=== PATIENT | female | born 1945 | race African-American/Black ===

== ENCOUNTER 2023-06-23 05:48 | Emergency (ER) | payer BC, SELFPAY ==
--- NOTE | ~2023-06-23 | XR_ITS ---
EXAMINATION: XR chest 1V portable DATE: 06/23/2023 06:45 INDICATION: Tracheostomy placement. TECHNIQUE: A single frontal view of the chest was obtained. COMPARISON: None. FINDINGS: There is mild atelectasis in the lower lung zones. No pleural effusion or pneumothorax. The heart size is normal. There is a tracheostomy tube in expected position. IMPRESSION: 1. Mild atelectasis in the lower lung zones. Reviewed, dictated and finalized at location E. RAL APPELLATE CLERK
[2023-06-23 05:48] VITALS: BP 134/109; PULSE 94; RESP 31; TEMP 36.7; O2SAT 96
--- NOTE | 2023-06-23 05:55 | PC.NURSE ---
HS contacted to obtain a 6 uncuffed trach tube from central supply.
[2023-06-23 05:58] VITALS: PULSE 87; O2SAT 94
--- NOTE | 2023-06-23 05:59 | PC.NURSE ---
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
[2023-06-23 06:01] VITALS: BP 126/61; PULSE 88; RESP 22; O2SAT 92
--- NOTE | 2023-06-23 06:11 | PC.NURSE ---
HS and [facility] only able to obtain 5.[address] Giles at bedside to attempt placement at this time.
--- NOTE | 2023-06-23 06:15 | PC.NURSE ---
New trach placed by erp dr che at this time .
--- NOTE | 2023-06-23 06:17 | ED.GENADULT ---
HPI - General Adult General Chief complaint: Shortness of Breath/Dyspnea Stated complaint: pulled out trach Time Seen by Provider: 06/23/23 05:52 Related Data Allergies Allergy/AdvReac Type Severity Reaction Status Date / Time iodine Allergy Hives Verified 06/23/23 05:57 latex Allergy Hives Verified 06/23/23 05:57 Course Vital Signs Vital signs: Vital Signs Temperature 36.7 C 06/23/23 05:48 Pulse Rate 94 06/23/23 05:48 Respiratory Rate 31 H 06/23/23 05:48 Blood Pressure 134/109 H 06/23/23 05:48 Pulse Oximetry 96 06/23/23 05:48 Oxygen Delivery Non-Rebreather Mask 06/23/23 05:48 Oxygen Flow Rate 15 06/23/23 05:48 Temperature 36.7 C 06/23/23 05:48 Pulse Rate 88 06/23/23 06:01 Respiratory Rate 22 H 06/23/23 06:01 Blood Pressure 126/61 06/23/23 06:01 Pulse Oximetry 92 06/23/23 06:01 Oxygen Delivery Non-Rebreather Mask 06/23/23 05:58 Oxygen Flow Rate 15 06/23/23 05:58 Medical Decision Making Vital Signs Vital Signs: Vital Signs Temperature 36.7 C 06/23/23 05:48 Pulse Rate 94 06/23/23 05:48 Respiratory Rate 31 H 06/23/23 05:48 Blood Pressure 134/109 H 06/23/23 05:48 Pulse Oximetry 96 06/23/23 05:48 Oxygen Delivery Non-Rebreather Mask 06/23/23 05:48 Oxygen Flow Rate 15 06/23/23 05:48 Temperature 36.7 C 06/23/23 05:48 Pulse Rate 88 06/23/23 06:01 Respiratory Rate 22 H 06/23/23 06:01 Blood Pressure 126/61 06/23/23 06:01 Pulse Oximetry 92 06/23/23 06:01 Oxygen Delivery Non-Rebreather Mask 06/23/23 05:58 Oxygen Flow Rate 15 06/23/23 05:58 Discharge Plan Discharge Follow-up/Referrals: UNKNOWN,DOCTOR [Primary Care Provider] -
--- NOTE | 2023-06-23 06:19 | ED.GENADULT ---
HPI - General Adult General Chief complaint: Shortness of Breath/Dyspnea Stated complaint: pulled out trach Time Seen by Provider: 06/23/23 05:52 History of Present Illness HPI narrative: Patient is a 77-year-old female who presents emergency department with chief complaint of shortness of breath and pulled out trach. Patient has a chronic tracheostomy and 6- 0 uncuffed trach. The patient apparently pulled the trach out during the evening and EMS was called. They attempted to replace the trach and EMS attempted to place a 3.5 uncuffed endotracheal tube through the ostomy site without success. Patient normally uses supplemental oxygen and gets pulmonary toilet at home is not on a ventilator Related Data Allergies Allergy/AdvReac Type Severity Reaction Status Date / Time iodine Allergy Hives Verified 06/23/23 05:57 latex Allergy Hives Verified 06/23/23 05:57 Review of Systems Review of Systems: A 10 system review of systems was completed on the patient and is negative except for what is stated in the HPI. Nursing and ancillary documentation was reviewed. PMFSH Comments Prior CVA with right-sided weakness peg tube trach, dementia Exam Narrative: GENERAL: Well-appearing, well-nourished, and in no acute distress. HEAD: Normocephalic, atraumatic. EYES: PERRLA and EOMI. ENT: Nares clear, no rhinorrhea or epistaxis. Mucous membranes moist. NECK: Supple. Small stoma site present in the tracheal area CHEST: Clear to auscultation. No respiratory distress. HEART: Regular rate and rhythm. No murmur heard. Normal peripheral pulses. ABDOMEN: Soft, nontender, nondistended, normal active bowel sounds. EXTREMITIES: Normal range of motion. No edema. SKIN: Warm, dry, no rash. NEURO: No focal deficits. Alert to baseline. PSYCH: Normal mood and affect. Course Vital Signs Vital signs: Vital Signs Temperature 36.7 C 06/23/23 05:48 Pulse Rate 94 06/23/23 05:48 Respiratory Rate 31 H 06/23/23 05:48 Blood Pressure 134/109 H 06/23/23 05:48 Pulse Oximetry 96 06/23/23 05:48 Oxygen Delivery Non-Rebreather Mask 06/23/23 05:48 Oxygen Flow Rate 15 06/23/23 05:48 Temperature 36.7 C 06/23/23 05:48 Pulse Rate 88 06/23/23 06:01 Respiratory Rate 22 H 06/23/23 06:01 Blood Pressure 126/61 06/23/23 06:01 Pulse Oximetry 92 06/23/23 06:01 Oxygen Delivery Non-Rebreather Mask 06/23/23 05:58 Oxygen Flow Rate 15 06/23/23 05:58 Procedures Other Procedure Procedure 1: Other Procedure: Using a 5.5 uncuffed trach the trach tube was inserted with an slug press operator the patient had good air exchange through the tube and tolerated the procedure well Medical Decision Making MDM Narrative Medical decision making narrative: Differential diagnosis includes loss of airway secondary to mechanical equipment failure Chest x-ray will be obtained and the patient will be deep suction by respiratory Chest x-ray showed no focal infiltrate the patient will be discharged back home with family Vital Signs Vital Signs: Vital Signs Temperature 36.7 C 06/23/23 05:48 Pulse Rate 94 06/23/23 05:48 Respiratory Rate 31 H 06/23/23 05:48 Blood Pressure 134/109 H 06/23/23 05:48 Pulse Oximetry 96 06/23/23 05:48 Oxygen Delivery Non-Rebreather Mask 06/23/23 05:48 Oxygen Flow Rate 15 06/23/23 05:48 Temperature 36.7 C 06/23/23 05:48 Pulse Rate 88 06/23/23 06:01 Respiratory Rate 22 H 06/23/23 06:01 Blood Pressure 126/61 06/23/23 06:01 Pulse Oximetry 92 06/23/23 06:01 Oxygen Delivery Non-Rebreather Mask 06/23/23 05:58 Oxygen Flow Rate 15 06/23/23 05:58 Discharge Plan Discharge Clinical Impression: Malfunction of tracheostomy Patient Disposition: Home, Self-Care Condition: Stable Instructions: Antibiotic Form, Tracheostomy Care (ED) Additional Instructions: Please follow-up with your primary care provider Follow-up/Referrals: UNKNOWN,DOC
[2023-06-23 07:12] VITALS: BP 113/57; PULSE 82; RESP 16; O2SAT 100
[2023-06-23 08:27] VITALS: BP 152/89; PULSE 83; RESP 17; TEMP 36.6; O2SAT 100
[2023-06-23 09:59] VITALS: BP 151/82; PULSE 83; RESP 18; O2SAT 100
== END 2023-06-23 10:01 | disposition home or self-care (01) ==
PROVIDERS: Emergency Provider Emergency Medicine
DX: Z43.0 Encounter for attention to tracheostomy (principal); I69.951 Hemiplegia and hemiparesis following unspecified cerebrovascular disease affecting right dominant side; F03.90 Unspecified dementia, unspecified severity, without behavioral disturbance, psychotic disturbance, mood disturbance, and anxiety
CPT/HCPCS: 71045; 99283

== ENCOUNTER 2023-07-03 18:39 | Emergency (ER) | payer BC, SELFPAY ==
[2023-07-03] VITALS (8 sets, daily range): BP systolic 140–152; BP diastolic 68–72; PULSE 77–88; RESP 19–24; TEMP 36.6–36.7; O2SAT 100
--- NOTE | 2023-07-03 19:18 | PC.NURSE ---
Assumed care of pt from JASMIN Alba at this time.
--- NOTE | 2023-07-03 19:59 | PC.NURSE ---
Pt daughter requesting humidified oxygen. RT called and to be coming down to assess pt.
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
[2023-07-03] MEDS: IPRATROPIUM 0.5 MG/ALBUTEROL SULFATE 2.5 MG AMPUL.NEB 3 ML INHALATION (20:30)
--- NOTE | 2023-07-03 20:31 | PC.NURSE ---
RT at bedside suctioning pt and hooking pt up to humidified oxygen. This RN replaced dressing around trach with assistance from DAISY Shelby. RT requested 14 fr suction catheters to be placed at bedside, DAISY Shelby placed removed them from pyxis and placed at bedside.
[2023-07-04 00:21] VITALS: BP 131/73; PULSE 75; RESP 16; O2SAT 100
--- NOTE | 2023-07-04 00:43 | PC.NURSE ---
Pt changed by this RN and JOSE Sims. RT called to adjust settings on high flow as requested per family. Pt VSS at this time.
--- NOTE | 2023-07-04 00:53 | PC.NURSE ---
EMS transport contacted for ETA. Reported 2 hours. Rosy, ER escrow secretary calling other companies to see if any offer shorter wait times.
== END 2023-07-04 01:51 | disposition home or self-care (01) ==
PROVIDERS: Emergency Provider Physician Assistant
DX: R06.2 Wheezing (principal); G30.9 Alzheimer's disease, unspecified; F02.80 Dementia in other diseases classified elsewhere, unspecified severity, without behavioral disturbance, psychotic disturbance, mood disturbance, and anxiety; I69.351 Hemiplegia and hemiparesis following cerebral infarction affecting right dominant side; Z93.0 Tracheostomy status; Z99.81 Dependence on supplemental oxygen
CPT/HCPCS: 94640; 99283

== ENCOUNTER 2023-07-16 17:05 | Emergency (ER) | payer BC, SELFPAY ==
--- NOTE | ~2023-07-16 | XR_ITS ---
EXAMINATION: XR chest 1V portable Exam Date/Time: 07/16/2023 17:42 CDT HISTORY: trach placement Comparison: 06/23/2023. RESULT: Lines, tubes, and devices: Tracheostomy tube terminating over the upper trachea. Multiple suture libertad es in the right mid and upper lung. Lungs and pleura: Senescent and postsurgical change. Right lower lung scar/atelectasis. Cardiomediastinal silhouette: Stable. Other: No acute osseous or upper abdominal finding. IMPRESSION: No acute cardiopulmonary process. Tracheostomy tube in good position. Reviewed, dictated and finalized at location K.
[2023-07-16 17:09] VITALS: BP 111/55; PULSE 75; RESP 18; TEMP 36.3; O2SAT 95
[2023-07-16 17:12] VITALS: RESP 20
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
[2023-07-16 17:30] VITALS: PULSE 74; RESP 24; O2SAT 100
--- NOTE | 2023-07-16 17:30 | PC.NURSE ---
ED MD able to place new tracheostomy tube at bedside. Respiratory present to start humidified o2 and inline suction. Pt tolerating well. Will continue to monitor.
[2023-07-16 19:31] VITALS: BP 134/79; PULSE 78; RESP 20; O2SAT 98
== END 2023-07-16 20:09 | disposition home or self-care (01) ==
PROVIDERS: Emergency Provider Emergency Medicine
DX: Z43.0 Encounter for attention to tracheostomy (principal)
CPT/HCPCS: 43762; 71045; 99283

== ENCOUNTER 2023-08-07 12:50 | Emergency (ER) | payer BC, SELFPAY ==
[2023-08-07] VITALS (23 sets, daily range): BP systolic 93–172; BP diastolic 48–101; PULSE 70–87; RESP 12–34; TEMP 36.4–36.9; O2SAT 84–100
--- NOTE | ~2023-08-07 | XR_ITS ---
EXAMINATION: XR chest 1V portable 08/07/2023 13:34 INDICATION: Shortness of breath. PROCEDURE: AP portable chest COMPARISON: 07/16/2023 FINDINGS: The lungs are clear. The cardiomediastinal silhouette is within normal limits. There are no pleural effusions. There is no pneumothorax suspected. IMPRESSION: 1: NO ACUTE CARDIOPULMONARY DISEASE. Reviewed, dictated and finalized at location B.
--- NOTE | 2023-08-07 13:00 | ECG_ITS ---
SEE SCANNED COPY FOR CONFIRMED REPORT MTDD
[2023-08-07] MEDS: IPRATROPIUM BR 0.02% INH SOLN 0.5 MG/2.5 ML VIAL 1 MG INHALATION (13:10)
[2023-08-07] MEDS: ALBUTEROL SULFATE NEB 2.5 MG/3 ML INH 10 MG INHALATION (13:10)
[2023-08-07 13:16] LABS: Basophils Absolute Auto 0.1 K/mm3 (0.0-0.1); Basophils Percent Auto 0.4 % (0.2-1.2); Eosinophils Absolute Auto 0.4 K/mm3 (0-0.3); Eosinophils Percent Auto 2.9 % (0-4.4); Hematocrit 30.1 % (37.0-47.0); Hemoglobin 9.7 g/dL (12.0-15.0); Immature Granulocyte Absolute 0.06 K/mm3 (0.00-0.031); Immature Granulocyte Percent A 0.4 % (0-0.5); Lymphocytes Absolute Auto 1.12 K/mm3 (0.9-3.2); Lymphocytes Percent Auto 7.9 % (18.3-44.2); Mean Corpuscular HGB Conc 32.2 g/dl (32-36); Mean Corpuscular Hemoglobin 30.1 pg (26-34); Mean Corpuscular Volume 93.5 fl (80-100); Mean Platelet Volume 10.4 fl (7.4-10.4); Monocytes Absolute Auto 0.7 K/mm3 (0.1-0.6); Neutrophils Absolute Auto 11.9 K/mm3 (1.3-6.7); Neutrophils Percent Auto 83.4 % (45.5-73.1); Platelet Count Result 335 k/mm3 (150-375); Red Blood Count 3.22 M/mm3 (4.2-5.4); Red Cell Distribution Width 15.4 % (11.5-14.5); White Blood Count 14.2 K/mm3 (4.5-10.0)
[2023-08-07 13:27] LABS: Partial Thromboplastin Time 29.6 Seconds (22.3-36.8); Prothrombin Time 13.8 Seconds (11.1-14.7)
[2023-08-07 13:30] LABS: Alanine Aminotransferase 18 U/L (6-35); Albumin Level 4.6 g/dL (3.5-5.1); Alkaline Phosphatase 125 U/L (38-126); Anion Gap 7 mmol/L (4-12); Aspartate Amino Transferase 30 U/L (14-36); Bilirubin,Total 0.4 mg/dL (0.2-1.3); Blood Urea Nitrogen 53 mg/dL (7-17); Calcium 11.1 mg/dL (8.4-10.2); Carbon Dioxide 30 mmol/L (22-30); Chloride 100 mmol/L (98-107); Estimated CRCL calculation 44 ml/min; Estimated Glomerular Filt Rate > 60; Glucose 193 mg/dL (65-110); Potassium 5.8 mmol/L (3.4-5.0); Sodium 137 mmol/L (137-145)
--- NOTE | 2023-08-07 14:32 | PC.NURSE ---
Family states pt usually wears 8L O2 at all times
--- NOTE | 2023-08-07 14:43 | ED.GENADULT ---
HPI - General Adult General Chief complaint: Shortness of Breath/Dyspnea Stated complaint: gi bleed/respiratory distress Time Seen by Provider: 08/07/23 13:00 History of Present Illness HPI narrative: 77-year-old female presenting to the emergency department for evaluation of blood in the stool over the last 2-3 days. Patient does have a history of hemorrhoids. Family did provide a photo of blood on stool and report no melena. Is not on any blood thinners. Related Data Allergies Allergy/AdvReac Type Severity Reaction Status Date / Time iodine Allergy Hives Verified 08/07/23 13:08 latex Allergy Hives Verified 08/07/23 13:08 Review of Systems Review of Systems: All systems reviewed & are unremarkable except as noted in HPI and below Exam Narrative: APPEARANCE: Well appearing, no pain, no distress, well-nourished. HEAD: normocephalic, atraumatic. EYES: PERRLA/EOMI, conjunctivae clear. NOSE: Normal no drainage EARS:TMS clear with good light reflex. THROAT: Pharynx clear, no exudate. NECK: Supple. No adenopathy, no masses. RESPIRATORY: wheezing respiration upon arrival CARDIOVASCULAR: Regular rate and rhythm without murmurs rubs or gallops. ABDOMINAL: Soft, nontender, nondistended, normal bowel sounds MUSCULOSKELETAL: Moves all extremities. Strength/ROM intact, No edema, No calf tenderness. NEURO: Alert. Cranial nerves II through XII intact. grossly intact SKIN: Warm, dry. Normal Color Course Course Emergency Course: Patient family were updated on the results of the workup and patient was encouraged to have close follow-up with primary care physician and GI. Vital Signs Vital signs: Vital Signs Temperature 98.4 F 08/07/23 12:47 Pulse Rate 87 08/07/23 12:47 Respiratory Rate 34 H 08/07/23 12:47 Blood Pressure 156/95 H 08/07/23 12:47 Pulse Oximetry 100 08/07/23 12:47 Oxygen Delivery Trach Collar 08/07/23 12:47 Oxygen Flow Rate 50 08/07/23 12:47 Fraction of Inspired Oxygen 59 08/07/23 12:47 Temperature 97.5 F L 08/07/23 16:06 Pulse Rate 83 08/07/23 20:30 Respiratory Rate 17 08/07/23 20:30 Blood Pressure 123/58 L 08/07/23 20:01 Pulse Oximetry 100 08/07/23 20:30 Oxygen Delivery High Flow Therapy with Trach Collar 08/07/23 18:06 Oxygen Flow Rate 40 08/07/23 18:06 Fraction of Inspired Oxygen 50 08/07/23 18:06 Medical Decision Making MDM Narrative Medical decision making narrative: 77-year-old female presenting to the emergency department for evaluation blood in her stool. The patient is afebrile but does have a leukocytosis of 14.2, patient has hemoglobin of 9.7. Patient did have some wheezing on exam and this did improve breathing treatments. Patient's O2 requirement is the same as at home. Chest x-ray shows no evidence of pneumonia. Family feels that the patient is breathing at her normal baseline. Patient is not appear to be in any distress. Patient did have an elevated potassium but patient did receive an hour long albuterol treatment and a dose of Lokelma. Differential Diagnosis Differential Diagnosis: Colitis, diverticulitis, external hemorrhoid, internal hemorrhoid, upper GI bleed, lower GI Vital Signs Vital Signs: Vital Signs Temperature 98.4 F 08/07/23 12:47 Pulse Rate 87 08/07/23 12:47 Respiratory Rate 34 H 08/07/23 12:47 Blood Pressure 156/95 H 08/07/23 12:47 Pulse Oximetry 100 08/07/23 12:47 Oxygen Delivery Trach Collar 08/07/23 12:47 Oxygen Flow Rate 50 08/07/23 12:47 Fraction of Inspired Oxygen 59 08/07/23 12:47 Temperature 97.5 F L 08/07/23 16:06 Pulse Rate 83 08/07/23 20:30 Respiratory Rate 17 08/07/23 20:30 Blood Pressure 123/58 L 08/07/23 20:01 Pulse Oximetry 100 08/07/23 20:30 Oxygen Delivery High Flow Therapy with Trach Collar 08/07/23 18:06 Oxygen Flow Rate 40 08/07/23 18:06 Fraction of Inspired Oxygen 50 08/07/23 18:06 Lab Data 08/07/23 13:08 08/07/23 13:
[2023-08-07] MEDS: SODIUM ZIRCONIUM CYCLOSILICATE 10 GM POWD.PACK PO (15:57)
--- NOTE | 2023-08-07 19:12 | PC.NURSE ---
Report given to Zora CASTELLANOS, all questions answered
== END 2023-08-07 20:48 | disposition home or self-care (01) ==
PROVIDERS: Emergency Provider Emergency Medicine
DX: K64.9 Unspecified hemorrhoids (principal)
CPT/HCPCS: 36415; 71045; 80053; 85025; 85610; 85730; 93005; 94640; 99284; A9270

== ENCOUNTER 2023-09-11 02:26 | Inpatient (IN) | payer MEDICARE, BC, SELFPAY ==
[2023-09-11] VITALS (41 sets, daily range): BP systolic 108–149; BP diastolic 49–71; PULSE 63–104; RESP 14–28; TEMP 36.1–36.6; O2SAT 94–100; BMI 25.2
--- NOTE | ~2023-09-11 | CT_ITS ---
EXAMINATION: CTA chest PE protocol DATE: 09/12/2023 17:36 INDICATION: Shortness of breath TECHNIQUE: Computed tomography (CT) pulmonary angiogram of the chest was performed with 100 mL Omnipa que-350 intravenous contrast. Additional 3D reconstructions utilizing coronal maximum intensity proje ction (MIP) were performed. Automated exposure control and iterative reconstruction technique were em ployed. The dose-length product was 547.01 mGy-cm. COMPARISON: None FINDINGS: Tracheostomy tube at the thoracic inlet. No pulmonary embolism. Sensitivity decreased in some of the smaller subsegmental pulmonary arteries particularly at the lung bases due to some respiratory motion . Mild emphysema. Mild discoid atelectasis along the bilateral major fissures and mild dependent atel ectasis in bilateral lower lobes. 10 mm nodule at the posterior segment of the left upper lobe which is concerning for primary bronchogenic carcinoma. Mild cardiomegaly. Atherosclerotic coronary artery calcifications. Aortic valve calcific lesion. No pericardial effusion. Thoracic aorta is normal in ca liber with no dissection. No pathologically enlarged thoracic lymphadenopathy. Likely benign 1.3 cm r ight thyroid nodule. Cholecystectomy clips at gallbladder fossa. Mild thoracic spondylosis. IMPRESSION: 1. Emphysema and mild atelectasis in both lungs. No pulmonary embolism or other acute cardiopulmonary disease. 2. 10 mm left upper lobe nodule concerning for primary bronchogenic carcinoma. If prior outside imagi ng is unavailable to document long-term stability would recommend percutaneous biopsy for further damon luation. Line 3. Mild cardiomegaly and enlargement of the central pulmonary arteries consistent with pulmonary glory rial hypertension. Reviewed, dictated and finalized at location A. IMPRESSION: 1. Emphysema and mild atelectasis in both lungs. No pulmonary embolism or other acute cardiopulmonary disease. 2. 10 mm left upper lobe nodule concerning for primary bronchogenic carcinoma. If prior outside imaging is unavailable to document long-term stability would r ecommend percutaneous biopsy for further evaluation. Line 3. Mild cardiomegaly and enlargement of the central pulmonary arteries consiste nt with pulmonary arterial hypertension.
--- NOTE | ~2023-09-11 | XR_ITS ---
Portable chest x-ray Comparison: 08/07/2023 Clinical History: Shortness of breath Findings: Tracheostomy cannula present. Possible mild central congestive changes and minimal pulmona ry edema pattern. Cardiomediastinal silhouette is stable. Bones and soft tissues are unremarkable. Impression: Mild central congestive changes and suspected minimal pulmonary edema pattern. Tracheostomy cannula. Reviewed, dictated and finalized at location . Impression: Mild central congestive changes and suspected minimal pulmonary edema pattern. Tracheostomy cannula.
--- NOTE | ~2023-09-11 | US_ITS ---
Duplex Sonography of the bilateral lower extremities: Indication: Positive d-dimer Sagittal and transverse B-mode images as well as color-flow imaging were performed on the right and l eft femoral and popliteal veins. B-mode examination was done without and with compression in the tra nsverse plane. There is good visualization of the bilateral common femoral, proximal profunda femora l, superficial femoral, greater saphenous, and popliteal veins. Normal flow was seen on color-flow im aging. Normal compressibility was demonstrated. Visualized calf veins are also patent. Impression: No evidence of deep vein thrombosis involving either lower extremity. Reviewed, dictated and finalized at location M. Impression: No evidence of deep vein thrombosis involving either lower extremit y.
--- NOTE | 2023-09-11 02:44 | ED.GENADULT ---
HPI - General Adult General Chief complaint: Shortness of Breath/Dyspnea Stated complaint: difficulty breathing/trach History of Present Illness HPI narrative: Patient is 77-year-old female who presents to the emergency department this morning due to shortness of breath and hypoxia. Patient is trach dependent with baseline of A&O x1. Daughter is present with the patient. Daughter states that today she noticed that her mother is working hard to breathe and when she went to measure her pulse ox, she noted that she was satting in the 60s. Patient then brought the patient oxygen and placed it on her tracheal tube but could not get her oxygen level above 80. She called EMS and patient was brought to our facility for further evaluation. Patient suffered a stroke in December of 2022 and was trached on March of 2023. Patient was recently discharged from [facility] 2 days ago where she was admitted for trach issues, and pneumonia. 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 Daughter denies any fevers at home since she was discharged from the hospital. Patient uses supplemental oxygen at home as needed and is not connected to a ventilator. Per daughter, she wears 3-4 L of oxygen. Related Data Allergies Allergy/AdvReac Type Severity Reaction Status Date / Time iodine Allergy Hives Verified 08/07/23 13:08 latex Allergy Hives Verified 08/07/23 13:08 Review of Systems Review of Systems: A full ROS was reviewed with daughter present at bedside and is negative unless stated otherwise in HPI. Exam Narrative: General: Awake, afebrile, in moderate respiratory distress. HEENT: PERRL, no rhinorrhea, no post nasal drip, oropharynx clear, trach in place. Neck: Trachea midline, no JVD, no lymphadenopathy. Cardiovascular: Regular rate and rhythm, no murmurs, rubs or gallops, no peripheral edema. Respiratory: Diffuse bilateral wheezing, tachypnea, moderate respiratory distress. Abdomen: Soft, nontender, nondistended, no rebound, no guarding, no peritoneal signs, G-tube in place. Musculoskeletal: No joint swelling or deformity, normal muscle tone. Skin: No rashes or petechia, no signs of infection. Neurological: Alert and oriented x 0-1 which is baseline. Right-sided flaccid paralysis secondary to history of stroke.. Course Vital Signs Vital signs: Vital Signs Temperature 98 F 09/11/23 02:25 Pulse Rate 78 09/11/23 02:25 Respiratory Rate 28 H 09/11/23 02:25 Blood Pressure 123/66 09/11/23 02:25 Pulse Oximetry 100 09/11/23 02:25 Oxygen Delivery Non-Rebreather Mask 09/11/23 02:25 Oxygen Flow Rate 10 09/11/23 02:25 Temperature 98 F 09/11/23 02:25 Pulse Rate 77 09/11/23 05:46 Respiratory Rate 22 H 09/11/23 05:46 Blood Pressure 122/56 L 09/11/23 05:46 Pulse Oximetry 95 09/11/23 05:46 Oxygen Delivery High Flow Therapy with Trach Collar 09/11/23 03:18 Oxygen Flow Rate 45 09/11/23 03:18 Medical Decision Making MDM Narrative Medical decision making narrative: The patient was evaluated by myself in the emergency department. History is obtained from patient who is an independent historian and physical exam was performed. External medical records were reviewed at this time. IV was established and pertinent tests were ordered. Respiratory therapy is called to bedside for airway suctioning. Patient was placed on a non-rebreather with improvement of her oxygenation to 100%. Patient was administered 125 mg of IV Solu-Medrol and two DuoNeb breathing treatment and humidified air. On repeat assessment the patient, patient's respiratory rate has improved along with her work of breathing and on repeat lung auscultation, wheezing has improved as well, however, patient does still have some mild bilateral wheezing. At this time, DuoNeb breathing treatments were scheduled every 4 hours along with intermittent suctioning. Patient is struggling to cough and clear up all the
[2023-09-11] MEDS: IPRATROPIUM 0.5 MG/ALBUTEROL SULFATE 2.5 MG AMPUL.NEB 3 ML INHALATION ×6 (03:01→20:46)
[2023-09-11] MEDS: methylPREDNISolone SOD SUCC 125 MG VIAL IV PUSH (03:46)
[2023-09-11 04:00] LABS: Basophils Absolute Auto 0.1 K/mm3 (0.0-0.1); Basophils Percent Auto 0.3 % (0.2-1.2); Eosinophils Absolute Auto 0.6 K/mm3 (0-0.3); Hematocrit 24.1 % (37.0-47.0); Hemoglobin 7.6 g/dL (12.0-15.0); Immature Granulocyte Absolute 0.07 K/mm3 (0.00-0.031); Immature Granulocyte Percent A 0.5 % (0-0.5); Lymphocytes Absolute Auto 0.86 K/mm3 (0.9-3.2); Lymphocytes Percent Auto 5.7 % (18.3-44.2); Mean Corpuscular HGB Conc 31.5 g/dl (32-36); Mean Corpuscular Hemoglobin 29.6 pg (26-34); Mean Corpuscular Volume 93.8 fl (80-100); Mean Platelet Volume 10.6 fl (7.4-10.4); Monocytes Absolute Auto 0.8 K/mm3 (0.1-0.6); Monocytes Percent Auto 5.2 % (2.6-8.5); Neutrophils Absolute Auto 12.7 K/mm3 (1.3-6.7); Neutrophils Percent Auto 84.3 % (45.5-73.1); Platelet Count Result 321 k/mm3 (150-375); Red Blood Count 2.57 M/mm3 (4.2-5.4); Red Cell Distribution Width 17.3 % (11.5-14.5); White Blood Count 15.1 K/mm3 (4.5-10.0)
[2023-09-11 04:10] LABS: Lactic Acid Reflex 1.6 mmol/L (0.7-2.0)
--- NOTE | 2023-09-11 04:30 | PC.NURSE ---
Phlebotomy called for blood draw. Patient stuck 8 times for blood and IV in the ED.
[2023-09-11] MEDS: levoFLOXacin 750 MG/D5W 150 ML 750 MG/150 ML BAG 100 MG IVPB (08:23)
--- NOTE | 2023-09-11 08:26 | PC.NURSE ---
0700 Report taken from AJSMIN Reddy who states phleb was called around 0430 for assistance with cultures and a green top due to difficult draw and hemolysis, and they haven't made it to the ED to assist.
--- NOTE | 2023-09-11 08:29 | PC.NURSE ---
0828 Karina from lab called to report hemolysis on the second green top sent, requested for phleb to come to ED for assistance to draw, Karina states she would let them know.
--- NOTE | 2023-09-11 08:35 | PC.NURSE ---
Phleb here to draw blood on pt.
[2023-09-11 09:10] LABS: Alanine Aminotransferase 20 U/L (6-35); Albumin Level 3.9 g/dL (3.5-5.1); Alkaline Phosphatase 126 U/L (38-126); Aspartate Amino Transferase 29 U/L (14-36); Bilirubin,Total 0.4 mg/dL (0.2-1.3); Blood Urea Nitrogen 60 mg/dL (7-17); Calcium 9.8 mg/dL (8.4-10.2); Carbon Dioxide > 40 mmol/L (22-30); Chloride 96 mmol/L (98-107); Estimated CRCL calculation 35 ml/min; Estimated Glomerular Filt Rate > 60; Glucose 144 mg/dL (65-110); Magnesium 2.4 mg/dL (1.6-2.3); Potassium 4.6 mmol/L (3.4-5.0); Sodium 139 mmol/L (137-145)
--- NOTE | 2023-09-11 09:24 | ADMGEN ---
This patient, Nicole Cuevas, was admitted to IMU Room 232-01. Patient/family oriented to hospital policies and general routines including ID bracelet, bed and alarms, visiting hours, pain management, procedures, bathroom and other care routines, personal items, smoking policy, room service/diet, and visiting hours. Information on how to activate the Rapid Response Team has been discussed. Patient/Family are encouraged to report perceived risks to care and to ask questions if they do not understand what they are told or what they should do.
--- NOTE | 2023-09-11 09:52 | PM.IMHP ---
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 Patient was admitted at [facility] for up sizing of tracheostomy to a #6 Shiley from a pediatric trach that was previously in place. While in the hospital patient developed an infection and was treated for pneumonia. Patient was discharge on 09/08 and was doing well that day. On 09/09 patient began having wheezing and difficulty breathing requiring higher flow of oxygen by trach collar and not improving with nebulizer treatments at home. Overnight patient's oxygen saturation decreased below 60% despite the use of trach collar oxygen. EMS was called and was able to get saturation to 80%. Review of Systems Review of Systems: ROS unobtainable: Yes unobtainable due to endotracheal tube and unobtainable due to mental status PMFSH Past Medical History Medical History 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 03/2017 Alzheimer's dementia A&O x0 CAD (coronary artery disease) Cerebrovascular accident (CVA) Cholecystectomy planned 01/16/2023 COPD (chronic obstructive pulmonary disease) Gastrostomy complication Gastrostomy tube replacement 04/04/2023 HLD (hyperlipidemia) HTN (hypertension) Tracheitis 09/04 Surgical History Surgical History H/O tracheostomy 03/2023 Hx of esophagogastroduodenoscopy w/ Peg placement 01/20/23 Hx of exploratory laparotomy ROULA Gastrostomy Social History Social History Smoking status: Never smoker Spiritual care concerns: No Meds Home Medications and Allergies Home Medications Medication Instructions Recorded Confirmed Type acetaminophen 160 mg/5 mL oral 640 mg PO QID PRN pain or fever 09/11/23 09/11/23 History elixir albuterol sulfate 90 mcg/actuation 2 puff inhalation Q4H PRN 09/11/23 09/11/23 History aerosol inhaler Shortness Of Breath Or Wheezing amlodipine 5 mg tablet 5 mg feeding tube DAILY 09/11/23 09/11/23 History aspirin 81 mg chewable tablet 81 mg feeding tube DAILY 09/11/23 09/11/23 History atorvastatin 20 mg tablet 20 mg feeding tube HS 09/11/23 09/11/23 History donepezil 5 mg tablet 5 mg feeding tube HS 09/11/23 09/11/23 History guaifenesin 100 mg/5 mL oral liquid 200 mg PO Q6H PRN Cough 09/11/23 09/11/23 History lansoprazole 30 mg delayed 30 mg feeding tube DAILY 09/11/23 09/11/23 History release,disintegrating tablet polyethylene glycol 3350 17 gram 17 g feeding tube DAILY PRN 09/11/23 09/11/23 History oral powder packet Constipation Allergies Allergy/AdvReac Type Severity Reaction Status Date / Time iodine Allergy Hives Verified 08/07/23 13:08 latex Allergy Hives Verified 08/07/23 13:08 Vital Signs Vital Signs - 24 hr 09/11/23 02:25 09/11/23 03:01 09/11/23 03:18 Temperature 36.6 C Pulse Rate 78 76 Respiratory Rate 28 H 26 H Blood Pressure 123/66 Pulse Oximetry 100 97 Oxygen Delivery Non-Rebreather Mask High Flow Therapy with Tr Oxygen Flow Rate 10 45 Fraction of Inspired Oxygen 09/11/23 03:10 09/11/23 03:25 09/11/23 03:39 Temperature Pulse Rate 82 77 72 Respiratory Rate 24 H 21 H 27 H Blood Pressure Pulse Oximetry Oxygen Delivery Oxygen Flow Rate Fraction of Inspired Oxygen 09/11/23 04:16 09/11/23 04:31 09/11/23 02:30 Temperature Pulse Rate 67 82 77 Respiratory Rate 21 H 17 Blood Pressure 113/57 L 110/58 L Pulse Oximetry 96 97 Oxygen Delivery Oxygen Flow Rate Fraction of Inspired Oxygen 09/11/23 04:46 09/11/23 05:01 09/11/23 05:16 Temperature Pulse Rate 85
--- NOTE | 2023-09-11 10:26 | ECG_ITS ---
SEE SCANNED COPY FOR CONFIRMED REPORT MTDD
[2023-09-11 11:01] LABS: Troponin I 0.045 ng/mL (0.000-0.034)
[2023-09-11 11:12] LABS: Hemoglobin A1C 5.1 % (<5.7)
[2023-09-11] MEDS: ATORVASTATIN 20 MG TABLET FEED TUBE (11:31)
[2023-09-11] MEDS: LANSOPRAZOLE ODT 30 MG TAB.RAP.DR FEED TUBE (11:32)
[2023-09-11] MEDS: ASPIRIN 81 MG CHEWABLE TABLET FEED TUBE (11:32)
[2023-09-11] MEDS: TOLNAFTATE 1% POWDER 45 GM BTL 1 APPLIC TOPICAL ×2 (13:41→21:32)
[2023-09-11] MEDS: DONEPEZIL HCL 5 MG TABLET FEED TUBE (21:32)
[2023-09-11] MEDS: amLODIPine BESYLATE 5 MG TABLET FEED TUBE (21:32)
[2023-09-12] VITALS (32 sets, daily range): BP systolic 114–147; BP diastolic 35–78; PULSE 75–887; RESP 12–32; TEMP 36.2–37.1; O2SAT 92–99
--- NOTE | 2023-09-12 | ECHO_ITS ---
Patient Info Name: Nicole Cuevas Age: 77 years : 1945 Gender: Female Ht: 64 in Wt: 146 lbs BSA: 1.74 m2 HR: 89 bpm BP: 140 / 63 mmHg Technical Quality: Good Exam Date: 09/12/2023 7:38 AM Exam Location: Echo Lab Patient Status: Inpatient Admit Date: 09/11/2023 Staff Ordering Physician: Jean Pierre Marcum APRN Bread Oven Operator: Martin Lockwood RDCS Attending Provider: Ben Valdivia MD Referring Physician: Jossue MILTON; Exam Type: CA echo doppler color flow Study Info Indications - pulmonary edema Complete two-dimensional, color flow and Doppler transthoracic echocardiogram is performed. Summary 1. Complete two-dimensional, color flow and Doppler transthoracic echocardiogram is performed. 2. Left ventricular chamber dimension is normal. 3. Left ventricular systolic function is normal, estimated at 65-70%. 4. The left ventricular diastolic function is grade I diastolic dysfunction. 5. E/e' 11 is mildly elevated. 6. Left atrial chamber dimension is mildly enlarged. 7. Right atrial chamber dimension is mildly enlarged. 8. There is trace tricuspid valve regurgitation. 9. Moderate pulmonary hypertension, estimated pulmonary arterial systolic pressure is 57 mmHg. 10. Dilated inferior vena cava with <50% collapse upon inspiration consistent with significantly elevated right atrial pressure, 15 mmHg. 11. There is trivial pericardial effusion. Left Ventricle E/e' 11 is mildly elevated. Left ventricular chamber dimension is normal. Left ventricular systolic function is normal, estimated at 65-70%. The left ventricular diastolic function is grade I diastolic dysfunction. Right Ventricle Right ventricular systolic function is normal and with normal TAPSE 2.1 cm. Right ventricular chamber dimension is normal. Left Atria Left atrial chamber dimension is mildly enlarged. Right Atria Right atrial chamber dimension is mildly enlarged. Aortic Valve The aortic valve is trileaflet. There is no aortic valve stenosis. There is no aortic valve regurgitation. Pulmonic Valve There is no pulmonic regurgitation. Mitral Valve There is no mitral valve stenosis. There is no mitral valve regurgitation. Tricuspid Valve There is trace tricuspid valve regurgitation. Moderate pulmonary hypertension, estimated pulmonary arterial systolic pressure is 57 mmHg. Pericardium/Pleural There is trivial pericardial effusion. Inferior Vena Cava Dilated inferior vena cava with <50% collapse upon inspiration consistent with significantly elevated right atrial pressure, 15 mmHg. Aorta The aortic root size at the sinus of Valsalva is normal. Left Ventricular Outflow Tract Name Value Normal LVOT 2D LVOT Diameter 1.8 cm LVOT Doppler LVOT Peak Gradient 12 mmHg LVOT Mean Gradient 6 mmHg LVOT VTI 33 cm LVOT VTI/AV VTI Ratio 1.0 LVOT Stroke Volume 88 ml LVOT CO 7.3 l/min LVOT CI 4.2 l/min/m2 Pulmonic Valve Name
[2023-09-12] MEDS: IPRATROPIUM 0.5 MG/ALBUTEROL SULFATE 2.5 MG AMPUL.NEB 3 ML INHALATION ×6 (00:56→20:48)
[2023-09-12 08:29] LABS: Basophils Percent Auto 0.1 % (0.2-1.2); Hematocrit 22.7 % (37.0-47.0); Immature Granulocyte Absolute 0.04 K/mm3 (0.00-0.031); Immature Granulocyte Percent A 0.5 % (0-0.5); Lymphocytes Absolute Auto 1.14 K/mm3 (0.9-3.2); Mean Corpuscular HGB Conc 30.8 g/dl (32-36); Mean Corpuscular Hemoglobin 28.9 pg (26-34); Mean Corpuscular Volume 93.8 fl (80-100); Mean Platelet Volume 9.7 fl (7.4-10.4); Monocytes Absolute Auto 0.9 K/mm3 (0.1-0.6); Monocytes Percent Auto 11.5 % (2.6-8.5); Neutrophils Percent Auto 73.9 % (45.5-73.1); Platelet Count Result 285 k/mm3 (150-375); Red Blood Count 2.42 M/mm3 (4.2-5.4); Red Cell Distribution Width 16.9 % (11.5-14.5); White Blood Count 8.1 K/mm3 (4.5-10.0)
[2023-09-12 08:42] LABS: Alanine Aminotransferase 16 U/L (6-35); Albumin Level 3.6 g/dL (3.5-5.1); Alkaline Phosphatase 85 U/L (38-126); Anion Gap 6 mmol/L (4-12); Aspartate Amino Transferase 23 U/L (14-36); Bilirubin,Total 0.4 mg/dL (0.2-1.3); Blood Urea Nitrogen 58 mg/dL (7-17); Calcium 9.6 mg/dL (8.4-10.2); Carbon Dioxide 35 mmol/L (22-30); Chloride 100 mmol/L (98-107); Estimated CRCL calculation 30 ml/min; Estimated Glomerular Filt Rate 53; Glucose 138 mg/dL (65-110); Magnesium 2.5 mg/dL (1.6-2.3); Phosphorus 1.7 mg/dL (2.5-4.5); Potassium 3.8 mmol/L (3.4-5.0); Sodium 141 mmol/L (137-145)
[2023-09-12] MEDS: ENOXAPARIN 40 MG/0.4 ML SYRINGE SUB-Q (09:10)
[2023-09-12] MEDS: LANSOPRAZOLE ODT 30 MG TAB.RAP.DR FEED TUBE (09:10)
[2023-09-12] MEDS: ASPIRIN 81 MG CHEWABLE TABLET FEED TUBE (09:10)
[2023-09-12] MEDS: ATORVASTATIN 20 MG TABLET FEED TUBE (09:10)
[2023-09-12] MEDS: TOLNAFTATE 1% POWDER 45 GM BTL 1 APPLIC TOPICAL ×2 (09:19→22:00)
[2023-09-12 10:29] LABS: NT Pro B Type Natriuretic Pept 1070 pg/mL (19.9-100)
[2023-09-12 10:37] LABS: Procalcitonin 0.6 ng/mL
[2023-09-12 10:51] LABS: Thyroid Stimulating Hormone 0.696 uIU/mL (0.465-4.680)
[2023-09-12 10:53] LABS: D Dimer 0.61 ug/mL (<0.48)
[2023-09-12 10:54] LABS: Free T4 Free Thyroxine 1.08 ng/mL (0.78-2.19)
--- NOTE | 2023-09-12 10:56 | PCNFU ---
Nutrition Follow-Up Complete: Excessive energy intake related to tube feeding orders as evidenced by current rate meeting 163% of energy needs, 154% of protein needs. - RESOLVED Goal: Meet estimated needs, Tolerance of tube feeds - Goal is being met Pt current nutrition is Nepro bolus 240 ml QID (q 4 hours WHILE AWAKE). Flush 120 ml water QID Nutrition recommendation: Based on home regimen, recommend increasing flushes to 240 ml q 4 hours for total water 1648 ml/day Last recorded weight is 66.5 kg. Bowel Motility: No BMs charted Labs Reviewed: Hgb 7.0, Hct 22.7, BUN 58, Cre 1.2, Glu 18 Meds Noted: Levaquin, prevacid, Aricept Skin: Fiction to sacrum Additional Notes:Confirmed with patient's daughter that the current tube feeding regimen at home is Nepro 240 ml QID (no overnight feedings). Confirmed with daughter they are flushing 120 ml water BEFORE AND AFTER feedings for total 240 ml QID. Meeting needs with 1728 kcal, 78 g protein, 688 ml free water. Currently flushing 120 ml q 4 hours. total water is 1168 ml/day. Discussed with RN and flushes changed to 240 ml QID. Monitor tube feeding rate, tolerance, wt, labs. Follow up every Friday and Friday.
[2023-09-12 11:09] LABS: Alveolar/Arterial O2 Gradient 89.9 mmHg; Fractional Inspired Oxygen 30 %; HCO3 ABG 36.4 mEq/l (22.0-26.0); Oxygen Content ABG 10.1 %vol (16.0-22.0); Oxygen Saturation ABG 94.6 % (95.0-100.0); Oxyhemoglobin 92.3 % THb (90.0-100.0); PCO2 ABG 48.2 mmHg (35.0-45.0); PO2 ABG 67.4 mmHg (80.0-100.0); PO2 FiO2 Ratio Arterial Blood 2.25 %; pH ABG 7.496 (7.350-7.450)
[2023-09-12 11:12] LABS: Modified Allen's Test Pass; Site Drawn LEFT RADIAL; Total Hemoglobin 7.7 g/dL (12.0-18.0)
[2023-09-12 11:13] LABS: Device HIGH FLOW THERAPY
[2023-09-12 11:22] LABS: Influenza A QL RT-PCR Negative (Negative); Influenza B QL RT-PCR Negative (Negative); RSV RNA, RT-PCR Negative (Negative); SARS-CoV-2 RNA PCR Negative (Negative)
--- NOTE | 2023-09-12 11:26 | PM.CNPUL ---
Assessment and Plan Assessment and plan (1) Acute and chronic respiratory failure with hypoxia: Code(s): J96.21 - Acute and chronic respiratory failure with hypoxia Status: Acute Assessment and Plan: 77-year-old with a history of tobacco use, lung cancer surgery in 2018, CVA with right-sided hemiparesis in 12/2022, G-tube placed in 02/2023 and tracheostomy placed in 04/12. patient was recently discharged from [facility] and per the family was on 28% FiO2. At home the patient wears a trach collar with a home oxygen order per [facility] at 7-8 L. The family tells me she is wearing a trach collar and normally she is set at 8 L on her oxygen concentrator with saturations 93-98%. Currently the patient had worsening hypoxemia and was brought to the emergency department. She had diffuse wheezing and was treated for COPD exacerbation and possible pneumonia. Blood gas is 7.50/48/67. Her BNP is 1070, her procalcitonin is 0.6, her D-dimer is positive at 0.61, her COVID influenza and RSV RT PCR studies are negative. Echocardiogram with normal LVEF 65-70, grade 1 diastolic dysfunction, mildly increased right atrium, normal RV size and function with a PASP of 57. Etiology of worsening hypoxemia includes mucus plugging, COPD exacerbation, pneumonia, fluid overload and or pulmonary embolism. Plan: I will order CT angiogram of the chest to exclude PE. Agree with treating for possible COPD exacerbation with bronchodilators and antibiotics for possible infection. Currently the patient is on an Airvo machine as this is the way we would administer humidified air at [facility] with 35 L and 30% FiO2. Wean for goal saturation 90-94%. It appears that her oxygen is at her baseline as she was discharged from [facility] on 09/09/2023 and at that time required 28% FiO2 Per the family. Her PaCO2 is 48 on her blood gas today, with a pH of 7.50. There is no need for noninvasive ventilation at this time. Our administrative operations coordinator has called Ivana and her home orders per [facility] are oxygen 7-8 L. she has a cool aerosol generator and this is designed to be titrated to patient comfort. When the patient is ready for discharge she will need a special O2 titration using a Venturi mask set up to determine her % FiO2 that will then be converted to L flow on the patient's home oximeter with a trach collar. (2) COPD (chronic obstructive pulmonary disease): Code(s): J44.9 - Chronic obstructive pulmonary disease, unspecified Status: Acute Assessment and Plan: Patient did have a history of smoking but the daughter does not know when she started and does not know the exact amount of smoking. I have no PFTs. she was previously never on inhalers. She had wheezing on exam and has responded to 1 dose of Solu-Medrol and DuoNebs q.4 hours. 09/12/23: The patient is no longer having wheezing. Plan: Will continue DuoNebs q.4 hours for now. will follow clinically off of systemic steroids for COPD, although she will likely need steroids for CT angiogram of the chest with an iodine allergy. Will treat with Levaquin. If CT angiogram of the chest shows any focal infiltrate will Need to broaden antibiotics as she has recently been hospitalized. I will send an MRSA swab. History of Present Illness History of Present Illness Consult date: 09/12/23 Chief complaint: Resp Distress,Failure to Clear Secretions Narrative: 09/12/2023: This is a new pulmonary consult for hypoxic respiratory failure. 77-year-old with a history of tobacco use, lung cancer surgery in 2018, CVA with right-sided hemiparesis in 12/2022, G-tube placed in 02/2023 and tracheostomy placed in 04/12. Patient lives at home and is taken care of by her daughters. I spoke to the daughter and prior to her stroke she had no respiratory limitations in her activities of daily living. She could take care of her house, do her groom
[2023-09-12 11:47] LABS: Glucose Point of Care 101 mg/dl (65-105)
[2023-09-12] MEDS: diphenhydrAMINE HCl INJ 50 MG/ML VIAL IV PUSH (16:12)
[2023-09-12] MEDS: methylPREDNISolone SOD SUCC 40 MG VIAL IV PUSH (16:12)
[2023-09-12 18:00] LABS: Glucose Point of Care 103 mg/dl (65-105)
--- NOTE | 2023-09-12 18:45 | PM.IMPN ---
Progress Note: A&P Assessment and Plan (1) Acute and chronic respiratory failure with hypoxia: Code(s): J96.21 - Acute and chronic respiratory failure with hypoxia Status: Acute Assessment and Plan: Patient brought in to the ED for acute on chronic respiratory failure. Tracheostomy in place status post CVA late 2022. She usually uses 3-4 L per minute by trach collar. She was recently treated for tracheitis at [facility] Respiratory distress with hypoxia at home with saturations below 60%. CXR showing mild congestive changes and minimal pulmonary edema. ABG showing 7.496/48/67 on high flow. Her condition improved with suction and multiple nebulizer treatments in ER She was started on IV steroids and IV Levaquin Tracheostomy upsized to #6 Shiley 1 week ago COVID,Influenza and RSV PCR negative. MRSA screen pending. Pulmonary consulted and discussed DDimer mildly positive at 0.61. CTA ordered after appropriate iodine allergy pretreatment given CTA chest showing emphysema and mild atelectasis but no PE or other acute cardiopulmonary disease Contnue DuoNebs and levaquin (2) History of CVA (cerebrovascular accident): Code(s): Z86.73 - Personal history of transient ischemic attack (TIA), and cerebral infarction without residual deficits Status: Acute Assessment and Plan: Right sided flaccid paralysis, nonverbal and with dysphagia. GTube feedings resumed (3) Troponin level elevated: Code(s): R79.89 - Other specified abnormal findings of blood chemistry Status: Acute Assessment and Plan: Troponin minimally elevated felt to represent demand ischemia from hypoxia rather than acute coronary syndrome. CXR concerning for possible pulmonary edema. BNP 1070. EKG showing normal sinus Echo showing EF 65-70% with Grade I diastolic dysfunction and mild bi-atrial enlargement. Also with moderate pulm HTN (57mmHg) and dilated inferior vena cava c/w elevated RAP. Clinically better. Follow. (4) COPD (chronic obstructive pulmonary disease): Code(s): J44.9 - Chronic obstructive pulmonary disease, unspecified Status: Acute Assessment and Plan: Patient with diffuse wheezing with hypoxia and respiratory distress. Consder mucous plugging and/or COPD exacerbation Clinically much better Continue abx; steroids not continued (5) G tube feedings: Code(s): Z93.1 - Gastrostomy status Status: Acute Assessment and Plan: Daughter states patient gets Nepro 1.8 calorie 240 mL every 4 hours with 120 mL of spring water flush Dietary consulted and TF rate adjusted to appropriate calorie intake Tolerating TF. Follow (6) HTN (hypertension): Code(s): I10 - Essential (primary) hypertension Status: Acute Assessment and Plan: Patient's blood pressure was reviewed on 09/11 Blood pressure remains well controlled. Will continueto monitor (7) Adenocarcinoma of upper lobe of lung: Code(s): C34.10 - Malignant neoplasm of upper lobe, unspecified bronchus or lung Status: Acute Assessment and Plan: Patient has a hx of lung CA. CTA chest here showing a 10mm TESSIE nodule concerning for primary bronchogenic carcinoma. Will have patient follow-up with here casino attendant to further evaluate and treat (8) Anemia: Code(s): D64.9 - Anemia, unspecified Status: Acute Assessment and Plan: hgb 9.7 in July but 7.6 on admission here. Normocytic. Repeat Hgb dropped to 7.0 She is pn Prevacid at home and this was continued. Check iron studies, B12. Stool guaiac. Plan DVT prophylaxis - lovenox Code status - full Subjective Date/time seen: 09/12/23 18:45 Interval history: 77yo female with hx of lung CA, dementia, CVA, and current Trach and GTube in place here for respiratory distress. Assuming care. Chart reviewed. Patient is alert but nonverbal and unable to provide hx. SHe does no
[2023-09-12 19:37] LABS: MRSA (PCR) DETECTED (NOT DETECTE)
[2023-09-12] MEDS: DONEPEZIL HCL 5 MG TABLET FEED TUBE (22:00)
[2023-09-12] MEDS: amLODIPine BESYLATE 5 MG TABLET FEED TUBE (22:00)
[2023-09-13] VITALS (18 sets, daily range): BP systolic 136–156; BP diastolic 51–76; PULSE 72–103; RESP 20–32; TEMP 36.2–37.1; O2SAT 94–100
[2023-09-13 00:16] LABS: Glucose Point of Care 191 mg/dl (65-105)
[2023-09-13] MEDS: IPRATROPIUM 0.5 MG/ALBUTEROL SULFATE 2.5 MG AMPUL.NEB 3 ML INHALATION ×6 (00:47→20:05)
[2023-09-13] MEDS: VANCOMYCIN 1,750 MG/NS 500 ML 1,750 MG/500 ML BAG 100 MG IVPB (03:01)
[2023-09-13 04:30] LABS: IFOB Positive Control Positive; Immunochemical Fecal Occult Bl Positive (N)
[2023-09-13 05:14] LABS: Basophils Percent Auto 0.2 % (0.2-1.2); Hematocrit 26.3 % (37.0-47.0); Immature Granulocyte Absolute 0.16 K/mm3 (0.00-0.031); Immature Granulocyte Percent A 1.8 % (0-0.5); Immature Reticulocyte Fraction 27.9 % (3.0-15.9); Lymphocytes Absolute Auto 0.68 K/mm3 (0.9-3.2); Lymphocytes Percent Auto 7.6 % (18.3-44.2); Mean Corpuscular HGB Conc 30.4 g/dl (32-36); Mean Corpuscular Hemoglobin 28.5 pg (26-34); Mean Corpuscular Volume 93.6 fl (80-100); Monocytes Absolute Auto 0.5 K/mm3 (0.1-0.6); Monocytes Percent Auto 5.6 % (2.6-8.5); Neutrophils Absolute Auto 7.6 K/mm3 (1.3-6.7); Neutrophils Percent Auto 84.8 % (45.5-73.1); Platelet Count Result 344 k/mm3 (150-375); Red Blood Count 2.81 M/mm3 (4.2-5.4); Red Cell Distribution Width 16.9 % (11.5-14.5); Reticulocyte Hemoglobin Conten 25.2 pg (28.2-36.6); Reticulocytes Absolute 0.11 10^6/uL (0.02-0.10)
[2023-09-13 05:22] LABS: Iron 59 ug/dL (37-170)
[2023-09-13 05:27] LABS: Alanine Aminotransferase 21 U/L (6-35); Alkaline Phosphatase 117 U/L (38-126); Anion Gap 5 mmol/L (4-12); Aspartate Amino Transferase 29 U/L (14-36); Bilirubin,Total 0.5 mg/dL (0.2-1.3); Blood Urea Nitrogen 55 mg/dL (7-17); Carbon Dioxide 36 mmol/L (22-30); Chloride 101 mmol/L (98-107); Estimated CRCL calculation 39 ml/min; Estimated Glomerular Filt Rate > 60; Glucose 139 mg/dL (65-110); Magnesium 2.7 mg/dL (1.6-2.3); Phosphorus 1.7 mg/dL (2.5-4.5); Potassium 4.2 mmol/L (3.4-5.0); Sodium 142 mmol/L (137-145)
[2023-09-13 05:31] LABS: Percent Iron Saturation 22 % (20-50)
[2023-09-13 06:32] LABS: Folic Acid > 20.0 ng/mL (2.76->20)
[2023-09-13 06:35] LABS: Glucose Point of Care 108 mg/dl (65-105)
[2023-09-13] MEDS: levoFLOXacin 750 MG/D5W 150 ML 750 MG/150 ML BAG 100 MG IVPB (09:04)
[2023-09-13] MEDS: ENOXAPARIN 40 MG/0.4 ML SYRINGE SUB-Q (09:04)
[2023-09-13] MEDS: LANSOPRAZOLE ODT 30 MG TAB.RAP.DR FEED TUBE ×2 (09:04→20:48)
[2023-09-13] MEDS: ASPIRIN 81 MG CHEWABLE TABLET FEED TUBE (09:04)
[2023-09-13] MEDS: TOLNAFTATE 1% POWDER 45 GM BTL 1 APPLIC TOPICAL ×2 (09:05→20:48)
[2023-09-13] MEDS: ATORVASTATIN 20 MG TABLET FEED TUBE (09:05)
[2023-09-13] MEDS: POTASSIUM/PHOSPHORUS/SODIUM 1.5 GM PACKET 1 PACKET PO (13:32)
--- NOTE | 2023-09-13 13:35 | PM.IMPN ---
Progress Note: A&P Assessment and Plan (1) Acute and chronic respiratory failure with hypoxia: Code(s): J96.21 - Acute and chronic respiratory failure with hypoxia Status: Acute Assessment and Plan: Patient brought in to the ED for acute on chronic respiratory failure. Tracheostomy in place status post CVA late 2022. She usually uses 3-4 L per minute by trach collar. She was recently treated for tracheitis at [facility] Respiratory distress with hypoxia at home with saturations below 60%. CXR showing mild congestive changes and minimal pulmonary edema. ABG showing 7.496/48/67 on high flow. Her condition improved with suction and multiple nebulizer treatments in ER She was started on IV steroids and IV Levaquin Tracheostomy upsized to #6 Shiley 1 week ago COVID,Influenza and RSV PCR negative. MRSA screen positive and Vanco added Pulmonary consulted and appreciate their input DDimer mildly positive at 0.61. CTA ordered after appropriate iodine allergy pretreatment given CTA chest showing emphysema and mild atelectasis but no PE or other acute cardiopulmonary disease Continue DuoNebs and Abx. Check LE venous dopplers. (2) Anemia: Code(s): D64.9 - Anemia, unspecified Status: Acute Assessment and Plan: Hgb 9.7 in July but 7.6 on admission here. Normocytic. Repeat Hgb dropped to 7.0 She is on Prevacid at home and this was continued. Iron studies normal. B12/folate normal. Stool guaiac positive. Cr normal but BUN elevated since July. Probably not unexpected to have guaiac positive stool with GTube in place Consider slow GI bleed due to elevated BUN but not iron deficient. BUN elevation related to tube feedings? Consult GI. Stop ASA and Lovenox. Advance PPI therapy. (3) History of CVA (cerebrovascular accident): Code(s): Z86.73 - Personal history of transient ischemic attack (TIA), and cerebral infarction without residual deficits Status: Acute Assessment and Plan: Right sided flaccid paralysis, nonverbal and with dysphagia. GTube feedings resumed (4) Troponin level elevated: Code(s): R79.89 - Other specified abnormal findings of blood chemistry Status: Acute Assessment and Plan: Troponin minimally elevated felt to represent demand ischemia from hypoxia rather than acute coronary syndrome. CXR concerning for possible pulmonary edema. BNP 1070. EKG showing normal sinus Echo showing EF 65-70% with Grade I diastolic dysfunction and mild bi-atrial enlargement. Also with moderate pulm HTN (57mmHg) and dilated inferior vena cava c/w elevated RAP. Clinically better. Follow. (5) COPD (chronic obstructive pulmonary disease): Code(s): J44.9 - Chronic obstructive pulmonary disease, unspecified Status: Acute Assessment and Plan: Patient had diffuse wheezing with hypoxia and respiratory distress. Consider mucous plugging and/or COPD exacerbation Clinically much better. More coarse today and RN notified patient needs suctioning Continue abx; steroids not continued (6) G tube feedings: Code(s): Z93.1 - Gastrostomy status Status: Acute Assessment and Plan: Daughter states patient gets Nepro 1.8 calorie 240 mL every 4 hours with 120 mL of spring water flush Dietary consulted and TF rate adjusted to appropriate calorie intake Tolerating TF. Follow (7) HTN (hypertension): Code(s): I10 - Essential (primary) hypertension Status: Acute Assessment and Plan: Patient's blood pressure was reviewed on 09/12 Blood pressure remains well controlled. Will continue to monitor (8) Adenocarcinoma of upper lobe of lung: Code(s): C34.10 - Malignant neoplasm of upper lobe, unspecified bronchus or lung Status: Acute Assessment and Plan: Patient has a hx of lung CA. CTA chest here showing a 10mm TESSIE nodule concerning for primary bronchogenic carcinoma. Will have patien
[2023-09-13 15:49] LABS: Glucose Point of Care 145 mg/dl (65-105)
--- NOTE | 2023-09-13 16:15 | PC.NURSE ---
This patient, Nicole Cuevas, was received from IMU on 09/13/23 at 1615. Patient/family oriented to unit policies and routines
[2023-09-13] MEDS: DONEPEZIL HCL 5 MG TABLET FEED TUBE (20:48)
[2023-09-13] MEDS: amLODIPine BESYLATE 5 MG TABLET FEED TUBE (20:48)
[2023-09-14] VITALS (21 sets, daily range): BP systolic 131–145; BP diastolic 51–69; PULSE 75–95; RESP 18–20; TEMP 36.7–37.3; O2SAT 96–100
[2023-09-14] MEDS: IPRATROPIUM 0.5 MG/ALBUTEROL SULFATE 2.5 MG AMPUL.NEB 3 ML INHALATION ×6 (00:02→19:30)
[2023-09-14 02:00] LABS: Glucose Point of Care 96 mg/dl (65-105)
[2023-09-14 02:00] LABS: Glucose Point of Care 117 mg/dl (65-105)
[2023-09-14 05:20] LABS: Glucose Point of Care 91 mg/dl (65-105)
[2023-09-14 05:23] LABS: Basophils Percent Auto 0.4 % (0.2-1.2); Eosinophils Absolute Auto 0.1 K/mm3 (0-0.3); Eosinophils Percent Auto 1.2 % (0-4.4); Hematocrit 23.6 % (37.0-47.0); Hemoglobin 7.3 g/dL (12.0-15.0); Immature Granulocyte Percent A 1.1 % (0-0.5); Lymphocytes Absolute Auto 1.52 K/mm3 (0.9-3.2); Lymphocytes Percent Auto 16.7 % (18.3-44.2); Mean Corpuscular HGB Conc 30.9 g/dl (32-36); Mean Corpuscular Hemoglobin 28.9 pg (26-34); Mean Corpuscular Volume 93.3 fl (80-100); Mean Platelet Volume 9.2 fl (7.4-10.4); Monocytes Absolute Auto 0.9 K/mm3 (0.1-0.6); Monocytes Percent Auto 10.1 % (2.6-8.5); Neutrophils Absolute Auto 6.4 K/mm3 (1.3-6.7); Neutrophils Percent Auto 70.5 % (45.5-73.1); Nucleated Red Blood Cells Perc 0.2 % (0.0-0.2); Platelet Count Result 280 k/mm3 (150-375); Red Blood Count 2.53 M/mm3 (4.2-5.4); Red Cell Distribution Width 17.1 % (11.5-14.5); White Blood Count 9.1 K/mm3 (4.5-10.0)
[2023-09-14 05:36] LABS: Albumin Level 3.4 g/dL (3.5-5.1); Anion Gap 3 mmol/L (4-12); Blood Urea Nitrogen 43 mg/dL (7-17); Calcium 9.5 mg/dL (8.4-10.2); Carbon Dioxide 38 mmol/L (22-30); Chloride 103 mmol/L (98-107); Estimated CRCL calculation 35 ml/min; Estimated Glomerular Filt Rate > 60; Glucose 91 mg/dL (65-110); Magnesium 2.4 mg/dL (1.6-2.3); Phosphorus 2.6 mg/dL (2.5-4.5); Potassium 3.6 mmol/L (3.4-5.0); Sodium 144 mmol/L (137-145)
[2023-09-14] MEDS: DOXYCYCLINE HYCLATE 100 MG TABLET FEED TUBE ×2 (09:16→20:47)
[2023-09-14] MEDS: LANSOPRAZOLE ODT 30 MG TAB.RAP.DR FEED TUBE ×2 (09:16→20:47)
[2023-09-14] MEDS: ATORVASTATIN 20 MG TABLET FEED TUBE (09:16)
[2023-09-14] MEDS: TOLNAFTATE 1% POWDER 45 GM BTL 1 APPLIC TOPICAL ×2 (09:17→20:47)
[2023-09-14 11:41] LABS: Hematocrit 24.2 % (37.0-47.0); Hemoglobin 7.4 g/dL (12.0-15.0)
--- NOTE | 2023-09-14 11:59 | WPDGICN ---
Assessment and Plan Assessment and plan (1) Acute on chronic anemia: Code(s): D64.9 - Anemia, unspecified Status: Acute Assessment and Plan: no overt gib, expect to have occult blood in stool since she has G-tube I will recommend protonix daily, continue with tube feeding of course if further drop of hemoglobin or obvious gib then we can proceed with egd for now continue treatment of respiratory symptom and pulmonary recommendations will follow only as needed (2) Aphasia as late effect of cerebrovascular accident: Code(s): I69.320 - Aphasia following cerebral infarction Status: Acute (3) G tube feedings: Code(s): Z93.1 - Gastrostomy status Status: Acute Assessment and Plan: tolerating feeding (4) Acute and chronic respiratory failure with hypoxia: Code(s): J96.21 - Acute and chronic respiratory failure with hypoxia Status: Acute (5) Adenocarcinoma of upper lobe of lung: Code(s): C34.10 - Malignant neoplasm of upper lobe, unspecified bronchus or lung Status: Acute (6) Occult blood in stools: Code(s): R19.5 - Other fecal abnormalities Status: Acute GI Consult Note Consult date/time: 09/14/23 11:59 Reason for consult: acute chronic anemia, + FOBT HPI: Nicole Cuevas is a 77 year old female with 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 History is obtained from records and daughter since patient is not talking. She was admitted at [facility] for up sizing of tracheostomy to a #6 Shiley from a pediatric trach, also treated for pneumonia.? Patient was discharge on 09/08 but 09/09 patient began having wheezing and difficulty breathing requiring higher flow of oxygen by trach collar and not improving with nebulizer treatments at home.? EMS was called because more respiratory failure and was able to get saturation to 80%. CTA chest reviewed showed a 10mm TESSIE nodule concerning for primary bronchogenic carcinoma, pulmonary on board. Daughter here denies overt gib, no dark stool. Hgb 7.5-8 (baseline 9), occult blood in stool positive. She is getting tube feeding by G-tube. Review of Systems Review of Systems: ROS unobtainable: Yes unobtainable due to endotracheal tube and unobtainable due to mental status PMFSH Past Medical History Medical History (Updated 09/14/23 @ 12:05 by Jaya Parmar MD) Acute on chronic anemia 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 03/2017 Alzheimer's dementia A&O x0 Aphasia as late effect of cerebrovascular accident CAD (coronary artery disease) Cerebrovascular accident (CVA) Cholecystectomy planned 01/16/2023 COPD (chronic obstructive pulmonary disease) Gastrostomy complication Gastrostomy tube replacement 04/04/2023 HLD (hyperlipidemia) HTN (hypertension) Occult blood in stools Tracheitis 09/04 Surgical History Surgical History H/O tracheostomy 03/2023 Hx of esophagogastroduodenoscopy w/ Peg placement 01/20/23 Hx of exploratory laparotomy ROULA Gastrostomy Social History Social History Smoking status: Never smoker Spiritual care concerns: No Meds Home Medications and Allergies Home Medications Medication Instructions Recorded Confirmed Type acetaminophen 160 mg/5 mL oral 640 mg PO QID PRN pain or fever 09/11/23 09/11/23 History elixir albuterol sulfate 90 mcg/actuation 2 puff inhalation Q4H PRN 09/11/23 09/11/23 History aerosol inhaler Shortness Of Breath Or Wheezing amlodipine 5 mg tablet 5 mg feeding tube DAILY 09/11/23 09/11/23 History aspirin 81 mg chewable tablet 81 mg feeding tube DAILY 09/11/23 09/11/23 History atorvastatin 20 mg tablet 20 mg feeding tube HS 09/11/23 09/11/23 History
[2023-09-14 12:25] LABS: Glucose Point of Care 123 mg/dl (65-105)
--- NOTE | 2023-09-14 13:10 | PM.IMPN ---
Progress Note: A&P Assessment and Plan (1) Acute and chronic respiratory failure with hypoxia: Code(s): J96.21 - Acute and chronic respiratory failure with hypoxia Status: Acute Assessment and Plan: Patient brought in to the ED for acute on chronic respiratory failure. Tracheostomy in place status post CVA late 2022. She usually uses 3-4 L per minute by trach colla (30% FiO2 per family). She was recently treated for tracheitis at [facility] Respiratory distress with hypoxia at home with saturations below 60%. CXR showing mild congestive changes and minimal pulmonary edema. ABG showing 7.496/48/67 on high flow. Her condition improved with suction and multiple nebulizer treatments in ER She was started on IV steroids and IV Levaquin Tracheostomy upsized to #6 Shiley 1 week ago COVID,Influenza and RSV PCR negative. MRSA screen positive and Vanco added Pulmonary consulted and appreciate their input DDimer mildly positive at 0.61. CTA ordered after appropriate iodine allergy pretreatment given CTA chest showing emphysema and mild atelectasis but no PE or other acute cardiopulmonary disease. LE venous dopplers negative for DVT. She is at baseline now for her oxygen requirements. Continue DuoNebs and Abx. Change to GTube route (2) Anemia: Code(s): D64.9 - Anemia, unspecified Status: Acute Assessment and Plan: Hgb 9.7 in July but 7.6 on admission here. Normocytic. Repeat Hgb dropped to 7.0 She is on Prevacid at home Iron studies normal. B12/folate normal. Stool guaiac positive. Cr normal but BUN elevated since July. Probably not unexpected to have guaiac positive stool with GTube in place Consider slow GI bleed due to elevated BUN but not iron deficient. BUN elevation related to tube feedings? GI consulted and appreciate their input ASA and Lovenox stopped. PPI therapy advanced. Monitor HH serially. Transfuse if needed. Home tomorrow if HH remains stable (3) History of CVA (cerebrovascular accident): Code(s): Z86.73 - Personal history of transient ischemic attack (TIA), and cerebral infarction without residual deficits Status: Acute Assessment and Plan: Right sided flaccid paralysis, nonverbal and with dysphagia. GTube feedings resumed (4) Troponin level elevated: Code(s): R79.89 - Other specified abnormal findings of blood chemistry Status: Acute Assessment and Plan: Troponin minimally elevated felt to represent demand ischemia from hypoxia rather than acute coronary syndrome. CXR concerning for possible pulmonary edema. BNP 1070. EKG showing normal sinus Echo showing EF 65-70% with Grade I diastolic dysfunction and mild bi-atrial enlargement. Also with moderate pulm HTN (57mmHg) and dilated inferior vena cava c/w elevated RAP. Clinically better. Follow. (5) COPD (chronic obstructive pulmonary disease): Code(s): J44.9 - Chronic obstructive pulmonary disease, unspecified Status: Acute Assessment and Plan: Patient had diffuse wheezing with hypoxia and respiratory distress. Consider mucous plugging and/or COPD exacerbation Steroids stopped Clinically much better. Exam better today Continue abx to complete a course (6) G tube feedings: Code(s): Z93.1 - Gastrostomy status Status: Acute Assessment and Plan: Daughter states patient gets Nepro 1.8 calorie 240 mL every 4 hours with 120 mL of spring water flush Dietary consulted and TF rate adjusted to appropriate calorie intake Tolerating TF. Follow (7) HTN (hypertension): Code(s): I10 - Essential (primary) hypertension Status: Acute Assessment and Plan: Patient's blood pressure was reviewed on 09/13 Blood pressure remains well controlled. Will continue to monitor (8) Adenocarcinoma of upper lobe of lung: Code(s): C34.10 - Malignant neoplasm of upper lobe, unspecified bronchus or lung Status: Acute Assess
[2023-09-14 18:10] LABS: Glucose Point of Care 129 mg/dl (65-105)
[2023-09-14 18:21] LABS: Hematocrit 24.8 % (37.0-47.0); Hemoglobin 7.7 g/dL (12.0-15.0)
[2023-09-14] MEDS: DONEPEZIL HCL 5 MG TABLET FEED TUBE (20:47)
[2023-09-14] MEDS: amLODIPine BESYLATE 5 MG TABLET FEED TUBE (20:47)
[2023-09-15] VITALS (11 sets, daily range): BP systolic 142; BP diastolic 62; PULSE 82–96; RESP 20; TEMP 36.7; O2SAT 95–99
[2023-09-15] MEDS: IPRATROPIUM 0.5 MG/ALBUTEROL SULFATE 2.5 MG AMPUL.NEB 3 ML INHALATION ×4 (00:10→11:57)
[2023-09-15 01:07] LABS: Hematocrit 25.6 % (37.0-47.0); Hemoglobin 7.9 g/dL (12.0-15.0)
[2023-09-15 05:55] LABS: Glucose Point of Care 130 mg/dl (65-105)
[2023-09-15 06:05] LABS: Hematocrit 25.2 % (37.0-47.0); Hemoglobin 7.7 g/dL (12.0-15.0); Mean Corpuscular HGB Conc 30.6 g/dl (32-36); Mean Corpuscular Hemoglobin 29.2 pg (26-34); Mean Corpuscular Volume 95.5 fl (80-100); Mean Platelet Volume 9.7 fl (7.4-10.4); Platelet Count Result 303 k/mm3 (150-375); Red Blood Count 2.64 M/mm3 (4.2-5.4); Red Cell Distribution Width 17.2 % (11.5-14.5); White Blood Count 12.2 K/mm3 (4.5-10.0)
[2023-09-15 06:14] LABS: Glucose Point of Care 104 mg/dl (65-105)
[2023-09-15 06:29] LABS: Anion Gap 3 mmol/L (4-12); Blood Urea Nitrogen 32 mg/dL (7-17); Calcium 9.8 mg/dL (8.4-10.2); Carbon Dioxide 38 mmol/L (22-30); Chloride 104 mmol/L (98-107); Estimated CRCL calculation 39 ml/min; Estimated Glomerular Filt Rate > 60; Glucose 99 mg/dL (65-110); Potassium 3.3 mmol/L (3.4-5.0); Sodium 145 mmol/L (137-145)
[2023-09-15] MEDS: DOXYCYCLINE HYCLATE 100 MG TABLET FEED TUBE (08:26)
[2023-09-15] MEDS: PANTOPRAZOLE SODIUM IV 40 MG VIAL IV PUSH (08:26)
[2023-09-15] MEDS: levoFLOXacin 750 MG TABLET FEED TUBE (08:26)
[2023-09-15] MEDS: ATORVASTATIN 20 MG TABLET FEED TUBE (08:26)
[2023-09-15] MEDS: POTASSIUM CHLORIDE 20 MEQ PACKET (FOR LIQUID) 40 MEQ FEED TUBE (08:27)
[2023-09-15] MEDS: LANSOPRAZOLE ODT 30 MG TAB.RAP.DR FEED TUBE (08:27)
[2023-09-15] MEDS: TOLNAFTATE 1% POWDER 45 GM BTL 1 APPLIC TOPICAL (08:28)
[2023-09-15 12:05] LABS: Glucose Point of Care 108 mg/dl (65-105)
--- NOTE | 2023-09-15 12:38 | PM.PNPUL ---
Progress Note: A&P Assessment and Plan (1) Aphasia as late effect of cerebrovascular accident: Code(s): I69.320 - Aphasia following cerebral infarction Status: Acute (2) Adenocarcinoma of upper lobe of lung: Code(s): C34.10 - Malignant neoplasm of upper lobe, unspecified bronchus or lung Status: Acute (3) G tube feedings: Code(s): Z93.1 - Gastrostomy status Status: Acute (4) History of CVA (cerebrovascular accident): Code(s): Z86.73 - Personal history of transient ischemic attack (TIA), and cerebral infarction without residual deficits Status: Acute (5) COPD (chronic obstructive pulmonary disease): Code(s): J44.9 - Chronic obstructive pulmonary disease, unspecified Status: Acute (6) Acute and chronic respiratory failure with hypoxia: Code(s): J96.21 - Acute and chronic respiratory failure with hypoxia Status: Acute Assessment and Plan: A 77-year-old female, who has a history of chronic hypoxemic respiratory failure due to a prior cerebrovascular accident (CVA) and a tracheostomy, has been frequently hospitalized for respiratory issues since her stroke nine months ago. Recently, she experienced an exacerbation of her shortness of breath and hypoxemia. She responded favorably to treatment involving nebulized short-acting bronchodilators, suctioning, and antibiotics for a potential lower respiratory tract infection. Her medical history includes lung resection surgery for lung cancer, carried out at a different facility in 2018. The latest chest CT scan revealed mild emphysema, signs of pulmonary hypertension, and a new nodule in the left upper lobe, which might be malignant and could indicate a recurrence of lung cancer or metastatic cancer. The patient has undergone prior lung surgery and follow-ups at various hospitals. Her current hospitalization was likely triggered by the retention of bronchial secretions or a new lower respiratory tract infection. She is now back to her baseline health status. From a respiratory perspective, she is ready for discharge and can return home, where she should continue with regular suctioning, nebulized short-acting bronchodilators, and prescribed supplemental oxygen. Concerning the newly discovered left upper lobe nodule, a discussion with the patient's daughter is required to determine the appropriate follow-up care. This consultation should consider the likelihood that previous X-rays were conducted at different institutions, necessitating a comparison to establish whether this nodule is new or was detected in earlier X-rays. (7) Lung nodule: Code(s): R91.1 - Solitary pulmonary nodule Status: Acute Subjective Date/time seen: 09/15/23 12:38 Interval history: This 77-year-old female has chronic respiratory failure with hypoxemia, status post tracheostomy since last December following a massive stroke. The patient is nonverbal. She presented because of worsening hypoxemia shortness of breath 2 days following discharge from a another hospital where she underwent replacement of her tracheostomy tube. Patient's min past medical history significant for previous lung surgery for right lung cancer treated in 2018. Surgery was done elsewhere. Since last December the patient has had multiple hospitalizations at other hospitals for respiratory issues. Since admission to the hospital her respiratory status has improved. She has received treatment with nebulized short-acting bronchodilators and antibiotics for possible lower respiratory tract infection. Chest CT showed mild emphysema, no evidence of pulmonary embolism a lower lobe atelectasis and a new left upper lobe nodule. Exam Narrative: Gen - NARD Neck - Trach midline, dressing clean and dry. Chest -rare rhonchi anteriorly CV - RRR S1/S2 Abd - Soft, ND, Positive BS, GTube in place Ext - No pedal edema Neuro - nonverbal and does not interact Skin - Warm and dry
--- NOTE | 2023-09-15 12:44 | PM.DS ---
DS: Admitting Diagnosis Discharge Date 09/15/23 Admitting Diagnosis Respiratory distress DS: Discharge Diagnosis Discharge Diagnosis (1) Acute and chronic respiratory failure with hypoxia: Code(s): J96.21 - Acute and chronic respiratory failure with hypoxia Status: Acute (2) Anemia: Code(s): D64.9 - Anemia, unspecified Status: Acute (3) History of CVA (cerebrovascular accident): Code(s): Z86.73 - Personal history of transient ischemic attack (TIA), and cerebral infarction without residual deficits Status: Acute (4) Troponin level elevated: Code(s): R79.89 - Other specified abnormal findings of blood chemistry Status: Acute (5) COPD (chronic obstructive pulmonary disease): Code(s): J44.9 - Chronic obstructive pulmonary disease, unspecified Status: Acute (6) G tube feedings: Code(s): Z93.1 - Gastrostomy status Status: Acute (7) HTN (hypertension): Code(s): I10 - Essential (primary) hypertension Status: Acute (8) Adenocarcinoma of upper lobe of lung: Code(s): C34.10 - Malignant neoplasm of upper lobe, unspecified bronchus or lung Status: Acute DS: Summary Hospital Course Reason for hospitalization: 77yo female with hx of lung CA, dementia, CVA, and current Trach and GTube in place here for respiratory distress. Please see H&P for details. Hospital Course: Patient brought in to the ED for acute on chronic respiratory failure. Tracheostomy in place status post CVA late 2022. She usually uses 3-4 L per minute by trach collar (30% FiO2 per family). She was recently treated for tracheitis at [facility]. Respiratory distress with hypoxia at home with saturations below 60%. CXR showing mild congestive changes and minimal pulmonary edema.? ABG showing 7.496/48/67 on high flow. Her condition improved with suction and multiple nebulizer treatments in ER. On repeat assessment in the ED of the patient, reevaluation revealed that the patient is doing well and is in no acute distress.?She was started on IV steroids and IV Levaquin. Tracheostomy was upsized to #6 Shiley 1 week ago. COVID, Influenza and RSV PCR negative. MRSA screen positive and Vanco added. Pulmonary consulted and appreciate their input. Steroids stopped. DDimer mildly positive at 0.61. CTA ordered after appropriate iodine allergy pretreatment given. CTA chest showing emphysema and mild atelectasis but no PE or other acute cardiopulmonary disease. Patient has a hx of lung CA. CTA chest did show a 10mm TESSIE nodule concerning for primary bronchogenic carcinoma. 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 LE venous dopplers negative for DVT. She returned to her baseline oxygen requirement. Hgb 9.7 in July but 7.6 on admission here. Normocytic. Repeat Hgb remained stable in the 7 range. She is on Prevacid at home. Iron studies normal. B12/folate normal. Stool guaiac positive. Cr normal but BUN elevated since July but this trended down. Probably not unexpected to have guaiac positive stool with GTube in place and family states she has hemorroids. GI consulted and appreciate their input. ASA stopped. PPI therapy advanced. Hgb remained low but stable. GI did not have any other recommendations. Patient with a history of CVA with right sided flaccid paralysis, nonverbal and with dysphagia. GTube feedings resumed. Daughter states patient gets Nepro 1.8 calorie 240 mL every 4 hours with 120 mL of spring water flush. Dietary consulted and TF rate adjusted to appropriate calorie intake. Troponin minimally elevated felt to represent demand ischemia from hypoxia rather than acute coronary syndrome.?CXR concerning for possible pulmonary edema. BNP 1070. EKG showing normal sinus. Echo showing EF 65-70% with Grade I diastolic dysfunction and mild bi-atrial enlargement. Also with moderate pulm HTN (57mmHg) and dilated inferior
--- NOTE | 2023-09-17 09:40 | PC.NURSE ---
Blood and sputum cx are negative. Dr. Richy singleton.
== END 2023-09-15 14:18 | disposition home or self-care (01) | DRG 189 ==
LOC: ANHED 05:35 → ANHIMU 06:53 → ANH3MED 09-13 15:35
PROVIDERS: Internal Medicine Pulmonary Disease; Nurse Practitioner; Admitting Provider Internal Medicine; Emergency Provider Emergency Medicine; Visit Provider Internal Medicine
DX: J96.21 Acute and chronic respiratory failure with hypoxia (principal); I69.351 Hemiplegia and hemiparesis following cerebral infarction affecting right dominant side; I24.89 Other forms of acute ischemic heart disease; J43.9 Emphysema, unspecified; I69.391 Dysphagia following cerebral infarction; I69.320 Aphasia following cerebral infarction; R13.10 Dysphagia, unspecified; R91.1 Solitary pulmonary nodule; D64.9 Anemia, unspecified; E78.5 Hyperlipidemia, unspecified; F02.80 Dementia in other diseases classified elsewhere, unspecified severity, without behavioral disturbance, psychotic disturbance, mood disturbance, and anxiety; G30.9 Alzheimer's disease, unspecified; I10 Essential (primary) hypertension; I27.20 Pulmonary hypertension, unspecified; I25.10 Atherosclerotic heart disease of native coronary artery without angina pectoris; K64.9 Unspecified hemorrhoids; R19.5 Other fecal abnormalities; Z93.1 Gastrostomy status; Z85.118 Personal history of other malignant neoplasm of bronchus and lung; Z93.0 Tracheostomy status; Z20.822 Contact with and (suspected) exposure to COVID-19; Z79.82 Long term (current) use of aspirin; Z99.81 Dependence on supplemental oxygen
CPT/HCPCS: 36415; 36600; 71045; 71275; 80048; 80053; 80069; 82274; 82607; 82728; 82746; 82805; 82948; 83036; 83540; 83550; 83605; 83735; 83880; 84100; 84145; 84439; 84443; 84484; 85014; 85018; 85025; 85027; 85046; 85380; 87040; 87070; 87205; 87637; 87641; 93005; 93306; 93970; 94640; 96374; 99285; A9270; C9113; J1200; J1650; J1956; J2919; J3370; Q9967

== ENCOUNTER 2023-10-19 23:29 | Inpatient (IN) | payer MEDICARE, BC, SELFPAY ==
[2023-10-19] VITALS (9 sets, daily range): BP systolic 85–136; BP diastolic 16–72; PULSE 94–115; RESP 12–29; TEMP 36.5; O2SAT 89–100
--- NOTE | ~2023-10-19 | CT_ITS ---
EXAMINATION: CTA chest PE protocol DATE: 10/21/2023 09:52 INDICATION: Respiratory failure TECHNIQUE: Computed tomography (CT) pulmonary angiogram of the chest was performed with 100 mL Omnipa que-350 intravenous contrast. Additional 3D reconstructions utilizing coronal maximum intensity proje ction (MIP) were performed. Automated exposure control and iterative reconstruction technique were em ployed. The dose-length product was 376.32 mGy-cm. COMPARISON: None FINDINGS: There is moderate respiratory motion and streak artifact throughout the lungs which decreases sensiti vity in the segmental and subsegmental pulmonary arteries in the mid and upper lungs and renders eval uation in the subsegmental and bilateral lower lobar segmental pulmonary arteries in the lower lungs essentially nondiagnostic. No definitive pulmonary embolism identified. Unchanged enlargement of the central pulmonary arteries consistent with pulmonary arterial hypertension. Tracheostomy tube in expe cted position at the thoracic inlet with distal tip 6.5 cm above the meri. Mild to moderate no sign ificant interval change in a 10 mm nodule at the posterior segment of the left upper lobe which remai ns concerning for primary pancreatic carcinoma. Mild to moderate emphysema. Mild discoid atelectasis along the right major fissure with suggestion of associated suture line. Correlate with surgical hist ory. Additional mild bibasilar atelectasis in the lingula and bilateral lower lobes. No pulmonary herson ma or evident pneumonia. No pleural effusion or pneumothorax. Cardiomegaly. Atherosclerotic coronary artery calcifications. Aortic valve calcification. Thoracic aorta is normal in caliber with no dissec tion. No pathologically enlarged thoracic lymphadenopathy. Visualized upper abdomen is unremarkable. Mild thoracic spondylosis. IMPRESSION: 1. No definitive pulmonary embolism. Sensitivity is decreased in the smaller pulmonary arteries in th e bilateral upper lobes and essentially nondiagnostic in the basilar segmental and subsegmental pulmo nary arteries due to combination of respiratory motion and streak artifact. 2. Mild to moderate emphysema with unchanged 10 mm left upper lobe nodule concerning for primary bron chogenic carcinoma. If long-term stability cannot be documented with any prior outside imaging and if patient is a biopsy candidate not requiring supplemental oxygen at baseline would recommend further evaluation with CT-guided percutaneous biopsy when clinically improved to a normal respiratory baseli ne and able to breath-hold. 2. Cardiomegaly with unchanged enlargement of the central pulmonary arteries consistent with pulmonar y arterial hypertension. Reviewed, dictated and finalized at location B. IMPRESSION: 1. No definitive pulmonary embolism. Sensitivity is decreased in the smaller pu lmonary arteries in the bilateral upper lobes and essentially nondiagnostic in the basilar segmental and subsegmental pulmonary arteries due to combination of respiratory motion and streak artifact. 2. Mild to moderate emphysema with unchanged 10 mm left upper lobe nodule manuel rning for primary bronchogenic carcinoma. If long-term stability cannot be docu mented with any prior outside imaging and if patient is a biopsy candidate not requiring supplemental oxygen at baseline would recommend further evaluation wi CT-guided percutaneous biopsy when clinically improved to a normal respirato ry baseline and able to breath-hold. 2. Cardiomegaly with unchanged enlargement of the central pulmonary arteries co nsistent with pulmonary arterial hypertension.
--- NOTE | ~2023-10-19 | US_ITS ---
EXAMINATION: US venous doppler [facility] DATE: 10/20/2023 15:27 INDICATION: DVT . TECHNIQUE: Grayscale images without and with compression and Doppler images of the bilateral lower ex tremity veins were obtained. COMPARISON: 09/13/2023 FINDINGS: The left posterior tibial veins were not adequately visualized. The right common femoral vein, profun da (deep) femoral vein, femoral vein, popliteal vein, peroneal vein, vein, and greater saphenous vein are patent. The right common femoral vein, profunda (deep) femoral vein, femoral vein, popliteal vein, peroneal vein, posterior tibial veins, vein, and greater saphenous vein are patent. IMPRESSION: The left posterior tibial veins were not adequately visualized. Otherwise patent bilateral lower extr emity veins. Reviewed, dictated and finalized at location K. IMPRESSION: The left posterior tibial veins were not adequately visualized. Otherwise paten t bilateral lower extremity veins.
--- NOTE | ~2023-10-19 | XR_ITS ---
Portable chest x-ray Comparison: 09/11/2023 Clinical History: Dyspnea Findings: Tracheostomy cannula place. Questionable mild left basilar haziness. Cardiomediastinal si lhouette is stable. Bones and soft tissues are unremarkable. Impression: Questionable mild left basilar haziness. Correlate for left basilar pneumonia. Reviewed, dictated and finalized at [facility]. Impression: Questionable mild left basilar haziness. Correlate for left basilar pneumonia.
--- NOTE | 2023-10-19 23:35 | ED.GENADULT ---
HPI - General Adult General Chief complaint: Shortness of Breath/Dyspnea Stated complaint: PHLEGM IN TRACH Time Seen by Provider: 10/19/23 23:29 History of Present Illness HPI narrative: Patient 77-year-old female who presents emergency department with chief complaint of cough. Her EMS the patient had a choking episode and had a lot of phlegm in her trach site. EMS suction the patient and she had significant improvement in her respiratory status. Related Data Home Medications Medication Instructions Recorded Confirmed acetaminophen 160 mg/5 mL oral 640 mg PO QID PRN pain or fever 09/11/23 09/11/23 elixir albuterol sulfate 90 mcg/actuation 2 puff inhalation Q4H PRN 09/11/23 09/11/23 aerosol inhaler Shortness Of Breath Or Wheezing amlodipine 5 mg tablet 5 mg feeding tube DAILY 09/11/23 09/11/23 aspirin 81 mg chewable tablet 81 mg feeding tube DAILY 09/11/23 09/11/23 atorvastatin 20 mg tablet 20 mg feeding tube HS 09/11/23 09/11/23 donepezil 5 mg tablet 5 mg feeding tube HS 09/11/23 09/11/23 guaifenesin 100 mg/5 mL oral liquid 200 mg PO Q6H PRN Cough 09/11/23 09/11/23 lansoprazole 30 mg delayed 30 mg feeding tube DAILY 09/11/23 09/11/23 release,disintegrating tablet polyethylene glycol 3350 17 gram 17 g feeding tube DAILY PRN 09/11/23 09/11/23 oral powder packet Constipation Allergies Allergy/AdvReac Type Severity Reaction Status Date / Time iodine Allergy Hives Verified 08/07/23 13:08 latex Allergy Hives Verified 08/07/23 13:08 Review of Systems Review of Systems: A 10 system review of systems was completed on the patient and is negative except for what is stated in the HPI. Nursing and ancillary documentation was reviewed. [facility] Past Medical History Medical History Acute on chronic anemia 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 03/2017 Alzheimer's dementia A&O x0 Aphasia as late effect of cerebrovascular accident CAD (coronary artery disease) Cerebrovascular accident (CVA) Cholecystectomy planned 01/16/2023 COPD (chronic obstructive pulmonary disease) Gastrostomy complication Gastrostomy tube replacement 04/04/2023 HLD (hyperlipidemia) HTN (hypertension) Occult blood in stools Tracheitis 09/04 Surgical History Surgical History H/O tracheostomy 03/2023 Hx of esophagogastroduodenoscopy w/ Peg placement 01/20/23 Hx of exploratory laparotomy ROULA Gastrostomy Social History Social History Smoking status: Never smoker Spiritual care concerns: No Exam Narrative: GENERAL: Well-appearing, well-nourished, and in no acute distress. HEAD: Normocephalic, atraumatic. EYES: PERRLA and EOMI. ENT: Nares clear, no rhinorrhea or epistaxis. Mucous membranes moist. NECK: Supple. Trach collar in place CHEST: Clear to auscultation. No respiratory distress. HEART: Regular rate and rhythm. No murmur heard. Normal peripheral pulses. ABDOMEN: Soft, nontender, nondistended, normal active bowel sounds. G-tube in place EXTREMITIES: Normal range of motion. No edema. SKIN: Warm, dry, no rash. NEURO: No focal deficits. Alert and oriented x0. PSYCH: Normal mood and affect. Course Vital Signs Vital signs: Vital Signs Temperature 36.5 C 10/19/23 23:28 Pulse Rate 98 10/19/23 23:28 Respiratory Rate 14 10/19/23 23:28 Blood Pressure 87/37 L 10/19/23 23:28 Pulse Oximetry 99 10/19/23 23:28 Oxygen Delivery Trach Collar 10/19/23 23:28 Oxygen Flow Rate 10 10/19/23 23:28 Temperature 36.5 C 10/19/23 23:28 Pulse Rate 91 10/20/23 00:46 Respiratory Rate 12 10/20/23 00:50 Blood Pressure 120/62 10/20/23 00:46 Pulse Oximetry 90 10/20/23 00:50 Oxygen Delivery Trach Collar 10/20/23 00:46 Oxygen Flow Rate 35 10/20/23 00:22 Fraction of Inspired Oxygen 37
[2023-10-19] MEDS: IPRATROPIUM 0.5 MG/ALBUTEROL SULFATE 2.5 MG AMPUL.NEB 3 ML INHALATION (23:47)
[2023-10-19] MEDS: SODIUM CHLORIDE 0.9% IV 1,000 ML 999 ML IV CONT (23:52)
--- NOTE | 2023-10-19 23:56 | PC.NURSE ---
upon arrival patient was suctioned with normal saline with sterile catheter by RT.
[2023-10-20] VITALS (30 sets, daily range): BP systolic 98–158; BP diastolic 49–73; PULSE 80–109; RESP 12–30; TEMP 36.1–36.6; O2SAT 89–100; BMI 27.5; BMI 26.7
[2023-10-20] LABS: Basophils Absolute Auto 0.1 K/mm3 (0.0-0.1); Basophils Percent Auto 0.5 % (0.2-1.2); Eosinophils Absolute Auto 0.8 K/mm3 (0-0.3); Hematocrit 27.7 % (37.0-47.0); Hemoglobin 8.4 g/dL (12.0-15.0); Immature Granulocyte Absolute 0.05 K/mm3 (0.00-0.031); Immature Granulocyte Percent A 0.4 % (0-0.5); Lymphocytes Absolute Auto 1.73 K/mm3 (0.9-3.2); Lymphocytes Percent Auto 15.4 % (18.3-44.2); Mean Corpuscular HGB Conc 30.3 g/dl (32-36); Mean Corpuscular Volume 85.8 fl (80-100); Mean Platelet Volume 9.8 fl (7.4-10.4); Monocytes Absolute Auto 0.7 K/mm3 (0.1-0.6); Monocytes Percent Auto 6.5 % (2.6-8.5); Neutrophils Absolute Auto 7.9 K/mm3 (1.3-6.7); Neutrophils Percent Auto 70.2 % (45.5-73.1); Platelet Count Result 448 k/mm3 (150-375); Red Blood Count 3.23 M/mm3 (4.2-5.4); Red Cell Distribution Width 18.8 % (11.5-14.5); White Blood Count 11.2 K/mm3 (4.5-10.0)
[2023-10-20 00:12] LABS: Alanine Aminotransferase 19 U/L (6-35); Albumin Level 4.2 g/dL (3.5-5.1); Alkaline Phosphatase 141 U/L (38-126); Anion Gap 5 mmol/L (4-12); Aspartate Amino Transferase 36 U/L (14-36); Bilirubin,Total 0.4 mg/dL (0.2-1.3); Blood Urea Nitrogen 57 mg/dL (7-17); Calcium 10.4 mg/dL (8.4-10.2); Carbon Dioxide 39 mmol/L (22-30); Chloride 95 mmol/L (98-107); Estimated Glomerular Filt Rate > 60; Glucose 108 mg/dL (65-110); Potassium 3.7 mmol/L (3.4-5.0); Sodium 139 mmol/L (137-145)
[2023-10-20 00:13] LABS: Lactic Acid Reflex 1.1 mmol/L (0.7-2.0)
[2023-10-20 00:24] LABS: NT Pro B Type Natriuretic Pept 328 pg/mL (19.9-100); Troponin I 0.014 ng/mL (0.000-0.034)
[2023-10-20 00:30] LABS: Procalcitonin 0.4 ng/mL
[2023-10-20 00:36] LABS: Influenza A QL RT-PCR Negative (Negative); Influenza B QL RT-PCR Negative (Negative); RSV RNA, RT-PCR Negative (Negative); SARS-CoV-2 RNA PCR Negative (Negative)
--- NOTE | 2023-10-20 00:52 | PC.NURSE ---
patient was suctioned, thick white mucous was suctioned from patient trach. pt was able to tolerate fairly. pt was also positioned more upright. pt tolerated position change fairly. pillows were placed on the left side of patient to keep from leaning. Daughter stated that patient constantly leans to a side but tonight she had increased leaning along with increased salivation from mouth and trach.
--- NOTE | 2023-10-20 01:04 | PM.IMHP ---
H&P: HPI History of Present Illness Date/Time: 10/20/23 01:04 Chief Complaint: sob Narrative: This is a 77-year-old female with past medical history significant for stroke patient is bed ridden, right hemiparesis, chronic respiratory failure with chronic trach, peg tube, Alzheimer's dementia, aphasia, coronary artery disease, COPD, hypertension. Patient was brought to the emergency room due to increased secretions through her trach, shortness of breath, also noted to be lethargic. History has been obtained mainly from daughter who is at bedside who is her main caregiver patient is care for at home. In emergency room patient was suctioned and immediately there was improvement she was placed on Airvo. Review of Systems Review of Systems: ROS unobtainable: Yes other ( trach in place) PMFSH Past Medical History Medical History Acute on chronic anemia 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 03/2017 Alzheimer's dementia A&O x0 Aphasia as late effect of cerebrovascular accident CAD (coronary artery disease) Cerebrovascular accident (CVA) Cholecystectomy planned 01/16/2023 COPD (chronic obstructive pulmonary disease) Gastrostomy complication Gastrostomy tube replacement 04/04/2023 HLD (hyperlipidemia) HTN (hypertension) Occult blood in stools Tracheitis 09/04 Surgical History Surgical History H/O tracheostomy 03/2023 Hx of esophagogastroduodenoscopy w/ Peg placement 01/20/23 Hx of exploratory laparotomy ROULA Gastrostomy Social History Social History Smoking status: Never smoker Spiritual care concerns: No Meds Home Medications and Allergies Home Medications Medication Instructions Recorded Confirmed Type acetaminophen 160 mg/5 mL oral 640 mg PO QID PRN pain or fever 09/11/23 09/11/23 History elixir albuterol sulfate 90 mcg/actuation 2 puff inhalation Q4H PRN 09/11/23 09/11/23 History aerosol inhaler Shortness Of Breath Or Wheezing amlodipine 5 mg tablet 5 mg feeding tube DAILY 09/11/23 09/11/23 History aspirin 81 mg chewable tablet 81 mg feeding tube DAILY 09/11/23 09/11/23 History atorvastatin 20 mg tablet 20 mg feeding tube HS 09/11/23 09/11/23 History donepezil 5 mg tablet 5 mg feeding tube HS 09/11/23 09/11/23 History guaifenesin 100 mg/5 mL oral liquid 200 mg PO Q6H PRN Cough 09/11/23 09/11/23 History lansoprazole 30 mg delayed 30 mg feeding tube DAILY 09/11/23 09/11/23 History release,disintegrating tablet polyethylene glycol 3350 17 gram 17 g feeding tube DAILY PRN 09/11/23 09/11/23 History oral powder packet Constipation doxycycline hyclate 100 mg tablet 100 mg feeding tube Q12HR #9 tabs 09/15/23 Rx levofloxacin 750 mg tablet 750 mg feeding tube Q48H #1 tablet 09/15/23 Rx Allergies Allergy/AdvReac Type Severity Reaction Status Date / Time iodine Allergy Hives Verified 08/07/23 13:08 latex Allergy Hives Verified 08/07/23 13:08 Vital Signs Vital Signs - 24 hr 10/19/23 23:28 10/19/23 23:28 10/19/23 23:33 Temperature 97.7 F Pulse Rate 98 Respiratory Rate 14 23 H Blood Pressure 87/37 L Pulse Oximetry 99 100 92 Oxygen Delivery Trach Collar Trach Collar Oxygen Flow Rate 10 10 Fraction of Inspired Oxygen 10/19/23 23:47 10/19/23 23:58 10/19/23 23:34 Temperature Pulse Rate 99 94 115 H Respiratory Rate 12 24 H Blood Pressure 128/67 Pulse Oximetry 89 L Oxygen Delivery Oxygen Flow Rate Fraction of Inspired Oxygen 10/19/23 23:39 10/19/23 23:42 10/19/23 23:43 Temperature Pulse Rate 106 H 97 96 Respiratory Rate 16 20 29 H Blood Pressure 136/72 85/16 L 104/48 L Pulse Oximetry 94 94 94 Oxygen Delivery Oxygen Flow Rate Fraction of Inspired Oxygen 10/19/23 23:46 10/20/23 00:22 10/20/23 00:16 Temperature Pulse Ra
--- NOTE | 2023-10-20 01:09 | PC.NURSE ---
this rn suctioned patient, and attempted to reposition patient. pt did not respond well to suction. oxygen saturation remained at 84%. pt had thick sputum in trach while suctioning. RT made aware. EDP Dr. Giles aware.
[2023-10-20] MEDS: CEFEPIME 2 GM/NS 50 ML 2 GM/50 ML BAG IVPB ×2 (01:13→13:23)
--- NOTE | 2023-10-20 01:21 | PC.NURSE ---
this rn applied arm board to patient arm to keep medication continuously infusing.
[2023-10-20] MEDS: VANCOMYCIN 2,000 MG/NS 500 ML 2,000 MG/500 ML BAG 250 MG IVPB (01:47)
--- NOTE | 2023-10-20 01:55 | ADMGEN ---
This patient, Nicole Cuevas, was admitted to IMU Room 207-01. Patient/family oriented to hospital policies and general routines including ID bracelet, bed and alarms, visiting hours, pain management, procedures, bathroom and other care routines, personal items, smoking policy, room service/diet, and visiting hours. Information on how to activate the Rapid Response Team has been discussed. Patient/Family are encouraged to report perceived risks to care and to ask questions if they do not understand what they are told or what they should do.
[2023-10-20] MEDS: IPRATROPIUM 0.5 MG/ALBUTEROL SULFATE 2.5 MG AMPUL.NEB 3 ML INHALATION ×4 (02:40→20:47)
[2023-10-20 03:01] LABS: MRSA (PCR) DETECTED (NOT DETECTE)
--- NOTE | 2023-10-20 09:31 | PM.IMPN ---
Progress Note: A&P Assessment and Plan (1) Acute and chronic respiratory failure with hypoxia: Code(s): J96.21 - Acute and chronic respiratory failure with hypoxia Status: Acute Assessment and Plan: Patient brought in to the ED for acute on chronic respiratory failure. Tracheostomy in place, per chart review she uses 3-4 L per minute by trach collar. Respiratory distress with hypoxia on arrival with SpO2 89% - Chest XR: mild left basilar haziness, correlate with left basilar pneumonia - CTA ordered, appropriate precontrast medications ordered as patient has a known allergy to iodine - Her condition improved with suction - COVID,Influenza and RSV PCR negative. - MRSA screen positive and Vancomycin added - IV antibiotics: Vancomycin and cefepime - Continue DuoNebs and Abx. (2) Pneumonia: Code(s): J18.9 - Pneumonia, unspecified organism Status: Acute Assessment and Plan: - Chest XR: mild left basilar haziness, correlate with left basilar pneumonia - Complicating Factors: trach, recent hospitalization - started on CAP tx: cefe and vanc - Viral PCR: negative for Flu/COVID/RSV - MRSA: positive - CTA ordered, appropriate precontrast medications ordered as patient has a known allergy to iodine - Continue supplemental O2 requirement with trach - Monitor vital signs, I&Os, neuro status and patient is a fall risk - Follow WBC, serum electrolytes, temperature curves and cultures - Send sputum cultures (3) Adenocarcinoma of upper lobe of lung: Code(s): C34.10 - Malignant neoplasm of upper lobe, unspecified bronchus or lung Status: Acute Assessment and Plan: History of lung cancer s/p resection in 2018 Prior CTA chest revealed 10mm left upper lobe nodule concerning for primary bronchogenic carcinoma, not reported on Chest XR this admission (4) G tube feedings: Code(s): Z93.1 - Gastrostomy status Status: Acute Assessment and Plan: Per chart review patient was on Nepro 1.8 calorie 240 mL q4H with 120 mL flush Dietary consulted (5) History of CVA (cerebrovascular accident): Code(s): Z86.73 - Personal history of transient ischemic attack (TIA), and cerebral infarction without residual deficits Status: Acute Assessment and Plan: Right side paralysis, nonverbal with dysphagia (6) COPD (chronic obstructive pulmonary disease): Code(s): J44.9 - Chronic obstructive pulmonary disease, unspecified Status: Acute Assessment and Plan: Chronic, does not appear in acute exacerbation. (7) HTN (hypertension): Code(s): I10 - Essential (primary) hypertension Status: Acute Assessment and Plan: Chronic, stable on home medication. - Continue amlodipine 5 mg daily - Monitor (8) Anemia: Code(s): D64.9 - Anemia, unspecified Status: Acute Assessment and Plan: H/H appears at baseline. Iron studies, B12 and folate WNL on prior admission. GI was consulted at that time as there was a positive fecal occult which is expected as patient has a Gtube. Since there was no obvious GI bleed and the H/H remained stable they did not proceed with EGD/colonoscopy. - No signs of obvious GI bleed, if H/H starts to downtrend or obvious GI bleed noted will consider GI consult - Monitor with daily labs. - Continue PPI Time Spent With Patient Time with patient: 25 - 35 minutes Subjective Date/time seen: 10/20/23 09:31 Interval history: 77yo female with hx of lung CA s/p lung resection in 2017, dementia, CVA with right hemiparesis in 2022, chronic respiratory failure with trach and GTube in place presents to the hospital for shortness of breath and increased trach secretions. Patient recently hospitalized for similar symptoms from 09/10-09/14. Patient is lying in bed. She remains on her baseline O2 setting and vitals remain stable. She continues to have thick secretions that require frequent suctioning. She remains on cefe a
[2023-10-20] MEDS: ASPIRIN 81 MG CHEWABLE TABLET FEED TUBE (10:28)
[2023-10-20] MEDS: amLODIPine BESYLATE 5 MG TABLET FEED TUBE (10:28)
[2023-10-20] MEDS: LANSOPRAZOLE ODT 30 MG TAB.RAP.DR FEED TUBE (10:28)
[2023-10-20 10:53] LABS: Basophils Absolute Auto 0.1 K/mm3 (0.0-0.1); Basophils Percent Auto 0.7 % (0.2-1.2); Eosinophils Absolute Auto 0.6 K/mm3 (0-0.3); Eosinophils Percent Auto 6.3 % (0-4.4); Hematocrit 25.3 % (37.0-47.0); Hemoglobin 7.6 g/dL (12.0-15.0); Immature Granulocyte Absolute 0.04 K/mm3 (0.00-0.031); Immature Granulocyte Percent A 0.4 % (0-0.5); Lymphocytes Absolute Auto 1.24 K/mm3 (0.9-3.2); Lymphocytes Percent Auto 13.9 % (18.3-44.2); Mean Corpuscular Hemoglobin 26.2 pg (26-34); Mean Corpuscular Volume 87.2 fl (80-100); Mean Platelet Volume 10.1 fl (7.4-10.4); Monocytes Absolute Auto 0.6 K/mm3 (0.1-0.6); Monocytes Percent Auto 7.2 % (2.6-8.5); Neutrophils Absolute Auto 6.4 K/mm3 (1.3-6.7); Neutrophils Percent Auto 71.5 % (45.5-73.1); Platelet Count Result 407 k/mm3 (150-375); Red Cell Distribution Width 18.7 % (11.5-14.5); White Blood Count 8.9 K/mm3 (4.5-10.0)
[2023-10-20 11:02] LABS: Alanine Aminotransferase 16 U/L (6-35); Albumin Level 3.8 g/dL (3.5-5.1); Alkaline Phosphatase 105 U/L (38-126); Anion Gap 3 mmol/L (4-12); Aspartate Amino Transferase 36 U/L (14-36); Bilirubin,Total 0.4 mg/dL (0.2-1.3); Blood Urea Nitrogen 49 mg/dL (7-17); Carbon Dioxide 35 mmol/L (22-30); Chloride 102 mmol/L (98-107); Estimated CRCL calculation 39 ml/min; Estimated Glomerular Filt Rate > 60; Glucose 104 mg/dL (65-110); Potassium 3.4 mmol/L (3.4-5.0); Sodium 140 mmol/L (137-145)
--- NOTE | 2023-10-20 15:08 | PC.NURSE ---
Spoke with TORIBIO Jackson regarding CTA order and current oxygen demands of patient on Airvo and the inability to transport with this piece of equipment and the amount of O2 required for equipment use. Patient is having Venous U/S done of bilateral lower extremities now, dependent on results of ultrasound, may or may not proceed with CTA. Due to iodine allergy will need timed premedication for a 13 hour prep prior. Will coordinate timing will CT and Pharmacy
[2023-10-20] MEDS: predniSONE 40 MG, predniSONE 10 MG 50 MG PO ×2 (17:00→23:20)
--- NOTE | 2023-10-20 17:45 | PC.NURSE ---
First dose of prednisone given @ 1700. Coordinated with CT and pharmacy for timing of doses for a planned 0600 CTA Patient family concerned with fluid amount given with flushes for bolus feedings. Currently 30 ml flushes with bolus feeds, daughter states that she typically flushes with 140 ml before feed and immediately following. Anything less she is concerned with the patient becoming constipated again due to lack of fluid intake. Will relay this information to oncoming nurse so that protein chemist is made aware tomorrow.
[2023-10-20] MEDS: DONEPEZIL HCL 5 MG TABLET FEED TUBE (21:03)
[2023-10-20] MEDS: ATORVASTATIN 20 MG TABLET FEED TUBE (21:03)
[2023-10-21] VITALS (24 sets, daily range): BP systolic 130–162; BP diastolic 53–70; PULSE 85–116; RESP 16–24; TEMP 36.6–37.2; O2SAT 97–100
[2023-10-21] MEDS: CEFEPIME 2 GM/NS 50 ML 2 GM/50 ML BAG IVPB ×2 (01:24→12:45)
[2023-10-21] MEDS: IPRATROPIUM 0.5 MG/ALBUTEROL SULFATE 2.5 MG AMPUL.NEB 3 ML INHALATION ×4 (02:06→20:14)
[2023-10-21 04:38] LABS: Basophils Percent Auto 0.4 % (0.2-1.2); Hematocrit 28.4 % (37.0-47.0); Hemoglobin 8.5 g/dL (12.0-15.0); Immature Granulocyte Absolute 0.05 K/mm3 (0.00-0.031); Immature Granulocyte Percent A 0.6 % (0-0.5); Lymphocytes Absolute Auto 0.52 K/mm3 (0.9-3.2); Lymphocytes Percent Auto 6.7 % (18.3-44.2); Mean Corpuscular HGB Conc 29.9 g/dl (32-36); Mean Corpuscular Hemoglobin 25.8 pg (26-34); Mean Corpuscular Volume 86.1 fl (80-100); Mean Platelet Volume 9.6 fl (7.4-10.4); Monocytes Absolute Auto 0.1 K/mm3 (0.1-0.6); Monocytes Percent Auto 0.6 % (2.6-8.5); Neutrophils Absolute Auto 7.1 K/mm3 (1.3-6.7); Neutrophils Percent Auto 91.7 % (45.5-73.1); Platelet Count Result 435 k/mm3 (150-375); Red Cell Distribution Width 18.7 % (11.5-14.5); White Blood Count 7.8 K/mm3 (4.5-10.0)
[2023-10-21 04:53] LABS: Alanine Aminotransferase 21 U/L (6-35); Albumin Level 4.1 g/dL (3.5-5.1); Alkaline Phosphatase 121 U/L (38-126); Anion Gap 6 mmol/L (4-12); Aspartate Amino Transferase 45 U/L (14-36); Bilirubin,Total 0.4 mg/dL (0.2-1.3); Blood Urea Nitrogen 44 mg/dL (7-17); Calcium 10.8 mg/dL (8.4-10.2); Carbon Dioxide 34 mmol/L (22-30); Chloride 103 mmol/L (98-107); Estimated CRCL calculation 39 ml/min; Estimated Glomerular Filt Rate > 60; Glucose 170 mg/dL (65-110); Potassium 4.2 mmol/L (3.4-5.0); Sodium 143 mmol/L (137-145)
[2023-10-21] MEDS: diphenhydrAMINE HCl INJ 50 MG/ML VIAL IV PUSH (05:08)
[2023-10-21] MEDS: predniSONE 40 MG, predniSONE 10 MG 50 MG PO (05:08)
[2023-10-21 05:38] LABS: Platelet Estimate Increased (Adequate)
[2023-10-21 05:39] LABS: Anisocytosis 1+; Polychromasia 1+; Schistocytes None Seen; Stomatocytes 1+
--- NOTE | 2023-10-21 08:33 | PM.IMPN ---
Progress Note: A&P Assessment and Plan (1) Acute and chronic respiratory failure with hypoxia: Code(s): J96.21 - Acute and chronic respiratory failure with hypoxia Status: Acute Assessment and Plan: Patient brought in to the ED for acute on chronic respiratory failure. Tracheostomy in place, per chart review she uses 3-4 L per minute by trach collar. Respiratory distress with hypoxia on arrival with SpO2 89% - Chest XR: mild left basilar haziness, correlate with left basilar pneumonia - CTA with no noted PE, appropriate precontrast medications ordered as patient has a known allergy to iodine - Venous doppler negative - Her condition improved with suction - COVID,Influenza and RSV PCR negative. - MRSA screen positive and Vancomycin added - IV antibiotics: Vancomycin and cefepime - Continue DuoNebs and Abx. (2) Pneumonia: Code(s): J18.9 - Pneumonia, unspecified organism Status: Acute Assessment and Plan: - Chest XR: mild left basilar haziness, correlate with left basilar pneumonia - Complicating Factors: trach, recent hospitalization - started on CAP tx: cefe and vanc - Viral PCR: negative for Flu/COVID/RSV - MRSA: positive - Continue supplemental O2 requirement with trach - Monitor vital signs, I&Os, neuro status and patient is a fall risk - Follow WBC, serum electrolytes, temperature curves and cultures - Sputum cultures pending (3) Adenocarcinoma of upper lobe of lung: Code(s): C34.10 - Malignant neoplasm of upper lobe, unspecified bronchus or lung Status: Acute Assessment and Plan: History of lung cancer s/p resection in 2018 CTA chest revealed unchanged 10mm left upper lobe nodule concerning for primary bronchogenic carcinoma (4) G tube feedings: Code(s): Z93.1 - Gastrostomy status Status: Acute Assessment and Plan: Per chart review patient was on Nepro 1.8 calorie 240 mL q4H with 120 mL flush Dietary consulted and patient started on nutrition (5) History of CVA (cerebrovascular accident): Code(s): Z86.73 - Personal history of transient ischemic attack (TIA), and cerebral infarction without residual deficits Status: Acute Assessment and Plan: Right side paralysis, nonverbal with dysphagia (6) COPD (chronic obstructive pulmonary disease): Code(s): J44.9 - Chronic obstructive pulmonary disease, unspecified Status: Acute Assessment and Plan: Chronic, does not appear in acute exacerbation. (7) HTN (hypertension): Code(s): I10 - Essential (primary) hypertension Status: Acute Assessment and Plan: Chronic, stable on home medication. - Continue amlodipine 5 mg daily - Monitor (8) Anemia: Code(s): D64.9 - Anemia, unspecified Status: Acute Assessment and Plan: H/H appears at baseline. Iron studies, B12 and folate WNL on prior admission. GI was consulted at that time as there was a positive fecal occult which is expected as patient has a Gtube. Since there was no obvious GI bleed and the H/H remained stable they did not proceed with EGD/colonoscopy. - No signs of obvious GI bleed, if H/H starts to downtrend or obvious GI bleed noted will consider GI consult - Monitor with daily labs. - Continue PPI Time Spent With Patient Time with patient: 25 - 35 minutes Subjective Date/time seen: 10/21/23 08:33 Interval history: 77yo female with hx of lung CA s/p lung resection in 2017, dementia, CVA with right hemiparesis in 2022, chronic respiratory failure with trach and GTube in place presents to the hospital for shortness of breath and increased trach secretions. Patient recently hospitalized for similar symptoms from 09/10-09/14. Patient is sleeping comfortably in bed with daughter at bedside. Per daughter she has noticed that the patients cough has improved. Patient had a CTA chest performed today which was negative for PE. She remains on vanc and cefe at this time for pn
[2023-10-21] MEDS: LANSOPRAZOLE ODT 30 MG TAB.RAP.DR FEED TUBE (08:55)
[2023-10-21] MEDS: amLODIPine BESYLATE 5 MG TABLET FEED TUBE (08:55)
[2023-10-21] MEDS: ASPIRIN 81 MG CHEWABLE TABLET FEED TUBE (08:55)
[2023-10-21] MEDS: ENOXAPARIN 40 MG/0.4 ML SYRINGE SUB-Q (08:55)
--- NOTE | 2023-10-21 12:30 | PCNFU ---
Nutrition Follow-Up Complete: Need for alternative nutrition support as evidenced by NPO with tube feeding to meet nutrition needs. Goal:Meet estimated needs Pt current nutrition is Nepro bolus feeds of 240ml QID (10a,2p,6p,10p) with 120ml flushes each feed and q 4 hrs. Nutrition recommendation: Initiate tube feedings Last recorded weight is 72.7 kg. Bowel Motility: +BM 7/2 Labs Reviewed: Hgb:8.5, HCT:28.4, BUN:44, Glu:170 Meds Noted: lovenox Skin: WNL Additional Notes: Pt in room without tube feedings running yet. Discussed with nursing and family, obtained the correct tube feeding formula and made sure orders were in correctly as needed. Tube feeding to start surinder as family is concerned for the delay. Monitor tube feeding, tolerance, wt, labs. Follow up every Friday and Friday
[2023-10-21] MEDS: VANCOMYCIN 1,500 MG/NS 500 ML 1,500 MG/500 ML BAG 250 MG IVPB (13:21)
[2023-10-21] MEDS: DONEPEZIL HCL 5 MG TABLET FEED TUBE (20:40)
[2023-10-21] MEDS: ATORVASTATIN 20 MG TABLET FEED TUBE (20:40)
[2023-10-22] VITALS (26 sets, daily range): BP systolic 141–150; BP diastolic 60–83; PULSE 77–105; RESP 16–22; TEMP 36.2–37.2; O2SAT 96–100
[2023-10-22] MEDS: CEFEPIME 2 GM/NS 50 ML 2 GM/50 ML BAG IVPB ×2 (01:09→12:46)
[2023-10-22] MEDS: IPRATROPIUM 0.5 MG/ALBUTEROL SULFATE 2.5 MG AMPUL.NEB 3 ML INHALATION ×4 (02:46→20:13)
[2023-10-22 04:41] LABS: Basophils Percent Auto 0.4 % (0.2-1.2); Hematocrit 25.6 % (37.0-47.0); Hemoglobin 7.5 g/dL (12.0-15.0); Immature Granulocyte Absolute 0.06 K/mm3 (0.00-0.031); Immature Granulocyte Percent A 0.7 % (0-0.5); Lymphocytes Absolute Auto 1.26 K/mm3 (0.9-3.2); Lymphocytes Percent Auto 13.7 % (18.3-44.2); Mean Corpuscular HGB Conc 29.3 g/dl (32-36); Mean Corpuscular Hemoglobin 25.7 pg (26-34); Mean Corpuscular Volume 87.7 fl (80-100); Monocytes Absolute Auto 0.9 K/mm3 (0.1-0.6); Neutrophils Absolute Auto 6.9 K/mm3 (1.3-6.7); Neutrophils Percent Auto 75.2 % (45.5-73.1); Platelet Count Result 466 k/mm3 (150-375); Red Blood Count 2.92 M/mm3 (4.2-5.4); Red Cell Distribution Width 18.9 % (11.5-14.5); White Blood Count 9.2 K/mm3 (4.5-10.0)
[2023-10-22 04:54] LABS: Alanine Aminotransferase 18 U/L (6-35); Albumin Level 3.9 g/dL (3.5-5.1); Alkaline Phosphatase 121 U/L (38-126); Anion Gap 5 mmol/L (4-12); Aspartate Amino Transferase 39 U/L (14-36); Bilirubin,Total 0.4 mg/dL (0.2-1.3); Blood Urea Nitrogen 45 mg/dL (7-17); Calcium 11.1 mg/dL (8.4-10.2); Carbon Dioxide 36 mmol/L (22-30); Chloride 110 mmol/L (98-107); Estimated CRCL calculation 44 ml/min; Estimated Glomerular Filt Rate > 60; Glucose 131 mg/dL (65-110); Potassium 3.1 mmol/L (3.4-5.0); Sodium 151 mmol/L (137-145)
[2023-10-22 05:43] LABS: Hypochromasia 2+; Platelet Estimate Increased (Adequate)
[2023-10-22 05:44] LABS: Schistocytes None Seen
[2023-10-22] MEDS: ENOXAPARIN 40 MG/0.4 ML SYRINGE SUB-Q (08:11)
[2023-10-22] MEDS: LANSOPRAZOLE ODT 30 MG TAB.RAP.DR FEED TUBE (08:11)
[2023-10-22] MEDS: amLODIPine BESYLATE 5 MG TABLET FEED TUBE (08:11)
[2023-10-22] MEDS: ASPIRIN 81 MG CHEWABLE TABLET FEED TUBE (08:11)
[2023-10-22] MEDS: PANTOPRAZOLE SODIUM IV 40 MG VIAL IV PUSH (09:04)
[2023-10-22] MEDS: guaiFENesin 200 MG/10 ML UDC PO ×2 (09:04→23:12)
[2023-10-22] MEDS: POTASSIUM CHLORIDE INJ 40 MEQ in SODIUM CHLORIDE 0.9% IV 500 ML 130 MEQ IVPB (09:04)
--- NOTE | 2023-10-22 12:58 | P.PNIM_ITS ---
Progress Note: A&P Assessment and Plan (1) Acute and chronic respiratory failure with hypoxia: Code(s): J96.21 - Acute and chronic respiratory failure with hypoxia Status: Acute (2) Pneumonia: Code(s): J18.9 - Pneumonia, unspecified organism Status: Acute (3) Adenocarcinoma of upper lobe of lung: Code(s): C34.10 - Malignant neoplasm of upper lobe, unspecified bronchus or lung Status: Acute (4) G tube feedings: Code(s): Z93.1 - Gastrostomy status Status: Acute (5) History of CVA (cerebrovascular accident): Code(s): Z86.73 - Personal history of transient ischemic attack (TIA), and cerebral infarction without residual deficits Status: Acute (6) COPD (chronic obstructive pulmonary disease): Code(s): J44.9 - Chronic obstructive pulmonary disease, unspecified Status: Acute (7) HTN (hypertension): Code(s): I10 - Essential (primary) hypertension Status: Acute (8) Anemia: Code(s): D64.9 - Anemia, unspecified Status: Acute (9) Tracheostomy in place: Code(s): Z93.0 - Tracheostomy status Status: Acute Plan Acute on chronic respiratory failure with hypoxia * Patient brought in to the ED for acute on chronic respiratory failure. Tracheostomy in place, per chart review she uses 3-4 L per minute by trach collar. * Respiratory distress with hypoxia on arrival with SpO2 89% * Chest XR: mild left basilar haziness, correlate with left basilar pneumonia * CTA with no noted PE, appropriate precontrast medications ordered as patient has a known allergy to iodine * Venous doppler negative * Her condition improved with suction * COVID,Influenza and RSV PCR negative. * MRSA screen positive and Vancomycin added * IV antibiotics: Vancomycin and cefepime * Continue DuoNebs and Abx. Pneumonia * Chest XR: mild left basilar haziness, correlate with left basilar pneumonia * Complicating Factors: trach, recent hospitalization * started on CAP tx: cefe and vanc * Viral PCR: negative for Flu/COVID/RSV * MRSA: positive * Continue supplemental O2 requirement with trach * Monitor vital signs, I&Os, neuro status and patient is a fall risk * Follow WBC, serum electrolytes, temperature curves and cultures * Sputum cultures pending Hypernatremia * Likely secondary to tube feedings * resumed home tube feeds * monitor neuro status * CMP daily * 240 free water flushes with tube feeds HX CVA: RT side paralysis HX HTN: Resumed home medications Hx Anemia: Stable, monitor H&H HX Lung cancer: CTA with unchanged Upper LT nodule HX Gastrostomy tube: resumed home tube feedings Code status: Full code per patient DVT prophylaxis: Lovenox Stress ulcer prophylaxis: Protonix 40 daily PT/OT notes: Bedridden Disposition: Patient continues admission for acute on chronic respiratory failure with hypoxia secondary to PNA will continue current treatment and monitor for improvement to respiratory status. Patient lives with daughter who is her primary critical care technician at home plan will to return home. Time Spent With Patient Time with patient: 15 - 25 minutes Subjective Date/time seen: 10/22/23 12:58 Interval history: Medical Record: 77yo female with hx of lung CA s/p lung resection in 2017, dementia, CVA with right hemiparesis in 2022, chronic respiratory failure with trach and GTube in place presents to the hospital for shortness of breath and increased trach secretions. P
--- NOTE | 2023-10-22 12:58 | PM.IMPN ---
Progress Note: A&P Assessment and Plan (1) Acute and chronic respiratory failure with hypoxia: Code(s): J96.21 - Acute and chronic respiratory failure with hypoxia Status: Acute (2) Pneumonia: Code(s): J18.9 - Pneumonia, unspecified organism Status: Acute (3) Adenocarcinoma of upper lobe of lung: Code(s): C34.10 - Malignant neoplasm of upper lobe, unspecified bronchus or lung Status: Acute (4) G tube feedings: Code(s): Z93.1 - Gastrostomy status Status: Acute (5) History of CVA (cerebrovascular accident): Code(s): Z86.73 - Personal history of transient ischemic attack (TIA), and cerebral infarction without residual deficits Status: Acute (6) COPD (chronic obstructive pulmonary disease): Code(s): J44.9 - Chronic obstructive pulmonary disease, unspecified Status: Acute (7) HTN (hypertension): Code(s): I10 - Essential (primary) hypertension Status: Acute (8) Anemia: Code(s): D64.9 - Anemia, unspecified Status: Acute (9) Tracheostomy in place: Code(s): Z93.0 - Tracheostomy status Status: Acute Plan Acute on chronic respiratory failure with hypoxia Patient brought in to the ED for acute on chronic respiratory failure. Tracheostomy in place, per chart review she uses 3-4 L per minute by trach collar. Respiratory distress with hypoxia on arrival with SpO2 89% Chest XR: mild left basilar haziness, correlate with left basilar pneumonia CTA with no noted PE, appropriate precontrast medications ordered as patient has a known allergy to iodine Venous doppler negative Her condition improved with suction COVID,Influenza and RSV PCR negative. MRSA screen positive and Vancomycin added IV antibiotics: Vancomycin and cefepime Continue DuoNebs and Abx. Pneumonia Chest XR: mild left basilar haziness, correlate with left basilar pneumonia Complicating Factors: trach, recent hospitalization started on CAP tx: cefe and vanc Viral PCR: negative for Flu/COVID/RSV MRSA: positive Continue supplemental O2 requirement with trach Monitor vital signs, I&Os, neuro status and patient is a fall risk Follow WBC, serum electrolytes, temperature curves and cultures Sputum cultures pending Hypernatremia Likely secondary to tube feedings resumed home tube feeds monitor neuro status CMP daily 240 free water flushes with tube feeds HX CVA: RT side paralysis HX HTN: Resumed home medications Hx Anemia: Stable, monitor H&H HX Lung cancer: CTA with unchanged Upper LT nodule HX Gastrostomy tube: resumed home tube feedings Code status: Full code per patient DVT prophylaxis: Lovenox Stress ulcer prophylaxis: Protonix 40 daily PT/OT notes: Bedridden Disposition: Patient continues admission for acute on chronic respiratory failure with hypoxia secondary to PNA will continue current treatment and monitor for improvement to respiratory status. Patient lives with daughter who is her primary furnace caretaker at home plan will to return home. Time Spent With Patient Time with patient: 15 - 25 minutes Subjective Date/time seen: 10/22/23 12:58 Interval history: Medical Record: 77yo female with hx of lung CA s/p lung resection in 2017, dementia, CVA with right hemiparesis in 2022, chronic respiratory failure with trach and GTube in place presents to the hospital for shortness of breath and increased trach secretions. Patient recently hospitalized for similar symptoms from 09/10-09/14. Patient is sleeping comfortably in bed with daughter at bedside. Per daughter she has noticed that the patients cough has improved. Patient had a CTA chest performed today which was negative for PE. She remains on vanc and cefe at this time for pneumonia. 10/22/2023: Assumed Care Patient nonverbal family at bedside appeared in no acute distress and was smiling. NA with a bump updated patient free water flushes to
[2023-10-22] MEDS: ATORVASTATIN 20 MG TABLET FEED TUBE (22:50)
[2023-10-22] MEDS: DONEPEZIL HCL 5 MG TABLET FEED TUBE (22:50)
[2023-10-23] VITALS (26 sets, daily range): BP systolic 140–178; BP diastolic 58–86; PULSE 79–113; RESP 20–26; TEMP 36.2–36.8; O2SAT 90–98
[2023-10-23] MEDS: CEFEPIME 2 GM/NS 50 ML 2 GM/50 ML BAG IVPB (00:27)
[2023-10-23 01:55] LABS: Vancomycin Trough 11.6 ug/mL (10.0-20.0)
[2023-10-23] MEDS: IPRATROPIUM 0.5 MG/ALBUTEROL SULFATE 2.5 MG AMPUL.NEB 3 ML INHALATION ×4 (01:57→20:19)
[2023-10-23] MEDS: VANCOMYCIN 1,500 MG/NS 500 ML 1,500 MG/500 ML BAG 250 MG IVPB (03:34)
[2023-10-23 04:38] LABS: Basophils Absolute Auto 0.1 K/mm3 (0.0-0.1); Basophils Percent Auto 0.5 % (0.2-1.2); Eosinophils Absolute Auto 0.3 K/mm3 (0-0.3); Eosinophils Percent Auto 2.4 % (0-4.4); Hemoglobin 7.3 g/dL (12.0-15.0); Immature Granulocyte Absolute 0.05 K/mm3 (0.00-0.031); Immature Granulocyte Percent A 0.4 % (0-0.5); Lymphocytes Absolute Auto 1.34 K/mm3 (0.9-3.2); Mean Corpuscular HGB Conc 29.2 g/dl (32-36); Mean Corpuscular Hemoglobin 26.1 pg (26-34); Mean Corpuscular Volume 89.3 fl (80-100); Monocytes Absolute Auto 0.9 K/mm3 (0.1-0.6); Neutrophils Absolute Auto 8.6 K/mm3 (1.3-6.7); Neutrophils Percent Auto 76.7 % (45.5-73.1); Nucleated Red Blood Cells Perc 0.2 % (0.0-0.2); Platelet Count Result 428 k/mm3 (150-375); White Blood Count 11.2 K/mm3 (4.5-10.0)
[2023-10-23 04:49] LABS: Alanine Aminotransferase 19 U/L (6-35); Albumin Level 3.7 g/dL (3.5-5.1); Alkaline Phosphatase 101 U/L (38-126); Anion Gap 4 mmol/L (4-12); Aspartate Amino Transferase 33 U/L (14-36); Bilirubin,Total 0.3 mg/dL (0.2-1.3); Blood Urea Nitrogen 38 mg/dL (7-17); Calcium 10.7 mg/dL (8.4-10.2); Carbon Dioxide 34 mmol/L (22-30); Chloride 113 mmol/L (98-107); Estimated CRCL calculation 49 ml/min; Estimated Glomerular Filt Rate > 60; Glucose 96 mg/dL (65-110); Potassium 3.7 mmol/L (3.4-5.0); Sodium 151 mmol/L (137-145)
[2023-10-23 05:07] LABS: Anisocytosis 1+; Hypochromasia 2+; Platelet Estimate Adequate (Adequate); Polychromasia 1+; Stomatocytes 1+
[2023-10-23 05:08] LABS: Schistocytes None Seen
[2023-10-23] MEDS: PANTOPRAZOLE SODIUM IV 40 MG VIAL IV PUSH (08:04)
[2023-10-23] MEDS: ASPIRIN 81 MG CHEWABLE TABLET FEED TUBE (08:04)
[2023-10-23] MEDS: LANSOPRAZOLE ODT 30 MG TAB.RAP.DR FEED TUBE (08:04)
[2023-10-23] MEDS: ENOXAPARIN 40 MG/0.4 ML SYRINGE SUB-Q (08:04)
[2023-10-23] MEDS: amLODIPine BESYLATE 5 MG TABLET FEED TUBE (08:04)
--- NOTE | 2023-10-23 11:34 | ECG_ITS ---
Test Date: 2023-10-23 14:12:44 Measurements Intervals [place] Rate: 98 P: 59 MI: 142 QRS: 35 QRSD: 89 T: 84 QT: 311 QTc: 399 Interpretive Statements SINUS RHYTHM CANNOT R/O SEPTAL INFARCT, AGE INDETERMINATE BORDERLINE ST ABNORMALITY- HIGH LATERAL LEADS BASELINE ARTIFACT- I, II, III, AVL, AVF, V6 ABNORMAL ECG No previous ECG available for comparison Electronically Signed On 10-23-2023 16:54:55 CDT by Darvin Christianson D.O.
[2023-10-23] MEDS: levoFLOXacin 750 MG TABLET PO (12:26)
--- NOTE | 2023-10-23 14:08 | P.PNIM_ITS ---
Progress Note: A&P Assessment and Plan (1) Acute and chronic respiratory failure with hypoxia: Code(s): J96.21 - Acute and chronic respiratory failure with hypoxia Status: Acute (2) Pneumonia: Code(s): J18.9 - Pneumonia, unspecified organism Status: Acute (3) Adenocarcinoma of upper lobe of lung: Code(s): C34.10 - Malignant neoplasm of upper lobe, unspecified bronchus or lung Status: Acute (4) G tube feedings: Code(s): Z93.1 - Gastrostomy status Status: Acute (5) History of CVA (cerebrovascular accident): Code(s): Z86.73 - Personal history of transient ischemic attack (TIA), and cerebral infarction without residual deficits Status: Acute (6) COPD (chronic obstructive pulmonary disease): Code(s): J44.9 - Chronic obstructive pulmonary disease, unspecified Status: Acute (7) HTN (hypertension): Code(s): I10 - Essential (primary) hypertension Status: Acute (8) Anemia: Code(s): D64.9 - Anemia, unspecified Status: Acute (9) Tracheostomy in place: Code(s): Z93.0 - Tracheostomy status Status: Acute Plan Acute on chronic respiratory failure with hypoxia * Patient brought in to the ED for acute on chronic respiratory failure. Tracheostomy in place, per chart review she uses 3-4 L per minute by trach collar. * Respiratory distress with hypoxia on arrival with SpO2 89% * Chest XR: mild left basilar haziness, correlate with left basilar pneumonia * CTA with no noted PE, appropriate precontrast medications ordered as patient has a known allergy to iodine * Venous doppler negative * Her condition improved with suction * COVID,Influenza and RSV PCR negative. * MRSA screen positive and Vancomycin added * IV antibiotics: Vancomycin and cefepime * Continue DuoNebs and Abx. Pneumonia * Chest XR: mild left basilar haziness, correlate with left basilar pneumonia * Complicating Factors: trach, recent hospitalization * started on CAP tx: cefe and vanc * Viral PCR: negative for Flu/COVID/RSV * MRSA: positive * Continue supplemental O2 requirement with trach * Monitor vital signs, I&Os, neuro status and patient is a fall risk * Follow WBC, serum electrolytes, temperature curves and cultures * Sputum cultures pending 10/23/2023 * sputum with Pseudomonas * PO Levaquin * baseline EKG Hypernatremia * Likely secondary to tube feedings * resumed home tube feeds * monitor neuro status * CMP daily * 240 free water flushes with tube feeds HX CVA: RT side paralysis HX HTN: Resumed home medications Hx Anemia: Stable, monitor H&H HX Lung cancer: CTA with unchanged Upper LT nodule HX Gastrostomy tube: resumed home tube feedings Code status: Full code per patient DVT prophylaxis: Lovenox Stress ulcer prophylaxis: Protonix 40 daily PT/OT notes: Bedridden Disposition: Patient continues admission for acute on chronic respiratory failure with hypoxia secondary to PNA. Patient lives with daughter who is her primary child care group leader at home plan will to return home. Time Spent With Patient Time with patient: 15 - 25 minutes Subjective Date/time seen: 10/23/23 14:08 Interval history: Medical Record: 77yo female with hx of lung CA s/p lung resection in 2017, dementia, CVA with right hemiparesis in 2022, chronic respiratory failure with trach and GTube in place presents to the hospital for shortness of breath and increased trach
--- NOTE | 2023-10-23 14:08 | PM.IMPN ---
Progress Note: A&P Assessment and Plan (1) Acute and chronic respiratory failure with hypoxia: Code(s): J96.21 - Acute and chronic respiratory failure with hypoxia Status: Acute (2) Pneumonia: Code(s): J18.9 - Pneumonia, unspecified organism Status: Acute (3) Adenocarcinoma of upper lobe of lung: Code(s): C34.10 - Malignant neoplasm of upper lobe, unspecified bronchus or lung Status: Acute (4) G tube feedings: Code(s): Z93.1 - Gastrostomy status Status: Acute (5) History of CVA (cerebrovascular accident): Code(s): Z86.73 - Personal history of transient ischemic attack (TIA), and cerebral infarction without residual deficits Status: Acute (6) COPD (chronic obstructive pulmonary disease): Code(s): J44.9 - Chronic obstructive pulmonary disease, unspecified Status: Acute (7) HTN (hypertension): Code(s): I10 - Essential (primary) hypertension Status: Acute (8) Anemia: Code(s): D64.9 - Anemia, unspecified Status: Acute (9) Tracheostomy in place: Code(s): Z93.0 - Tracheostomy status Status: Acute Plan Acute on chronic respiratory failure with hypoxia Patient brought in to the ED for acute on chronic respiratory failure. Tracheostomy in place, per chart review she uses 3-4 L per minute by trach collar. Respiratory distress with hypoxia on arrival with SpO2 89% Chest XR: mild left basilar haziness, correlate with left basilar pneumonia CTA with no noted PE, appropriate precontrast medications ordered as patient has a known allergy to iodine Venous doppler negative Her condition improved with suction COVID,Influenza and RSV PCR negative. MRSA screen positive and Vancomycin added IV antibiotics: Vancomycin and cefepime Continue DuoNebs and Abx. Pneumonia Chest XR: mild left basilar haziness, correlate with left basilar pneumonia Complicating Factors: trach, recent hospitalization started on CAP tx: cefe and vanc Viral PCR: negative for Flu/COVID/RSV MRSA: positive Continue supplemental O2 requirement with trach Monitor vital signs, I&Os, neuro status and patient is a fall risk Follow WBC, serum electrolytes, temperature curves and cultures Sputum cultures pending 10/23/2023 sputum with Pseudomonas PO Levaquin baseline EKG Hypernatremia Likely secondary to tube feedings resumed home tube feeds monitor neuro status CMP daily 240 free water flushes with tube feeds HX CVA: RT side paralysis HX HTN: Resumed home medications Hx Anemia: Stable, monitor H&H HX Lung cancer: CTA with unchanged Upper LT nodule HX Gastrostomy tube: resumed home tube feedings Code status: Full code per patient DVT prophylaxis: Lovenox Stress ulcer prophylaxis: Protonix 40 daily PT/OT notes: Bedridden Disposition: Patient continues admission for acute on chronic respiratory failure with hypoxia secondary to PNA. Patient lives with daughter who is her primary career coordinator at home plan will to return home. Time Spent With Patient Time with patient: 15 - 25 minutes Subjective Date/time seen: 10/23/23 14:08 Interval history: Medical Record: 77yo female with hx of lung CA s/p lung resection in 2017, dementia, CVA with right hemiparesis in 2022, chronic respiratory failure with trach and GTube in place presents to the hospital for shortness of breath and increased trach secretions. Patient recently hospitalized for similar symptoms from 09/10-09/14. Patient is sleeping comfortably in bed with daughter at bedside. Per daughter she has noticed that the patients cough has improved. Patient had a CTA chest performed today which was negative for PE. She remains on vanc and cefe at this time for pneumonia. 10/22/2023: Assumed Care Patient nonverbal family at bedside appeared in no acute distress and was smiling. NA with a bump updated patient free water flushes to home dose. F
[2023-10-23] MEDS: ATORVASTATIN 20 MG TABLET FEED TUBE (20:58)
[2023-10-23] MEDS: DONEPEZIL HCL 5 MG TABLET FEED TUBE (20:58)
[2023-10-24] VITALS (26 sets, daily range): BP systolic 133–160; BP diastolic 42–78; PULSE 78–103; RESP 18–24; TEMP 36.4–37.1; O2SAT 92–101
[2023-10-24] MEDS: IPRATROPIUM 0.5 MG/ALBUTEROL SULFATE 2.5 MG AMPUL.NEB 3 ML INHALATION ×4 (02:19→20:08)
[2023-10-24 05:00] LABS: Basophils Absolute Auto 0.1 K/mm3 (0.0-0.1); Basophils Percent Auto 0.7 % (0.2-1.2); Eosinophils Absolute Auto 0.7 K/mm3 (0-0.3); Eosinophils Percent Auto 6.6 % (0-4.4); Hematocrit 28.6 % (37.0-47.0); Hemoglobin 8.3 g/dL (12.0-15.0); Immature Granulocyte Absolute 0.08 K/mm3 (0.00-0.031); Immature Granulocyte Percent A 0.7 % (0-0.5); Lymphocytes Absolute Auto 1.43 K/mm3 (0.9-3.2); Lymphocytes Percent Auto 13.3 % (18.3-44.2); Mean Corpuscular Hemoglobin 25.6 pg (26-34); Mean Corpuscular Volume 88.3 fl (80-100); Mean Platelet Volume 10.8 fl (7.4-10.4); Monocytes Absolute Auto 0.7 K/mm3 (0.1-0.6); Monocytes Percent Auto 6.3 % (2.6-8.5); Neutrophils Absolute Auto 7.8 K/mm3 (1.3-6.7); Neutrophils Percent Auto 72.4 % (45.5-73.1); Nucleated Red Blood Cells Perc 0.4 % (0.0-0.2); Platelet Count Result 445 k/mm3 (150-375); Red Blood Count 3.24 M/mm3 (4.2-5.4); Red Cell Distribution Width 19.1 % (11.5-14.5); White Blood Count 10.7 K/mm3 (4.5-10.0)
[2023-10-24 05:13] LABS: Alanine Aminotransferase 22 U/L (6-35); Alkaline Phosphatase 118 U/L (38-126); Anion Gap 4 mmol/L (4-12); Aspartate Amino Transferase 38 U/L (14-36); Bilirubin,Total 0.4 mg/dL (0.2-1.3); Blood Urea Nitrogen 27 mg/dL (7-17); Calcium 10.9 mg/dL (8.4-10.2); Carbon Dioxide 34 mmol/L (22-30); Chloride 108 mmol/L (98-107); Estimated CRCL calculation 49 ml/min; Estimated Glomerular Filt Rate > 60; Glucose 109 mg/dL (65-110); Potassium 3.4 mmol/L (3.4-5.0); Sodium 146 mmol/L (137-145)
[2023-10-24 05:24] LABS: Anisocytosis 1+; Hypochromasia 2+; Platelet Estimate Slightly Increased (Adequate); Polychromasia 1+; Schistocytes None Seen; Stomatocytes 1+
[2023-10-24] MEDS: LANSOPRAZOLE ODT 30 MG TAB.RAP.DR FEED TUBE (09:33)
[2023-10-24] MEDS: ASPIRIN 81 MG CHEWABLE TABLET FEED TUBE (09:33)
[2023-10-24] MEDS: ENOXAPARIN 40 MG/0.4 ML SYRINGE SUB-Q (09:33)
[2023-10-24] MEDS: cefTAZidime 2 GM/NS 50 ML 2 GM/50 ML BAG IVPB ×2 (09:34→21:01)
[2023-10-24] MEDS: amLODIPine BESYLATE 5 MG TABLET FEED TUBE (09:34)
[2023-10-24] MEDS: guaiFENesin 200 MG/10 ML UDC PO ×3 (10:56→21:01)
--- NOTE | 2023-10-24 11:06 | PCNFU ---
Nutrition Follow-Up Complete: Need for alternative nutrition support as evidenced by NPO with tube feeding to meet nutrition needs. Goal:Meet estimated needs Pt meeting goal. continue with same goal. Pt current nutrition is NPO, tube feeding: Nepro bolus feeds of 240ml QID with 240ml flushes q 4 hrs. Nutrition recommendation: May need to increase flushes as Na is elevated Last recorded weight is 68.6 kg. Bowel Motility: +BM 10/23 Labs Reviewed: Hgb:8.3, HCT:28.6, NA:146, BUN:27 Meds Noted: lovenox Skin: WNL Additional Notes: Pt continues on same tube feeding, tolerating well. Noted elevated NA, recommend to increase flushes to help. Monitor tube feeding, tolerance, wt, labs. Follow up every Friday and Friday
--- NOTE | 2023-10-24 13:27 | P.PNIM_ITS ---
Progress Note: A&P Assessment and Plan (1) Acute and chronic respiratory failure with hypoxia: Code(s): J96.21 - Acute and chronic respiratory failure with hypoxia Status: Acute (2) Pneumonia: Code(s): J18.9 - Pneumonia, unspecified organism Status: Acute (3) Adenocarcinoma of upper lobe of lung: Code(s): C34.10 - Malignant neoplasm of upper lobe, unspecified bronchus or lung Status: Acute (4) G tube feedings: Code(s): Z93.1 - Gastrostomy status Status: Acute (5) History of CVA (cerebrovascular accident): Code(s): Z86.73 - Personal history of transient ischemic attack (TIA), and cerebral infarction without residual deficits Status: Acute (6) COPD (chronic obstructive pulmonary disease): Code(s): J44.9 - Chronic obstructive pulmonary disease, unspecified Status: Acute (7) HTN (hypertension): Code(s): I10 - Essential (primary) hypertension Status: Acute (8) Anemia: Code(s): D64.9 - Anemia, unspecified Status: Acute (9) Tracheostomy in place: Code(s): Z93.0 - Tracheostomy status Status: Acute Plan Acute on chronic respiratory failure with hypoxia * Patient brought in to the ED for acute on chronic respiratory failure. Tracheostomy in place, per chart review she uses 3-4 L per minute by trach collar. * Respiratory distress with hypoxia on arrival with SpO2 89% * Chest XR: mild left basilar haziness, correlate with left basilar pneumonia * CTA with no noted PE, appropriate precontrast medications ordered as patient has a known allergy to iodine * Venous doppler negative * Her condition improved with suction * COVID,Influenza and RSV PCR negative. * MRSA screen positive and Vancomycin added * IV antibiotics: Vancomycin and cefepime * Continue DuoNebs and Abx. Pneumonia * Chest XR: mild left basilar haziness, correlate with left basilar pneumonia * Complicating Factors: trach, recent hospitalization * started on CAP tx: cefe and vanc * Viral PCR: negative for Flu/COVID/RSV * MRSA: positive * Continue supplemental O2 requirement with trach * Monitor vital signs, I&Os, neuro status and patient is a fall risk * Follow WBC, serum electrolytes, temperature curves and cultures * Sputum cultures pending 10/23/2023 * sputum with Pseudomonas * PO Levaquin * baseline EKG 10/24/2023 * Sensitivity report resistant to Levaquin * Patient will need 3 more days IV antibiotic therapy Hypernatremia * Likely secondary to tube feedings * resumed home tube feeds * monitor neuro status * CMP daily * 240 free water flushes with tube feeds HX CVA: RT side paralysis HX HTN: Resumed home medications Hx Anemia: Stable, monitor H&H HX Lung cancer: CTA with unchanged Upper LT nodule HX Gastrostomy tube: resumed home tube feedings Code status: Full code per patient DVT prophylaxis: Lovenox Stress ulcer prophylaxis: Protonix 40 daily PT/OT notes: Bedridden Disposition: Patient continues admission for acute on chronic respiratory failure with hypoxia secondary to PNA. Patient lives with daughter who is her primary account executive healthcare at home plan will to return home. Patient will need Heated and humidified oxygen order at discharge. Time Spent With Patient Time with patient: 15 - 25 minutes Subjective Date/time seen: 10/24/23 13:27 Interval history: Medical Record: 77yo female with hx of lung CA s/p l
[2023-10-24] MEDS: ATORVASTATIN 20 MG TABLET FEED TUBE (21:01)
[2023-10-24] MEDS: DONEPEZIL HCL 5 MG TABLET FEED TUBE (21:01)
[2023-10-25] VITALS (28 sets, daily range): BP systolic 146–170; BP diastolic 55–77; PULSE 84–101; RESP 19–22; TEMP 35.7–36.6; O2SAT 93–99
[2023-10-25] MEDS: IPRATROPIUM 0.5 MG/ALBUTEROL SULFATE 2.5 MG AMPUL.NEB 3 ML INHALATION ×4 (01:08→20:04)
[2023-10-25 04:09] LABS: Alanine Aminotransferase 21 U/L (6-35); Albumin Level 3.9 g/dL (3.5-5.1); Alkaline Phosphatase 126 U/L (38-126); Anion Gap 11 mmol/L (4-12); Aspartate Amino Transferase 55 U/L (14-36); Bilirubin,Total 0.6 mg/dL (0.2-1.3); Blood Urea Nitrogen 34 mg/dL (7-17); Calcium 10.3 mg/dL (8.4-10.2); Carbon Dioxide 26 mmol/L (22-30); Chloride 104 mmol/L (98-107); Estimated CRCL calculation 44 ml/min; Estimated Glomerular Filt Rate > 60; Glucose 98 mg/dL (65-110); Potassium 3.4 mmol/L (3.4-5.0); Sodium 141 mmol/L (137-145)
[2023-10-25 07:14] LABS: Basophils Absolute Auto 0.1 K/mm3 (0.0-0.1); Basophils Percent Auto 0.6 % (0.2-1.2); Eosinophils Absolute Auto 0.9 K/mm3 (0-0.3); Eosinophils Percent Auto 8.7 % (0-4.4); Hemoglobin 7.9 g/dL (12.0-15.0); Immature Granulocyte Absolute 0.06 K/mm3 (0.00-0.031); Immature Granulocyte Percent A 0.6 % (0-0.5); Lymphocytes Absolute Auto 1.42 K/mm3 (0.9-3.2); Lymphocytes Percent Auto 14.2 % (18.3-44.2); Mean Corpuscular HGB Conc 30.4 g/dl (32-36); Mean Corpuscular Volume 85.5 fl (80-100); Mean Platelet Volume 9.3 fl (7.4-10.4); Monocytes Absolute Auto 0.6 K/mm3 (0.1-0.6); Monocytes Percent Auto 5.7 % (2.6-8.5); Neutrophils Percent Auto 70.2 % (45.5-73.1); Platelet Count Result 419 k/mm3 (150-375); Red Blood Count 3.04 M/mm3 (4.2-5.4); Red Cell Distribution Width 18.9 % (11.5-14.5)
[2023-10-25] MEDS: ENOXAPARIN 40 MG/0.4 ML SYRINGE SUB-Q (09:02)
[2023-10-25] MEDS: LANSOPRAZOLE ODT 30 MG TAB.RAP.DR FEED TUBE (09:02)
[2023-10-25] MEDS: ASPIRIN 81 MG CHEWABLE TABLET FEED TUBE (09:02)
[2023-10-25] MEDS: cefTAZidime 2 GM/NS 50 ML 2 GM/50 ML BAG IVPB ×2 (09:03→20:21)
[2023-10-25] MEDS: amLODIPine BESYLATE 5 MG TABLET FEED TUBE (09:04)
[2023-10-25] MEDS: guaiFENesin 200 MG/10 ML UDC PO (09:34)
[2023-10-25 12:33] LABS: Glucose Point of Care 128 mg/dl (65-105)
--- NOTE | 2023-10-25 13:57 | P.PNIM_ITS ---
Progress Note: A&P Assessment and Plan (1) Acute and chronic respiratory failure with hypoxia: Code(s): J96.21 - Acute and chronic respiratory failure with hypoxia Status: Acute (2) Pneumonia: Code(s): J18.9 - Pneumonia, unspecified organism Status: Acute (3) Adenocarcinoma of upper lobe of lung: Code(s): C34.10 - Malignant neoplasm of upper lobe, unspecified bronchus or lung Status: Acute (4) G tube feedings: Code(s): Z93.1 - Gastrostomy status Status: Acute (5) History of CVA (cerebrovascular accident): Code(s): Z86.73 - Personal history of transient ischemic attack (TIA), and cerebral infarction without residual deficits Status: Acute (6) COPD (chronic obstructive pulmonary disease): Code(s): J44.9 - Chronic obstructive pulmonary disease, unspecified Status: Acute (7) HTN (hypertension): Code(s): I10 - Essential (primary) hypertension Status: Acute (8) Anemia: Code(s): D64.9 - Anemia, unspecified Status: Acute (9) Tracheostomy in place: Code(s): Z93.0 - Tracheostomy status Status: Acute Plan Acute on chronic respiratory failure with hypoxia * Patient brought in to the ED for acute on chronic respiratory failure. Tracheostomy in place, per chart review she uses 3-4 L per minute by trach collar. * Respiratory distress with hypoxia on arrival with SpO2 89% * Chest XR: mild left basilar haziness, correlate with left basilar pneumonia * CTA with no noted PE, appropriate precontrast medications ordered as patient has a known allergy to iodine * Venous doppler negative * Her condition improved with suction * COVID,Influenza and RSV PCR negative. * MRSA screen positive and Vancomycin added * IV antibiotics: Vancomycin and cefepime * Continue DuoNebs and Abx. Pneumonia * Chest XR: mild left basilar haziness, correlate with left basilar pneumonia * Complicating Factors: trach, recent hospitalization * started on CAP tx: cefe and vanc * Viral PCR: negative for Flu/COVID/RSV * MRSA: positive * Continue supplemental O2 requirement with trach * Monitor vital signs, I&Os, neuro status and patient is a fall risk * Follow WBC, serum electrolytes, temperature curves and cultures * Sputum cultures pending 10/23/2023 * sputum with Pseudomonas * PO Levaquin * baseline EKG 10/24/2023 * Sensitivity report resistant to Levaquin * Patient will need 3 more days IV antibiotic therapy Hypernatremia * Likely secondary to tube feedings * resumed home tube feeds * monitor neuro status * CMP daily * 240 free water flushes with tube feeds HX CVA: RT side paralysis HX HTN: Resumed home medications Hx Anemia: Stable, monitor H&H HX Lung cancer: CTA with unchanged Upper LT nodule HX Gastrostomy tube: resumed home tube feedings Code status: Full code per patient DVT prophylaxis: Lovenox Stress ulcer prophylaxis: Protonix 40 daily PT/OT notes: Bedridden Disposition: Patient continues admission for acute on chronic respiratory failure with hypoxia secondary to PNA. Patient lives with daughter who is her primary adult day care worker at home plan will to return home. Patient will need Heated and humidified oxygen order at discharge. Subjective Date/time seen: 10/25/23 13:57 Interval history: Medical Record: 77yo female with hx of lung CA s/p lung resection in 2018, dementia, CVA with right hemiparesis in 20
--- NOTE | 2023-10-25 13:57 | PM.IMPN ---
Progress Note: A&P Assessment and Plan (1) Acute and chronic respiratory failure with hypoxia: Code(s): J96.21 - Acute and chronic respiratory failure with hypoxia Status: Acute (2) Pneumonia: Code(s): J18.9 - Pneumonia, unspecified organism Status: Acute (3) Adenocarcinoma of upper lobe of lung: Code(s): C34.10 - Malignant neoplasm of upper lobe, unspecified bronchus or lung Status: Acute (4) G tube feedings: Code(s): Z93.1 - Gastrostomy status Status: Acute (5) History of CVA (cerebrovascular accident): Code(s): Z86.73 - Personal history of transient ischemic attack (TIA), and cerebral infarction without residual deficits Status: Acute (6) COPD (chronic obstructive pulmonary disease): Code(s): J44.9 - Chronic obstructive pulmonary disease, unspecified Status: Acute (7) HTN (hypertension): Code(s): I10 - Essential (primary) hypertension Status: Acute (8) Anemia: Code(s): D64.9 - Anemia, unspecified Status: Acute (9) Tracheostomy in place: Code(s): Z93.0 - Tracheostomy status Status: Acute Plan Acute on chronic respiratory failure with hypoxia Patient brought in to the ED for acute on chronic respiratory failure. Tracheostomy in place, per chart review she uses 3-4 L per minute by trach collar. Respiratory distress with hypoxia on arrival with SpO2 89% Chest XR: mild left basilar haziness, correlate with left basilar pneumonia CTA with no noted PE, appropriate precontrast medications ordered as patient has a known allergy to iodine Venous doppler negative Her condition improved with suction COVID,Influenza and RSV PCR negative. MRSA screen positive and Vancomycin added IV antibiotics: Vancomycin and cefepime Continue DuoNebs and Abx. Pneumonia Chest XR: mild left basilar haziness, correlate with left basilar pneumonia Complicating Factors: trach, recent hospitalization started on CAP tx: cefe and vanc Viral PCR: negative for Flu/COVID/RSV MRSA: positive Continue supplemental O2 requirement with trach Monitor vital signs, I&Os, neuro status and patient is a fall risk Follow WBC, serum electrolytes, temperature curves and cultures Sputum cultures pending 10/23/2023 sputum with Pseudomonas PO Levaquin baseline EKG 10/24/2023 Sensitivity report resistant to Levaquin Patient will need 3 more days IV antibiotic therapy Hypernatremia Likely secondary to tube feedings resumed home tube feeds monitor neuro status CMP daily 240 free water flushes with tube feeds HX CVA: RT side paralysis HX HTN: Resumed home medications Hx Anemia: Stable, monitor H&H HX Lung cancer: CTA with unchanged Upper LT nodule HX Gastrostomy tube: resumed home tube feedings Code status: Full code per patient DVT prophylaxis: Lovenox Stress ulcer prophylaxis: Protonix 40 daily PT/OT notes: Bedridden Disposition: Patient continues admission for acute on chronic respiratory failure with hypoxia secondary to PNA. Patient lives with daughter who is her primary client care consultant at home plan will to return home. Patient will need Heated and humidified oxygen order at discharge. Subjective Date/time seen: 10/25/23 13:57 Interval history: Medical Record: 77yo female with hx of lung CA s/p lung resection in 2017, dementia, CVA with right hemiparesis in 2022, chronic respiratory failure with trach and GTube in place presents to the hospital for shortness of breath and increased trach secretions. Patient recently hospitalized for similar symptoms from 09/10-09/14. Patient is sleeping comfortably in bed with daughter at bedside. Per daughter she has noticed that the patients cough has improved. Patient had a CTA chest performed today which was negative for PE. She remains on vanc and cefe at this time for pneumonia. 10/22/2023: Assumed Care Patient nonverbal family at be
[2023-10-25 18:42] LABS: Glucose Point of Care 115 mg/dl (65-105)
[2023-10-25] MEDS: DONEPEZIL HCL 5 MG TABLET FEED TUBE (20:20)
[2023-10-25] MEDS: ATORVASTATIN 20 MG TABLET FEED TUBE (20:20)
[2023-10-26] VITALS (28 sets, daily range): BP systolic 129–183; BP diastolic 59–75; PULSE 80–111; RESP 18–28; TEMP 36.1–37.3; O2SAT 91–100
[2023-10-26] MEDS: IPRATROPIUM 0.5 MG/ALBUTEROL SULFATE 2.5 MG AMPUL.NEB 3 ML INHALATION ×4 (03:05→20:20)
[2023-10-26] MEDS: amLODIPine BESYLATE 5 MG TABLET FEED TUBE (09:03)
[2023-10-26] MEDS: LANSOPRAZOLE ODT 30 MG TAB.RAP.DR FEED TUBE (09:03)
[2023-10-26] MEDS: ENOXAPARIN 40 MG/0.4 ML SYRINGE SUB-Q (09:03)
[2023-10-26] MEDS: ASPIRIN 81 MG CHEWABLE TABLET FEED TUBE (09:03)
[2023-10-26] MEDS: cefTAZidime 2 GM/NS 50 ML 2 GM/50 ML BAG IVPB ×2 (09:04→20:56)
[2023-10-26] MEDS: guaiFENesin 200 MG/10 ML UDC PO (09:04)
--- NOTE | 2023-10-26 09:38 | PM.IMPN ---
Progress Note: A&P Assessment and Plan (1) Acute and chronic respiratory failure with hypoxia: Code(s): J96.21 - Acute and chronic respiratory failure with hypoxia Status: Acute (2) Pneumonia: Code(s): J18.9 - Pneumonia, unspecified organism Status: Acute (3) Adenocarcinoma of upper lobe of lung: Code(s): C34.10 - Malignant neoplasm of upper lobe, unspecified bronchus or lung Status: Acute (4) G tube feedings: Code(s): Z93.1 - Gastrostomy status Status: Acute (5) History of CVA (cerebrovascular accident): Code(s): Z86.73 - Personal history of transient ischemic attack (TIA), and cerebral infarction without residual deficits Status: Acute (6) COPD (chronic obstructive pulmonary disease): Code(s): J44.9 - Chronic obstructive pulmonary disease, unspecified Status: Acute (7) HTN (hypertension): Code(s): I10 - Essential (primary) hypertension Status: Acute (8) Anemia: Code(s): D64.9 - Anemia, unspecified Status: Acute (9) Tracheostomy in place: Code(s): Z93.0 - Tracheostomy status Status: Acute Plan Acute on chronic respiratory failure with hypoxia Patient brought in to the ED for acute on chronic respiratory failure. Tracheostomy in place, per chart review she uses 3-4 L per minute by trach collar. Respiratory distress with hypoxia on arrival with SpO2 89% Chest XR: mild left basilar haziness, correlate with left basilar pneumonia CTA with no noted PE, appropriate precontrast medications ordered as patient has a known allergy to iodine Venous doppler negative Her condition improved with suction COVID,Influenza and RSV PCR negative. MRSA screen positive and Vancomycin added IV antibiotics: Vancomycin and cefepime Continue DuoNebs and Abx. Pneumonia Chest XR: mild left basilar haziness, correlate with left basilar pneumonia Complicating Factors: trach, recent hospitalization started on CAP tx: cefe and vanc Viral PCR: negative for Flu/COVID/RSV MRSA: positive Continue supplemental O2 requirement with trach Monitor vital signs, I&Os, neuro status and patient is a fall risk Follow WBC, serum electrolytes, temperature curves and cultures Sputum cultures pending 10/23/2023 sputum with Pseudomonas PO Levaquin baseline EKG 10/24/2023 Sensitivity report resistant to Levaquin Patient will need 3 more days IV antibiotic therapy Hypernatremia Likely secondary to tube feedings resumed home tube feeds monitor neuro status CMP daily 240 free water flushes with tube feeds HX CVA: RT side paralysis HX HTN: Resumed home medications Hx Anemia: Stable, monitor H&H HX Lung cancer: CTA with unchanged Upper LT nodule HX Gastrostomy tube: resumed home tube feedings Code status: Full code per patient DVT prophylaxis: Lovenox Stress ulcer prophylaxis: Protonix 40 daily PT/OT notes: Bedridden Disposition: Patient continues admission for acute on chronic respiratory failure with hypoxia secondary to PNA. Patient lives with daughter who is her primary social worker palliative care at home plan will to return home. Patient will need Heated and humidified oxygen order at discharge. Time Spent With Patient Time with patient: 15 - 25 minutes Subjective Date/time seen: 10/26/23 09:38 Interval history: Medical Record: 77yo female with hx of lung CA s/p lung resection in 2017, dementia, CVA with right hemiparesis in 2022, chronic respiratory failure with trach and GTube in place presents to the hospital for shortness of breath and increased trach secretions. Patient recently hospitalized for similar symptoms from 09/10-09/14. Patient is sleeping comfortably in bed with daughter at bedside. Per daughter she has noticed that the patients cough has improved. Patient had a CTA chest performed today which was negative for PE. She remains on vanc and cefe at this time for pneumonia
[2023-10-26 11:11] LABS: Hematocrit 26.7 % (37.0-47.0); Hemoglobin 7.8 g/dL (12.0-15.0); Mean Corpuscular HGB Conc 29.2 g/dl (32-36); Mean Corpuscular Hemoglobin 25.1 pg (26-34); Mean Corpuscular Volume 85.9 fl (80-100); Mean Platelet Volume 9.4 fl (7.4-10.4); Platelet Count Result 453 k/mm3 (150-375); Red Blood Count 3.11 M/mm3 (4.2-5.4); Red Cell Distribution Width 18.9 % (11.5-14.5); White Blood Count 10.6 K/mm3 (4.5-10.0)
[2023-10-26 11:21] LABS: Glucose Point of Care 137 mg/dl (65-105)
[2023-10-26 11:54] LABS: Alanine Aminotransferase 18 U/L (6-35); Albumin Level 3.8 g/dL (3.5-5.1); Alkaline Phosphatase 100 U/L (38-126); Anion Gap 7 mmol/L (4-12); Aspartate Amino Transferase 29 U/L (14-36); Bilirubin,Total 0.4 mg/dL (0.2-1.3); Blood Urea Nitrogen 25 mg/dL (7-17); Calcium 10.2 mg/dL (8.4-10.2); Carbon Dioxide 29 mmol/L (22-30); Chloride 105 mmol/L (98-107); Estimated CRCL calculation 44 ml/min; Estimated Glomerular Filt Rate > 60; Glucose 133 mg/dL (65-110); Potassium 2.8 mmol/L (3.4-5.0); Sodium 141 mmol/L (137-145)
[2023-10-26] MEDS: NYSTATIN 100,000 UNITS/ML SUSP 5 ML ORAL.SUSP PO ×3 (14:03→20:58)
[2023-10-26] MEDS: POTASSIUM CHLORIDE 20 MEQ PACKET (FOR LIQUID) 60 MEQ PO (14:03)
[2023-10-26] MEDS: ATORVASTATIN 20 MG TABLET FEED TUBE (20:58)
[2023-10-26] MEDS: DONEPEZIL HCL 5 MG TABLET FEED TUBE (20:58)
[2023-10-27] VITALS (18 sets, daily range): BP systolic 133–188; BP diastolic 58–76; PULSE 70–105; RESP 20–24; TEMP 35.6–36.5; O2SAT 91–100
[2023-10-27] MEDS: IPRATROPIUM 0.5 MG/ALBUTEROL SULFATE 2.5 MG AMPUL.NEB 3 ML INHALATION ×3 (01:46→13:57)
[2023-10-27 04:25] LABS: Hematocrit 24.7 % (37.0-47.0); Hemoglobin 7.5 g/dL (12.0-15.0); Mean Corpuscular HGB Conc 30.4 g/dl (32-36); Mean Corpuscular Hemoglobin 25.9 pg (26-34); Mean Corpuscular Volume 85.2 fl (80-100); Mean Platelet Volume 9.9 fl (7.4-10.4); Platelet Count Result 441 k/mm3 (150-375); Red Cell Distribution Width 18.7 % (11.5-14.5); White Blood Count 10.6 K/mm3 (4.5-10.0)
[2023-10-27 04:40] LABS: Alanine Aminotransferase 17 U/L (6-35); Albumin Level 3.7 g/dL (3.5-5.1); Alkaline Phosphatase 110 U/L (38-126); Anion Gap 7 mmol/L (4-12); Aspartate Amino Transferase 26 U/L (14-36); Bilirubin,Total 0.3 mg/dL (0.2-1.3); Blood Urea Nitrogen 24 mg/dL (7-17); Calcium 10.5 mg/dL (8.4-10.2); Carbon Dioxide 31 mmol/L (22-30); Chloride 105 mmol/L (98-107); Estimated CRCL calculation 44 ml/min; Estimated Glomerular Filt Rate > 60; Glucose 104 mg/dL (65-110); Potassium 3.3 mmol/L (3.4-5.0); Sodium 143 mmol/L (137-145)
[2023-10-27] MEDS: ENOXAPARIN 40 MG/0.4 ML SYRINGE SUB-Q (09:51)
[2023-10-27] MEDS: LANSOPRAZOLE ODT 30 MG TAB.RAP.DR FEED TUBE (09:51)
[2023-10-27] MEDS: NYSTATIN 100,000 UNITS/ML SUSP 5 ML ORAL.SUSP PO ×2 (09:51→13:55)
[2023-10-27] MEDS: ASPIRIN 81 MG CHEWABLE TABLET FEED TUBE (09:51)
[2023-10-27] MEDS: POTASSIUM CHLORIDE 20 MEQ PACKET (FOR LIQUID) 40 MEQ FEED TUBE (09:51)
[2023-10-27] MEDS: amLODIPine BESYLATE 5 MG TABLET FEED TUBE (09:52)
[2023-10-27 12:11] LABS: Glucose Point of Care 138 mg/dl (65-105)
--- NOTE | 2023-10-27 12:53 | PM.DS ---
DS: Admitting Diagnosis Discharge Date 10/27/23 Admitting Diagnosis Acute on chronic respiratory failure with hypoxia DS: Discharge Diagnosis Discharge Diagnosis (1) Tracheostomy in place: Code(s): Z93.0 - Tracheostomy status Status: Acute (2) Acute hypoxic respiratory failure: Code(s): J96.01 - Acute respiratory failure with hypoxia Status: Acute (3) Pneumonia: Code(s): J18.9 - Pneumonia, unspecified organism Status: Acute DS: Summary Hospital Course Reason for hospitalization: Acute hypoxia with increased secretions and shortness of breath Hospital Course: Patient is a 77-year-old female with past medical history Alzheimer's dementia, adenocarcinoma of upper lobe in 2017, 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 Patient's daughters are very involved in her care and her primary caregivers. Patient was admitted from 10/19 to 10/26. She is found to have Pseudomonas in the sputum cultures that was resistant to fluoroquinolones, treated with IV ceftazidime for 1 week total IV antibiotic (for PNA and upper respiratory pseudomonas infection). No further antibiotics will be needed on discharge. We will adjust patient's home oxygen therapy orders to include humidified heated oxygen. At time of discharge patient's labs are stable, vitals stable, patient is stable for discharge home. Family has been educated on what to watch out for for possible recurrence of pneumonia or upper respiratory infection. Patient appears not to have frequent pneumonia despite tracheostomy. She will follow-up with PCP in 1 week. Family understands and agrees with plan. Status at Discharge Cognitive/behavioral status at discharge: Baseline Time Spent with Patient Time attestation: Total time spent providing and/or coordinating discharge services: 40 minutes Exam Narrative: - GENERAL: Pleasant nonverbal older woman no acute distress with tracheostomy - EYES: EOMI. Anicteric. - HENT: Moist mucous membranes. Trach in place to Airvo - LUNGS: Clear to auscultation bilaterally, diminished lung bases - CARDIOVASCULAR: Regular rate and rhythm. No murmur - ABDOMEN: Soft, non-tender and non-distended. No palpable masses. G-tube in place - EXTREMITIES: No edema. Peripheral pulses 2+. Non-tender. - NEUROLOGIC: No focal neurological deficits. CN II-XII grossly intact. - PSYCHIATRIC: Awake, nonverbal however does head nod appropriately. Pleasant mood - SKIN: No rashes or lesions. Warm. DS: Data Data Completed and Pending Labs on day of discharge: Labs from last 24 hours 10/27/23 10/27/23 11:55 04:02 WBC 10.6 H RBC 2.90 L Hgb 7.5 L Hct 24.7 L MCV 85.2 MCH 25.9 L MCHC 30.4 L RDW 18.7 H Plt Count 441 H MPV 9.9 Sodium 143 Potassium 3.3 L Chloride 105 Carbon Dioxide 31 H Anion Gap 7 BUN 24 H Creatinine 0.80 Estim Creat Clear Calc 44 Estimated GFR > 60 Glucose 104 POC Capillary Glucose 138 H Calcium 10.5 H Total Bilirubin 0.3 AST 26 ALT 17 Alkaline Phosphatase 110 Total Protein 7.0 Albumin 3.7 Imaging Radiologist's impression: Chest x-ray 10/20/23 Impression: Questionable mild left basilar haziness. Correlate for left basilar pneumonia. Venous duplex bilateral lower extremity 10/20/2023 IMPRESSION: The left posterior tibial veins were not adequately visualized. Otherwise patent bilateral lower extremity veins. CTA chest 10/21/2023 IMPRESSION: 1. No definitive pulmonary embolism. Sensitivity is decreased in the smaller pulmonary arteries in the bilateral upper lobes and essentially nondiagnostic in the basilar segmental and subsegmental pulmonary arteries due to combination of respiratory motion and streak artifact. 2. Mild to moderate emphysema with unchanged 10 mm left upper lobe nodule manuel
== END 2023-10-27 15:02 | disposition home or self-care (01) | DRG 177 ==
LOC: ANHED 10-20 01:11 → ANHIMU 10-20 01:27
PROVIDERS: Nurse Practitioner Family; Student in an Organized Health Care Education/Training Program; Admitting Provider Internal Medicine; Emergency Provider Emergency Medicine; Visit Provider Student in an Organized Health Care Education/Training Program
DX: J15.1 Pneumonia due to Pseudomonas (principal); J96.21 Acute and chronic respiratory failure with hypoxia; J44.0 Chronic obstructive pulmonary disease with (acute) lower respiratory infection; E87.0 Hyperosmolality and hypernatremia; C34.12 Malignant neoplasm of upper lobe, left bronchus or lung; I69.351 Hemiplegia and hemiparesis following cerebral infarction affecting right dominant side; I25.10 Atherosclerotic heart disease of native coronary artery without angina pectoris; I10 Essential (primary) hypertension; E78.5 Hyperlipidemia, unspecified; D64.9 Anemia, unspecified; F02.80 Dementia in other diseases classified elsewhere, unspecified severity, without behavioral disturbance, psychotic disturbance, mood disturbance, and anxiety; G30.9 Alzheimer's disease, unspecified; Z20.822 Contact with and (suspected) exposure to COVID-19; I69.320 Aphasia following cerebral infarction; Z93.1 Gastrostomy status; Z93.0 Tracheostomy status; Z79.82 Long term (current) use of aspirin; Z74.01 Bed confinement status
CPT/HCPCS: 36415; 71045; 71275; 80053; 80202; 82948; 83605; 83880; 84145; 84484; 85025; 85027; 87040; 87070; 87077; 87186; 87205; 87637; 87641; 93005; 93970; 94640; 96365; 96366; 96367; 96372; 96375; 99285; A9270; G0378; J0692; J0713; J1200; J1650; J2470; J3370; J3480; J7030; J7040; J7512; Q9967

== ENCOUNTER 2023-12-15 21:33 | Inpatient (IN) | payer MEDICARE, BC, SELFPAY ==
[2023-12-15] VITALS (8 sets, daily range): BP systolic 126–148; BP diastolic 63–74; PULSE 100–116; RESP 21–28; TEMP 36.9; O2SAT 98–100
--- NOTE | ~2023-12-15 | XR_ITS ---
EXAMINATION: XR chest 1V portable DATE: 12/15/2023 22:22 INDICATION: Shortness of breath. TECHNIQUE: A single frontal view of the chest was obtained on 2 radiographs. COMPARISON: Chest single view 10/19/2023, chest CT 10/21/2023 FINDINGS: There is mild elevation of right hemidiaphragm. There is a staple line in right upper lobe from wedge resection. There are lucencies and interstitial opacities in the lungs, consistent with em physema. There is a 12 mm nodule in left upper lobe. No pleural effusion or pneumothorax. The heart s ize is normal. There is a tracheostomy tube in expected position. IMPRESSION: 1. Emphysema. 2. 12 mm left upper lobe pulmonary nodule suspicious for primary bronchogenic carcinoma. Reviewed, dictated and finalized at location A. IMPRESSION: 1. Emphysema. 2. 12 mm left upper lobe pulmonary nodule suspicious for primary bronchogenic c arcinoma.
--- NOTE | ~2023-12-15 | CT_ITS ---
EXAMINATION:CT diagnostic chest wo con DATE: 12/16/2023 21:07 INDICATION: Pneumonia. Lung nodule. TECHNIQUE: Computed tomography (CT) of the chest was performed without intravenous contrast. Automate d exposure control and iterative reconstruction technique were employed. The dose-length product (DLP ) was 506.43 mGy-cm. COMPARISON: Chest CT 10/21/2023 FINDINGS: There is moderate emphysema. There are changes of partial right upper lobectomy. There is m ild atelectasis bilaterally. There is 11 mm nodule in left upper lobe. There is a trace left pleural effusion. Cardiomegaly is noted. There are coronary artery calcifications. No pericardial effusion. T he central pulmonary arteries are enlarged, consistent with pulmonary arterial hypertension. There is a tracheostomy tube in expected position. There are changes of cholecystectomy. There is mild thorac ic spondylosis. IMPRESSION: 1. 11 mm nodule in left lung upper lobe suspicious for primary bronchogenic carcinoma. 2. Moderate emphysema. Reviewed, dictated and finalized at location A. IMPRESSION: 1. 11 mm nodule in left lung upper lobe suspicious for primary bronchogenic car cinoma. 2. Moderate emphysema.
--- NOTE | 2023-12-15 21:49 | ECG_ITS ---
Test Date: 2023-12-15 21:55:48 Measurements Intervals [place] Rate: 103 P: 65 TX: 162 QRS: 22 QRSD: 96 T: 93 QT: 279 QTc: 365 Interpretive Statements SINUS TACHYCARDIA POSSIBLE LEFT ATRIAL ENLARGEMENT [-0.1mV P-WAVE IN V1/V2] NONSPECIFIC ST & T-WAVE ABNORMALITY Compared to ECG 10/23/2023 14:12:44 NO SIGNIFICANT CHANGES Electronically Signed On 12-16-2023 15:40:54 CDT by Deepa Nino M.D.
[2023-12-15] MEDS: WATER FOR IRRIGATION, STERILE 500 ML BOTTLE (22:11)
[2023-12-15 22:12] LABS: Basophils Absolute Auto 0.1 K/mm3 (0.0-0.1); Basophils Percent Auto 0.5 % (0.2-1.2); Eosinophils Absolute Auto 1.1 K/mm3 (0-0.3); Eosinophils Percent Auto 7.8 % (0-4.4); Hematocrit 30.3 % (37.0-47.0); Hemoglobin 9.2 g/dL (12.0-15.0); Immature Granulocyte Absolute 0.07 K/mm3 (0.00-0.031); Immature Granulocyte Percent A 0.5 % (0-0.5); Lymphocytes Absolute Auto 2.13 K/mm3 (0.9-3.2); Lymphocytes Percent Auto 14.8 % (18.3-44.2); Mean Corpuscular HGB Conc 30.4 g/dl (32-36); Mean Corpuscular Hemoglobin 24.7 pg (26-34); Mean Corpuscular Volume 81.2 fl (80-100); Mean Platelet Volume 10.3 fl (7.4-10.4); Monocytes Percent Auto 6.6 % (2.6-8.5); Neutrophils Percent Auto 69.8 % (45.5-73.1); Platelet Count Result 424 k/mm3 (150-375); Red Blood Count 3.73 M/mm3 (4.2-5.4); Red Cell Distribution Width 20.6 % (11.5-14.5); White Blood Count 14.4 K/mm3 (4.5-10.0)
--- NOTE | 2023-12-15 22:19 | ED.GENADULT ---
HPI - General Adult General Chief complaint: Shortness of Breath/Dyspnea Stated complaint: SOB, CONGESTED, TRACH PT Time Seen by Provider: 12/15/23 21:47 History of Present Illness HPI narrative: Patient is a 78-year-old male who presents to the emergency department this evening from home due to respiratory distress. 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 Patient has been trached since March of 2023. Patient is nonverbal at baseline. Lives at home with daughter who cares for her. Daughter called EMS today due to increased work of breathing. Upon EMS arrival, patient was placed on a non-rebreather at 15 L with improvement of her oxygenation to 100%. Patient does have a lot of secretions pooling around trach collar. Related Data Home Medications Medication Instructions Recorded Confirmed acetaminophen 160 mg/5 mL oral 160 mg PO QID PRN pain or fever 09/11/23 10/20/23 elixir aspirin 81 mg chewable tablet 81 mg feeding tube DAILY 09/11/23 10/20/23 guaifenesin 100 mg/5 mL oral liquid 200 mg PO Q6H PRN Cough 09/11/23 10/20/23 polyethylene glycol 3350 17 gram 17 g feeding tube DAILY PRN 09/11/23 10/20/23 oral powder packet Constipation Adult Robitussin Cough-Cold D 5 ml feeding tube PRN PRN Cough 10/20/23 10/20/23 Allergies Allergy/AdvReac Type Severity Reaction Status Date / Time iodine Allergy Hives Verified 08/07/23 13:08 latex Allergy Hives Verified 08/07/23 13:08 Review of Systems Review of Systems: All systems are reviewed and are negative unless stated otherwise in the HPI. [facility] Past Medical History Medical History Acute on chronic anemia 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 03/2017 Alzheimer's dementia A&O x0 Aphasia as late effect of cerebrovascular accident CAD (coronary artery disease) Cerebrovascular accident (CVA) Cholecystectomy planned 01/16/2023 COPD (chronic obstructive pulmonary disease) Gastrostomy complication Gastrostomy tube replacement 04/04/2023 HLD (hyperlipidemia) HTN (hypertension) Occult blood in stools Tracheitis 09/04 Surgical History Surgical History H/O tracheostomy 03/2023 Hx of esophagogastroduodenoscopy w/ Peg placement 01/20/23 Hx of exploratory laparotomy ROULA Gastrostomy Social History Social History Smoking status: Former smoker Tobacco type: cigarettes Second hand tobacco smoke exposure: No Alcohol intake: former Substance use: never Spiritual care concerns: No Exam Narrative: General: Awake, afebrile, in moderate respiratory distress. HEENT: PERRL, no rhinorrhea, no post nasal drip, oropharynx clear, trach in place. Neck: Trachea midline, pooling of thick mucus and secretions around trach collar no JVD, no lymphadenopathy. Cardiovascular: Regular rate and rhythm, no murmurs, rubs or gallops, no peripheral edema. Respiratory: Diffuse bilateral wheezing, tachypnea, moderate respiratory distress. Abdomen: Soft, nontender, nondistended, no rebound, no guarding, no peritoneal signs, G-tube in place. Musculoskeletal: No joint swelling or deformity, normal muscle tone. Skin: No rashes or petechia, no signs of infection. Neurological: Alert and oriented x 0-1 which is baseline. Right-sided flaccid paralysis secondary to history of stroke. Course Vital Signs Vital signs: Vital Signs Pulse Rate 101 H 12/15/23 21:35 Respiratory Rate 26 H 12/15/23 21:35 Blood Pressure 145/74 H 12/15/23 21:35 Pulse Oximetry 100 12/15/23 21:35 Oxygen Delivery Non-Rebreather Mask 12/15/23 21:35 Oxygen Flow Rate 15 12/15/23 21:35 Temperature 98.5 F 12/15/23 23:10 Pulse Rate 105 H 12/15/23 23:17 Respiratory Rate 28 H 12/15/23 23:17 Blood Pressure 126/63 12/15/23 23:10 Pulse Oximetry 98 12/14
[2023-12-15 22:26] LABS: Lactic Acid Reflex 1.7 mmol/L (0.7-2.0)
[2023-12-15 22:30] LABS: Alanine Aminotransferase 17 U/L (6-35); Albumin Level 4.3 g/dL (3.5-5.1); Alkaline Phosphatase 155 U/L (38-126); Aspartate Amino Transferase 35 U/L (14-36); Bilirubin,Total 0.2 mg/dL (0.2-1.3); Blood Urea Nitrogen 68 mg/dL (7-17); Calcium 10.5 mg/dL (8.4-10.2); Carbon Dioxide > 40 mmol/L (22-30); Chloride 88 mmol/L (98-107); Estimated CRCL calculation 41 ml/min; Estimated Glomerular Filt Rate > 60; Glucose 165 mg/dL (65-110); Potassium 3.4 mmol/L (3.4-5.0); Sodium 137 mmol/L (137-145)
[2023-12-15] MEDS: methylPREDNISolone SOD SUCC 125 MG VIAL IV PUSH (22:37)
[2023-12-15 23:00] LABS: Influenza A QL RT-PCR Negative (Negative); Influenza B QL RT-PCR Negative (Negative); RSV RNA, RT-PCR Negative (Negative); SARS-CoV-2 RNA PCR Negative (Negative)
[2023-12-15] MEDS: IPRATROPIUM 0.5 MG/ALBUTEROL SULFATE 2.5 MG AMPUL.NEB 3 ML INHALATION (23:09)
--- NOTE | 2023-12-15 23:32 | PM.IMHP ---
H&P: HPI History of Present Illness Date/Time: 12/15/23 23:32 Chief Complaint: Increased secretions Narrative: This is a 78-year-old female with past medical history significant for stroke, patient has been left with residual leonid aplasia, chronic trach, chronic hypoxic respiratory failure, hypertension, aphasia, coronary artery disease. history has been obtained from daughter who is her main caregiver and is at bedside patient also lives at home with daughter. EXAMINATION: XR chest 1V portable DATE: 12/15/2023 22:22 INDICATION: Shortness of breath. TECHNIQUE: A single frontal view of the chest was obtained on 2 radiographs. COMPARISON: Chest single view 10/19/2023, chest CT 10/21/2023 FINDINGS: There is mild elevation of right hemidiaphragm. There is a staple line in right upper lobe from wedge resection. There are lucencies and interstitial opacities in the lungs, consistent with emphysema. There is a 12 mm nodule in left upper lobe. No pleural effusion or pneumothorax. The heart size is normal. There is a tracheostomy tube in expected position. IMPRESSION: 1. Emphysema. 2. 12 mm left upper lobe pulmonary nodule suspicious for primary bronchogenic carcinoma. Review of Systems Review of Systems: ROS unobtainable: Yes unobtainable due to medical condition ( Aphasia, trach) PMFSH Past Medical History Medical History Acute on chronic anemia 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 03/2017 Alzheimer's dementia A&O x0 Aphasia as late effect of cerebrovascular accident CAD (coronary artery disease) Cerebrovascular accident (CVA) Cholecystectomy planned 01/16/2023 COPD (chronic obstructive pulmonary disease) Gastrostomy complication Gastrostomy tube replacement 04/04/2023 HLD (hyperlipidemia) HTN (hypertension) Occult blood in stools Tracheitis 09/04 Surgical History Surgical History H/O tracheostomy 03/2023 Hx of esophagogastroduodenoscopy w/ Peg placement 01/20/23 Hx of exploratory laparotomy ROULA Gastrostomy Family History Family History (Updated 12/16/23 @ 00:08 by Emmanuelle Bear RN) Mother Alzheimer dementia Social History Social History Smoking status: Former smoker Tobacco type: cigarettes Second hand tobacco smoke exposure: No Additional smoking assessment comments: unknown amount/length of time patient smoked Alcohol intake: never Substance use: never Spiritual care concerns: No Meds Home Medications and Allergies Home Medications Medication Instructions Recorded Confirmed Type acetaminophen 160 mg/5 mL oral 160 mg PO QID PRN pain or fever 09/11/23 12/15/23 History elixir aspirin 81 mg chewable tablet 81 mg feeding tube DAILY 09/11/23 12/15/23 History guaifenesin 100 mg/5 mL oral liquid 200 mg PO Q6H PRN Cough 09/11/23 12/15/23 History polyethylene glycol 3350 17 gram 17 g feeding tube DAILY PRN 09/11/23 12/15/23 History oral powder packet Constipation amlodipine 5 mg tablet 5 mg feeding tube DAILY 60 days 10/27/23 12/15/23 Rx #60 tabs atorvastatin 20 mg tablet 20 mg feeding tube HS 60 days #60 10/27/23 12/15/23 Rx tabs donepezil 5 mg tablet 5 mg feeding tube HS 60 days #60 10/27/23 12/15/23 Rx tabs lansoprazole 30 mg delayed 30 mg feeding tube DAILY 60 days 10/27/23 12/15/23 Rx release,disintegrating tablet #60 tabs albuterol sulfate 2.5 mg/3 mL 2.5 mg (3 mL) inhalation Q4H PRN 10/28/23 12/15/23 Rx (0.083 %) solution for nebulization shortness of breath or wheezing 30 days #75 mL Allergies Allergy/AdvReac Type Severity Reaction Status Date / Time iodine Allergy Hives Verified 12/15/23 23:51 latex Allergy Hives Verified 12/15/23 23:51 Vital Signs Vital Signs - 24 hr 12/15/23 21:35 12/15/23 22:08 12/15/23 21:45 Temperature Pu
[2023-12-15] MEDS: SODIUM CHLORIDE 0.9% IV 1,000 ML 999 ML IV CONT (23:36)
[2023-12-15] MEDS: levoFLOXacin 750 MG/D5W 150 ML 750 MG/150 ML BAG 100 MG IVPB (23:36)
[2023-12-16] VITALS (25 sets, daily range): BP systolic 121–150; BP diastolic 55–82; PULSE 91–115; RESP 16–24; TEMP 36.2–36.6; O2SAT 90–98; BMI 26.6
--- NOTE | 2023-12-16 00:50 | ADMGEN ---
This patient, Nicole Cuevas, was admitted to IMU Room 209-01. Patient/family oriented to hospital policies and general routines including ID bracelet, bed and alarms, visiting hours, pain management, procedures, bathroom and other care routines, personal items, smoking policy, room service/diet, and visiting hours. Information on how to activate the Rapid Response Team has been discussed. Patient/Family are encouraged to report perceived risks to care and to ask questions if they do not understand what they are told or what they should do.
[2023-12-16] MEDS: amLODIPine BESYLATE 5 MG TABLET FEED TUBE (08:45)
[2023-12-16] MEDS: ASPIRIN 81 MG CHEWABLE TABLET FEED TUBE (08:45)
[2023-12-16] MEDS: LANSOPRAZOLE ODT 30 MG TAB.RAP.DR FEED TUBE (08:46)
--- NOTE | 2023-12-16 10:46 | PM.IMPN ---
Progress Note: A&P Assessment and Plan (1) COPD exacerbation: Code(s): J44.1 - Chronic obstructive pulmonary disease with (acute) exacerbation Status: Acute (2) Tracheostomy in place: Code(s): Z93.0 - Tracheostomy status Status: Acute (3) Adenocarcinoma of upper lobe of lung: Code(s): C34.10 - Malignant neoplasm of upper lobe, unspecified bronchus or lung Status: Acute (4) Acute and chronic respiratory failure with hypoxia: Code(s): J96.21 - Acute and chronic respiratory failure with hypoxia Status: Acute (5) HTN (hypertension): Code(s): I10 - Essential (primary) hypertension Status: Acute Plan Patient is a 78-year-old male who presents to the emergency department on 12/16/2023 from home due to respiratory distress. 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 Patient has been trached since March of 2023. Patient is nonverbal at baseline. Lives at home with daughter who cares for her. Daughter called EMS today due to increased work of breathing. Upon EMS arrival, patient was placed on a non-rebreather at 15 L with improvement of her oxygenation to 100%. Patient does have a lot of secretions pooling around trach collar. DuoNeb treatment was started received a dose of Solu-Medrol. Patient was diffusely wheezy on presentation. Patient received IV Levaquin. Blood cultures were obtained. EKG showed sinus tachycardia acute ST-T changes. Laboratory evaluation showed leukocytosis of 14. Otherwise unremarkable. Lactic acid was Viral swabs were negative. Chest x-ray showed emphysema 12 mm left upper lobe nodule concerning for bronchogenic carcinoma which isn't known diagnosis Will treat as COPD exacerbation with Levaquin and steroid. DuoNeb to continue. Pulmonary consultation. Currently on Airvo. History of Pseudomonas in sputum culture level resistant to fluoroquinolones. Discussed with Pulmonary. Will add ceftazidime in the interim will also cover for MRSA. CT chest to further evaluate. Acute on chronic hypoxic respiratory failure trach dependent. Currently on Airvo. Will check BNP. Echo 09/11 EF 65-70% grade 1 diastolic dysfunction. Moderate pulmonary hypertension. History of Stroke with aphasia and dysphagia Status post trach placement and trach dependent Alzheimer's dementia adenocarcinoma upper lobe in 2017 COPD Hypertension Hyperlipidemia DVT prophylaxis Lovenox Code status full code Subjective Date/time seen: 12/16/23 10:46 Interval history: Have some coughing spells during the visit. Remains on Airvo. Discussed with Pulmonary. Review of Systems Review of Systems: ROS unobtainable: Yes unobtainable due to medical condition ( Aphasia, trach) Exam Narrative: General: Awake, afebrile,not in acute distress, frequent coughing spells HEENT: PERRL, no rhinorrhea, no post nasal drip, oropharynx clear, trach in place. Neck: Trachea midline, pooling of thick mucus and secretions around trach collar no JVD, no lymphadenopathy. Cardiovascular: Regular rate and rhythm, no murmurs, rubs or gallops, no peripheral edema. Respiratory: diminshed breath sounds, coarse breath sounds, frequent coughing spells Abdomen: Soft, nontender, nondistended, no rebound, no guarding, no peritoneal signs, G-tube in place. Musculoskeletal: No joint swelling or deformity, normal muscle tone. Skin: No rashes or petechia, no signs of infection. Neurological: Alert and oriented x 0-1 which is baseline. Right-sided flaccid paralysis secondary to history of stroke. Objective Data Vital Signs Vital Signs: Vital Signs - 24 hr 12/15/23 21:35 12/15/23 22:08 12/15/23 21:45 Temperature Pulse Rate 101 H 116 H Respiratory Rate 26 H 21 H Blood Pressure 145/74 H Pulse Oximetry 100 100 Oxygen Delivery Non-Rebreather Mask Trach Collar Oxygen Flow Rate 15 Fraction of Inspired Oxygen
--- NOTE | 2023-12-16 12:56 | PM.CNPUL ---
Assessment and Plan Assessment and plan (1) Pneumonia: Code(s): J18.9 - Pneumonia, unspecified organism Status: Acute Assessment and Plan: She had no history of asthma. To daughters knowledge she had never been given a formal diagnosis of COPD and was placed on albuterol nebulizers which she takes Q4-6 hours. Patient presents now with increased cough, increased phlegm production with a leukocytosis at 14.4, afebrile and a chest x-ray that shows no focal consolidations. The patient may have pneumonia. 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 Her COVID, influenza and RSV swab were negative. MRSA nasal swab was positive on 10/20/2023 and 09/12/2023. Plan: The patient may have a pneumonia in agree with treating her at this time. Discussed with Infectious Disease team and will place the patient on ceftazidime, levofloxacin and Zyvox. Will send MRSA swab. Will send sputum for culture and sensitivity. Will obtain CT scan of the chest looking for evidence of pneumonia. Patient has never been formally diagnosed with COPD according to the family but has been on albuterol nebulizers at home. Will continue DuoNebs. Will decrease Solu-Medrol from 40 Q 8-40 once a day. Goal saturation 90-94%. An order to give year humidified air on her trach collar our hospital uses an Airvo and currently she is on 40 L and 34% FiO2. Wean oxygen as tolerated. Discussed with Dr. Fischer, Will follow with you. History of Present Illness History of Present Illness Consult date: 12/16/23 Chief complaint: COPD Exacerbation/Increase Trach Secretions Narrative: 12/16/2023: This is a new pulmonary consult for pneumonia. 77-year-old with a history of Hypertension, hyperlipidemia, coronary artery disease, tobacco use, lung cancer surgery in 2018 (RUL), CVA with right-sided hemiparesis in 12/2022, G-tube placed in 02/2023 and tracheostomy placed in 04/12. Patient lives at home and is taken care of by her daughters. I spoke to the daughter and prior to her stroke she had no respiratory limitations in her activities of daily living. She could take care of her house, do her grooming she could walk in the store and do grocery shopping and did not have to stop to catch her breath. She had no history of asthma. To her knowledge she had never been given a diagnosis of COPD and was never on any inhalers. After her illnesses in 12/2022 there was at times mention of COPD but she was never maintained on any inhalers. Patient was admitted to the hospital 10/19 through 10/27/2023 at that time she was MRSA nares positive and had Pseudomonas that was resistant to ciprofloxacin and levofloxacin and 7 assistive to ceftazidime, gentamicin, imipenem, meropenem and Zosyn. Patient was treated with ceftazidime for 7 days and discharged home. according to the daughter she was did much better when she was discharged on 10/27/2023. I spoke to the daughter in the room and the Patient was doing well until the last 1-2 days when she developed increasing cough. She would cough so hard that her heart rate would increase and she would have increased work of breathing. She had hemoptysis x1. On 12/15/2023, EMS was called and she was hypoxic and placed on 15 L oxygen. In the emergency room she was noted to have secretions from her tracheostomy. Blood pressure is 145/74, respiratory rate was 26 and her saturations were 100% on a 15 L non-rebreather. She had bilateral wheezes. Her white blood cell count was 14.4, creatinine was 1.0, BUN was 68, serum bicarbonate was 40. Her eosinophils are 7.8%. Her COVID, influenza and RSV RT PCR study was negative. Her chest x-ray showed tracheostomy in place with no focal infiltrates, left upper lobe nodule. The patient was started on DuoNebs, Solu-Medrol and levofloxacin. 12/16/2023: According to
[2023-12-16] MEDS: cefTAZidime 2 GM/NS 50 ML 2 GM/50 ML BAG IVPB ×2 (13:42→23:46)
[2023-12-16] MEDS: LINEZOLID 600 MG TABLET PO ×2 (13:51→21:11)
[2023-12-16 13:56] LABS: MRSA (PCR) DETECTED (NOT DETECTE)
[2023-12-16 14:02] LABS: NT Pro B Type Natriuretic Pept 352 pg/mL (19.9-100)
[2023-12-16] MEDS: IPRATROPIUM 0.5 MG/ALBUTEROL SULFATE 2.5 MG AMPUL.NEB 3 ML INHALATION ×2 (14:18→20:00)
[2023-12-16] MEDS: ATORVASTATIN 20 MG TABLET FEED TUBE (21:11)
[2023-12-16] MEDS: DONEPEZIL HCL 5 MG TABLET FEED TUBE (21:11)
[2023-12-17] VITALS (21 sets, daily range): BP systolic 114–148; BP diastolic 57–65; PULSE 74–108; RESP 18–24; TEMP 35.6–36.6; O2SAT 96–100
[2023-12-17] MEDS: IPRATROPIUM 0.5 MG/ALBUTEROL SULFATE 2.5 MG AMPUL.NEB 3 ML INHALATION ×4 (02:31→20:20)
[2023-12-17 04:58] LABS: Basophils Absolute Auto 0.1 K/mm3 (0.0-0.1); Basophils Percent Auto 0.5 % (0.2-1.2); Eosinophils Absolute Auto 0.1 K/mm3 (0-0.3); Eosinophils Percent Auto 0.5 % (0-4.4); Hematocrit 27.7 % (37.0-47.0); Hemoglobin 8.4 g/dL (12.0-15.0); Immature Granulocyte Absolute 0.07 K/mm3 (0.00-0.031); Immature Granulocyte Percent A 0.6 % (0-0.5); Lymphocytes Absolute Auto 1.61 K/mm3 (0.9-3.2); Lymphocytes Percent Auto 14.6 % (18.3-44.2); Mean Corpuscular HGB Conc 30.3 g/dl (32-36); Mean Corpuscular Hemoglobin 24.6 pg (26-34); Mean Corpuscular Volume 81.2 fl (80-100); Mean Platelet Volume 9.7 fl (7.4-10.4); Monocytes Absolute Auto 1.2 K/mm3 (0.1-0.6); Monocytes Percent Auto 10.6 % (2.6-8.5); Neutrophils Absolute Auto 8.1 K/mm3 (1.3-6.7); Neutrophils Percent Auto 73.2 % (45.5-73.1); Platelet Count Result 398 k/mm3 (150-375); Red Blood Count 3.41 M/mm3 (4.2-5.4); Red Cell Distribution Width 20.8 % (11.5-14.5); White Blood Count 11.1 K/mm3 (4.5-10.0)
[2023-12-17 05:07] LABS: Alanine Aminotransferase 17 U/L (6-35); Albumin Level 3.9 g/dL (3.5-5.1); Alkaline Phosphatase 113 U/L (38-126); Aspartate Amino Transferase 32 U/L (14-36); Bilirubin,Total 0.2 mg/dL (0.2-1.3); Blood Urea Nitrogen 59 mg/dL (7-17); Calcium 10.7 mg/dL (8.4-10.2); Carbon Dioxide > 40 mmol/L (22-30); Chloride 93 mmol/L (98-107); Estimated CRCL calculation 32 ml/min; Estimated Glomerular Filt Rate 58; Glucose 115 mg/dL (65-110); Magnesium 2.8 mg/dL (1.6-2.3); Potassium 3.3 mmol/L (3.4-5.0); Sodium 142 mmol/L (137-145)
[2023-12-17 05:44] LABS: Procalcitonin 0.2 ng/mL
--- NOTE | 2023-12-17 09:17 | PM.PNPUL ---
Progress Note: A&P Assessment and Plan (1) Pneumonia: Code(s): J18.9 - Pneumonia, unspecified organism Status: Acute Assessment and Plan: She had no history of asthma. To daughters knowledge she had never been given a formal diagnosis of COPD and was placed on albuterol nebulizers which she takes Q4-6 hours. Patient presents now with increased cough, increased phlegm production with a leukocytosis at 14.4, afebrile and a chest x-ray that shows no focal consolidations. The patient may have pneumonia. 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 Her COVID, influenza and RSV swab were negative. MRSA nasal swab was positive on 10/20/2023 and 09/12/2023. Plan: The patient may have a pneumonia in agree with treating her at this time. Discussed with Infectious Disease team and will place the patient on ceftazidime, levofloxacin and Zyvox. Will send MRSA swab. Will send sputum for culture and sensitivity. Will obtain CT scan of the chest looking for evidence of pneumonia. Patient has never been formally diagnosed with COPD according to the family but has been on albuterol nebulizers at home. Will continue DuoNebs. Will decrease Solu-Medrol from 40 Q 8-40 once a day. Goal saturation 90-94%. An order to give year humidified air on her trach collar our hospital uses an Airvo and currently she is on 40 L and 34% FiO2. Wean oxygen as tolerated. later in the day the patient had a CT scan of the chest that demonstrated tracheostomy, moderate apical predominant centrilobular emphysema, no focal consolidations or infiltrates, 11 mm left upper lobe nodule. 12/17/2023: The patient is no respiratory distress on high-flow oxygen into her tracheostomy of 40 L and 33% FiO2 with saturations 97%. She has no wheezes on exam. She is afebrile. White blood cell count 11.1, creatinine 1.10. I spoke to the daughter who was here all night and she says the patient looks back to her baseline. She does have a cough which is back at her normal. She has no coughing paroxysms and her phlegm is looser and able to be suction. Plan: Patient with no evidence of focal pneumonia on her CT scan. She may have a tracheobronchitis. She has responded clinically to ceftazidime, levofloxacin and Zyvox, all day 2. Will continue today while following blood cultures. Sputum culture is pending. Spoke with the daughter and anticipate discharge in the next day or 2. Will follow with you. (2) Lung nodule: Code(s): R91.1 - Solitary pulmonary nodule Status: Acute Assessment and Plan: Patient with lung cancer status post right upper lobe resection in 2018. 09/12/2023: 10 mm left upper lobe nodule. 10/21/2023 10 mm nodule left upper lobe. 12/16/23: CT scan of the chest that demonstrated tracheostomy, moderate apical predominant centrilobular emphysema, no focal consolidations or infiltrates, 11 mm left upper lobe nodule. I spoke with the daughter at the bedside and she is aware of this. I discussed options of no further follow-up, repeating CT scan in the future, discussing with Oncology regarding any treatment options if this were cancer and risks and benefits of a biopsy. The daughter told me they will continue follow-up with her PCP in [place] regarding this nodule. They have an appointment on 01/07/2024. Subjective Date/time seen: 12/17/23 09:17 Interval history: 12/16/2023: This is a new pulmonary consult for pneumonia. 77-year-old with a history of Hypertension, hyperlipidemia, coronary artery disease, tobacco use, lung cancer surgery in 2018 (RUL), CVA with right-sided hemiparesis in 12/2022, G-tube placed in 02/2023 and tracheostomy placed in 04/12. Patient lives at home and is taken care of by her daughters. I spoke to the daughter and prior to her stroke she had no respiratory
[2023-12-17] MEDS: ASPIRIN 81 MG CHEWABLE TABLET FEED TUBE (09:21)
[2023-12-17] MEDS: LINEZOLID 600 MG TABLET PO ×2 (09:21→21:27)
[2023-12-17] MEDS: amLODIPine BESYLATE 5 MG TABLET FEED TUBE (09:21)
[2023-12-17] MEDS: LANSOPRAZOLE ODT 30 MG TAB.RAP.DR FEED TUBE (09:21)
[2023-12-17] MEDS: cefTAZidime 2 GM/NS 50 ML 2 GM/50 ML BAG IVPB ×2 (09:21→21:27)
[2023-12-17] MEDS: ENOXAPARIN 40 MG/0.4 ML SYRINGE SUB-Q (09:22)
[2023-12-17] MEDS: methylPREDNISolone SOD SUCC 40 MG VIAL IV PUSH (09:22)
[2023-12-17] MEDS: predniSONE 20 MG TABLET 40 MG FEED TUBE (10:21)
--- NOTE | 2023-12-17 15:31 | P.PNIM_ITS ---
Progress Note: A&P Assessment and Plan (1) Acute and chronic respiratory failure with hypoxia: Code(s): J96.21 - Acute and chronic respiratory failure with hypoxia Status: Acute Assessment and Plan: Acute on chronic respiratory failure with hypoxia * Patient brought in to the ED for acute on chronic respiratory failure. Tracheostomy in place, per chart review she uses 3-4 L per minute by trach collar. * No Respiratory distress high-flow oxygen into her tracheostomy of 40 L and 33% FiO2 * Chest XR: mild left basilar haziness, correlate with left basilar pneumonia * Her condition improved with suction * COVID,Influenza and RSV PCR negative. * MRSA screen positive and Vancomycin added * IV antibiotics: Vancomycin and ceftazidime * CPT therapy for secretions * Mucolytics * Continue DuoNebs and Abx. * adenocarcinoma upper lobe in 2017 * CTA no PE * Pulmonary consulted (2) Tracheostomy in place: Code(s): Z93.0 - Tracheostomy status Status: Acute Assessment and Plan: SEE ABOVE (3) Pneumonia: Code(s): J18.9 - Pneumonia, unspecified organism Status: Acute Assessment and Plan: * Chest XR: mild left basilar haziness, correlate with left basilar pneumonia * Complicating Factors: trach, recent hospitalization * started on CAP tx: cefe and vanc * Viral PCR: negative for Flu/COVID/RSV * MRSA: positive * Continue supplemental O2 requirement with trach * Monitor vital signs, I&Os, neuro status and patient is a fall risk * Follow WBC, serum electrolytes, temperature curves and cultures * Sputum cultures pending (4) G tube feedings: Code(s): Z93.1 - Gastrostomy status Status: Acute Assessment and Plan: * Resumed home (5) History of CVA (cerebrovascular accident): Code(s): Z86.73 - Personal history of transient ischemic attack (TIA), and cerebral infarction without residual deficits Status: Acute Assessment and Plan: * RT Sided flaccid paralysis * bedridden * Turn Q2hr Plan Code status: Full code per patient DVT prophylaxis: Lovenox Stress ulcer prophylaxis: Protonix 40 daily PT/OT notes: Bedridden Disposition: Patient continues admission to the telemetry unit due to acute on chronic respiratory failure with hypoxia possibly secondary to pneumonia patient is back to her baseline at high-flow 40 mL at 33% Fi02 to her tracheostomy. Will continue with IV antibiotics pending cultures. Patient will return home with daughter who is main caregiver. Time Spent With Patient Time with patient: 15 minutes Subjective Date/time seen: 12/17/23 15:31 Interval history: Admission: Medical Chart Patient is a 78-year-old male who presents to the emergency department this evening from home due to respiratory distress. 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 Patient has been trached since March of 2023.
--- NOTE | 2023-12-17 15:31 | PM.IMPN ---
Progress Note: A&P Assessment and Plan (1) Acute and chronic respiratory failure with hypoxia: Code(s): J96.21 - Acute and chronic respiratory failure with hypoxia Status: Acute Assessment and Plan: Acute on chronic respiratory failure with hypoxia Patient brought in to the ED for acute on chronic respiratory failure. Tracheostomy in place, per chart review she uses 3-4 L per minute by trach collar. No Respiratory distress high-flow oxygen into her tracheostomy of 40 L and 33% FiO2 Chest XR: mild left basilar haziness, correlate with left basilar pneumonia Her condition improved with suction COVID,Influenza and RSV PCR negative. MRSA screen positive and Vancomycin added IV antibiotics: Vancomycin and ceftazidime CPT therapy for secretions Mucolytics Continue DuoNebs and Abx. adenocarcinoma upper lobe in 2017 CTA no PE Pulmonary consulted (2) Tracheostomy in place: Code(s): Z93.0 - Tracheostomy status Status: Acute Assessment and Plan: SEE ABOVE (3) Pneumonia: Code(s): J18.9 - Pneumonia, unspecified organism Status: Acute Assessment and Plan: Chest XR: mild left basilar haziness, correlate with left basilar pneumonia Complicating Factors: trach, recent hospitalization started on CAP tx: cefe and vanc Viral PCR: negative for Flu/COVID/RSV MRSA: positive Continue supplemental O2 requirement with trach Monitor vital signs, I&Os, neuro status and patient is a fall risk Follow WBC, serum electrolytes, temperature curves and cultures Sputum cultures pending (4) G tube feedings: Code(s): Z93.1 - Gastrostomy status Status: Acute Assessment and Plan: Resumed home (5) History of CVA (cerebrovascular accident): Code(s): Z86.73 - Personal history of transient ischemic attack (TIA), and cerebral infarction without residual deficits Status: Acute Assessment and Plan: RT Sided flaccid paralysis bedridden Turn Q2hr Plan Code status: Full code per patient DVT prophylaxis: Lovenox Stress ulcer prophylaxis: Protonix 40 daily PT/OT notes: Bedridden Disposition: Patient continues admission to the telemetry unit due to acute on chronic respiratory failure with hypoxia possibly secondary to pneumonia patient is back to her baseline at high-flow 40 mL at 33% Fi02 to her tracheostomy. Will continue with IV antibiotics pending cultures. Patient will return home with daughter who is main caregiver. Time Spent With Patient Time with patient: 15 - 25 minutes Subjective Date/time seen: 12/17/23 15:31 Interval history: Admission: Medical Chart Patient is a 78-year-old male who presents to the emergency department this evening from home due to respiratory distress. 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 Patient has been trached since March of 2023. Patient is nonverbal at baseline. Lives at home with daughter who cares for her. Daughter called EMS today due to increased work of breathing. Upon EMS arrival, patient was placed on a non-rebreather at 15 L with improvement of her oxygenation to 100%. Patient does have a lot of secretions pooling around trach collar. 12/17/2023: Assumed Care Patient resting comfortabling daughter at bedside stating patient appears at her baseline and was in no acute distress, Oxygen requirements back to baseline and improvement to secretions. Plan for 1-2 more days of ABX therapy pending cultures. Review of Systems Review of Systems: ROS unobtainable: Yes unobtainable due to endotracheal tube (Chronic) Constitutional: Constitutional: Reports as per HPI and Reports no additional constitutional complaints Exam Narrative: General: Awake, afebrile,not in acute distress, frequent coughing spells HEENT: PERRL, no rhinorrhea, no post nasal drip, oropharynx clear, trach in
[2023-12-17] MEDS: guaiFENesin 200 MG/10 ML UDC PO (21:26)
[2023-12-17] MEDS: DONEPEZIL HCL 5 MG TABLET FEED TUBE (21:27)
[2023-12-17] MEDS: ATORVASTATIN 20 MG TABLET FEED TUBE (21:27)
[2023-12-18] VITALS (12 sets, daily range): BP systolic 138–142; BP diastolic 55–65; PULSE 65–92; RESP 18–20; TEMP 36.1–36.6; O2SAT 92–99
[2023-12-18] MEDS: levoFLOXacin 750 MG/D5W 150 ML 750 MG/150 ML BAG 100 MG IVPB (00:21)
[2023-12-18] MEDS: IPRATROPIUM 0.5 MG/ALBUTEROL SULFATE 2.5 MG AMPUL.NEB 3 ML INHALATION ×2 (02:19→08:47)
[2023-12-18] MEDS: amLODIPine BESYLATE 5 MG TABLET FEED TUBE (09:12)
[2023-12-18] MEDS: ASPIRIN 81 MG CHEWABLE TABLET FEED TUBE (09:13)
[2023-12-18] MEDS: LANSOPRAZOLE ODT 30 MG TAB.RAP.DR FEED TUBE (09:13)
[2023-12-18] MEDS: predniSONE 20 MG TABLET 40 MG FEED TUBE (09:13)
[2023-12-18] MEDS: LINEZOLID 600 MG TABLET PO (09:13)
[2023-12-18] MEDS: cefTAZidime 2 GM/NS 50 ML 2 GM/50 ML BAG IVPB (09:14)
[2023-12-18] MEDS: ENOXAPARIN 40 MG/0.4 ML SYRINGE SUB-Q (09:14)
--- NOTE | 2023-12-18 09:25 | PM.PNPUL ---
Progress Note: A&P Assessment and Plan (1) Pneumonia: Code(s): J18.9 - Pneumonia, unspecified organism Status: Acute Assessment and Plan: She had no history of asthma. To daughters knowledge she had never been given a formal diagnosis of COPD and was placed on albuterol nebulizers which she takes Q4-6 hours. Patient presents now with increased cough, increased phlegm production with a leukocytosis at 14.4, afebrile and a chest x-ray that shows no focal consolidations. The patient may have pneumonia. 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 Her COVID, influenza and RSV swab were negative. MRSA nasal swab was positive on 10/20/2023 and 09/12/2023. Plan: The patient may have a pneumonia in agree with treating her at this time. Discussed with Infectious Disease team and will place the patient on ceftazidime, levofloxacin and Zyvox. Will send MRSA swab. Will send sputum for culture and sensitivity. Will obtain CT scan of the chest looking for evidence of pneumonia. Patient has never been formally diagnosed with COPD according to the family but has been on albuterol nebulizers at home. Will continue DuoNebs. Will decrease Solu-Medrol from 40 Q 8-40 once a day. Goal saturation 90-94%. An order to give year humidified air on her trach collar our hospital uses an Airvo and currently she is on 40 L and 34% FiO2. Wean oxygen as tolerated. later in the day the patient had a CT scan of the chest that demonstrated tracheostomy, moderate apical predominant centrilobular emphysema, no focal consolidations or infiltrates, 11 mm left upper lobe nodule. 12/17/2023: The patient is no respiratory distress on high-flow oxygen into her tracheostomy of 40 L and 33% FiO2 with saturations 97%. She has no wheezes on exam. She is afebrile. White blood cell count 11.1, creatinine 1.10. I spoke to the daughter who was here all night and she says the patient looks back to her baseline. She does have a cough which is back at her normal. She has no coughing paroxysms and her phlegm is looser and able to be suction. Plan: Patient with no evidence of focal pneumonia on her CT scan. She may have a tracheobronchitis. She has responded clinically to ceftazidime, levofloxacin and Zyvox, all day 2. Will continue today while following blood cultures. Sputum culture is pending. Spoke with the daughter and anticipate discharge in the next day or 2. 12/18/23: Spoke with the daughter who was in the patient's room all night. Patient had 1 coughing paroxysm last night but otherwise slept well overnight on the Airvo through her existing tracheostomy. Currently she is on 35 L and 45% FiO2 with saturations 100%. I decreased her to 33% FiO2 and her saturations were 97%. The daughter tells me that she is back at her baseline. She is afebrile. Her sputum culture has grown out normal vamsi. Plan: From a pulmonary perspective patient is ready to be discharged on these pulmonary medications: Prednisone 40 mg per tube q.day on 12/19/2023 then discontinue. Levaquin 750 mg per tube on 12/19/2023 and 12/21/2023 [facility] shortness of breath or wheezing home oxygen delivery to maintain saturations 90-94%. The family has a home humidifier and a separate oxygen concentrator which they adjust accordingly. Discussed with Hayley Jenkins, will sign off, call with questions. (2) Lung nodule: Code(s): R91.1 - Solitary pulmonary nodule Status: Acute Assessment and Plan: Patient with lung cancer status post right upper lobe resection in 2018. 09/12/2023: 10 mm left upper lobe nodule. 10/21/2023 10 mm nodule left upper lobe. 12/16/23: CT scan of the chest that demonstrated tracheostomy, moderate apical predominant centrilobular emphysema, no focal consolidations or infiltrates, 11 mm left up
--- NOTE | 2023-12-18 12:02 | P.DS_ITS ---
DS: Admitting Diagnosis Discharge Date 12/18/2023 Admitting Diagnosis Acute on chronic respiratory failure with hypoxia secondary to tracheobronchitis DS: Discharge Diagnosis Discharge Diagnosis (1) Acute and chronic respiratory failure with hypoxia: Code(s): J96.21 - Acute and chronic respiratory failure with hypoxia Status: Acute Assessment and Plan: Acute on chronic respiratory failure with hypoxia * Patient brought in to the ED for acute on chronic respiratory failure. Tracheostomy in place, per chart review she uses 3-4 L per minute by trach collar. * No Respiratory distress high-flow oxygen into her tracheostomy of 40 L and 33% FiO2 * Chest XR: mild left basilar haziness, correlate with left basilar pneumonia * Her condition improved with suction * COVID,Influenza and RSV PCR negative. * MRSA screen positive and Vancomycin added * IV antibiotics: Vancomycin and ceftazidime * CPT therapy for secretions * Mucolytics * Continue DuoNebs and Abx. * adenocarcinoma upper lobe in 2017 * CTA no PE * Pulmonary consulted (2) Tracheostomy in place: Code(s): Z93.0 - Tracheostomy status Status: Acute Assessment and Plan: SEE ABOVE (3) Pneumonia: Code(s): J18.9 - Pneumonia, unspecified organism Status: Acute Assessment and Plan: * Chest XR: mild left basilar haziness, correlate with left basilar pneumonia * Complicating Factors: trach, recent hospitalization * started on CAP tx: cefe and vanc * Viral PCR: negative for Flu/COVID/RSV * MRSA: positive * Continue supplemental O2 requirement with trach * Monitor vital signs, I&Os, neuro status and patient is a fall risk * Follow WBC, serum electrolytes, temperature curves and cultures * Sputum cultures pending (4) G tube feedings: Code(s): Z93.1 - Gastrostomy status Status: Acute Assessment and Plan: * Resumed home (5) History of CVA (cerebrovascular accident): Code(s): Z86.73 - Personal history of transient ischemic attack (TIA), and cerebral infarction without residual deficits Status: Acute Assessment and Plan: * RT Sided flaccid paralysis * bedridden * Turn Q2hr Plan Disposition: Patient discharged to home with family has follow-up with PCP on 01/07/2024 DS: Summary Hospital Course Reason for hospitalization: Acute on chronic respiratory failure with hypoxia secondary to tracheobronchitis Hospital Course: Patient is a 78-year-old male who presents to the emergency department this evening from home due to respiratory distress. 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 Patient has been trached since March of 2023. Patient is nonverbal at baseline. Lives at home with daughter who cares for her. Daughter called EMS today due to increased work of breathing. Upon EMS arrival, patient was placed on a non-rebreather at 15 L wi th improvement of
--- NOTE | 2023-12-18 12:02 | PM.DS ---
DS: Admitting Diagnosis Discharge Date 12/18/2023 Admitting Diagnosis Acute on chronic respiratory failure with hypoxia secondary to tracheobronchitis DS: Discharge Diagnosis Discharge Diagnosis (1) Acute and chronic respiratory failure with hypoxia: Code(s): J96.21 - Acute and chronic respiratory failure with hypoxia Status: Acute Assessment and Plan: Acute on chronic respiratory failure with hypoxia Patient brought in to the ED for acute on chronic respiratory failure. Tracheostomy in place, per chart review she uses 3-4 L per minute by trach collar. No Respiratory distress high-flow oxygen into her tracheostomy of 40 L and 33% FiO2 Chest XR: mild left basilar haziness, correlate with left basilar pneumonia Her condition improved with suction COVID,Influenza and RSV PCR negative. MRSA screen positive and Vancomycin added IV antibiotics: Vancomycin and ceftazidime CPT therapy for secretions Mucolytics Continue DuoNebs and Abx. adenocarcinoma upper lobe in 2017 CTA no PE Pulmonary consulted (2) Tracheostomy in place: Code(s): Z93.0 - Tracheostomy status Status: Acute Assessment and Plan: SEE ABOVE (3) Pneumonia: Code(s): J18.9 - Pneumonia, unspecified organism Status: Acute Assessment and Plan: Chest XR: mild left basilar haziness, correlate with left basilar pneumonia Complicating Factors: trach, recent hospitalization started on CAP tx: cefe and vanc Viral PCR: negative for Flu/COVID/RSV MRSA: positive Continue supplemental O2 requirement with trach Monitor vital signs, I&Os, neuro status and patient is a fall risk Follow WBC, serum electrolytes, temperature curves and cultures Sputum cultures pending (4) G tube feedings: Code(s): Z93.1 - Gastrostomy status Status: Acute Assessment and Plan: Resumed home (5) History of CVA (cerebrovascular accident): Code(s): Z86.73 - Personal history of transient ischemic attack (TIA), and cerebral infarction without residual deficits Status: Acute Assessment and Plan: RT Sided flaccid paralysis bedridden Turn Q2hr Plan Disposition: Patient discharged to home with family has follow-up with PCP on 01/07/2024 DS: Summary Hospital Course Reason for hospitalization: Acute on chronic respiratory failure with hypoxia secondary to tracheobronchitis Hospital Course: Patient is a 78-year-old male who presents to the emergency department this evening from home due to respiratory distress. 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 Patient has been trached since March of 2023. Patient is nonverbal at baseline. Lives at home with daughter who cares for her. Daughter called EMS today due to increased work of breathing. Upon EMS arrival, patient was placed on a non-rebreather at 15 L with improvement of her oxygenation to 100%. Patient does have a lot of secretions pooling around trach collar. Patient was initially treated for pneumonia however had normal WBC remained afebrile, sputum cultures and blood cultures were ordered and pulmonology was consulted. Patient was treated for tracheobronchitis and continued to treatment from to nebulizers CPT therapy. Sputum culture and blood cultures came back negative patient was back to baseline supplemental oxygen needs and was discharged back home with family. Patient has follow-up appointment scheduled with primary care physician 01/06. Family was made aware of lung nodule identified on loss testing improved they will follow-up with her primary care physician. Patient was discharged and transferred via EMS due to for discharge instructions with family at bedside. Status at Discharge Functional status at discharge: bed bound Overall status at discharge: patient is back to baseline Time Spent with Patient Time attestation
== END 2023-12-18 14:10 | disposition home or self-care (01) | DRG 193 ==
LOC: ANHED 23:32 → ANHIMU 12-16 00:02
PROVIDERS: Internal Medicine; Internal Medicine Pulmonary Disease; Admitting Provider Internal Medicine; Emergency Provider Emergency Medicine; Visit Provider Nurse Practitioner Family
DX: J18.9 Pneumonia, unspecified organism (principal); J96.21 Acute and chronic respiratory failure with hypoxia; J44.0 Chronic obstructive pulmonary disease with (acute) lower respiratory infection; J44.1 Chronic obstructive pulmonary disease with (acute) exacerbation; I69.351 Hemiplegia and hemiparesis following cerebral infarction affecting right dominant side; I69.320 Aphasia following cerebral infarction; I10 Essential (primary) hypertension; I27.20 Pulmonary hypertension, unspecified; I25.10 Atherosclerotic heart disease of native coronary artery without angina pectoris; E78.5 Hyperlipidemia, unspecified; R91.1 Solitary pulmonary nodule; G30.9 Alzheimer's disease, unspecified; F02.80 Dementia in other diseases classified elsewhere, unspecified severity, without behavioral disturbance, psychotic disturbance, mood disturbance, and anxiety; Z20.822 Contact with and (suspected) exposure to COVID-19; Z93.0 Tracheostomy status; Z93.1 Gastrostomy status; Z79.82 Long term (current) use of aspirin; Z85.118 Personal history of other malignant neoplasm of bronchus and lung; Z87.891 Personal history of nicotine dependence
CPT/HCPCS: 36415; 71045; 71250; 80053; 83605; 83735; 83880; 84145; 85025; 87040; 87070; 87205; 87637; 87641; 93005; 94640; 96374; 99285; A4629; A9270; J0713; J1650; J1956; J2919; J7030; J7512

== ENCOUNTER 2024-04-25 20:01 | Emergency (ER) | payer BC, SELFPAY ==
[2024-04-25] VITALS (17 sets, daily range): BP systolic 117–155; BP diastolic 57–81; PULSE 94; RESP 20; TEMP 36.7; O2SAT 93–100
--- NOTE | ~2024-04-25 | XR_ITS ---
CHEST RADIOGRAPH CLINICAL HISTORY: cough . COMPARISON: 12/15/2023 TECHNIQUE: Single portable view of the chest. FINDINGS Tracheostomy tube in good position. Calcification of the aortic knob. The remainder of the cardiomediastinal silhouette is otherwise unremarkable. The lungs are clear. Visualized osseous structures and soft tissues are unremarkable. IMPRESSION: No focal infiltrate or effusion. Reviewed, dictated and finalized at location A. E GANG SAWYER
--- NOTE | ~2024-04-25 | XR_ITS ---
Supine portable view of the abdomen Clinical history: G-tube replacement Findings: Following contrast administration supervised gastrostomy tube, there is opacification gastr ic lumen and proximal small bowel. No abnormal extravasation of contrast seen. No evidence for obstru ction or free air. No abnormal mass lesion or calcification is seen. Osseous structures are intact. Impression: Percutaneous gastrostomy tube in satisfactory position. Reviewed, dictated and finalized at location . E SET UP PERSON Impression: Percutaneous gastrostomy tube in satisfactory position.
--- NOTE | ~2024-04-25 | XR_ITS ---
Exam: Abdomen 1V HISTORY: post g tube replacement by the emergency department physician COMPARISON: None. TECHNIQUE: Supine images of the abdomen following the injection of Gastrografin into the replaced tu be. FINDINGS: Bowel gas pattern is nonspecific and non-obstructive. No contrast extravasation is identified on delayed imaging. Dense opacification of the gastric cardia is present with trace reflux into the gastroesophageal junc tion. Lung bases are unremarkable. Bones and soft tissues are unremarkable. IMPRESSION: Nonspecific, nonobstructive bowel gas pattern. Replaced gastrostomy tube is in excellent position and ready for immediate use. Reviewed, dictated and finalized at location A. STRAIGHTENER
--- NOTE | ~2024-04-25 | XR_ITS ---
EXAMINATION: XR abdomen gastric tube insert DATE: 04/26/2024 12:24 INDICATION: Gastrostomy tube placement. TECHNIQUE: A supine view of the abdomen was obtained. COMPARISON: Abdomen radiograph at 3:46 AM FINDINGS: There are no dilated loops of bowel. There is a gastrostomy tube in expected position. Ther e is contrast in the tube and in the stomach and bowel. Surgical clips in the right upper quadrant ar e likely from cholecystectomy. IMPRESSION: 1. Gastrostomy tube in expected position. Reviewed, dictated and finalized at location A. OR MARKETING SPECIALIST
--- NOTE | 2024-04-25 20:05 | PC.NURSE ---
Patient O2 at 93% on RA. Patient trach suctioned via suction cath, one pass and sputum removed, patient then O2 decreased to 80% on RA after suctioning. Patient placed on 15L via NRB and O2 increased to 100%, RT called and arrives at bedside with humidified O2 trach collar.
--- NOTE | 2024-04-25 20:11 | PC.NURSE ---
2011 ERP placed new 16 Fr g-tube, patient tolerated well.
--- NOTE | 2024-04-25 20:16 | ED_ITS ---
HPI - General Adult General Chief complaint: Unspecified Stated complaint: DISLODGED G-TUBE Time Seen by Provider: 04/25/24 20:03 History of Present Illness HPI narrative: Patient 74-year-old female who presents emergency department with chief complaint of full G-tube out. Patient has an 18 [place] G-tube that was pulled out home the patient has a trach and some iron other the PEG tube got pulled. The patient otherwise has no complaints Related Data Home Medications ?Medication ?Instructions ?Recorded ?Confirmed ?Last Taken ?Type acetaminophen 160 mg/5 mL oral 160 mg PO QID PRN pain or fever 09/11/23 12/15/23 10/19/23 History elixir aspirin 81 mg chewable tablet 81 mg feeding tube DAILY 09/11/23 12/15/23 10/19/23 History guaifenesin 100 mg/5 mL oral liquid 200 mg PO Q6H PRN Cough 09/11/23 12/15/23 Unknown History polyethylene glycol 3350 17 gram 17 g feeding tube DAILY PRN 09/11/23 12/15/23 Unknown History oral powder packet Constipation Allergies Allergy/AdvReac Type Severity Reaction Status Date / Time iodine Allergy Hives Verified 12/15/23 23:51 latex Allergy Hives Verified 12/15/23 23:51 Review of Systems Review of Systems: A 10 system review of systems was completed on the patient and is negative except for what is stated in the HPI. Nursing and ancillary documentation was reviewed. [facility] Past Medical History Medical History Occult blood in stools Aphasia as late effect of cerebrovascular accident Acute on chronic anemia Gastrostomy complication Gastrostomy tube replacement 04/04/2023 Cholecystectomy planned 01/16/2023 Tracheitis 09/04 Alzheimer's dementia A&O x0 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 03/2017 Cerebrovascular accident (CVA) CAD (coronary artery disease) HLD (hyperlipidemia) COPD (chronic obstructive pulmonary disease) HTN (hypertension) Surgical History Surgical History Hx of exploratory laparotomy ROULA Gastrostomy Hx of esophagogastroduodenoscopy w/ Peg placement 01/20/23 H/O tracheostomy 03/2023 Family History Family History Mother Alzheimer dementia Social History Social History Smoking status: Former smoker Tobacco type: cigarettes Second hand tobacco smoke exposure: No Additional smoking assessment comments: unknown amount/length of time patient smoked Alcohol intake: never Substance use: never Spiritual care concerns: No Exam Narrative: GENERAL: Well-appearing, well-nourished, and in no acute distress. HEAD: Normocephalic, atraumatic. EYES: PERRLA and EOMI. ENT: Nares clear, no rhinorrhea or epistaxis. Mucous membranes moist. NECK: Supple. Trach in place CHEST: Clear to auscultation. No respiratory distress. HEART: Regular rate and rhythm. No murmur heard. Normal peripheral pulses. ABDOMEN: Soft, nontender, nondistended, normal active bowel sounds. G-tube site intact 18 [place] G-tube in a bag EXTREMITIES: Normal range of motion. No edema. SKIN: Warm, dry, no rash. NEURO: No focal deficits. Alert and oriented x3. PSYCH: Normal mood and affect. Course Vital Signs Vital signs: Vital Signs Temperature 36.7 C 04/25/24 20:01 Pulse Rate 94 04/25/24 20:01 Respiratory Rate 20 04/25/24 20:01 Blood Pressure 155/57 H 04/25/24 20:01 Pulse Oximetry 93 04/25/24 20:01 Oxygen Delivery Room Air 04/25/24 20:01 Temperature 36.7 C 04/25/24 20:01 Pulse Rate 94 04/25/24 20:01 Respiratory Rate 20 04/25/24 20:18 Blood Pressure 155/57 H 04/25/24 20:01 Pulse Oximetry 93 04/25/24 20:01 Oxygen Delivery Room Air 04/25/24 20:01 Procedures Feeding Tube Replacement Feeding Tube #1: Feeding Tube Placement Date: 04/25/24 Feeding Tube Placement Time: 20:17 Type of Tube: gastrostomy Insertion Site Prior to Procedure: clean Tube Used for Reinsertion: Bard [place] Tube Size (F): 16 Balloon size (mL): 5 Verification of Placement: KUB and gastrografin injection Tube Secured by: tape/dressing Patient Tolerated Procedure: well and no complications Feeding Tube #2: Feeding Tube Placement Date: 04/26/24 Feeding Tube Placement Time: 04:00 Type of Tube: gastrostomy Insertion Site Prior to Procedure: clean Tube Used for Reinsertion: Bard [place] Tube Size (F): 20 Balloon size (mL): 5 Verification of Placement: auscultation, KUB and gastrografin injection Tube Secured by: attachment device Patient Tolerated Procedure: well and no complications Medical Decision Making MDM Narrative Medical decision making narrative: The patient was having some increased secretions and was suctioned by res piratory The G-tube was replaced by myself using his new 16 [place] as we did not have 18 [place] available While waiting for transport back to the patient's residence the patient pulled out the 16 [place] feeding tube. A new 20 [place] G-tube was placed and verified using Gastrografin Vital Signs Vital Signs: Vital Signs Temperature 36.7 C 04/25/24 20:01 Pulse Rate 94 04/25/24 20:01 Respiratory Rate 20 04/25/24 20:01 Blood Pressure 155/57 H 04/25/24 20:01 Pulse Oximetry 93 04/25/24 20:01 Oxygen Delivery Room Air 04/25/24 20:01 Temperature 36.7 C 04/25/24 20:01 Pulse Rate 94 04/25/24 20:01 Respiratory Rate 20 04/25/24 20:18 Blood Pressure 155/57 H 04/25/24 20:01 Pulse Oximetry 93 04/25/24 20:01 Oxygen Delivery Room Air 04/25/24 20:01 Discharge Plan Discharge Clinical Impression: Malfunction of gastrostomy tube Patient Disposition: Home, Self-Care Condition: Stable Instructions: Antibiotic Form, Gastrostomy Care for Newborns (ED) Patient Language: Luxembourgish Prescriptions: New levofloxacin 750 mg tablet 750 mg feeding tube Q48H 7 Days Qty: 4 0RF No Action donepezil 5 mg tablet 5 mg feeding tube HS 60 Days Qty: 60 0RF lansoprazole 30 mg tablet,disintegrat, delay rel 30 mg feeding tube DAILY 60 Days Qty: 60 0RF albuterol sulfate 2.5 mg /3 mL (0.083 %) solution for nebulization 2.5 mg inhalation Q4H PRN (Reason: shortness of breath or wheezing) 30 Days Qty: 75 0RF polyethylene glycol 3350 17 gram powder in packet 17 g feeding tube DAILY PRN (Reason: Constipation) guaifenesin 100 mg/5 mL Liquid 200 mg PO Q6H PRN (Reason: Cough) aspirin 81 mg tablet,chewable 81 mg feeding tube DAILY Rx Instructions: morning acetaminophen 160 mg/5 mL Elixir 160 mg PO QID PRN (Reason: pain or fever) ipratropium-albuterol 0.5 mg-3 mg(2.5 mg base)/3 mL Solution For Nebulization 3 ml inhalation Q6HRT Qty: 180 0RF prednisone 20 mg Tablet 40 mg feeding tube DAILY@0800 Qty: 1 0RF levofloxacin 750 mg tablet 750 mg PO Q48H Qty: 2 0RF Rx Instructions: 1 tablet 12/18 and the next 12/20 to complete therapy atorvastatin 20 mg tablet 20 mg feeding tube HS 60 Days Qty: 60 0RF amlodipine 5 mg tablet 5 mg feeding tube DAILY 60 Days Qty: 60 0RF Follow-up/Referrals: Ambar,ARTEMIO Beckham [Primary Care Provider] - Time of Disposition: 21:36
--- NOTE | 2024-04-25 20:18 | PC.NURSE ---
Patient being suctioned by RT at this time.
--- NOTE | 2024-04-25 20:46 | PC.NURSE ---
Patient suctioned by this RN. Patient tolerated well. Patient at 97% on humidified trach collar. Patient family at bedside.
--- NOTE | 2024-04-25 22:58 | PC.NURSE ---
Patient diaper changed, patient had large liquid stool in diaper, saturated. Patient family at bedside. patient waiting for transport to arrive to take her back home.
[2024-04-26] VITALS (29 sets, daily range): BP systolic 109–163; BP diastolic 56–96; PULSE 96–102; RESP 15–17; O2SAT 94–100
[2024-04-26] MEDS: IPRATROPIUM 0.5 MG/ALBUTEROL SULFATE 2.5 MG AMPUL.NEB 3 ML INHALATION (03:15)
--- NOTE | 2024-04-26 04:10 | PC.NURSE ---
0330 patients family calls a nurse into room and states her g-tube is out again. ERP notified. Patient family noted to be wiping site around g-tube insertion site mulitple times and callled out to nurses station multiple times stating she has stuff coming around the g-tube. ERP went and assessed patient's g-tube multiple times and readjusted the positioning and resecured. Patients family frequently requesting the same size g-tube be placed back in. Patients family educated that this facility does not carry that size and the only available options are 16Fr which was placed upon arrival to ED or a 20Fr which was larger than the 18Fr that was pulled out precinct captain. Patients family member comes to the nurses station and speaks with the ERP and requests the bigger g-tube to be placed. ERP placed another g-tube in patient, 20fr and order confirmation studies. This RN assisted ERP in placing the 20Fr g-tube, successful first attempt. After the placement of the g-tube patients family member states how do we know that she received all the feeding earlier. ERP explains to patients family that she did receive the feeding and that the confirmation imaging studies were done to confirm placement prior to anything being given through the g-tube. Patients family members states they have said that before. Let me educate you about this scar she has right there as family member points to scar just below the g-tube insertion site. Family member states they told us before that it was confirmed and they gave her feedings and it just kept getting bigger and bigger and caused a problem as you can see, so how do we know. This RN and ERP educate patients family that best practice guidelines were used and the g-tube confirmation study with contrast was used to verify placement and imaging studies were read by a radiologist stating the g-tube was in excellent position and ready to be used immediately. Patients family members verbalized understanding and stated oh that is different then the one time. The contrast is better. so you put the bigger one in? ERP educated patients family again that the bigger g-tube, the 20Fr was placed and we will again order the g-tube confirmation studies with contrast to verify placement again for the new 20Fr g-tube that was placed. Xray then came and performed the confirmation study for g-tube placement, ERP was called to room and read image at bedside and educated the family was in good position and okay to use immediately. Patients brief was then changed, patient cleaned up and gown changed, bed change, repositioned and blanket given. Patient still receiving humidified O2 via trach collar. Patient was also suctioned. VS still remain stable 100%. Patient in no acute distress. Patient family instructed on use of call light. Patient still waiting for EMS to transport back home.
--- NOTE | 2024-04-26 12:23 | PC.NURSE ---
Family of the pt had put a towel over the g-tube.
== END 2024-04-26 16:10 | disposition home or self-care (01) ==
PROVIDERS: Emergency Provider Student in an Organized Health Care Education/Training Program; PCP Physician Assistant
DX: K94.23 Gastrostomy malfunction (principal); I69.320 Aphasia following cerebral infarction; D64.9 Anemia, unspecified; Z85.118 Personal history of other malignant neoplasm of bronchus and lung; G30.9 Alzheimer's disease, unspecified; F02.80 Dementia in other diseases classified elsewhere, unspecified severity, without behavioral disturbance, psychotic disturbance, mood disturbance, and anxiety; I25.10 Atherosclerotic heart disease of native coronary artery without angina pectoris; E78.5 Hyperlipidemia, unspecified; J44.9 Chronic obstructive pulmonary disease, unspecified; I10 Essential (primary) hypertension; Z87.891 Personal history of nicotine dependence
CPT/HCPCS: 43762; 71045; 94640; 96361; 96374; 99284

== ENCOUNTER 2025-02-20 07:11 | Inpatient (IN) | payer MEDICARE, BC, SELFPAY ==
[2025-02-20] VITALS (41 sets, daily range): BP systolic 85–163; BP diastolic 41–91; PULSE 65–118; RESP 12–30; TEMP 36.4–37.7; O2SAT 85–100
--- NOTE | ~2025-02-20 | XR_ITS ---
EXAMINATION: XR chest 1V portable COMPARISON: No comparisons available. HISTORY: Resp Failure FINDINGS: Mild pulmonary venous congestion. No pneumothorax. Mild cardiomegaly. Mediastinal and hilar contours are within normal limits. Bony thorax no acute abnormality. Miscellaneous: Tracheostomy terminates 5 cm above the meri. Impression: Mild CHF Reviewed, dictated and finalized at location P. ER MERCHANDISER Impression: Mild CHF
--- NOTE | ~2025-02-20 | CT_ITS ---
EXAMINATION: CT chest abdomen pelvis wo con DATE: 02/20/2025 11:03 INDICATION: Sepsis. TECHNIQUE: Computed tomography (CT) of the chest, abdomen, and pelvis was performed without intravenous contrast. Automated exposure control and iterative reconstruction technique were employed. The dose-length product was 1217.11 mGy-cm. COMPARISON: Chest CT 12/16/2023 FINDINGS: CHEST CT: There is moderate emphysema. There are changes of partial right upper lobectomy. There are patchy airspace and groundglass opacities in right lower lobe, consistent with pneumonia. There is a new 6 mm nodule in right middle lobe. There is an 11 mm nodule in left upper lobe without change. No pleural effusion. A tracheostomy tube is noted. The heart size is normal. There are coronary artery calcifications. There is a small pericardial effusion. The central pulmonary arteries are enlarged, consistent with pulmonary arterial hypertension. There is mild thoracic spondylosis. ABDOMEN/PELVIS CT: The liver and spleen are normal. There are changes of cholecystectomy. The pancreas, adrenal glands, and right kidney are normal. There is cortical thinning of left kidney. There is no urolithiasis. There is a 3.2 cm cyst in left ovary, likely benign. There is diverticulosis of the colon without evidence of diverticulitis. The appendix is normal. There are no dilated loops of bowel. There is a 3.8 cm fusiform aneurysm of infrarenal aorta. There are no pathologically enlarged lymph nodes. There is no free intraperitoneal fluid. There is a gastrostomy tube in expected position. There is mild lumbar sp ondylosis. IMPRESSION: 1. Right lower lobe pneumonia. 2. New 6 mm nodule in right lung middle lobe, probably benign. Consider noncontrast low-dose chest CT in 6 months. 3. 11 mm nodule in left lung upper lobe, stable from 12/16/2023, likely benign. 4. Small pericardial effusion. 5. Moderate emphysema. 6. 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 Reviewed, dictated and finalized at location E. OOD LAYUP LINE BACK FEEDER IMPRESSION: 1. Right lower lobe pneumonia. 2. New 6 mm nodule in right lung middle lobe, probably benign. Consider noncont rast low-dose chest CT in 6 months. 3. 11 mm nodule in left lung upper lobe, stable from 12/16/2023, likely benign. 4. Small pericardial effusion. 5. Moderate emphysema. 6. 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
--- NOTE | ~2025-02-20 | XR_ITS ---
EXAMINATION: XR chest 1V portable COMPARISON: No comparisons available. HISTORY: Resp Failure FINDINGS: Moderate pulmonary venous congestion. No pneumothorax. Mild cardiomegaly. Mediastinal and hilar contours are within normal limits. Bones normal. Miscellaneous: Tracheostomy tube terminates 4 cm above the meri. Impression: CHF Reviewed, dictated and finalized at location P. NESS INSURANCE AGENT Impression: CHF
--- NOTE | ~2025-02-20 | XR_ITS ---
Examination: XR chest 1V portable Clinical History: respiratory failure Comparison: 04/25/2024 Technique: Portable AP Findings: Tracheostomy Heart size normal. Mildly increased interstitial markings. Emphysema. No acute bony abnormality. IMPRESSION: 1. Suspect interstitial pulmonary edema and/or pneumonitis. Reviewed, dictated and finalized at location R. GRINDER MACHINE
--- NOTE | ~2025-02-20 | XR_ITS ---
EXAM/PROCEDURE: XR chest 1V portable HISTORY: Resp Failure COMPARISON: February 23 TECHNIQUE: Portable chest FINDINGS: Bilaterally prominent interstitial markings similar to yesterday's exam. No focal consolidation, nate pulmonary edema or large effusion. Tracheostomy tube stable. Heart size upper limits normal unchanged. IMPRESSION: No acute findings. Reviewed, dictated and finalized at location A. RGROUND REPAIRER IMPRESSION: No acute findings.
--- NOTE | ~2025-02-20 | XR_ITS ---
Examination: XR chest 1V portable Clinical History: pneumonia Comparison: 02/25/2025 Technique: Portable AP Findings: Tracheostomy. Heart size unchanged. Emphysema and interstitial changes. No acute bony abnormality. IMPRESSION: 1. No change or acute cardiopulmonary findings given portable technique. Reviewed, dictated and finalized at location R. R COATING HAND
--- NOTE | ~2025-02-20 | XR_ITS ---
Examination: XR abdomen obstructive series Clinical History: Abdominal distension Comparison: CT chest abdomen pelvis 02/20/2025 Technique: Supine and upright abdomen Findings: Lung bases clear. G-tube in place. No air-fluid levels. Scattered colonic gas and stool. Minimal scattered small bowel gas. No abnormal abdominal calcifications. No acute bony abnormality. IMPRESSION: 1. No acute abnormality. Reviewed, dictated and finalized at location R. RIDGE LOADER IMPRESSION: 1. No acute abnormality.
--- NOTE | ~2025-02-20 | XR_ITS ---
EXAMINATION: XR chest 1V portable COMPARISON: Comparison 02/22/2025. HISTORY: Resp Failure FINDINGS: Bilateral pulmonary venous congestion. No pneumothorax. Mild cardiomegaly. Mediastinal and hilar contours are within normal limits. Bony thorax no acute abnormality. Miscellaneous: Tracheostomy appropriate location. Impression: CHF Reviewed, dictated and finalized at location P. AVEMENT COORDINATOR Impression: CHF
--- NOTE | ~2025-02-20 | XR_ITS ---
EXAMINATION: XR chest 1V portable DATE: 02/25/2025 05:33 INDICATION: Respiratory failure TECHNIQUE: A single frontal view of the chest was obtained. COMPARISON: February 24 FINDINGS: Tracheostomy tube remains in place. Scattered interstitial markings throughout both lung barclay unchanged in appearance. No nate pulmonary edema or large effusion. No pneumothorax or subdiaphragmatic free air seen. IMPRESSION: 1. No gross interval change from yesterday. Reviewed, dictated and finalized at location A. NATED PLASTICS ASSEMBLER AND GLUER
--- NOTE | 2025-02-20 07:14 | ECG_ITS ---
Test Date: 2025-02-20 07:51:02 Measurements Intervals Aubrey Rate: 113 P: 60 MD: 144 QRS: 10 QRSD: 104 T: 91 QT: 333 QTc: 458 Interpretive Statements SINUS TACHYCARDIA POSSIBLE LEFT ATRIAL ENLARGEMENT [-0.1mV P-WAVE IN V1/V2] SEPTAL MYOCARDIAL INFARCTION , OF INDETERMINATE AGE [40+ ms Q WAVE IN V1/V2] Compared to ECG 12/15/2023 21:55:48 no change Electronically Signed On 02-20-2025 13:20:17 EMPLOYEE COMMUNICATIONS INTERN by Moses Mei M.D.
--- NOTE | 2025-02-20 07:27 | PC.NURSE ---
MD Dr. Mejía at bedside with RT. Pt suctioned. Pt placed on non-rebreather mask at 15L. Pt had episode of apnea, BVM applied and manual ventilations provided by RT. additional RT at bedside with new size 6 cuffed trach, EDP Dr. Mejía replaced trach at 0731. Pt continue to have manual BVM ventilations.
--- OUTSIDE RECORDS SUMMARY | 2025-02-20 07:27 | XMS_ITS | Clinical Summary ---
Author Organization [facility] Address [address], [address] [place] [address] Phone Care Team Providers Care Supervisor [employer] Name Role Phone Soham Shepherd MD Primary Care Provider [phone] Jose G Davis MD Unavailable [phone] Milton Cuadra MD Unavailable Allergies No known active allergies Medications Aspirin 81 MG Tablet Take 81 mg by mouth daily. Active Rosuvastatin Calcium (CRESTOR PO) Take by mouth daily. Active nitroGLYCERIN (NITROSTAT) 0.4 MG SL Tablet 0.4 mg by Sublingual route every 5 minutes as needed for Chest pain. Active clopidogrel (PLAVIX) 75 MG Tablet Take 75 mg by mouth daily. Active metoprolol Succinate (TOPROL-XL) 100 MG TABLET SR 24 HR Take 100 mg by mouth daily. Active amLODIPine (NORVASC) 10 MG Tablet Take 10 mg by mouth daily. Active donepezil (ARICEPT) 5 MG Tablet Take 5 mg by mouth nightly. Active Active Problems Problem Noted Date Diagnosed Date Sickle cell trait 04/18/2017 Lung cancer, upper lobe 04/18/2017 Family History Medical History Relation Name Comments Stroke Father Relation Name Status Comments Father Social History Tobacco Use Types Packs/Day Years Used Date Smoking Tobacco: Every Day Cigarettes 1 62.8 Started: 04/18/1962 Smokeless Tobacco: Never Alcohol Use Standard Drinks/Week Comments Yes 0 (1 standard drink = 0.6 oz pur e alcohol) about once a week PHQ-2 Answer Date Recorded Total Score - Questions 1-9 0 06/19 Comments Unknown Sex and Gender Information Value Date Recorded Sex Assigned at Not on file Legal Sex Female 3:23 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 Gender Identity Not on file Sexual Orientation Not on file Last Filed Vital Signs Vital Sign Reading Time Taken Comments Blood Pressure 142/84 06/30/2019 12:28 PM CDT Pulse 94 06/30/2019 12:28 PM CDT Temperature 37 C (98.6 F) 06/30/2019 12:28 PM CDT Respiratory Rate 16 06/30/2019 12:2 8 PM CDT Oxygen Saturation 96% 06/30/2019 12: 28 PM CDT Inhaled Oxygen Concentration - - Weight 51.2 kg (112 lb 12.8 oz) 020 12:28 PM CDT Height 162.6 cm (5' 4) 06/30/2019 12:2 8 PM CDT Body Mass Index 19.36 06/30/2019 12:28 PM CDT Plan of Treatment Health Maintenance Due Date Last Done Comments DEXA Bone Density 1945 Hepatitis C Virus (HCV) Screening 1945 Zoster Immunization (1 of 2) 12/05/1963 Pneumococcal Immunization (50+ years) (2 of 2 - PCV) 01/25/2011 01/25/2010 Respiratory Syncytial Virus (RSV) Immunization (Adult) (1 - 1-dose 75+ series) 12/05/2019 SARS-COV-2 Immunization (3 - Pfizer risk series) 10/14/2020 09/16/2020, 07/14/2020 Influenza Immunization (#1) 12/20/2024/0 08/2021, 01/09/2017, 02/16/2016, Additional history exists DTaP/Tdap/Td Immunization Discontinued 01/19/2009 TdaP Immunization Completed 01/19/2009 Pneumococcal Immunization Combined Discontinued 01/25/2010 Colorectal Cancer Screening Discontinued Immunochemical Fecal Occult Blood Discontinued 02/24/2023 Cologuard Discontinued Colonoscopy Discontinued Hepatitis B Immunization Aged Out No longer eligible based on patient's age to complete this topic Human Papillomavirus (HPV) Immunization Aged Out No longer eligible based on patient's age to complete this topic Meningococcal Immunization (ACWY) Aged Out No longer eligible based on patient's age to complete this topic Rotavirus Immunization Aged Out No lo nger eligible based on patient's age to complete this topic Insurance [facility] Care Teams Supervisor [employer] Relationship Specialty Start Date End Date Soham Shepherd MD PCP - General Family Medicine 04/18/17 Jose G Davis MD Consulting Physician Oncology 04/18/17 Milton Cuadra MD General Surgery 04/18/17
--- OUTSIDE RECORDS SUMMARY | 2025-02-20 07:27 | XMS_ITS ---
Author Organization [employer] Care Team Providers Care Blending Line Attendant Name Role Phone Simeon Thiago Unavailable Unavailable Stone, Crystal L Unavailable Unavailable Facher, Magid Unavailable Unavailable Jerrell Moseley Unavailable Unavailable Radha Whittington Unavailable Unavailable Allergies and adverse reactions Code CodeSystem Substance Reaction Severity StartDate Concern Status [id number] SNOMED CT SHWETA Inhibitors Muscle pain (code- 11338864, SNOMED CT) Unknown 05/09/2023 active 19374 RXNORM Atorvastatin Cough (code- 68194612, SNOMED CT) Unknown 05/09/2023 active Contrast Unknown 05/09/2023 active Care Team Name Role Address Phone Organization Dates Jerrell Moseley PCP [address] , [place], [address], [place] (Office): : : [facility] 05/23/2023 - 06/16/2023 Thiago Hendrix [address] [place], [address], [facility] (Office): : : [facility] 05/23/2023 - 06/16/2023 Crystal L Stone [address] [place], [address], [place] (Office): : [facility] 05/23/2023 - 06/16/2023 Ge Oliver [address], [address], [place] (Office): : : [facility] 05/23/2023 - 06/16/2023 Radha Whittington [facility] [place], [address], [facility] (Office): : [facility] 05/23/2023 - 06/16/2023 Immunizations Immunization Status Vaccine Details Vaccine Code CodeSystem Cliff e Notes Influenza new Influenza, high-dose, split virus, quadrivalent, injectable, preservative free 197 CVX created date: 05/12/2023 consent date: 05/12/2023 SARS-COV-2 (COVID-19) completed SARS-COV-2 (COVID-19) vaccine, mRNA, spike protein, LNP, preservative free, 30 mcg/0.3mL dose Step 2 of Multi-step with next step required 208 CVX created date: 05/09/2023 administered date: 09/16/2020 SARS-COV-2 (COVID-19) completed SARS-COV-2 (COVID-19) vaccine, mRNA, spike protein, LNP, preservative free, 30 mcg/0.3mL dose Step 1 of Multi-step with next step required 208 CVX created date: 05/09/2023 consent date: 05/09/2023 administered date: 07/14/2020 Pneumococcal unknown historical new pneumococcal conjugate vaccine, 13 valent 133 CVX created date: 05/12/2023 consent date: 05/12/2023 Moderna Spikevax Covid 19 Vaccine suspended SARS-COV-2 (COVID-19) vaccine, mRNA, spike protein, LNP, preservative free, 100 mcg/0.5mL dose or 50 mcg/0.25mL dose 207 CVX created date: 05/12/2023 consent date: 05/12/2023 Mental Status Section Date Assessment Total Score Description 06/16/2023 CAM 0 No delirium ind icated 05/29/2023 CAM 0 No delirium ind icated Insurance Providers Problems Problem # Description Date of onset Resolved Date Code CodeSystem Concern Status 1 DYSARTHRIA FOLLOWING CEREBRAL INFARCTION 05/23/[id number] active 2 DYSPHAGIA FOLLOWING CEREBRAL INFARCTION 05/23/[address] active 3 OTHER LACK OF COORDINATION 05/23/[address] active 4 NEED FOR ASSISTANCE WITH PERSONAL CARE 05/13/[address] active 5 OTHER REDUCED MOBILITY 05/12/[address] active 6 WEAKNESS 05/12/[address] active 7 ABDOMINAL DISTENSION (GASEOUS) 05/09/[address] active 8 ACUTE CYSTITIS WITH HEMATURIA 05/09/[address] active 9 ACUTE KIDNEY FAILURE, UNSPECIFIED 05/09/[address] active 10 ACUTE METABOLIC ACIDOSIS 05/09/[address] active 11 ALZHEIMER'S DISEASE, UNSPECIFIED 05/09/[address] active 12 APHASIA 05/09/[address] active 13 ATHEROSCLEROTIC HEART DISEASE OF [place] CORONARY ARTERY WITHOUT ANGINA PECTORIS 05/09/[address] active 14 CEREBRAL INFARCTION, UNSPECIFIED 05/09/[address] active 15 CEREBROVASCULAR DISEASE, UNSPECIFIED 05/09/[address] active 16 CHRONIC KIDNEY DISEASE, UNSPECIFIED 05/09/[address] active 17 CHRONIC RESPIRATORY FAILURE WITH HYPOXIA 05/09/[address] active 18 COLOSTOMY STATUS 05/09/[address] active 19 CONSTIPATION, UNSPECIFIED 05/09/[address] active 20 COVID-19 05/09/[address] active 21 ESSENTIAL (PRIMARY) HYPERTENSION 05/09/[address] active 22 GASTROSTOMY MALFUNCTION 05/09/[address] active 23 GASTROSTOMY STATUS 05/09/[address] active 24 HYPERKALEMIA 05/09/[address] active 25 HYPEROSMOLALITY AND HYPERNATREMIA 05/09/[address] active 26 HYPO-OSMOLALITY AND HYPONATREMIA 05/09/[address] active 27 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 05/09/[address] active 28 NECROTIZING FASCIITIS 05/09/[address] active 29 NONTRAUMATIC INTRACEREBRAL HEMORRHAGE, UNSPECIFIED 05/09/[address] active 30 OTHER DYSPHAGIA 05/09/[address] active 31 PNEUMONIA, UNSPECIFIED ORGANISM 05/09/[address] active 32 SICKLE-CELL TRAIT 05/09/[address] active 33 TRACHEOSTOMY STATUS 05/09/[address] active 34 UNSPECIFIED DEMENTIA, MODERATE, WITHOUT BEHAVIORAL DISTURBANCE, PSYCHOTIC DISTURBANCE, MOOD DISTURBANCE, AND ANXIETY 05/09/[address] active 35 UNSPECIFIED PROTEIN-CALORIE MALNUTRITION 05/09/[address] active 36 OTHER SYMPTOMS AND SIGNS INVOLVING COGNITIVE FUNCTIONS AND AWARENESS 02/25/[address] active 37 ACQUIRED ABSENCE OF LUNG [PART OF] 06/15/[address] active 38 PRESENCE OF CORONARY ANGIOPLASTY IMPLANT AND GRAFT 06/15/[address] active 39 PRIMARY INSOMNIA 06/15/[address] active 40 PERSONAL HISTORY OF OTHER MALIGNANT NEOPLASM OF BRONCHUS AND LUNG 04/18/[address] active 41 CHRONIC OBSTRUCTIVE PULMONARY DISEASE, UNSPECIFIED 03/30/[address] active 42 MIXED HYPERLIPIDEMIA 11/02/[address] active 43 AGE-RELATED OSTEOPOROSIS WITHOUT CURRENT PATHOLOGICAL FRACTURE 05/18/[address] active 44 HYPERCALCEMIA 01/12/[address] active Reason for Referral No Reasons for Referral Entered Social History Social History Observation Description Start Date End Date Code Code System Current Smoking Status Tobacco smoking consumption unknown 943070442 SNOMED CT Sex Assigned At Female 1945 30013-6 [facility] Gender Identity Sexual Orientation Vital Signs Code Code System Vitals Name Values and Units Timing Information 9279-1 [facility] Respiratory Rate Value=18.0 Units=/m in 06/16/2023 8462-4 [facility] Blood Pressure-Diastolic Value=78 Un its=mmHg 06/16/2023 8480-6 [facility] Blood Pressure-Systolic Hbebo=903 Un its=mmHg 06/16/2023 8310-5 [facility] Body Temperature Value=98.0 Units= F 06/16/2023 8867-4 [facility] Heart rate Value=78.0 Units=/min 78763-9 [facility] O2 % BldC Oximetry Value=98.0 Units= % 06/16/2023 66071-7 [facility] Pain Level Value=0.0 06/15/2023 40405-0 [facility] Weight Bsogs=929.6 Units=Lbs 8302-2 [facility] Height Value=66.0 Units=Inches 05/23/2023
--- OUTSIDE RECORDS SUMMARY | 2025-02-20 07:27 | XMS_ITS | Clinical Summary ---
Author Organization [facility] Address [address] [place] [address] Care Team Providers Care Fish Processing Supervisor Name Role Phone Milton Cuadra MD Unavailable [phone] Roseanne Leach MD Unavailable [phone] Milton Rodriguez MD Unavailable [phone] Bhavani Villalta PA-C Primary Care Provider [phone] Allergies Active Allergy Reactions Criticality Noted Date Comments Jessee Inhibitors Cough 12/10/2012 Atorvastatin Myalgias 12/10/2012 Iodine Unknown 05/15/2023 Medications sodium chloride 7 % Nebu Soln Take 4 mLs by nebulization 2 (two) times daily as needed (congestion). Active Active Problems Problem Noted Date Diagnosed Date Pneumonia 08/20/2023 Acute on chronic respiratory failure 05/15/2023 Septic shock 02/25/2023 Unresponsive 02/24/2023 CKD (chronic kidney disease) 01/11/2023 Dysphagia 01/11/2023 Intraparenchymal hemorrhage of brain 01/11/2023 Alzheimer's disease 01/11/2023 COVID-19 04/23/2021 Mammogram declined 07/13/2020 Acquired absence of portion of lung 06/15/2020 Stented coronary artery 06/15/2020 Primary insomnia 06/15/2020 History of lung cancer 04/18/2017 Sickle cell trait 04/18/2017 COPD (chronic obstructive pulmonary disease) 01/2017 Mixed hyperlipidemia 11/02/2015 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 11/02/2015 Osteoporosis 05/18/2015 Overview (05/31/2020): Description: alendronate started 04/01 Dementia 04/05/2015 Hypercalcemia 01/11/2013 Overview (05/31/2020): Description: Mild ; Primary hyperparathyroidism Essential hypertension 01/11/2013 Overview (05/31/2020): Description: 08/02/1999 Resolved Problems Problem Noted Date Diagnosed Date Resolved Date Lung mass 06/15/2020 06/15/2020 Smoker 06/15/2020 06/15/2020 Solitary pulmonary nodule 06/15/2020 Routine general medical exam ination at a health care facility 06/15/2020 08/27/2021 Nicotine dependence 03/30/2017 06/15/19 21 Abnormal PFTs 03/04/2017 06/15/2020 Benign essential HTN 11/02/2015 021 Increased glucose level 05/25/201505/23 Encounter for preventive health examination 11/12/2012 06/05/2020 Dyslipidemia 06/15/2020 Immunizations Immunization Administration Dates Next Due Fluzone 6 Months+ Quad (0.5 mL Prefilled Syringe) 04/25/2021 Fluzone High Dose - >Age 65 (Prefilled Syringe) 02/15/2016,01/25/2015 Influenza (Generic) 01/09/2017,01/14/2013,2010 Influenza Adult (Generic) 02/16/2016 PFIZER COVID-19 (ORIGINAL FO RMULATION, PURPLE CAP) mRNA, LNP-S, PF, 30 MCG/0.3 ML DOSE 09/16/2020,07/14/2020 Pneumococcal (Pneumovax 23) 01/25/2010 Tdap (Generic) 01/19/2009 Family History Medical History Relation Comments Hypertension Daughter 1 Heart Disease Father heart attack Other Mother from natura l causes age 89 DYSLIPIDEMIA Other Hyperlipidemia Other Hypertension Other SYNCOPE Other Bleeding Disorder Son 1 sickle cell Bleeding Disorder Son 2 sickle cell Relation Status Comments Brother 1 Alive Brother 2 Alive Brother 3 Alive Daughter 1 Alive Daughter 2 Alive Daughter 3 Alive Father Mother Other Alive Son 1 Son 2 Social History Tobacco Use Types Packs/Day Years Used Date Smoking Tobacco: Former Cigarettes 0.5 50 Smokeless Tobacco: Never Tobacco Cessation:Counseling Given: Not Answered Comments:varies, 1-2 cigs day to 1 ppd Alcohol Use Standard Drinks/Week Comments Yes 0 (1 standard drink = 0.6 oz pur e alcohol) Beer once or twice a week [facility] OrdrItities Answer Date Recorded In the past 12 months has e IRI, gas, oil, or water [employer] threatened to shut off services in your home? No 08/20/2023 Humiliation, Afraid, Rape, and Kick questionnair e Answer Date Recorded Within the last year, have y ou been afraid of your partner or ex-partner? No 08/20/2023 Within the last year, have y ou been humiliated or emotionally abused in other ways by your partner or ex-partner? No Within the last year, have y ou been kicked, hit, slapped, or otherwise physically hurt by your partner or ex-partner? No 08/20/2023 Within the last year, have y ou been raped or forced to have any kind of sexual activity by your partner or ex-partner? No 08/20/2023 Social Connection and Isolation Panel Answer Date Recorded In a typical week, how many times do you talk on the phone with family, friends, or neighbors? Patient unable to answer 05/15/2023 How often do you get togethe r with friends or relatives? Patient unable to answer 05/15/2023 How often do you attend [facility] or synagogue services? Patient unable to answer 05/15/2023 Do you belong to any clubs o r organizations such as worship groups, unions, fraternal or athletic groups, or school groups? Patient unable to answer 05/15/2023 How often do you attend meet ings of the clubs or organizations you belong to? Patient unable to answer 05/15/2023 Are you , , di vorced, , never , or living with a partner? Patient unable to answer 05/15/2023 AUDIT-C Answer Date Recorded Q1: How often do you have a drink containing alcohol? Patient unable to answer 05/15/2023 Q2: How many drinks containi ng alcohol do you have on a typical day when you are drinking? Patient unable to answer Q3: How often do you have si x or more drinks on one occasion? Patient unable to answer 05/15/2023 Overall Financial Resource Strain (CARDIA) Answe r Date Recorded How hard is it for you to pa y for the very basics like food, housing, medical care, and heating? Not hard at all 08/20/2023 PHQ-2 Answer Date Recorded PHQ-2 Score - If the patient scores above 3, please move on to questions 3-9 0 07/13/2020 [facility] - Occupational Stress Questionnaire Answer Date Recorded Do you feel stress - tense, restless, nervous, or anxious, or unable to sleep at night because your mind is troubled all the time - these days? Patient unable to answer 05/15/2023 Exercise Vital Sign Answer Date Recorde d On average, how many days pe r week do you engage in moderate to strenuous exercise (like a brisk walk)? Patient unable to answer 05/15/2023 On average, how many minutes do you engage in exercise at this level? Patient unable to answer 05/15/2023 Hunger Vital Sign Answer Date Recorded Within the past 12 months, y ou worried that your food would run out before you got the money to buy more. Never true 08/20/19 24 Within the past 12 months, t he food you bought just didn't last and you didn't have money to get more. Never true 08/20/2023 PRAPARE - Transportation Answer Date Re corded In the past 12 months, has l ack of transportation kept you from medical appointments or from getting medications? No 04/2023 In the past 12 months, has l ack of transportation kept you from meetings, work, or from getting things needed for daily living? No 08/20/2023 Housing Stability Vital Sign Answer Cliff e Recorded In the last 12 months, was t here a time when you were not able to pay the mortgage or rent on time? Patient unable to answer 05/15/2023 In the last 12 months, how m any places have you lived? 1 05/15/2023 In the last 12 months, was t here a time when you did not have a steady place to sleep or slept in a penitentiary (including now)? Patient unable to answer 05/15/2023 Housing Stability Vital Sign Answer Cliff e Recorded In the last 12 months, was t here a time when you were not able to pay the mortgage or rent on time? No 08/20/2023 In the past 12 months, how m any times have you moved where you were living? 1 08/20/2023 At any time in the past [address] [facility], were you homeless or living in a penitentiary (including now)? 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 Not on file Not on file Last Filed Vital Signs Vital Sign Reading Time Taken Comments Blood Pressure 147/66 08/29/2023 8:21 PM CDT Pulse 80 08/29/2023 8:21 PM CDT Temperature 36.7 C (98.1 F) 08/29/2023 7:25 AM CDT Respiratory Rate 20 08/29/2023 8:21 PM CDT Oxygen Saturation 95% 08/29/2023 8:21 PM CDT Inhaled Oxygen Concentration - - Weight 73.1 kg (161 lb 2.5 oz) 08/29/2023 3:32 A M CDT Height 157.5 cm (5' 2) 08/20/2023 8:36 AM CDT Body Mass Index 29.48 08/20/2023 8:36 AM CDT Plan of Treatment Health Maintenance Due Date Last Done Comments Zoster Vaccines (1 of 2) 1994 Dexa Scan (General) 2009 Pneumococcal Vaccine: 50+ Years (2 of 2 - PCV) 01/25/2011 01/25/2010 DTaP, Tdap and Td Vaccines (2 - Td or Tdap) 01/19/2019 01/19/2009 RSV Immunization or 60+ Years (1 - 1-dose 75+ series) 12/05/2019 ASCVD LDL 08/22/2022 08/22/2021, 06/20, 06/24/2018, Additional history exists PHQ-2 (Physician [facility]) 04/21/2024 COVID-19 Vaccine ( season) 2024 09/16/2020, 07/14/2020 Influenza Adult (#1) 2025 04/25/2021, 01/09/2017, 02/16/2016, Additional history exists Colorectal Cancer Screening Colonoscopy (10 Years) Discontinued 04/09/2012 Hepatitis A Vaccines Aged Out No long er eligible based on patient's age to complete this topic Meningococcal B Vaccine Aged Out No l onger eligible based on patient's age to complete this topic Meningococcal Vaccine Aged Out No darian jorge eligible based on patient's age to complete this topic RSV Immunizations Under 20 Months Aged Out No longer eligible based on patient's age to complete this topic Goals Goal Patient Goal Type Associated Problems Recent Progress Patient-Stated? Author Family - family caregiver with be involved in care transitions and discharge planning Lifestyle No Ginny Glass RN Patient will return to prior living situation and remain independent in ADLs upon discharge from hospital Lifestyle No Priscilla Camacho RN Procedures Procedure Name Priority Date/Time Associated Diagnosis Comments LIPID PANEL Routine 08/22/2021 1:36 PM CDT Mixed hyperlipidemia COLONOSCOPY Routine 04/09/2012 12:00 AM CORPORATE DRIVER from Last 3 Months or Most Recently Relevant to Health Maintenance Results * LIPID PANEL (08/22/2021 1:36 PM CDT) CHOLESTEROL 168 0 - 199 MG/DL [facility] TRIGLYCERIDES 51 0.00 - 150.00 MG/DL [facility] Comment: NCEP REFERENCE VALUES FOR TRIGLYCERIDES: NORMAL: <150 MG/DL BORDERLINE HIGH: 150 - 199 MG/DL HIGH: 200 - 499 MG/DL VERY HIGH: >/= 500 MG/DL HDL 63 >40 MG/DL [facility] LDL (CALCULATED) 95 0 - 99 MG/DL [facility] Comment: CUTOFF VALUES RECOMMENDED BY THE NATIONAL CHOLESTEROL EDUCATION PROGRAM: DESIRABLE: CHOLESTEROL <200 MG/DL LDL <100 MG/DL BORDERLINE: CHOLESTEROL 200-239 MG/DL LDL 101-159 MG/DL HIGHER RISK: CHOLESTEROL >240 MG/DL LDL >160 MG/DL, HDL <40 MG/DL NON HDL CHOLESTEROL 105 NO REFERENCE RANGE MG/DL [facility] Comment: A REASONABLE GOAL FOR NON-HDL CHOLESTEROL IS ONE THAT IS 30 MG/DL HIGHER THAN THE LDL CHOLESTEROL GOAL. CHOL/HDL RATIO 2.7 0.0 - 5.0 . [facility] Comment:IS PATIENT FASTING?- >NO 08/22/2021 1:36 PM CDT 08/23/2021 5:42 AM CDT us Jad Alexis MD LABORATORY Final Resul t [facility] [address] [place] [address], * Colonoscopy (04/09/2012 12:00 AM CORPORATE DRIVER) 04/09/2012 04/09/2012 Narrative [facility] TO EPIC CONVERSION - 04/09/2012 12:00 AM CORPORATE DRIVER Documented hx of procedure Procedure Note , Generic ConversionMD - 02/22/2018 Documented hx of procedure Generic Conversion Md [facility] GI PROCEDURE ORDERABLES Final Result [facility] TO EPIC CONVERSION from Last 3 Months or Most Recently Relevant to Health Maintenance Additional Health Concerns Infection Onset Date Last Indicated 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/25/23 +MRS tracheal aspirate 08/20/2023 08/25/2023 Insurance [facility] MEDIC[facility] PART A [facility] Advance Directives * Full Code (Latest Code Status on File) Date Activated Date Inactivated Comments 08/20/2023 12:05 PM 08/29/2023 11:35 PM * Full Code Date Activated Date Inactivated Comments 05/15/2023 1:40 PM 05/22/2023 6:17 PM * Full Code Date Activated Date Inactivated Comments 03/11/2023 4:55 PM 03/18/2023 4:38 PM * Full Code Date Activated Date Inactivated Comments 02/24/2023 6:08 PM 03/11/2023 4:55 PM * Full Code Date Activated Date Inactivated Comments 04/29/2021 2:18 PM 02/24/2023 1:31 PM Care Teams Fish Processing Supervisor Relationship Specialty Start Date End Date Bhavani Villalta, PA-C [address] [place] [phone] PCP - General PHYSICIAN GENERAL FARM MANAGER 01/10/25 Milton Cuadra MD CARDIOTHORACIC SURGERY 05/09/17 Roseanne Leach MD Consulting Physician PULMONARY DISEASE 05/09/17 Milton Rodriguez MD [facility]. [address] [address] [employer] Home Economist CARDIOVASCULAR DISEASE 04/21/17
--- OUTSIDE RECORDS SUMMARY | 2025-02-20 07:27 | XMS_ITS | Encounter Summary ---
Author Organization [facility] Address [address] [place] [address] Care Team Providers Care Spray Dry Operator Name Role Phone Soham Shepherd MD Primary Care Provider Unavail able Milton Cuadra MD Unavailable [phone] Roseanne Leach MD Unavailable [phone] Milton Rodriguez MD Unavailable [phone] Dolly Myers DO Primary Care Provider [phone] Jad Alexis MD Primary Care Provider [phone] Rick Pal MD Primary Care Provider [phone] Bhavani VillaltaC Primary Care Provider + [phone] Encounter Details Date Type Department Care Team (Late st Contact Info) Description 06/02/2017 Telephone [facility] [place] [address] Anali Sesay, RN Social History Tobacco Use Types Packs/Day Years Used Date Smoking Tobacco: Every Day Cigarettes 0.5 50 Smokeless Tobacco: Never Comments:varies, 1-2 cigs da y to 1 ppd Alcohol Use Standard Drinks/Week Comments Yes 0 (1 standard drink = 0.6 oz pur e alcohol) Beer once or twice a week Comments No Sex and Gender Information Value Date Recorded Sex Assigned at Not on file Legal Sex Female 9:35 PM CDT Gender Identity Not on file Sexual Orientation Not on file Occupation Industry Job Start Date Job End Date Not on file Not on file Not on file Not on file documented as of this encounter Plan of Treatment Not on file documented as of this encounter Visit Diagnoses Not on filedocumented in this encounter Additional Health Concerns Infection Onset Date Last Indicated Resolved Time COVID-19 Rule Out 04/19/2021 04/19/2021 04/19/2021 10:45 AM ASSOCIATE PROJECT MANAGER COVID-19 Confirmed 04/19/2021 04/19/2021 12:32 AM ASSOCIATE PROJECT MANAGER COVID-19 Rule Out 02/24/2023 02/24/2023 02/24/2023 2:38 PM ASSOCIATE PROJECT MANAGER COVID-19 Rule Out 05/15/2023 05/15/2023 05/15/2023 11:49 AM ASSOCIATE PROJECT MANAGER COVID-19 Rule Out 05/15/2023 05/15/2023 05/15/2023 12:28 PM ASSOCIATE PROJECT MANAGER COVID-19 Confirmed 05/15/2023 05/15/2023 1:17 PM ASSOCIATE PROJECT MANAGER 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/25/23 +MRS tracheal aspirate 08/20/2023 08/25/2023 documented as of this encounter Care Teams Spray Dry Operator Relationship Specialty Start Date End Date Soham Shepherd MD PCP - General FAMILY PRACTICE 10/20/15 04/22/21 Dolly Myers DO [address] [facility] [place] [address] PCP - General FAMILY PRACTICE 04/23/21 06/06/21 Jad Alexis MD [address] [facility] [address] [place] [address] PCP - General FAMILY PRACTICE 06/07/21 05/20/23 Rick Pal MD [facility] [place] [phone] PCP - General FAMILY PRACTICE 05/21/23 09/02/23 Bhavani Villalta PA-C [address] [place] [phone] PCP - General PHYSICIAN ACUPUNCTURE PHYSICIAN 01/10/25 Milton Cuadra MD CARDIOTHORACIC SURGERY 05/09/17 Roseanne Leach MD Consulting Physician PULMONARY DISEASE 05/09/17 Milton Rodriguez MD [facility]. [address] [address] [employer] Carpenter CARDIOVASCULAR DISEASE 04/21/17 documented as of this encounter
--- OUTSIDE RECORDS SUMMARY | 2025-02-20 07:27 | XMS_ITS | Encounter Summary ---
Author Organization [facility] Address [address] [place] [address] Care Team Providers Care Block Trimmer Name Role Phone Soham Shepherd MD Primary Care Provider Unavail able Crow Kohler MD Unavailable Milton Cuadra MD Unavailable [phone] Roseanne Leach MD Unavailable [phone] Milton Rodriguez MD Unavailable [phone] Dolly Myers DO Primary Care Provider [phone] Jad Alexis MD Primary Care Provider [phone] Rick Pal MD Primary Care Provider [phone] Bhavani Villalta PA-C Primary Care Provider + [phone] Encounter Details Date Type Department Care Team (Late st Contact Info) Description 01/13/2017 Abstract [facility] [address] [place] [address] Malika Da Silva, OR NURSE MANAGER Social History Tobacco Use Types Packs/Day Years Used Date Smoking Tobacco: Every Day Smokeless Tobacco: Never Comments:about 1-3/day Alcohol Use Standard Drinks/Week Comments Yes 0 (1 standard drink = 0.6 oz pur e alcohol) Beer twice a week Comments Unknown Sex and Gender Information Value [...] on file documented as of this encounter Procedures Procedure Name Priority Date/Time Associated Diagnosis Comments COMPREHENSIVE METABOLIC PANEL Routine 01/09/2017 LIPID PANEL Routine 01/09/2017 documented in this encounter Results * LIPID PANEL (01/09/2017) CHOLESTEROL 190 HDL 54 TRIGLYCERIDES 89 LDL (CALCULATED) 119 01/09/2017 [facility] Final Result * COMPREHENSIVE METABOLIC PANEL (01/09/2017) SODIUM S/P/B 139 POTASSIUM S/P/B 3.7 CO2 24 CHLORIDE S/P/B 106 GLUCOSE 87 mg/dL CALCIUM S/P/B 10.4 BUN 17 CREATININE S/P/B 0.86 0.5 - 1.0 EGFR AFR. AMER. 83.4 <=90 EGFR NON-AFR. AMER. 68.9 <=90 ALKALINE PHOSPHATASE S/P/B 85 ALT <10 AST 16 BILIRUBIN TOTAL S/P/B 0.55 ALBUMIN S/P/B 4.4 3.5 - 5.0 TOTAL PROTEIN S/P/B 7.7 GLOBULIN 3.3 01/09/2017 us Doc [facility] Final Result documented in this encounter Visit Diagnoses Not on filedocumented in this encounter Additional Health Concerns Infection Onset Date Last Indicated Resolved Time COVID-19 Rule Out 04/19/2021 04/19/2021 04/19/2021 10:45 AM DISC RECORDIST COVID-19 Confirmed 04/19/2021 04/19/2021 12:32 AM DISC RECORDIST COVID-19 Rule Out 02/24/2023 02/24/2023 02/24/2023 2:38 PM DISC RECORDIST COVID-19 Rule Out 05/15/2023 05/15/2023 05/15/2023 11:49 AM DISC RECORDIST COVID-19 Rule Out 05/15/2023 05/15/2023 05/15/2023 12:28 PM DISC RECORDIST COVID-19 Confirmed 05/15/2023 05/15/2023 1:17 PM DISC RECORDIST 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/25/23 +MRS tracheal aspirate 08/20/2023 08/25/2023 documented as of this encounter Care Teams Block Trimmer Relationship Specialty Start Date End Date Soham Shepherd MD PCP - General FAMILY PRACTICE 10/20/15 04/22/21 Dolly Myers DO [address] [place] [address] PCP - General FAMILY PRACTICE 04/23/21 06/06/21 Jad Alexis MD [address] [facility] [address] [place] [address] PCP - General FAMILY PRACTICE 06/07/21 05/20/23 Rick Pal MD [address] [place] [phone] PCP - General FAMILY PRACTICE 05/21/23 09/02/23 Bhavani Villalta PA-C [address] [place] [phone] PCP - General PHYSICIAN SALES REPRESENTATIVE PRINTING 01/10/25 Crow Kohler MD [address] [place] [address] [employer] Test Technician CARDIOVASCULAR DISEASE 10/20/15 04/20/17 Milton Cuadra MD [address] [place] [address] CARDIOTHORACIC SURGERY 05/09/17 Roseanne Leach MD [address] [place] [address] Consulting Physician PULMONARY DISEASE 05/09/17 Milton Rodriguez MD [facility]. [address] [address] [employer] Test Technician CARDIOVASCULAR DISEASE 04/21/17 documented as of this encounter
--- OUTSIDE RECORDS SUMMARY | 2025-02-20 07:27 | XMS_ITS | Encounter Summary ---
Author Organization [facility] Address [address] [place] [address] Care Team Providers Care Circulation Director Name Role Phone Soham Shepherd MD Primary Care Provider Unavail able Crow Kohler MD Unavailable Milton Cuadra MD Unavailable [phone] Roseanne Leach MD Unavailable [phone] Milton Rodriguez MD Unavailable [phone] Dolly Myers DO Primary Care Provider [phone] Jad Alexis MD Primary Care Provider [phone] Rick Pal MD Primary Care Provider [phone] Bhavani Villalta PA-C Primary Care Provider + [phone] Encounter Details Date Type Department Care Team (Late st Contact Info) Description 03/03/2017 Community Orders [facility] [place] [facility] EP[facility] L[facility] Soham Shepherd MD Social History Tobacco Use Types Packs/Day Years [...] Rule Out 04/19/2021 04/19/2021 04/19/2021 10:45 AM OIL AND GAS PRINCIPAL COVID-19 Confirmed 04/19/2021 04/19/2021 12:32 AM OIL AND GAS PRINCIPAL COVID-19 Rule Out 02/24/2023 02/24/2023 02/24/2023 2:38 PM OIL AND GAS PRINCIPAL COVID-19 Rule Out 05/15/2023 05/15/2023 05/15/2023 11:49 AM OIL AND GAS PRINCIPAL COVID-19 Rule Out 05/15/2023 05/15/2023 05/15/2023 12:28 PM OIL AND GAS PRINCIPAL COVID-19 Confirmed 05/15/2023 05/15/2023 1:17 PM OIL AND GAS PRINCIPAL 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/25/23 +MRS tracheal aspirate 08/20/2023 08/25/2023 documented as of this encounter Care Teams Circulation Director Relationship Specialty Start Date End Date Soham Shepherd MD PCP - General FAMILY PRACTICE 10/20/15 04/22/21 Dolly Myers DO [address] [facility] [place] [address] PCP - General FAMILY PRACTICE 04/23/21 06/06/21 Jad Alexis MD [address] [facility] [address] [place] [address] PCP - General FAMILY PRACTICE 06/07/21 05/20/23 Rick Pal MD [address] [place] [phone] PCP - General FAMILY PRACTICE 05/21/23 09/02/23 Bhavani Villalta PA-C [address] [place] [phone] PCP - General PHYSICIAN BOX OFFICE AGENT 01/10/25 Crow Kohler MD [address] [place] [address] [employer] Passenger Service Manager CARDIOVASCULAR DISEASE 10/20/15 04/20/17 Milton Cuadra MD [address] [place] [address] CARDIOTHORACIC SURGERY 05/09/17 Roseanne Leach MD [address] [place] [address] Consulting Physician PULMONARY DISEASE 05/09/17 Milton Rodriguez MD [address] [address] [employer] Passenger Service Manager CARDIOVASCULAR DISEASE 04/21/17 documented as of this encounter
--- OUTSIDE RECORDS SUMMARY | 2025-02-20 07:27 | XMS_ITS | Encounter Summary ---
Author Organization [facility] Address [address] [place] [address] Care Team Providers Care Dial Lathe Operator Name Role Phone Soham Shepherd MD Primary Care Provider Unavail able Crow Kohler MD Unavailable Milton Cuadra MD Unavailable [phone] Roseanne Leach MD Unavailable [phone] Milton Rodriguez MD Unavailable [phone] Dolly Myers DO Primary Care Provider [phone] Jad Alexis MD Primary Care Provider [phone] Rick Pal MD Primary Care Provider [phone] Bhavani Villalta PA-C Primary Care Provider + [phone] Encounter Details Date Type Department Care Team (Late st Contact Info) Description 10/26/2015 Abstract [facility] [address] [place], [place] [id number] Neelima Johns MA Social History Tobacco Use Types Packs/Day Years Used Date Smoking Tobacco: Every Day Cigarettes Smokeless Tobacco: Never Alcohol Use Standard Drinks/Week [...] Procedure Name Priority Date/Time Associated Diagnosis Comments HEMOGLOBIN, GLYCOSYLATED Routine 05/29/2015 CMP (OUTSIDE LAB) Routine 05/23/2015 LIPID PANEL Routine 05/23/2015 TSH (OUTSIDE LAB) Routine 04/05/2015 documented in this encounter Results * HEMOGLOBIN, GLYCATED (05/29/2015) HGB A1C 5.3 05/29/2015 us Doc [facility] Final Result * LIPID PANEL (05/23/2015) CHOLESTEROL 131 HDL 43 TRIGLYCERIDES 62 LDL (CALCULATED) 76 05/23/2015 us Doc [facility] Final Result * CMP (OUTSIDE LAB) (05/23/2015) SODIUM S/P/B 131 POTASSIUM S/P/B 3.6 CHLORIDE S/P/B 96 CO2 27 BUN 20 CREATININE S/P/B 0.9 EGFR AFR. AMER. 79.6 EGFR NON-AFR. AMER. 65.8 CALCIUM S/P/B 10.3 GLUCOSE 150 TOTAL PROTEIN S/P/B 6.9 ALBUMIN S/P/B 3.9 3.5 - 5.0 AST 15 ALT <10 ALKALINE PHOSPHATASE S/P/B 72 BILIRUBIN TOTAL S/P/B 0.41 GLOBULIN 3.0 05/23/2015 us Doc [facility] Abstract LAB-OUTSIDE/ABSTRACTED Final Result * TSH (OUTSIDE LAB) (04/05/2015) TSH 2.090 04/05/2015 us Doc [facility] Abstract LAB-OUTSIDE/ABSTRACTED Final Result documented in this encounter Visit Diagnoses Not on filedocumented in this encounter Additional Health Concerns Infection Onset Date Last Indicated Resolved Time COVID-19 Rule Out 04/19/2021 04/19/2021 04/19/2021 10:45 AM REGIONAL ECONOMIC LIAISON COVID-19 Confirmed 04/19/2021 04/19/2021 12:32 AM REGIONAL ECONOMIC LIAISON COVID-19 Rule Out 02/24/2023 02/24/2023 02/24/2023 2:38 PM REGIONAL ECONOMIC LIAISON COVID-19 Rule Out 05/15/2023 05/15/2023 05/15/2023 11:49 AM REGIONAL ECONOMIC LIAISON COVID-19 Rule Out 05/15/2023 05/15/2023 05/15/2023 12:28 PM REGIONAL ECONOMIC LIAISON COVID-19 Confirmed 05/15/2023 05/15/2023 1:17 PM REGIONAL ECONOMIC LIAISON 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/25/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 tracheal aspirate 08/20/2023 08/25/2023 documented as of this encounter Care Teams Dial Lathe Operator Relationship Specialty Start Date End Date Soham Shepherd MD PCP - General FAMILY PRACTICE 10/20/15 04/22/21 Dolly Myers DO [address] [facility] [place] [address] PCP - General FAMILY PRACTICE 04/23/21 06/06/21 Jad Alexis MD [address] [facility] [address] [place] [phone] PCP - General FAMILY PRACTICE 06/07/21 05/20/23 Rick Pal MD [address] [place] [phone] PCP - General FAMILY PRACTICE 05/21/23 09/02/23 Bhavani Villalta PA-C [address] [place] [phone] PCP - General PHYSICIAN SEAM CHECKER 01/10/25 Crow Kohler MD [address] [place] [address] [employer] Commercial Loan Specialist CARDIOVASCULAR DISEASE 10/20/15 04/20/17 Milton Cuadra MD [address] [place] [address] CARDIOTHORACIC SURGERY 05/09/17 Roseanne Leach MD [address] [place] [address] Consulting Physician PULMONARY DISEASE 05/09/17 Milton Rodriguez MD [address] [address] [employer] Commercial Loan Specialist CARDIOVASCULAR DISEASE 04/21/17 documented as of this encounter
[2025-02-20] MEDS: FUROSEMIDE INJ 40 MG/4 ML VIAL IV PUSH (07:46)
[2025-02-20] MEDS: FAMOTIDINE 20 MG/2 ML VIAL IV PUSH (07:46)
[2025-02-20 08:14] LABS: Hematocrit 30.2 % (37.0-47.0); Hemoglobin 9.5 g/dL (12.0-15.0); Immature Granulocyte Percent A 0.6 % (0-0.5); Lymphocytes Absolute Auto 1.97 K/mm3 (0.9-3.2); Mean Corpuscular HGB Conc 31.5 g/dl (32-36); Mean Corpuscular Hemoglobin 28.2 pg (26-34); Mean Corpuscular Volume 89.6 fl (80-100); Nucleated Red Blood Cells Absolute Auto 0.000 K/mm3 (0.0-0.012); Nucleated Red Blood Cells Perc 0.0 % (0.0-0.2); Platelet Count Result 335 k/mm3 (150-375); Red Blood Count 3.37 M/mm3 (4.2-5.4); White Blood Count 18.4 K/mm3 (4.5-10.0)
--- NOTE | 2025-02-20 08:14 | ECG_ITS ---
Test Date: 2025-02-20 08:18:52 Measurements Intervals [place] Rate: 85 P: 59 NE: 152 QRS: 3 QRSD: 95 T: 83 QT: 371 QTc: 442 Interpretive Statements SINUS RHYTHM SEPTAL MYOCARDIAL INFARCTION , OF INDETERMINATE AGE [40+ ms Q WAVE IN V1/V2] Compared to ECG 02/20/2025 07:51:02 heart rate decreased Electronically Signed On 02-20-2025 13:20:29 CLUTCH INSPECTOR by Moses Mei M.D.
--- NOTE | 2025-02-20 08:15 | PC.NURSE ---
Pt vent setting adjusted by RT, pt suctioned again. Pt now resting more comfortably. oxygen saturation and RR stable.
[2025-02-20 08:43] LABS: Carboxyhemoglobin 0.8 % THb (0-2.0); Fractional Inspired Oxygen 50 %; HCO3 ABG 40.6 mEq/l (22.0-26.0); Methemoglobin ABG 0.3 %THb (0-1.5); Reduced Hemoglobin 4.1 %THb (0-5.0)
[2025-02-20 08:46] LABS: PCO2 ABG 70.5 mmHg (35.0-45.0)
[2025-02-20 08:47] LABS: Liters per Minute 5.0 LPM; Modified Allen's Test Pass; Oxygen Saturation ABG 97.0 % (95.0-100.0); PO2 ABG 116.0 mmHg (80.0-100.0); Site Drawn RIGHT RADIAL
[2025-02-20 08:47] LABS: Partial Thromboplastin Time 30.2 Seconds (22.3-36.8)
[2025-02-20 08:54] LABS: Arterial Blood Gas Minute Volume 4.7 LPM; Arterial Blood Gas Tidal Volume 420 ml; Arterial Blood Gas Ventilator rate 12 /MIN
[2025-02-20 09:30] LABS: Alanine Aminotransferase 33 U/L (6-35); Albumin Level 4.7 g/dL (3.5-5.1); Alkaline Phosphatase 136 U/L (38-126); Anion Gap 13 mmol/L (4-12); Aspartate Amino Transferase 51 U/L (14-36); Bilirubin,Total 0.4 mg/dL (0.2-1.3); Blood Urea Nitrogen 74 mg/dL (7-17); Calcium 10.7 mg/dL (8.4-10.2); Carbon Dioxide 35 mmol/L (22-30); Chloride 86 mmol/L (98-107); Estimated CRCL calculation 28 ml/min; Estimated Glomerular Filt Rate 33; Glucose 185 mg/dL (65-110); NT Pro B Type Natriuretic Pept 407 pg/mL (19.9-100); Potassium 4.4 mmol/L (3.4-5.0); Sodium 134 mmol/L (137-145); Total Protein 9.4 g/dL (6.3-8.2); Troponin I 0.040 ng/mL (0.000-0.034)
[2025-02-20 09:37] LABS: INR 1.2; Prothrombin Time 14.7 Seconds (11.1-14.7)
[2025-02-20 09:38] LABS: Partial Thromboplastin Time 28.8 Seconds (22.3-36.8)
--- NOTE | 2025-02-20 10:12 | ED_ITS ---
HPI - SOB/Dyspnea General Chief Complaint: Shortness of Breath/Dyspnea Stated Complaint: DIFFICULTY BREATHING Time Seen by Provider: 02/20/25 07:13 History of Present Illness HPI Narrative: patient is an 79-year-old female who presents ER with shortness of breath. Patient has a tracheostomy to due to previous stroke respiratory issues. Patient began having tongue swelling this morning according to family and increased difficulty breathing so they called EMS. Patient began having increased distress and secretions from her tracheostomy. Patient was diaphoretic for EMS. She cannot communicate. She has history of CVA. According family patient has been receiving shots for anemia and received a dose yesterday. She had also been having intermittent swelling of her tongue over the last couple of weeks since starting the shots. She has history of Jessee inhibitor allergy but is not on an JESSEE-inhibitor. Related Data Home Medications ?Medication ?Instructions ?Recorded ?Confirmed ?Last Taken ?Type acetaminophen 160 mg/5 mL oral 160 mg PO QID PRN pain or fever 09/11/23 05/18/24 10/19/23 History elixir aspirin 81 mg chewable tablet 81 mg feeding tube DAILY 09/11/23 05/18/24 10/19/23 History guaifenesin 100 mg/5 mL oral liquid 200 mg PO Q6H PRN Cough 09/11/23 05/18/24 Unknown History polyethylene glycol 3350 17 gram 17 g feeding tube ASHLIE LY PRN 09/11/23 05/18/24 Unknown History oral powder packet Constipation Allergies Allergy/AdvReac Type Severity Reaction Status Date / Time iodine Allergy Hives Verified 05/18/24 10:49 latex Allergy Hives Verified 05/18/24 10:49 Review of Systems 2 Review of Systems: ROS unobtainable: Yes unobtainable due to medical condition [facility] Past Medical History Medical History Occult blood in stools Aphasia as late effect of cerebrovascular accident Acute on chronic anemia Gastrostomy complication Gastrostomy tube replacement 04/04/2023 Cholecystectomy planned 01/16/2023 Tracheitis 09/04 Alzheimer's dementia A&O x0 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 03/2017 Cerebrovascular accident (CVA) CAD (coronary artery disease) HLD (hyperlipidemia) COPD (chronic obstructive pulmonary disease) HTN (hypertension) Surgical History Surgical History Hx of exploratory laparotomy ROULA Gastrostomy Hx of esophagogastroduodenoscopy w/ Peg placement 01/20/23 H/O tracheostomy 03/2023 Family History Family History Mother Alzheimer dementia Social History Social History Smoking status: Former smoker Tobacco type: cigarettes Second hand tobacco smoke exposure: No Additional smoking assessment comments: unknown amount/length of time patient smoked Alcohol intake: never Substance use: never Spiritual care concerns: No Exam 2 Narrative: GENERAL: Chronically ill-appearing, well-nourished, and in moderate distress. HEAD: Normocephalic, atraumatic. EYES: PERRL and EOMI. ENT: Mucous membranes moist. tongue enlarged without edema of the lips. NECK: Supple. Uncuffed 6 Shiley with frothy white discharge. CHEST: Bilateral crackles. moderate respiratory distress. HEART: tachycardic and regular. Normal peripheral pulses. ABDOMEN: Soft, nontender, nondistended, feeding tube in epigastrium. EXTREMITIES: Normal range of motion. 1+ edema. SKIN: Warm, dry, no rash. NEURO: awake alert but unable to provide orientation questions. Gags on her secretions. Course Course Emergency Course: Spoke with Dr. Mahoney with the ICU, and Dr. Aguero with the hospitalist. Patient accepted to the ICU. He will start patient on meropenem and vancomycin for possible aspiration pneumonia. It is unlikely to be heart failure as BNP is low. Patient is tolerating the ventilator quite well we increased her backup rate due to elevated CO2 levels. Family at bedside report that her tongue and lips look normal so we do not believe that this is an episode of angioedema. Vital Signs Vital signs: Vital Signs Temperature 98 F 02/20/25 07:12 Pulse Rate 113 H 02/20/25 07:12 Respiratory Rate 24 H 02/20/25 07:12 Pulse Oximetry 85 L 02/20/25 07:12 Oxygen Delivery Trach Collar 02/20/25 07:12 Temperature 98 F 02/20/25 07:12 Pulse Rate 91 02/20/25 09:00 Respiratory Rate 15 02/20/25 09:00 Blood Pressure 104/58 L 02/20/25 09:00 Pulse Oximetry 95 02/20/25 09:00 Oxygen Delivery Mechanical Ventilation 02/20/25 08:45 Fraction of Inspired Oxygen 40 02/20/25 08:45 MDM - SOB/Dyspnea Differential Diagnosis Differential diagnosis: Likely acute exacerbation of chronic obstructive airways disease, congestive heart failure, community acquired pneumonia, asthma with exacerbation and pulmonary embolism Lab Data Attestation: I reviewed the patient's lab results. 02/20/25 08:08 02/20/25 08:08 Labs: Lab Results 02/20/25 02/20/25 02/20/25 Range/Units 08:08 08:25 09:03 WBC 18.4 H (4.5-10.0) K/mm3 RBC 3.37 L (4.2-5.4) M/mm3 Hgb 9.5 L (12.0-15.0) g/dL Hct 30.2 L (37.0-47.0) % MCV 89.6 (80-100) fl MCH 28.2 (26-34) pg MCHC 31.5 L (32-36) g/dl RDW 18.5 H (11.5-14.5) % Plt Count 335 (150-375) k/mm3 MPV 10.0 (7.4-10.4) fl Immature Gran % (Auto) 0.6 H (0-0.5) % Neut % (Auto) 81.4 H (45.5-73.1) % Lymph % (Auto) 10.7 L (18.3-44.2) % [place] % (Auto) 4.9 (2.6-8.5) % Eos % (Auto) 2.1 (0-4.4) % Baso % (Auto) 0.3 (0.2-1.2) % Lymph # (Auto) 1.97 (0.9-3.2) K/mm3 [place] # (Auto) 0.9 H (0.1-0.6) K/mm3 Eos # (Auto) 0.4 H (0-0.3) K/mm3 Baso # (Auto) 0.1 (0.0-0.1) K/mm3 Abs Immat Gran (auto) 0.11 H (0.00-0.031) K/mm3 Absolute Neuts (auto) 15.0 H (1.3-6.7) K/mm3 Absolute Nucleated RBC 0.000 (0.0-0.012) K/mm3 Nucleated RBC % 0.0 (0.0-0.2) % PT 14.7 (11.1-14.7) Seconds INR 1.2 APTT 30.2 28.8 (22.3-36.8) Seconds Methemoglobin 0.3 (0-1.5) %THb Minute Volume 4.7 LPM Vent Mode Asv Tidal Volume 420 ml PEEP 5 cmH2O Peak Inspir Pressure Pending Pressure Support Pending Sodium 134 L (137-145) mmol/L Potassium 4.4 (3.4-5.0) mmol/L Chloride 86 L (98-107) mmol/L Carbon Dioxide 35 H (22-30) mmol/L Anion Gap 13 H (4-12) mmol/L BUN 74 H D (7-17) mg/dL Creatinine 1.51 H (0.7-1.0) mg/dL Estim Creat Clear Calc 28 ml/min Estimated GFR 33 L (59 - ) Glucose 185 H (65-110) mg/dL Calcium 10.7 H (8.4-10.2) mg/dL Total Bilirubin 0.4 (0.2-1.3) mg/dL AST 51 H (14-36) U/L ALT 33 (6-35) U/L Alkaline Phosphatase 136 H (38-126) U/L Troponin I 0.040 H* (0.000-0.034) ng/mL NT-Pro-B Natriuret Pep 407 H (19.9-100) pg/mL Total Protein 9.4 H (6.3-8.2) g/dL Albumin 4.7 (3.5-5.1) g/dL ABG Data ABG results: 02/20/25 08:25 Puncture Site Right radial ABG pH 7.378 ABG pCO2 70.5 H* ABG pO2 116.0 H ABG HCO3 40.6 H ABG O2 Saturation 97.0 ABG Base Excess 13.3 Oxyhemoglobin 94.8 Carboxyhemoglobin 0.8 Reduced Hemoglobin 4.1 Total Hemoglobin 9.4 L O2 Delivery Device Ventilator O2 Liters/Min 5.0 Vent Rate 12 FiO2 50 Imaging Data Radiologist's impression: ITS Impressions Chest X-Ray 02/20/25 07:31 IMPRESSION: 1. Suspect interstitial pulmonary edema and/or pneumonitis. ECG Data EKG #1: Attestation: I personally reviewed and interpreted this ECG as follows: ECG completion date: 02/20/25 ECG completion time: 08:18 EKG Interpretation: normal rate (85), sinus rhythm, non-specific ST changes, normal QRS and normal QT Critical Care Time Critical Care Time Critical Care Time: Yes Total Critical Care Time: 60 Discharge Plan Discharge Clinical Impression: Acute on chronic respiratory failure, Hypercapnia, Pneumonia Patient Disposition: Still a Patient Condition: Serious Patient Language: Syriac Prescriptions: No Action levofloxacin 750 mg tablet 750 mg feeding tube Q48H 7 Days Qty: 4 0RF donepezil 5 mg tablet 5 mg feeding tube HS 60 Days Qty: 60 0RF lansoprazole 30 mg tablet,disintegrat, delay rel 30 mg feeding tube DAILY 60 Days Qty: 60 0RF albuterol sulfate 2.5 mg /3 mL (0.083 %) solution for nebulization 2.5 mg inhalation Q4H PRN (Reason: shortness of breath or wheezing) 30 Days Qty: 75 0RF polyethylene glycol 3350 17 gram powder in packet 17 g feeding tube DAILY PRN (Reason: Constipation) guaifenesin 100 mg/5 mL Liquid 200 mg PO Q6H PRN (Reason: Cough) aspirin 81 mg tablet,chewable 81 mg feeding tube DAILY Rx Instructions: morning acetaminophen 160 mg/5 mL Elixir 160 mg PO QID PRN (Reason: pain or fever) ipratropium-albuterol 0.5 mg-3 mg(2.5 mg base)/3 mL Solution For Nebulization 3 ml inhalation Q6HRT Qty: 180 0RF prednisone 20 mg Tablet 40 mg feeding tube DAILY@0800 Qty: 1 0RF atorvastatin 20 mg tablet 20 mg feeding tube HS 60 Days Qty: 60 0RF amlodipine 5 mg tablet 5 mg feeding tube DAILY 60 Days Qty: 60 0RF Follow-up/Referrals: Ambar,ARTEMIO Beckham [Primary Care Provider, Unknown]
[2025-02-20] MEDS: cefTRIAXone 2 GM in SODIUM CHLORIDE 0.9% IV 100 ML 200 ML IVPB (10:34)
[2025-02-20] MEDS: MEROPENEM 1 GM in SODIUM CHLORIDE 0.9% IV 100 ML 200 ML IVPB ×2 (10:45→20:03)
[2025-02-20] MEDS: SODIUM CHLORIDE 0.9% IV 1,000 ML 999 ML IV CONT (10:45)
--- NOTE | 2025-02-20 11:23 | WPDCNINT ---
Assessment and Plan Assessment and plan (1) Acute on chronic respiratory failure: Code(s): J96.20 - Acute and chronic respiratory failure, unspecified whether with hypoxia or hypercapnia Status: Acute Assessment and Plan: Acute on chronic respiratory failure with hypoxia and hypercarbia in a patient who has history of COPD chronic tracheostomy and is on 8 L oxygen by mask. Tracheostomy was changed to a cuffed tracheostomy tube Patient is now on the mechanical ventilation with SIMV. Patient is now not in respiratory distress and saturating well on 30% FiO2 Settings reviewed and repeat ABGs ordered and pending Bronchodilators and Solu-Medrol Cautious IV fluid Check while panel, blood and sputum cultures, She has 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 hence empiric vancomycin and meropenem at this time Check procalcitonin (2) COPD (chronic obstructive pulmonary disease): Code(s): J44.9 - Chronic obstructive pulmonary disease, unspecified Status: Acute Assessment and Plan: See above (3) Acute kidney injury: Code(s): N17.9 - Acute kidney failure, unspecified Status: Acute Assessment and Plan: Acute kidney injury with creatinine 1.5 likely secondary to sepsis hypovolemia and hypotension IV fluid bolus followed by cautious maintain its IV fluids Check CK UA and urine electrolytes Mcmahan for accurate I&Os Check CT abdomen pelvis to rule out any stone or obstruction Monitor intake output and electrolytes Will consult nephrology if it does not improve (4) HTN (hypertension): Code(s): I10 - Essential (primary) hypertension Status: Acute Assessment and Plan: Hold amlodipine (5) Tracheostomy in place: Code(s): Z93.0 - Tracheostomy status Status: Acute Assessment and Plan: Tracheostomy was changed to a cuffed size 6 by ER (6) G tube feedings: Code(s): Z93.1 - Gastrostomy status Status: Acute Assessment and Plan: Patient will be started back on tube feeds (7) Anemia: Code(s): D64.9 - Anemia, unspecified Status: Acute Assessment and Plan: History of chronic anemia. Hemoglobin appears close to baseline. Monitor (8) CHF (congestive heart failure): Code(s): I50.9 - Heart failure, unspecified Status: Acute Assessment and Plan: Elevated BNP. Will check echocardiogram. (9) Sepsis: Code(s): A41.9 - Sepsis, unspecified organism Status: Acute Assessment and Plan: Check lactic acid level and procalcitonin level IV fluid bolus Check sputum, blood cultures and UA Empiric antibiotics as above Plan DVT prophylaxis -Lovenox Stress ulcer prophylaxis -PPI Nutrition -patient will be started on tube feeds Code Status - Full Code I spoke to patient's 2 daughters at bedside and updated them with patient's status and current treatment and workup plan. They based request patient to be will full code Total Critical Care Time - 35 minutes Due to a high probability of clinically significant, life threatening deterioration, the patient required my highest level of preparedness to intervene emergently and I personally spent this critical care time directly and personally managing the patient. This critical care time included obtaining a history; examining the patient; pulse oximetry; ordering and review of studies; arranging urgent treatment with development of a management plan; evaluation of patient's response to treatment; frequent reassessment; and discussions with other providers. It was exclusive of separately billable procedures and treating other patients and teaching time. Please see Assessment and Plan section and the rest of the note for further information on patient assessment and treatment Water Supervisor Consult Note Consult date: 02/20/25 HPI: 79 yo female with PMH of Hypertension, hyperlipidemia, coronary artery disease, tobacco use, lung cancer surgery in 2018 (RUL), CVA with right-sided hemiparesis in 12/2022, G-tube placed in 02/2023 and tracheostomy placed in 04/12 who lives at home and is taken care of by her daughters. She has a uncuffed size 6 Trach and was brought in with CC of shortness of breath. She also had increased secreations. Daughter states the patient was given Aranesp injection yesterday and she feels the patient had ill allergic reaction and was started breathing heavily today. She states the patient had increased secretions since yesterday and she has been suctioning or frequently through the trach tube. Patient wears 8 L oxygen by mask over her tracheostomy 11/11 and is not on any pressure support. She does not believe patient had a fever. Patient at baseline is not communicated and does not follow commands. She normally has a tongue out and the daughter states the tongue does not look any different. She also states the patient was wheezing. Patient does not have a Mcmahan but does have a PEG and is on tube feeds. Patient's daughter denies any vomiting. All the systems were reviewed and were negative as per patient's daughter Workup in the ER showed elevated WBC 18.4 hemoglobin 9.5 platelet count 3 3 5 ABG 7.37/70/116/46 Creatinine elevated to 1.5 BUN 74 Calcium 10.7 BNP 407 Patient herself is noncommunicative and does not provide any further history or review of systems Review of Systems Review of Systems: All systems reviewed & are unremarkable except as noted in HPI and below (HPI) [facility] Past Medical History Medical History Occult blood in stools Aphasia as late effect of cerebrovascular accident Acute on chronic anemia Gastrostomy complication Gastrostomy tube replacement 04/04/2023 Cholecystectomy planned 01/16/2023 Tracheitis 09/04 Alzheimer's dementia A&O x0 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 03/2017 Cerebrovascular accident (CVA) CAD (coronary artery disease) HLD (hyperlipidemia) COPD (chronic obstructive pulmonary disease) HTN (hypertension) Surgical History Surgical History Hx of exploratory laparotomy ROULA Gastrostomy Hx of esophagogastroduodenoscopy w/ Peg placement 01/20/23 H/O tracheostomy 03/2023 Family History Family History Mother Alzheimer dementia Social History Social History Smoking status: Former smoker Tobacco type: cigarettes Second hand tobacco smoke exposure: No Additional smoking assessment comments: unknown amount/length of time patient smoked Alcohol intake: never Substance use: never Spiritual care concerns: No Meds Home Medications and Allergies Home Medications ?Medication ?Instructions ?Recorded ?Confirmed ?Type acetaminophen 160 mg/5 mL oral 160 mg PO QID PRN pain or fever 09/11/23 05/18/24 History elixir aspirin 81 mg chewable tablet 81 mg feeding tube DAILY 09/11/23 05/18/24 History guaifenesin 100 mg/5 mL oral liquid 200 mg PO Q6H PRN Cough 09/11/23 05/18/24 History polyethylene glycol 3350 17 gram 17 g feeding tube DAILY PRN 09/11/23 05/18/24 History oral powder packet Constipation donepezil 5 mg tablet 5 mg feeding tube HS 60 days #60 10/27/23 05/18/24 Rx tabs lansoprazole 30 mg delayed 30 mg feeding tube DAILY 60 days 10/27/23 05/18/24 Rx release,disintegrating tablet #60 tabs albuterol sulfate 2.5 mg/3 mL 2.5 mg (3 mL) inhalation Q4H PRN 10/28/23 05/18/24 Rx (0.083 %) solution for nebulization shortness of breath or wheezing 30 days #75 mL amlodipine 5 mg tablet 5 mg feeding tube DAILY 60 days 12/18/23 05/18/24 Rx #60 tabs atorvastatin 20 mg tablet 20 mg feeding tube HS 60 days #60 12/18/23 05/18/24 Rx tabs ipratropium 0.5 mg-albuterol 3 mg 3 ml inhalation Q6HRT #180 mL 12/18/23 05/18/24 Rx (2.5 mg base)/3 mL nebulization soln prednisone 20 mg tablet 40 mg (2 x 20 mg) feeding tube 12/18/23 05/18/24 Rx DAILY@0800 #1 tablet levofloxacin 750 mg tablet 750 mg feeding tube Q48H 7 days #4 05/18/24 05/18/24 Rx tabs Allergies Allergy/AdvReac Type Severity Reaction Status Date / Time iodine Allergy Hives Verified 05/18/24 10:49 latex Allergy Hives Verified 05/18/24 10:49 Vital Signs Vital Signs - 24 hr 02/20/25 07:12 02/20/25 07:34 02/20/25 07:45 Temperature 36.6 C Pulse Rate 113 H 118 H 113 H Respiratory Rate 24 H 25 H 30 H Blood Pressure 155/48 H 130/54 L Pulse Oximetry 85 L 100 100 Oxygen Delivery Trach Collar Fraction of Inspired Oxygen 02/20/25 08:00 02/20/25 08:15 02/20/25 08:16 Temperature Pulse Rate 99 90 Respiratory Rate 30 H 13 Blood Pressure 94/67 L 85/41 L Pulse Oximetry 100 99 Oxygen Delivery Mechanical Ventilation Fraction of Inspired Oxygen 02/20/25 08:20 02/20/25 08:25 02/20/25 08:27 Temperature Pulse Rate 91 87 92 Respiratory Rate 16 12 Blood Pressure 85/43 L 93/42 L Pulse Oximetry 99 96 99 Oxygen Delivery Mechanical Ventilation Fraction of Inspired Oxygen 50 02/20/25 08:30 02/20/25 08:45 02/20/25 08:45 Temperature Pulse Rate 92 81 86 Respiratory Rate 15 13 Blood Pressure 107/41 L 91/43 L Pulse Oximetry 100 100 99 Oxygen Delivery Mechanical Ventilation Fraction of Inspired Oxygen 40 02/20/25 08:45 02/20/25 08:46 02/20/25 09:00 Temperature Pulse Rate 79 86 91 Respiratory Rate 12 17 15 Blood Pressure 91/43 L 104/58 L Pulse Oximetry 100 100 95 Oxygen Delivery Fraction of Inspired Oxygen 02/20/25 09:15 02/20/25 09:30 02/20/25 09:31 Temperature Pulse Rate 87 80 81 Respiratory Rate 16 15 15 Blood Pressure 95/53 L Pulse Oximetry 95 97 97 Oxygen Delivery Fraction of Inspired Oxygen 02/20/25 09:45 02/20/25 09:46 02/20/25 10:03 Temperature Pulse Rate 74 75 83 Respiratory Rate 15 15 13 Blood Pressure 87/45 L Pulse Oximetry 100 100 100 Oxygen Delivery Fraction of Inspired Oxygen 02/20/25 10:15 02/20/25 10:34 02/20/25 11:08 Temperature Pulse Rate 81 82 76 Respiratory Rate 15 13 Blood Pressure 103/55 L 97/57 L Pulse Oximetry 100 100 97 Oxygen Delivery Mechanical Ventilation Fraction of Inspired Oxygen 30 Exam Narrative: General: Pt is awake has a tracheostomy and on mechanical ventilation Lungs/Chest: Trachea central Coarse BS B/L, bilateral occasional wheezing. Cardiac: RRR. Normal S1 S2. No murmurs Circulation: Pedal pulses are intact and symmetrical. Abdomen: Decreased bowel sounds. Obese. Soft. NT. ND. Peg tube in place, scar from past surgery in the left side Extremities: No clubbing, cyanosis or edema. Warm : Mcmahan in place Neurologic: Patient has contractures and hand. She withdraws to pain all 4 extremities but does not follow any commands or respond to questions or calling her name. PERRL Results Labs 02/20/25 08:08 02/20/25 08:08 Labs: Short CBC 02/20/25 Range/Units 08:08 WBC 18.4 H (4.5-10.0) K/mm3 Hgb 9.5 L (12.0-15.0) g/dL Hct 30.2 L (37.0-47.0) % Plt Count 335 (150-375) k/mm3 BMP 02/20/25 08:08 Sodium 134 L Potassium 4.4 Chloride 86 L Carbon Dioxide 35 H BUN 74 H D Creatinine 1.51 H Glucose 185 H Calcium 10.7 H Cardiac Enzymes 02/20/25 Range/Units 08:08 Troponin I 0.040 H* (0.000-0.034) ng/mL Liver Function 02/20/25 Range/Units 08:08 Total Bilirubin 0.4 (0.2-1.3) mg/dL AST 51 H (14-36) U/L ALT 33 (6-35) U/L Alkaline Phosphatase 136 H (38-126) U/L Albumin 4.7 (3.5-5.1) g/dL Quality VTE Prophylaxis VTE prophylaxis: pharmacologic ordered Hospitalist MIPS Advance Care Plan I have confirmed that the patient's Advanced Care Plan is present, code status is documented, or surrogate decision maker is listed in patient medical record.: Yes Medication Reconciliation I have utilized all available resources to obtain, update and review the patients current medications (includes all prescriptions, OTC, herbals, cannabis, and nutritional supplements).: Yes
[2025-02-20 11:36] LABS: Add Urine Microscopic? YES; Appearance Urine Cloudy (Clear); Glucose Urine UA Negative (Negative); Leukocyte Esterase Ur Negative LEU/UL (Negative); Need Manual Microscopic Reviewed; Nitrate Urine Negative (Negative); Specific Grav Ur 1.013 (1.001-1.035)
[2025-02-20 11:57] LABS: Influenza A QL RT-PCR Negative (Negative); Influenza B QL RT-PCR Negative (Negative); RSV RNA, RT-PCR Negative (Negative); SARS-CoV-2 RNA PCR Negative (Negative)
[2025-02-20 12:25] LABS: Creatine Kinase 133 U/L (30-135)
[2025-02-20 12:31] LABS: MRSA (PCR) DETECTED (NOT DETECTE)
[2025-02-20 12:36] LABS: Procalcitonin 0.4 ng/mL
--- NOTE | 2025-02-20 12:54 | PC.NURSE ---
This patient, Nicole Cuevas, was admitted to Intensive Care Unit-2. Patient/family oriented to hospital policies and general routines including ID bracelet, bed and alarms, visiting hours, pain management, procedures, bathroom and other care routines, personal items, smoking policy, room service/diet, and visiting hours. Information on how to activate the Rapid Response Team has been discussed. Patient/Family are encouraged to report perceived risks to care and to ask questions if they do not understand what they are told or what they should do.
[2025-02-20] MEDS: VANCOMYCIN 2,000 MG/NS 500 ML 2,000 MG/500 ML BAG 250 MG IVPB (13:16)
[2025-02-20 13:30] LABS: Troponin I 0.066 ng/mL (0.000-0.034)
--- NOTE | 2025-02-20 13:33 | P.HP_ITS ---
H&P: HPI History of Present Illness Date/Time: 02/20/25 13:33 Chief Complaint: Respiratory distress Narrative: 79-year-old female with 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 She lives at home with her daughter who is her caregiver as she is dependent in all her ADLs. Patient began having tongue swelling this morning increased difficulty breathing so family called EMS. Family states the patient has been Aranesp for her anemia and received a dose yesterday. She has been having intermittent swelling of her tongue over the last couple weeks since starting the shots. She does have a history of Jessee inhibitor allergy but is not on an JESSEE-inhibitor. On arrival to ED, patient is using accessory muscles, grunting. Trach was changed to a cuffed size 6 in the ED then connected to the ventilator. Initial vital signs 155/48, HR 113, respirations 24, temp 98?, O2 sat 85% on baseline 8 L trach collar Labs significant for leukocytosis with WBC 18.4, baseline anemia, sodium 134, chloride 86, carbon dioxide 35, anion gap 13, BUN 74, creatinine 1.51, glucose 25, calcium 10.7, AST 51, alk-phos 136, BNP 407. troponin 0.040--> 0.066--> 0.060 ABG pH 7.37, pCO2 70.5, PO2 116, HC03 40.6 UA 2+ protein, 2+ blood, RBC 11-20, WBC 6-10, bacteria 1+ Chest x-ray with suspected interstitial pulmonary edema and/or pneumonitis Chest abdomen pelvis CT shows right lower lobe pneumonia, new 6 mm nodule right middle lobe, probably benign. 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 Review of Systems Review of Systems: ROS unobtainable: Yes unobtainable due to medical condition PMFSH Past Medical History Medical History Occult blood in stools Aphasia as late effect of cerebrovascular accident Acute on chronic anemia Gastrostomy complication Gastrostomy tube replacement 04/04/2023 Cholecystectomy planned 01/16/2023 Tracheitis 09/04 Alzheimer's dementia A&O x0 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 03/2017 Cerebrovascular accident (CVA) CAD (coronary artery disease) HLD (hyperlipidemia) COPD (chronic obstructive pulmonary disease) HTN (hypertension) Surgical History Surgical History Hx of exploratory laparotomy ROULA Gastrostomy Hx of esophagogastroduodenoscopy w/ Peg placement 01/20/23 H/O tracheostomy 03/2023 Family History Family History Mother Alzheimer dementia Social History Social History Smoking status: Never smoker Tobacco type: cigarettes Second hand tobacco smoke exposure: No Additional smoking assessment comments: unknown amount/length of time patient smoked Alcohol intake: never Substance use: never Substance use type: does not use Spiritual care concerns: No Meds Home Medications and Allergies Home Medications ?Medication ?Instructions ?Recorded ?Confirmed ?Type aspirin 81 mg chewable tablet 81 mg feeding tube DAILY 09/11/23 02/20/25 History donepezil 5 mg tablet 5 mg feeding tube HS 60 days #60 10/27/23 02/20/25 Rx tabs lansoprazole 30 mg delayed 30 mg feeding tube DAILY 60 days 10/27/23 02/20/25 Rx release,disintegrating tablet #60 tabs albuterol sulfate 2.5 mg/3 mL 2.5 mg (3 mL) inhalation Q4H PRN 10/28/23 02/20/25 Rx (0.083 %) solution for nebulization shortness of breat h or wheezing 30 days #75 mL amlodipine 5 mg tablet 5 mg feeding tube DAILY 60 d ays 12/18/23 02/20/25 Rx #60 tabs arformoterol 15 mcg/2 mL solution 15 mcg inhalation Q1 2H 02/20/25 02/20/25 His tory for nebulization budesonide 1 mg/2 mL suspension 1 mg inhalation Q12H 1 04/22/24 02/20/25 History for nebulization cholecalciferol (vitamin D3) 50 2,000 unit PO DAILY 02/20/25 History mcg (2,000 unit) capsule (D3-2000) ferrous sulfate 325 mg (65 mg 325 mg feeding tube .twi ce daily 02/20/25 02/20/25 History iron) tablet (FeroSul) loratadine 5 mg/5 mL oral solution 10 ml PO DAILY 06/1502/20/25 History (Claritin) rosuvastatin 20 mg tablet 20 mg feeding tube DAILY 06/1502/20/25 History Allergies Allergy/AdvReac Type Severity Reaction Status Date / Time iodine Allergy Hives Verified 02/20/25 12:53 latex Allergy Hives Verified 02/20/25 12:53 Vital Signs Vital Signs - 24 hr 02/20/25 07:12 02/20/25 07:34 02/20/25 07:45 Temperature 98 F Pulse Rate 113 H 118 H 113 H Respiratory Rate 24 H 25 H 30 H Blood Pressure 155/48 H 130/54 L Pulse Oximetry 85 L 100 100 Oxygen Delivery Trach Collar Fraction of Inspired Oxygen 02/20/25 08:00 02/20/25 08:15 02/20/25 08:16 Temperature Pulse Rate 99 90 Respiratory Rate 30 H 13 Blood Pressure 94/67 L 85/41 L Pulse Oximetry 100 99 Oxygen Delivery Mechanical Ventilation Fraction of Inspired Oxygen 02/20/25 08:20 02/20/25 08:25 02/20/25 08:27 Temperature Pulse Rate 91 87 92 Respiratory Rate 16 12 Blood Pressure 85/43 L 93/42 L Pulse Oximetry 99 96 99 Oxygen Delivery Mechanical Ventilation Fraction of Inspired Oxygen 50 02/20/25 08:30 02/20/25 08:45 02/20/25 08:45 Temperature Pulse Rate 92 81 86 Respiratory Rate 15 13 Blood Pressure 107/41 L 91/43 L Pulse Oximetry 100 100 99 Oxygen Delivery Mechanical Ventilation Fraction of Inspired Oxygen 40 02/20/25 08:45 02/20/25 08:46 02/20/25 09:00 Temperature Pulse Rate 79 86 91 Respiratory Rate 12 17 15 Blood Pressure 91/43 L 104/58 L Pulse Oximetry 100 100 95 Oxygen Delivery Fraction of Inspired Oxygen 02/20/25 09:15 02/20/25 09:30 02/20/25 09:31 Temperature Pulse Rate 87 80 81 Respiratory Rate 16 15 15 Blood Pressure 95/53 L Pulse Oximetry 95 97 97 Oxygen Delivery Fraction of Inspired Oxygen 02/20/25 09:45 02/20/25 09:46 02/20/25 10:03 Temperature Pulse Rate 74 75 83 Respiratory Rate 15 15 13 Blood Pressure 87/45 L Pulse Oximetry 100 100 100 Oxygen Delivery Fraction of Inspired Oxygen 02/20/25 10:15 02/20/25 10:34 02/20/25 11:05 Temperature Pulse Rate 81 82 80 Respiratory Rate 15 13 15 Blood Pressure 103/55 L 97/57 L Pulse Oximetry 100 100 99 Oxygen Delivery Fraction of Inspired Oxygen 02/20/25 11:06 02/20/25 11:08 02/20/25 11:15 Temperature Pulse Rate 76 76 72 Respiratory Rate 15 15 Blood Pressure 101/49 L Pulse Oximetry 100 97 96 Oxygen Delivery Mechanical Ventilation Fraction of Inspired Oxygen 30 02/20/25 11:16 02/20/25 12:06 02/20/25 12:20 Temperature 99.8 F H Pulse Rate 70 88 80 Respiratory Rate 15 13 Blood Pressure 97/48 L 131/83 Pulse Oximetry 95 93 93 Oxygen Delivery Mechanical Ventilation Fraction of Inspired Oxygen 40 02/20/25 13:00 02/20/25 13:00 Temperature 99.8 F H Pulse Rate 68 68 Respiratory Rate 15 Blood Pressure 163/71 H Pulse Oximetry 99 Oxygen Delivery Fraction of Inspired Oxygen Exam Narrative: GENERAL: Chronically ill-appearing, no acute distress HEAD: Normocephalic, atraumatic. NOSE: Normal no drainage. NECK: Trach midline. No adenopathy, no masses. RESPIRATORY: Tracheostomy present. Coarse lung sounds bilaterally. CARDIOVASCULAR: Regular rate and rhythm BREASTS: Defer GASTROINTESTINAL: Abdomen is soft and nontender. No organomegaly. Bowel sounds normal in all quadrants. Peg tube in place. GENITOURINARY: Indwelling Mcmahan in place MUSCULOSKELETAL: Contractures to hands SKIN: Warm, dry, normal color. NEURO: Withdraws from pain on all 4 extremities but does not interact or follow commands PSYCHIATRIC: ALEJANDRO H&P: Results Labs Labs: Short CBC 02/20/25 Range/Units 08:08 WBC 18.4 H (4.5-10.0) K/mm3 Hgb 9.5 L (12.0-15.0) g/dL Hct 30.2 L (37.0-47.0) % Plt Count 335 (150-375) k/mm3 [facility] 02/20/25 08:08 Sodium 134 L Potassium 4.4 Chloride 86 L Carbon Dioxide 35 H BUN 74 H D Creatinine 1.51 H Glucose 185 H Calcium 10.7 H Cardiac Enzymes 02/20/25 02/20/25 Range/Units 08:08 12:55 Total Creatine Kinase 133 (30-135) U/L Troponin I 0.040 H* 0.066 H* D (0.000-0.034) ng/mL Liver Function 02/20/25 Range/Units 08:08 Total Bilirubin 0.4 (0.2-1.3) mg/dL AST 51 H (14-36) U/L ALT 33 (6-35) U/L Alkaline Phosphatase 136 H (38-126) U/L Albumin 4.7 (3.5-5.1) g/dL Urine 02/20/25 Range/Units 11:14 Urine Color Yellow (Yellow) Urine Appearance Cloudy H (Clear) Urine pH 5.0 (5.0-9.0) Ur Specific [place] 1.013 (1.001-1.035) Urine Protein 2+ H (Negative) mg/dL Urine Glucose (UA) Negative (Negative) mg/dL Assessment and Plan Assessment and plan (1) Acute on chronic respiratory failure: Qualifiers: Respiratory failure complication: unspecified whether with hypoxia or hypercapnia Qualified Code(s): J96.20 - Acute and chronic respiratory failure, unspecified whether with hypoxia or hypercapnia Code(s): J96.20 - Acute and chronic respiratory failure, unspecified whether with hypoxia or hypercapnia Status: Acute Assessment and Plan: Patient presented with acute respiratory failure from home. On arrival to the ED, patient is using accessory muscles, grunting. History of COPD. Chronic tracheostomy with 8 L trach collar at home. -connected to the vent in the ED -vent settings per ICU team -trend ABGs -Solu-Medrol -bronchodilators -blood and sputum cultures pending -MRSA history. Empiric vancomycin and meropenem (2) COPD (chronic obstructive pulmonary disease): Qualifiers: COPD type: unspecified COPD Qualified Code(s): J44.9 - Chronic obstructive pulmonary disease, unspecified Code(s): J44.9 - Chronic obstructive pulmonary disease, unspecified Status: Acute Assessment and Plan: Acute on chronic respiratory failure and hypercarbia patient with COPD. -DuoNeb q.6 p.r.n. -methylprednisone 125 mg IV push once given in ED -methylprednisone 60 mg IV push daily (3) Acute kidney injury: Code(s): N17.9 - Acute kidney failure, unspecified Status: Acute Assessment and Plan: KENYETTA in setting of sepsis, hypovolemia, hypotension. Creatinine 1.5 -IV fluid bolus. Cautious maintenance IV fluids -Mcmahan -CK 133 -urine sodium 37. Urine creatinine 73.1 -CT chest abdomen pelvis as above. No obstructing stone (4) HTN (hypertension): Qualifiers: Hypertension type: primary hypertension Qualified Code(s): I10 - Essential (primary) hypertension Code(s): I10 - Essential (primary) hypertension Status: Acute Assessment and Plan: Holding amlodipine in setting of critical illness. Restart once more stable (5) Tracheostomy in place: Code(s): Z93.0 - Tracheostomy status Status: Acute Assessment and Plan: Tracheostomy changed to a cuffed size 6 in the ED and patient was connected to the ventilator. -trach care (6) G tube feedings: Code(s): Z93.1 - Gastrostomy status Status: Acute Assessment and Plan: Peg in place. Patient will be resumed on her tube feeds (7) Anemia: Qualifiers: Anemia type: unspecified type Qualified Code(s): D64.9 - Anemia, unspecified Code(s): D64.9 - Anemia, unspecified Status: Acute Assessment and Plan: History of chronic anemia. Recently started receiving Aranesp. Appears to be near baseline -continue to monitor (8) CHF (congestive heart failure): Qualifiers: Heart failure type: unspecified Heart failure chronicity: unspecified Qualified Code(s): I50.9 - Heart failure, unspecified Code(s): I50.9 - Heart failure, unspecified Status: Acute Assessment and Plan: BNP elevated at 407. -most recent echo 09/12/2023 EF 65-70% -echo ordered (9) Sepsis: Qualifiers: Sepsis type: sepsis due to unspecified organism Sepsis acute organ dysfunction status: unspecified Qualified Code(s): A41.9 - Sepsis, unspecified organism Code(s): A41.9 - Sepsis, unspecified organism Status: Acute Assessment and Plan: Lactic acid 1.1, procalcitonin 0.4 -blood cultures pending -sputum cultures pending -IV fluid bolus in ED Plan Diet: Tube feeds GI prophylaxis: Ppi DVT prophylaxis: Lovenox lines/drains: PIV Fluids: 1 L bolus NS in the ED. LR at 75 continuous started on 02/20 Code status: Full Quality VTE Prophylaxis VTE prophylaxis: pharmacologic ordered Hospitalist MIPS Advance Care Plan I have confirmed that the patient's Advanced Care Plan is present, code status is documented, or surrogate decision maker is listed in patient medical record.: Yes Medication Reconciliation I have utilized all available resources to obtain, update and review the patients current medications (includes all prescriptions, OTC, herbals, cannabis, and nutritional supplements).: Yes
[2025-02-20 13:47] LABS: Alveolar/Arterial O2 Gradient 121.6 mmHg; Fractional Inspired Oxygen 35 %; HCO3 ABG 38.4 mEq/l (22.0-26.0); Oxygen Content ABG 12.4 %vol (16.0-22.0); Oxygen Saturation ABG 91.3 % (95.0-100.0); PCO2 ABG 58.1 mmHg (35.0-45.0); PO2 ABG 60.4 mmHg (80.0-100.0); PO2 FiO2 Ratio Arterial Blood 1.73 %
[2025-02-20 14:02] LABS: Modified Allen's Test Pass; Site Drawn LEFT RADIAL
[2025-02-20 14:03] LABS: Arterial Blood Gas Pressure Support 18 cmH2O; Arterial Blood Gas Tidal Volume 420 ml; Arterial Blood Gas Ventilator rate 15 /MIN
[2025-02-20 15:26] LABS: Troponin I 0.060 ng/mL (0.000-0.034)
[2025-02-20] MEDS: LACTATED RINGERS 1,000 ML 75 ML IV CONT (15:58)
[2025-02-20] MEDS: DONEPEZIL HCL 5 MG TABLET FEED TUBE (20:27)
--- NOTE | 2025-02-20 23:14 | PC.NURSE ---
[id number] Patient's daughter, Cody, called to check on patient. RN gave update and answered all questions.
[2025-02-21] VITALS (33 sets, daily range): BP systolic 95–160; BP diastolic 41–92; PULSE 65–108; RESP 15–30; TEMP 36.8–37.8; O2SAT 89–100; BMI 32.5
--- NOTE | 2025-02-21 | ECHO_ITS ---
Patient Info Name: Nicole Cuevas Age: 79 years : 1945 Gender: Female Ht: 64 in Wt: 182 lbs BSA: 1.96 m2 HR: 90 bpm BP: 133 / 58 mmHg Heart Rhythm: Sinus Rhythm Technical Quality: Fair Exam Date: 02/21/2025 9:18 AM Patient Status: I Admit Date: 02/20/2025 Exam Type: CA echo doppler color flow Complete two-dimensional, color flow and Doppler transthoracic echocardiogram is performed. Staff Referring Physician: Gianluca Mahoney MD Lock Up Worker: Vikki Fair Attending Provider: Christian Aguero Summary 1. Complete two-dimensional, color flow and Doppler transthoracic echocardiogram is performed. 2. Left ventricular systolic function is hyperdynamic, estimated at >70. 3. The left ventricular diastolic function is grade I diastolic dysfunction. 4. There is trace tricuspid valve regurgitation. 5. Mild pulmonary hypertension, estimated pulmonary arterial systolic pressure is 38 mmHg. 6. There is mild pulmonic regurgitation. Left Ventricle Left ventricular chamber dimension is normal. Left ventricular systolic function is hyperdynamic, estimated at >70. There is no increased left ventricular wall thickness. Left ventricular septal wall motion is normal. The left ventricular diastolic function is grade I diastolic dysfunction. Right Ventricle Right ventricular chamber dimension is normal. Right ventricular systolic function is normal. Left Atria Left atrial chamber dimension is normal. Right Atria Right atrial chamber dimension is normal. Aortic Valve The aortic valve is trileaflet. There is mild aortic valve sclerosis. There is no aortic valve stenosis. There is no aortic valve regurgitation. Pulmonic Valve The pulmonic valve is normal. There is no pulmonic valve stenosis. There is mild pulmonic regurgitation. Mitral Valve The mitral valve has normal leaflets. There is no mitral valve stenosis. There is no mitral valve regurgitation. Tricuspid Valve The tricuspid valve leaflets are normal. There is no significant tricuspid valve stenosis. There is trace tricuspid valve regurgitation. Mild pulmonary hypertension, estimated pulmonary arterial systolic pressure is 38 mmHg. Pericardium/Pleural The pericardium appears normal. There is no pericardial effusion. Inferior Vena Cava Dilated inferior vena cava with <50% collapse upon inspiration consistent with elevated right atrial pressure, 15 mmHg. Aorta The aortic root size at the sinus of Valsalva is normal. The prox ascending aorta size is normal. Left Ventricular Outflow Tract Name Value Normal LVOT 2D LVOT Diameter 2.0 cm LVOT Doppler LVOT Peak Velocity 112 cm/s LVOT Peak Gradient 5 mmHg LVOT Mean Gradient 3 mmHg LVOT VTI 20 cm LVOT VTI/AV VTI Ratio 0.7 LVOT Stroke Volume 62 ml LVOT CO 5.5 l/min LVOT CI 2.8 l/min/m2 Pulmonic Valve Name Value Normal RVOT Doppler RVOT Peak Velocity 105 cm/s RVOT Peak Gradient 4 mmHg PV Doppler PV Peak Velocity 153 cm/s PV Peak Gradient 9 mmHg Mitral Valve Name Value Normal MV Diastolic Function MV E Peak Velocity 86 cm/s MV A Peak Velocity 126 cm/s MV E/A 0.7 MV Decel Time (PW) 172 ms MV Annular TDI MV E/e' (Septal) 13.5 MV E/e' (Lateral) 21.4 MV E/e' (Average) 17.4 Tricuspid Valve Name Value Normal TV Regurgitation Doppler TR Peak Velocity 240 cm/s TR Peak Gradient 22 mmHg Estimated PAP/RSVP RA Pressure 15 mmHg <=5 PA Systolic Pressure 38 mmHg <36 RV Systolic Pressure 38 mmHg <36 TV Annular TDI TV Lateral [place] s' Velocity 13.3 cm/s >=9.5 Aorta Name Value Normal Ascending Aorta Ao Root Diameter (MM) 2.9 cm Ao Root Diam Index (MM) 1.5 cm/m2 Aortic Valve Name Value Normal AV Doppler AV Peak Velocity 166 cm/s AV Peak Gradient 11 mmHg AV Mean Gradient 5 mmHg AV VTI 29 cm AV Area (Cont Eq VTI) 2.1 cm2 >=3.0 AV Area (Cont Eq William) 2.1 cm2 AV DI (William) 0.68 AV Regurgitation 2D LVOT Area 3.1 cm2 Ventricles Name Value Normal LV Dimensions 2D/MM IVS Diastolic Thickness (2D) 0.9 cm 0.6-1.0 LVID Diastole (2D) 5.0 cm 3.8-5.2 LVIW Diastolic Thickness (2D) 0.9 cm 0.6-0.9 LVID Systole (2D) 2.9 cm 2.2-3.5 LVOT Diameter 2.0 cm LV Mass (2D Cubed) 162.37 g 67.00-162.00 LV Mass Index (2D Cubed) 83 g/m2 43-95 Relative Wall Thickness (2D) 0.36 <=0.42 LV Fractional Shortening/Ejection Fraction 2D/MM LV Fractional Shortening (2D) 41 % 27-45 LV EF (2D Teichholz) 72 % LV Diastolic Volume (4C MOD) 54 ml LV EF (4C MOD) 76 % LV Diastolic Volume (2C MOD) 49 ml LV EF (2C MOD) 71 % LV Diastolic Volume (BP MOD) 53 ml 46-106 LV Diastolic Volume Index (BP MOD) 27 ml/m2 29-61 LV Systolic Volume (BP MOD) 14 ml 14-42 LV Systolic Volume Index (BP MOD) 7 ml/m2 8-24 LV EF (BP MOD) 74 % 54-74 LV Diastolic Length (4C) 7.3 cm LV Systolic Length (4C) 5.8 cm LV Stroke Volume (4C MOD) 41 ml Atria Name Value Normal LA Dimensions LA Dimension (MM) 4.5 cm 2.7-3.8 LA Volume (4C A-L) 38 ml LA Volume (BP A-L) 45 ml RA Dimensions RA Area (4C) 16.4 cm2 <=18.0 Report Signatures
[2025-02-21] MEDS: MEROPENEM 1 GM in SODIUM CHLORIDE 0.9% IV 100 ML 200 ML IVPB ×3 (04:00→21:19)
[2025-02-21 04:29] LABS: Hematocrit 25.5 % (37.0-47.0); Hemoglobin 7.9 g/dL (12.0-15.0); Immature Granulocyte Percent A 0.6 % (0-0.5); Lymphocytes Absolute Auto 0.66 K/mm3 (0.9-3.2); Mean Corpuscular HGB Conc 31.0 g/dl (32-36); Mean Corpuscular Hemoglobin 27.6 pg (26-34); Mean Corpuscular Volume 89.2 fl (80-100); Nucleated Red Blood Cells Absolute Auto 0.000 K/mm3 (0.0-0.012); Nucleated Red Blood Cells Perc 0.0 % (0.0-0.2); Platelet Count Result 277 k/mm3 (150-375); Red Blood Count 2.86 M/mm3 (4.2-5.4); White Blood Count 8.3 K/mm3 (4.5-10.0)
[2025-02-21 04:41] LABS: Alanine Aminotransferase 25 U/L (6-35); Albumin Level 4.0 g/dL (3.5-5.1); Alkaline Phosphatase 101 U/L (38-126); Anion Gap 6 mmol/L (4-12); Aspartate Amino Transferase 40 U/L (14-36); Bilirubin,Total 0.2 mg/dL (0.2-1.3); Blood Urea Nitrogen 72 mg/dL (7-17); Calcium 9.9 mg/dL (8.4-10.2); Carbon Dioxide 37 mmol/L (22-30); Chloride 94 mmol/L (98-107); Estimated CRCL calculation 27 ml/min; Estimated Glomerular Filt Rate 32; Glucose 115 mg/dL (65-110); Magnesium 3.1 mg/dL (1.6-2.3); Potassium 4.6 mmol/L (3.4-5.0); Sodium 137 mmol/L (137-145); Total Protein 8.0 g/dL (6.3-8.2)
[2025-02-21] MEDS: LACTATED RINGERS 1,000 ML 75 ML IV CONT ×2 (05:18→19:16)
[2025-02-21 05:34] LABS: Alveolar/Arterial O2 Gradient 132.6 mmHg; Carboxyhemoglobin 1.0 % THb (0-2.0); Fractional Inspired Oxygen 35 %; HCO3 ABG 35.2 mEq/l (22.0-26.0); Methemoglobin ABG 0.1 %THb (0-1.5); Oxygen Content ABG 11.2 %vol (16.0-22.0); Oxygen Saturation ABG 92.9 % (95.0-100.0); PCO2 ABG 47.7 mmHg (35.0-45.0); PO2 ABG 61.5 mmHg (80.0-100.0); PO2 FiO2 Ratio Arterial Blood 1.76 %; Reduced Hemoglobin 7.2 %THb (0-5.0)
[2025-02-21 05:35] LABS: Arterial Blood Gas Pressure Support 10 cmH2O; Arterial Blood Gas Tidal Volume 420 ml; Arterial Blood Gas Ventilator rate 15 /MIN; Modified Allen's Test Unable to perform; Site Drawn RIGHT RADIAL
[2025-02-21] MEDS: ASPIRIN 325 MG TABLET FEED TUBE (09:09)
[2025-02-21] MEDS: ROSUVASTATIN 20 MG TABLET FEED TUBE (09:09)
[2025-02-21] MEDS: PANTOPRAZOLE SODIUM IV 40 MG VIAL IV PUSH (09:10)
[2025-02-21] MEDS: ENOXAPARIN 30 MG/0.3 ML SYRINGE SUB-Q (09:10)
[2025-02-21] MEDS: POTASSIUM/PHOSPHORUS/SODIUM 1.5 GM PACKET 1 PACKET FEED TUBE (09:10)
--- NOTE | 2025-02-21 11:17 | WPDINTPN ---
Progress Note: A&P Assessment and Plan (1) Acute on chronic respiratory failure: Qualifiers: Respiratory failure complication: unspecified whether with hypoxia or hypercapnia Qualified Code(s): J96.20 - Acute and chronic respiratory failure, unspecified whether with hypoxia or hypercapnia Code(s): J96.20 - Acute and chronic respiratory failure, unspecified whether with hypoxia or hypercapnia Status: Acute Assessment and Plan: Acute on chronic respiratory failure with hypoxia and hypercarbia in a patient who has history of COPD, chronic tracheostomy and is on 8 L oxygen by mask and now has a right lower lobe pneumonia Tracheostomy was changed to a cuffed tracheostomy tube in the ER Patient is now on the mechanical ventilation with SIMV FiO2 is down to 35% I will try PSV 10/5 Continue Bronchodilators and Solu-Medrol Continue Cautious IV fluid Negative vital panel, Pending blood and sputum cultures, She has 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 hence empiric vancomycin and meropenem at this time Low procalcitonin (2) COPD (chronic obstructive pulmonary disease): Qualifiers: COPD type: unspecified COPD Qualified Code(s): J44.9 - Chronic obstructive pulmonary disease, unspecified Code(s): J44.9 - Chronic obstructive pulmonary disease, unspecified Status: Acute Assessment and Plan: See above (3) Acute kidney injury: Code(s): N17.9 - Acute kidney failure, unspecified Status: Acute Assessment and Plan: Acute kidney injury with creatinine 1.5 likely secondary to sepsis hypovolemia and hypotension IV fluid bolus followed by cautious maintain its IV fluids Normal CK UA reviewed Mcmahan for accurate I&Os CT abdomen pelvis negative for any stone or obstruction Monitor intake output and electrolytes Will consult nephrology if it does not improve (4) HTN (hypertension): Qualifiers: Hypertension type: primary hypertension Qualified Code(s): I10 - Essential (primary) hypertension Code(s): I10 - Essential (primary) hypertension Status: Acute Assessment and Plan: Hold amlodipine (5) Tracheostomy in place: Code(s): Z93.0 - Tracheostomy status Status: Acute Assessment and Plan: Tracheostomy was changed to a cuffed size 6 by ER (6) G tube feedings: Code(s): Z93.1 - Gastrostomy status Status: Acute Assessment and Plan: Tolerate tube feeds (7) Anemia: Qualifiers: Anemia type: unspecified type Qualified Code(s): D64.9 - Anemia, unspecified Code(s): D64.9 - Anemia, unspecified Status: Acute Assessment and Plan: History of chronic anemia. Hemoglobin appears close to baseline. Monitor (8) CHF (congestive heart failure): Qualifiers: Heart failure type: unspecified Heart failure chronicity: unspecified Qualified Code(s): I50.9 - Heart failure, unspecified Code(s): I50.9 - Heart failure, unspecified Status: Acute Assessment and Plan: Elevated BNP. Pending echocardiogram. Cautious IV fluid (9) Sepsis: Qualifiers: Sepsis type: sepsis due to unspecified organism Sepsis acute organ dysfunction status: unspecified Qualified Code(s): A41.9 - Sepsis, unspecified organism Code(s): A41.9 - Sepsis, unspecified organism Status: Acute Assessment and Plan: Normal lactic acid level and low procalcitonin level IV fluid bolus followed by cautious IV fluids Ten sputum, blood cultures and UA Empiric antibiotics as above Plan DVT prophylaxis -Lovenox Stress ulcer prophylaxis -PPI Nutrition -continue tube feeds Code Status - Full Code I spoke to patient's daughter at bedside and updated them with patient's status and current treatment and workup plan. They based request patient to be will full code Total Critical Care Time - 30 minutes Due to a high probability of clinically significant, life threatening deterioration, the patient required my highest level of preparedness to intervene emergently and I personally spent this critical care time directly and personally managing the patient. This critical care time included obtaining a history; examining the patient; pulse oximetry; ordering and review of studies; arranging urgent treatment with development of a management plan; evaluation of patient's response to treatment; frequent reassessment; and discussions with other providers. It was exclusive of separately billable procedures and treating other patients and teaching time. Please see Assessment and Plan section and the rest of the note for further information on patient assessment and treatment Subjective Date/time seen: 02/21/25 Overnight events reviewed. Afebrile overnight Continues to be on mechanical ventilation 35% FiO2 Tube feeds Good urine output. Other Vitals acceptable No significant change in neurological or physical exam Exam Narrative: General: Pt is awake has a tracheostomy and on mechanical ventilation Lungs/Chest: Trachea central Coarse BS B/L, bilateral occasional wheezing. Cardiac: RRR. Normal S1 S2. No murmurs Circulation: Pedal pulses are intact and symmetrical. Abdomen: Decreased bowel sounds. Obese. Soft. NT. ND. Peg tube in place, scar from past surgery in the left side Extremities: No clubbing, cyanosis or edema. Warm : Mcmahan in place Neurologic: Patient has contractures and hand. She withdraws to pain all 4 extremities but does not follow any commands or respond to questions or calling her name. Eyes are open. 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 PERRL Objective Data Vital Signs Vital Signs: Vital Signs - 24 hr 02/20/25 12:06 02/20/25 12:20 02/20/25 13:00 Temperature 37.7 C H 37.7 C H Pulse Rate 88 80 68 Respiratory Rate 13 15 Blood Pressure 131/83 163/71 H Pulse Oximetry 93 93 99 Oxygen Delivery Mechanical Ventilation Fraction of Inspired Oxygen 40 02/20/25 13:00 02/20/25 13:45 02/20/25 14:00 Temperature Pulse Rate 68 65 Respiratory Rate Blood Pressure Pulse Oximetry Oxygen Delivery Mechanical Ventilation Fraction of Inspired Oxygen 35 02/20/25 14:00 02/20/25 15:00 02/20/25 16:00 Temperature 37.7 C H 36.4 C Pulse Rate 65 65 82 Respiratory Rate 15 15 Blood Pressure 108/54 L 109/55 L Pulse Oximetry 95 93 Oxygen Delivery Fraction of Inspired Oxygen 02/20/25 16:00 02/20/25 16:06 02/20/25 16:56 Temperature 36.7 C Pulse Rate 95 89 83 Respiratory Rate 24 H 17 Blood Pressure 132/91 H 129/60 Pulse Oximetry 94 96 93 Oxygen Delivery Mechanical Ventilation Fraction of Inspired Oxygen 35 02/20/25 18:00 02/20/25 18:00 02/20/25 18:44 Temperature 37.0 C Pulse Rate 82 85 75 Respiratory Rate 16 17 Blood Pressure 121/58 L 161/61 H Pulse Oximetry 95 95 Oxygen Delivery Fraction of Inspired Oxygen 02/20/25 20:00 02/20/25 20:00 02/20/25 20:00 Temperature 37.4 C Pulse Rate 77 Respiratory Rate 15 Blood Pressure 112/57 L Pulse Oximetry 96 Oxygen Delivery Mechanical Ventilation Fraction of Inspired Oxygen 35 35 02/20/25 20:00 02/20/25 20:02 02/20/25 21:00 Temperature Pulse Rate 85 75 71 Respiratory Rate 15 Blood Pressure 98/43 L Pulse Oximetry 91 93 Oxygen Delivery Mechanical Ventilation Fraction of Inspired Oxygen 35 02/20/25 21:19 02/20/25 22:00 02/20/25 22:00 Temperature 37.4 C Pulse Rate 69 69 Respiratory Rate 15 Blood Pressure 105/48 L Pulse Oximetry 96 Oxygen Delivery Fraction of Inspired Oxygen 40 02/20/25 23:06 02/20/25 23:11 02/21/25 00:00 Temperature Pulse Rate 76 75 Respiratory Rate 15 Blood Pressure 102/48 L Pulse Oximetry 96 96 Oxygen Delivery Mechanical Ventilation Mechanical Ventilation Fraction of Inspired Oxygen 40 40 02/21/25 00:00 02/21/25 00:00 02/21/25 00:00 Temperature 37.3 C Pulse Rate 75 75 Respiratory Rate 15 Blood Pressure 101/47 L Pulse Oximetry 94 Oxygen Delivery Fraction of Inspired Oxygen 35 02/21/25 01:00 02/21/25 02:00 02/21/25 02:00 Temperature 37.3 C Pulse Rate 76 86 86 Respiratory Rate 15 15 Blood Pressure 127/69 121/54 L Pulse Oximetry 95 94 Oxygen Delivery Fraction of Inspired Oxygen 02/21/25 02:02 02/21/25 03:00 02/21/25 04:00 Temperature Pulse Rate 90 84 Respiratory Rate 15 Blood Pressure 124/59 L Pulse Oximetry 96 94 Oxygen Delivery Mechanical Ventilation Fraction of Inspired Oxygen 35 35 02/21/25 04:00 02/21/25 04:00 02/21/25 04:00 Temperature 37.4 C Pulse Rate 94 84 Respiratory Rate 15 Blood Pressure 112/44 L Pulse Oximetry 99 Oxygen Delivery Mechanical Ventilation Fraction of Inspired Oxygen 35 02/21/25 05:00 02/21/25 05:05 02/21/25 06:00 Temperature 37.4 C Pulse Rate 86 88 94 Respiratory Rate 24 H 17 Blood Pressure 121/53 L 133/58 L Pulse Oximetry 96 94 94 Oxygen Delivery Mechanical Ventilation Fraction of Inspired Oxygen 35 02/21/25 06:00 02/21/25 06:00 02/21/25 07:00 Temperature Pulse Rate 94 90 81 Respiratory Rate 22 H 15 Blood Pressure 133/58 L 95/49 L Pulse Oximetry 96 96 Oxygen Delivery Fraction of Inspired Oxygen 02/21/25 07:13 02/21/25 07:48 02/21/25 08:00 Temperature Pulse Rate 83 85 Respiratory Rate Blood Pressure Pulse Oximetry 96 Oxygen Delivery Mechanical Ventilation Mechanical Ventilation Fraction of Inspired Oxygen 35 35 02/21/25 08:00 02/21/25 08:00 02/21/25 08:00 Temperature 37.8 C H Pulse Rate 91 Respiratory Rate 27 H Blood Pressure 135/61 Pulse Oximetry 99 Oxygen Delivery Mechanical Ventilation Fraction of Inspired Oxygen 35 35 02/21/25 09:00 02/21/25 10:00 02/21/25 10:00 Temperature Pulse Rate 88 89 89 Respiratory Rate 28 H 28 H Blood Pressure 129/59 L 130/41 L Pulse Oximetry 94 96 Oxygen Delivery Fraction of Inspired Oxygen 02/21/25 11:00 02/21/25 11:10 Temperature Pulse Rate 77 86 Respiratory Rate 24 H Blood Pressure 128/57 L Pulse Oximetry 95 96 Oxygen Delivery Mechanical Ventilation Fraction of Inspired Oxygen 35 Intake/Output Intake/Output: Intake & Output 02/18/25 02/19/25 02/20/25 02/21/25 23:59 23:59 22:59 23:59 Intake Total 206 2310 Output Total 925 850 Balance -719 1460 Meds/Results Medications: Active Medications Generic Name Dose Route Start Last Admin Trade Name Freq PRN Reason Stop Dose Admin Acetaminophen 650 mg 02/20/25 10:42 Acetaminophen Elixir 325 Mg/10.15 Ml Udc FEED TUBE Q4H PRN Mild Pain (1-3) or Fever Albuterol/Ipratropium 3 ml 02/20/25 10:56 Ipratropium 0.5 Mg/Albuterol Sulfate 2.5 Mg (Base) Ampul.Neb 3 Ml INHALATION Q6HRT PRN Wheezing Aspirin 325 mg 02/21/25 08:00 02/21/25 09:09 Aspirin 325 Mg Tablet FEED TUBE 325 mg DAILY@0800 IMTIAZ Administration Dextrose 12.5 gm 02/20/25 11:00 Dextrose 50% 25 Gm/50 Ml Syringe IV PUSH PRN PRN Hypoglycemia Protocol Donepezil HCl 5 mg 02/20/25 21:00 02/20/25 20:27 Donepezil Hcl 5 Mg Tablet FEED TUBE 5 mg HS IMTIAZ Administration Enoxaparin Sodium 30 mg 02/21/25 09:00 02/21/25 09:10 Enoxaparin 30 Mg/0.3 Ml Syringe SUB-Q 30 mg DAILY IMTIAZ Administration Furosemide 20 mg 02/21/25 09:00 02/21/25 10:16 Furosemide Inj 40 Mg/4 Ml Vial IV PUSH Not Given BID IMTIAZ Glucagon 1 mg 02/20/25 11:00 Glucagon For Inj 1 Mg Vial IM PRN PRN Hypoglycemia Protocol Glucose 15 gm 02/20/25 11:00 Glucose Oral Gel 15 Gm Of Glucse In 37.5 Gm Tube PO PRN PRN Hypoglycemia Protocol Meropenem 1 gm/ Sodium 100 mls @ 200 mls/hr 02/20/25 20:00 02/21/25 04:30 Chloride IVPB Infused Q8HR IMTIAZ Infusion Dextrose 1,000 mls @ 100 mls/hr 02/20/25 11:00 Dextrose 5% 1,000 Ml IVPB PRN PRN Hypoglycemia Protocol Lactated Ringer's 1,000 mls @ 75 mls/hr 02/20/25 11:45 02/21/25 05:18 Lr - Lactated Ringers Iv IV CONT 02/22/25 11:44 75 mls/hr .[id number] IMTIAZ Administration Vancomycin HCl 1,250 mg in 250 mls @ 166.667 mls/hr 02/22/25 01:00 Vancomycin 1,250 Mg/Ns 250 Ml IVPB Q36H IMTIAZ Albumin Human 100 mls @ 60 mls/hr 02/21/25 12:00 Albutein IVPB 02/22/25 07:39 Q6HR IMTIAZ Insulin Aspart 3 - 6 units 02/20/25 12:00 02/21/25 06:02 Insulin Aspart (*Bkc) 100 Units/Ml SUB-Q Not Given Q6HR [facility] Protocol Methylprednisolone Sodium Succinate 60 mg 02/21/25 09:00 02/21/25 09:12 Methylprednisolone Sod Succ 125 Mg Vial IV PUSH 60 mg QAM IMTIAZ Administration Morphine Sulfate 2 mg 02/20/25 10:39 Morphine Sulfate (*Crx) 4 Mg/Ml Inj IV PUSH Q2H PRN Pain Rated 7-10 Pantoprazole Sodium 40 mg 02/21/25 09:00 02/21/25 09:10 Pantoprazole Sodium Iv 40 Mg Vial IV PUSH 40 mg QAM IMTIAZ Administration Perflutren Lipid Microsphere 0 ml 02/20/25 10:58 Perflutren Lipid Microspheres 1.5 Ml Vial Diluted To 10 Ml Total Volume IV PUSH 02/23/25 10:58 ONCE PRN adequate visualization Protocol Promethazine HCl 12.5 mg 02/20/25 10:39 Promethazine Hcl 25 Mg/Ml Ampul IV PUSH Q6H PRN Nausea Rosuvastatin Calcium 20 mg 02/21/25 09:00 02/21/25 09:09 Rosuvastatin 20 Mg Tablet FEED TUBE 20 mg QAM IMTIAZ Administration Radiology Results: ITS Impressions Chest/Abdomen/Pelvis CT 02/20/25 11:24 IMPRESSION: 1. Right lower lobe pneumonia. 2. New 6 mm nodule in right lung middle lobe, probably benign. Consider noncontrast low-dose chest CT in 6 months. 3. 11 mm nodule in left lung upper lobe, stable from 12/16/2023, likely benign. 4. Small pericardial effusion. 5. Moderate emphysema. 6. 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 Chest X-Ray 02/21/25 08:18 Impression: Mild CHF Labs Labs: Laboratory Results - last 24 hr 02/20/25 02/20/25 02/20/25 08:08 11:14 12:55 WBC RBC Hgb Hct MCV MCH MCHC RDW Plt Count MPV Immature Gran % (Auto) Neut % (Auto) Lymph % (Auto) [place] % (Auto) Eos % (Auto) Baso % (Auto) Lymph # (Auto) [place] # (Auto) Eos # (Auto) Baso # (Auto) Abs Immat Gran (auto) Absolute Neuts (auto) Absolute Nucleated RBC Nucleated RBC % Puncture Site ABG pH ABG pCO2 ABG pO2 ABG PO2/FiO2 Ratio ABG HCO3 ABG O2 Saturation ABG O2 Content ABG Base Excess A-a Gradient Oxyhemoglobin Carboxyhemoglobin Methemoglobin Reduced Hemoglobin Total Hemoglobin O2 Delivery Device O2 Liters/Min Minute Volume Vent Rate Vent Mode FiO2 Tidal Volume PEEP Peak Inspir Pressure Pressure Support Sodium Potassium Chloride Carbon Dioxide Anion Gap BUN Creatinine Estim Creat Clear Calc Estimated GFR Glucose POC Capillary Glucose 113 H Lactic Acid 1.1 Calcium Phosphorus Magnesium Total Bilirubin AST ALT Alkaline Phosphatase Total Creatine Kinase 133 Troponin I 0.066 H* D Total Protein Albumin Procalcitonin 0.4 Urine Color Yellow Urine Appearance Cloudy H Urine pH 5.0 Ur Specific [place] 1.013 Urine Protein 2+ H Urine Glucose (UA) Negative Urine Ketones Negative Ur Blood (Man) 2+ H Urine Nitrate Negative Urine Bilirubin Negative Urine Urobilinogen 0.2 Add Ur Microanalysis Reviewed Leukocyte Esterase Rfl Negative Urine RBC 11-20 H Urine WBC 6-10 H Ur Squamous Epith Cells Moderate Urine Bacteria 1+ H Urine Casts 11-20 Ur Random Sodium 37 Urine Creatinine 73.1 Nasal MRSA (PCR) Detected A* Influenza A (RT-PCR) Negative Influenza B (RT-PCR) Negative RSV (RT-PCR) Negative SARS-CoV-2 RNA (RT-PCR) Negative 02/20/25 02/20/25 02/20/25 13:36 14:54 15:56 WBC RBC Hgb Hct MCV MCH MCHC RDW Plt Count MPV Immature Gran % (Auto) Neut % (Auto) Lymph % (Auto) [place] % (Auto) Eos % (Auto) Baso % (Auto) Lymph # (Auto) [place] # (Auto) Eos # (Auto) Baso # (Auto) Abs Immat Gran (auto) Absolute Neuts (auto) Absolute Nucleated RBC Nucleated RBC % Puncture Site Left radial ABG pH 7.438 ABG pCO2 58.1 H ABG pO2 60.4 L ABG PO2/FiO2 Ratio 1.73 ABG HCO3 38.4 H ABG O2 Saturation 91.3 L ABG O2 Content 12.4 L ABG Base Excess 12.4 A-a Gradient 121.6 Oxyhemoglobin 89.7 L Carboxyhemoglobin Methemoglobin Reduced Hemoglobin Total Hemoglobin 9.8 L O2 Delivery Device Ventilator O2 Liters/Min Not Reportable Minute Volume Not Reportable Vent Rate 15 Vent Mode Simv FiO2 35 Tidal Volume 420 PEEP 5 Peak Inspir Pressure Not Reportable Pressure Support 18 Sodium Potassium Chloride Carbon Dioxide Anion Gap BUN Creatinine Estim Creat Clear Calc Estimated GFR Glucose POC Capillary Glucose 147 H Lactic Acid Calcium Phosphorus Magnesium Total Bilirubin AST ALT Alkaline Phosphatase Total Creatine Kinase Troponin I 0.060 H* Total Protein Albumin Procalcitonin Urine Color Urine Appearance Urine pH Ur Specific [place] Urine Protein Urine Glucose (UA) Urine Ketones Ur Blood (Man) Urine Nitrate Urine Bilirubin Urine Urobilinogen Add Ur Microanalysis Leukocyte Esterase Rfl Urine RBC Urine WBC Ur Squamous Epith Cells Urine Bacteria Urine Casts Ur Random Sodium Urine Creatinine Nasal MRSA (PCR) Influenza A (RT-PCR) Influenza B (RT-PCR) RSV (RT-PCR) SARS-CoV-2 RNA (RT-PCR) 11/02/25 11/02/25 11/03/25 18:07 23:39 03:52 WBC 8.3 RBC 2.86 L Hgb 7.9 L Hct 25.5 L MCV 89.2 MCH 27.6 MCHC 31.0 L RDW 18.2 H Plt Count 277 MPV 10.3 Immature Gran % (Auto) 0.6 H Neut % (Auto) 83.8 H Lymph % (Auto) 7.9 L [place] % (Auto) 7.6 Eos % (Auto) 0.0 Baso % (Auto) 0.1 L Lymph # (Auto) 0.66 L [place] # (Auto) 0.6 Eos # (Auto) 0.0 Baso # (Auto) 0.0 Abs Immat Gran (auto) 0.05 H Absolute Neuts (auto) 7.0 H Absolute Nucleated RBC 0.000 Nucleated RBC % 0.0 Puncture Site ABG pH ABG pCO2 ABG pO2 ABG PO2/FiO2 Ratio ABG HCO3 ABG O2 Saturation ABG O2 Content ABG Base Excess A-a Gradient Oxyhemoglobin Carboxyhemoglobin Methemoglobin Reduced Hemoglobin Total Hemoglobin O2 Delivery Device O2 Liters/Min Minute Volume Vent Rate Vent Mode FiO2 Tidal Volume PEEP Peak Inspir Pressure Pressure Support Sodium 137 Potassium 4.6 Chloride 94 L Carbon Dioxide 37 H Anion Gap 6 BUN 72 H Creatinine 1.54 H Estim Creat Clear Calc 27 Estimated GFR 32 L Glucose 115 H POC Capillary Glucose 165 H 125 H Lactic Acid Calcium 9.9 Phosphorus 1.8 L Magnesium 3.1 H Total Bilirubin 0.2 AST 40 H ALT 25 Alkaline Phosphatase 101 Total Creatine Kinase Troponin I Total Protein 8.0 Albumin 4.0 Procalcitonin Urine Color Urine Appearance Urine pH Ur Specific [place] Urine Protein Urine Glucose (UA) Urine Ketones Ur Blood (Man) Urine Nitrate Urine Bilirubin Urine Urobilinogen Add Ur Microanalysis Leukocyte Esterase Rfl Urine RBC Urine WBC Ur Squamous Epith Cells Urine Bacteria Urine Casts Ur Random Sodium Urine Creatinine Nasal MRSA (PCR) Influenza A (RT-PCR) Influenza B (RT-PCR) RSV (RT-PCR) SARS-CoV-2 RNA (RT-PCR) 02/21/25 02/21/25 05:15 05:23 WBC RBC Hgb Hct MCV MCH MCHC RDW Plt Count MPV Immature Gran % (Auto) Neut % (Auto) Lymph % (Auto) [place] % (Auto) Eos % (Auto) Baso % (Auto) Lymph # (Auto) [place] # (Auto) Eos # (Auto) Baso # (Auto) Abs Immat Gran (auto) Absolute Neuts (auto) Absolute Nucleated RBC Nucleated RBC % Puncture Site Right radial ABG pH 7.486 H ABG pCO2 47.7 H ABG pO2 61.5 L ABG PO2/FiO2 Ratio 1.76 ABG HCO3 35.2 H ABG O2 Saturation 92.9 L ABG O2 Content 11.2 L ABG Base Excess 10.7 A-a Gradient 132.6 Oxyhemoglobin 91.7 Carboxyhemoglobin 1.0 Methemoglobin 0.1 Reduced Hemoglobin 7.2 H Total Hemoglobin 8.6 L O2 Delivery Device Ventilator O2 Liters/Min Not Reportable Minute Volume Not Reportable Vent Rate 15 Vent Mode Simv FiO2 35 Tidal Volume 420 PEEP 5 Peak Inspir Pressure Not Reportable Pressure Support 10 Sodium Potassium Chloride Carbon Dioxide Anion Gap BUN Creatinine Estim Creat Clear Calc Estimated GFR Glucose POC Capillary Glucose 114 H Lactic Acid Calcium Phosphorus Magnesium Total Bilirubin AST ALT Alkaline Phosphatase Total Creatine Kinase Troponin I Total Protein Albumin Procalcitonin Urine Color Urine Appearance Urine pH Ur Specific [place] Urine Protein Urine Glucose (UA) Urine Ketones Ur Blood (Man) Urine Nitrate Urine Bilirubin Urine Urobilinogen Add Ur Microanalysis Leukocyte Esterase Rfl Urine RBC Urine WBC Ur Squamous Epith Cells Urine Bacteria Urine Casts Ur Random Sodium Urine Creatinine Nasal MRSA (PCR) Influenza A (RT-PCR) Influenza B (RT-PCR) RSV (RT-PCR) SARS-CoV-2 RNA (RT-PCR) Quality VTE Prophylaxis VTE prophylaxis: pharmacologic ordered
[2025-02-21] MEDS: ALBUMIN HUMAN 25% 25 GM/100 ML 100 ML IVPB ×3 (11:24→23:49)
--- NOTE | 2025-02-21 13:44 | PM.IMPN ---
Progress Note: A&P Assessment and Plan (1) Acute on chronic respiratory failure: Qualifiers: Respiratory failure complication: unspecified whether with hypoxia or hypercapnia Qualified Code(s): J96.20 - Acute and chronic respiratory failure, unspecified whether with hypoxia or hypercapnia Code(s): J96.20 - Acute and chronic respiratory failure, unspecified whether with hypoxia or hypercapnia Status: Acute Assessment and Plan: Acute on chronic respiratory failure with hypoxia and hypercarbia in a patient who has history of COPD, chronic tracheostomy and is on 8 L oxygen by mask and now has a right lower lobe pneumonia Tracheostomy was changed to a cuffed tracheostomy tube in the ER Patient is now on the mechanical ventilation with SIMV FiO2 is down to 35% I will try PSV 10/5 Continue Bronchodilators and Solu-Medrol Continue Cautious IV fluid Negative vital panel, Pending blood and sputum cultures, She has 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 hence empiric vancomycin and meropenem at this time Low procalcitonin (2) COPD (chronic obstructive pulmonary disease): Qualifiers: COPD type: unspecified COPD Qualified Code(s): J44.9 - Chronic obstructive pulmonary disease, unspecified Code(s): J44.9 - Chronic obstructive pulmonary disease, unspecified Status: Acute Assessment and Plan: See above (3) Acute kidney injury: Code(s): N17.9 - Acute kidney failure, unspecified Status: Acute Assessment and Plan: Acute kidney injury with creatinine 1.5 likely secondary to sepsis hypovolemia and hypotension IV fluid bolus followed by cautious maintain its IV fluids Normal CK UA reviewed Mcmahan for accurate I&Os CT abdomen pelvis negative for any stone or obstruction Monitor intake output and electrolytes Will consult nephrology if it does not improve continue care per used building materials yard worker (4) HTN (hypertension): Qualifiers: Hypertension type: primary hypertension Qualified Code(s): I10 - Essential (primary) hypertension Code(s): I10 - Essential (primary) hypertension Status: Acute Assessment and Plan: Hold amlodipine (5) Tracheostomy in place: Code(s): Z93.0 - Tracheostomy status Status: Acute Assessment and Plan: Tracheostomy was changed to a cuffed size 6 by ER (6) G tube feedings: Code(s): Z93.1 - Gastrostomy status Status: Acute Assessment and Plan: Tolerate tube feeds (7) Anemia: Qualifiers: Anemia type: unspecified type Qualified Code(s): D64.9 - Anemia, unspecified Code(s): D64.9 - Anemia, unspecified Status: Acute Assessment and Plan: History of chronic anemia. Hemoglobin appears close to baseline. Monitor (8) CHF (congestive heart failure): Qualifiers: Heart failure type: unspecified Heart failure chronicity: unspecified Qualified Code(s): I50.9 - Heart failure, unspecified Code(s): I50.9 - Heart failure, unspecified Status: Acute Assessment and Plan: Elevated BNP. Pending echocardiogram. Cautious IV fluid (9) Sepsis: Qualifiers: Sepsis type: sepsis due to unspecified organism Sepsis acute organ dysfunction status: unspecified Qualified Code(s): A41.9 - Sepsis, unspecified organism Code(s): A41.9 - Sepsis, unspecified organism Status: Acute Assessment and Plan: Normal lactic acid level and low procalcitonin level IV fluid bolus followed by cautious IV fluids Ten sputum, blood cultures and UA Empiric antibiotics as above Plan DVT prophylaxis -Lovenox Stress ulcer prophylaxis -PPI Nutrition -continue tube feeds Code Status - Full Code continue care per used building materials yard worker Subjective Date/time seen: 02/21/25 13:44 Interval history: Comfortable at bedside, non verbal and bedbound per daughter who was present at bedside Now on pressors Review of Systems Review of Systems: All systems reviewed & are unremarkable except as noted in HPI and below (HPI) ROS unobtainable: Yes unobtainable due to medical condition Exam Narrative: General: Pt is awake has a tracheostomy and on mechanical ventilation Lungs/Chest: Trachea central Coarse BS B/L, bilateral occasional wheezing. Cardiac: RRR. Normal S1 S2. No murmurs Circulation: Pedal pulses are intact and symmetrical. Abdomen: Decreased bowel sounds. Obese. Soft. NT. ND. Peg tube in place, scar from past surgery in the left side Extremities: No clubbing, cyanosis or edema. Warm : Mcmahan in place Neurologic: Patient has contractures and hand. She withdraws to pain all 4 extremities but does not follow any commands or respond to questions or calling her name. Eyes are open. 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 PERRL Objective Data Vital Signs Vital Signs: Vital Signs - 24 hr 02/20/25 13:45 02/20/25 14:00 02/20/25 14:00 Temperature 99.8 F H Pulse Rate 65 65 Respiratory Rate 15 Blood Pressure 108/54 L Pulse Oximetry 95 Oxygen Delivery Mechanical Ventilation Fraction of Inspired Oxygen 35 02/20/25 15:00 02/20/25 16:00 02/20/25 16:00 Temperature 97.6 F 98.0 F Pulse Rate 65 82 95 Respiratory Rate 15 24 H Blood Pressure 109/55 L 132/91 H Pulse Oximetry 93 94 Oxygen Delivery Fraction of Inspired Oxygen 02/20/25 16:06 02/20/25 16:56 02/20/25 18:00 Temperature Pulse Rate 89 83 82 Respiratory Rate 17 Blood Pressure 129/60 Pulse Oximetry 96 93 Oxygen Delivery Mechanical Ventilation Fraction of Inspired Oxygen 35 02/20/25 18:00 02/20/25 18:44 02/20/25 20:00 Temperature 98.6 F 99.4 F Pulse Rate 85 75 77 Respiratory Rate 16 17 15 Blood Pressure 121/58 L 161/61 H 112/57 L Pulse Oximetry 95 95 96 Oxygen Delivery Fraction of Inspired Oxygen 02/20/25 20:00 02/20/25 20:00 02/20/25 20:00 Temperature Pulse Rate 85 Respiratory Rate Blood Pressure Pulse Oximetry Oxygen Delivery Mechanical Ventilation Fraction of Inspired Oxygen 35 35 02/20/25 20:02 02/20/25 21:00 02/20/25 21:19 Temperature Pulse Rate 75 71 Respiratory Rate 15 Blood Pressure 98/43 L Pulse Oximetry 91 93 Oxygen Delivery Mechanical Ventilation Fraction of Inspired Oxygen 35 40 02/20/25 22:00 02/20/25 22:00 02/20/25 23:06 Temperature 99.4 F Pulse Rate 69 69 76 Respiratory Rate 15 15 Blood Pressure 105/48 L 102/48 L Pulse Oximetry 96 96 Oxygen Delivery Fraction of Inspired Oxygen 02/20/25 23:11 02/21/25 00:00 02/21/25 00:00 Temperature Pulse Rate 75 Respiratory Rate Blood Pressure Pulse Oximetry 96 Oxygen Delivery Mechanical Ventilation Mechanical Ventilation Fraction of Inspired Oxygen 40 40 35 02/21/25 00:00 02/21/25 00:00 02/21/25 01:00 Temperature 99.2 F Pulse Rate 75 75 76 Respiratory Rate 15 15 Blood Pressure 101/47 L 127/69 Pulse Oximetry 94 95 Oxygen Delivery Fraction of Inspired Oxygen 02/21/25 02:00 02/21/25 02:00 02/21/25 02:02 Temperature 99.1 F Pulse Rate 86 86 90 Respiratory Rate 15 Blood Pressure 121/54 L Pulse Oximetry 94 96 Oxygen Delivery Mechanical Ventilation Fraction of Inspired Oxygen 35 02/21/25 03:00 02/21/25 04:00 02/21/25 04:00 Temperature 99.3 F Pulse Rate 84 94 Respiratory Rate 15 15 Blood Pressure 124/59 L 112/44 L Pulse Oximetry 94 99 Oxygen Delivery Fraction of Inspired Oxygen 35 02/21/25 04:00 02/21/25 04:00 02/21/25 05:00 Temperature Pulse Rate 84 86 Respiratory Rate 24 H Blood Pressure 121/53 L Pulse Oximetry 96 Oxygen Delivery Mechanical Ventilation Fraction of Inspired Oxygen 35 02/21/25 05:05 02/21/25 06:00 02/21/25 06:00 Temperature 99.3 F Pulse Rate 88 94 94 Respiratory Rate 17 Blood Pressure 133/58 L Pulse Oximetry 94 94 Oxygen Delivery Mechanical Ventilation Fraction of Inspired Oxygen 35 02/21/25 06:00 02/21/25 07:00 02/21/25 07:13 Temperature Pulse Rate 90 81 83 Respiratory Rate 22 H 15 Blood Pressure 133/58 L 95/49 L Pulse Oximetry 96 96 96 Oxygen Delivery Mechanical Ventilation Fraction of Inspired Oxygen 35 02/21/25 07:48 02/21/25 08:00 02/21/25 08:00 Temperature Pulse Rate 85 Respiratory Rate Blood Pressure Pulse Oximetry Oxygen Delivery Mechanical Ventilation Mechanical Ventilation Fraction of Inspired Oxygen 35 35 02/21/25 08:00 02/21/25 08:00 02/21/25 09:00 Temperature 100.1 F H Pulse Rate 91 88 Respiratory Rate 27 H 28 H Blood Pressure 135/61 129/59 L Pulse Oximetry 99 94 Oxygen Delivery Fraction of Inspired Oxygen 35 02/21/25 10:00 02/21/25 10:00 02/21/25 11:00 Temperature Pulse Rate 89 89 77 Respiratory Rate 28 H 24 H Blood Pressure 130/41 L 128/57 L Pulse Oximetry 96 95 Oxygen Delivery Fraction of Inspired Oxygen 02/21/25 11:10 02/21/25 12:00 02/21/25 12:00 Temperature Pulse Rate 86 Respiratory Rate Blood Pressure Pulse Oximetry 96 Oxygen Delivery Mechanical Ventilation Mechanical Ventilation Fraction of Inspired Oxygen 35 35 35 02/21/25 12:00 02/21/25 12:00 02/21/25 13:00 Temperature 98.7 F Pulse Rate 65 71 75 Respiratory Rate 16 21 H Blood Pressure 112/50 L 115/50 L Pulse Oximetry 95 94 Oxygen Delivery Fraction of Inspired Oxygen Intake/Output Intake/Output: Intake & Output 02/18/25 02/19/25 02/20/25 02/21/25 23:59 23:59 22:59 23:59 Intake Total 206 2310 Output Total 925 850 Balance -719 1460 Meds/Results Medications: Active Medications Generic Name Dose Route Start Last Admin Trade Name Freq PRN Reason Stop Dose Admin Acetaminophen 650 mg 02/20/25 10:42 Acetaminophen Elixir 325 Mg/10.15 Ml Udc FEED TUBE Q4H PRN Mild Pain (1-3) or Fever Albuterol/Ipratropium 3 ml 02/20/25 10:56 Ipratropium 0.5 Mg/Albuterol Sulfate 2.5 Mg (Base) Ampul.Neb 3 Ml INHALATION Q6HRT PRN Wheezing Aspirin 325 mg 02/21/25 08:00 02/21/25 09:09 Aspirin 325 Mg Tablet FEED TUBE 325 mg DAILY@0800 IMTIAZ Administration Dextrose 12.5 gm 02/20/25 11:00 Dextrose 50% 25 Gm/50 Ml Syringe IV PUSH PRN PRN Hypoglycemia Protocol Donepezil HCl 5 mg 02/20/25 21:00 02/20/25 20:27 Donepezil Hcl 5 Mg Tablet FEED TUBE 5 mg HS IMTIAZ Administration Enoxaparin Sodium 30 mg 02/21/25 09:00 02/21/25 09:10 Enoxaparin 30 Mg/0.3 Ml Syringe SUB-Q 30 mg DAILY IMTIAZ Administration Furosemide 20 mg 02/21/25 09:00 02/21/25 10:16 Furosemide Inj 40 Mg/4 Ml Vial IV PUSH Not Given BID IMTIAZ Glucagon 1 mg 02/20/25 11:00 Glucagon For Inj 1 Mg Vial IM PRN PRN Hypoglycemia Protocol Glucose 15 gm 02/20/25 11:00 Glucose Oral Gel 15 Gm Of Glucse In 37.5 Gm Tube PO PRN PRN Hypoglycemia Protocol Meropenem 1 gm/ Sodium 100 mls @ 200 mls/hr 02/20/25 20:00 02/21/25 04:30 Chloride IVPB Infused Q8HR IMTIAZ Infusion Dextrose 1,000 mls @ 100 mls/hr 02/20/25 11:00 Dextrose 5% 1,000 Ml IVPB PRN PRN Hypoglycemia Protocol Lactated Ringer's 1,000 mls @ 75 mls/hr 02/20/25 11:45 02/21/25 05:18 Lr - Lactated Ringers Iv IV CONT 02/22/25 11:44 75 mls/hr .[id number] IMTIAZ Administration Vancomycin HCl 1,250 mg in 250 mls @ 166.667 mls/hr 02/22/25 01:00 Vancomycin 1,250 Mg/Ns 250 Ml IVPB Q36H IMTIAZ Albumin Human 100 mls @ 60 mls/hr 02/21/25 12:00 02/21/25 11:24 Albutein IVPB 02/22/25 07:39 60 mls/hr Q6HR IMTIAZ Administration Insulin Aspart 3 - 6 units 02/20/25 12:00 02/21/25 11:24 Insulin Aspart (*Bkc) 100 Units/Ml SUB-Q Not Given Q6HR IMTIAZ Protocol Methylprednisolone Sodium Succinate 60 mg 02/21/25 09:00 02/21/25 09:12 Methylprednisolone Sod Succ 125 Mg Vial IV PUSH 60 mg QAM IMTIAZ Administration Morphine Sulfate 2 mg 02/20/25 10:39 Morphine Sulfate (*Crx) 4 Mg/Ml Inj IV PUSH Q2H PRN Pain Rated 7-10 Pantoprazole Sodium 40 mg 02/21/25 09:00 02/21/25 09:10 Pantoprazole Sodium Iv 40 Mg Vial IV PUSH 40 mg QAM IMTIAZ Administration Perflutren Lipid Microsphere 0 ml 02/20/25 10:58 Perflutren Lipid Microspheres 1.5 Ml Vial Diluted To 10 Ml Total Volume IV PUSH 02/23/25 10:58 ONCE PRN adequate visualization Protocol Promethazine HCl 12.5 mg 02/20/25 10:39 Promethazine Hcl 25 Mg/Ml Ampul IV PUSH Q6H PRN Nausea Rosuvastatin Calcium 20 mg 02/21/25 09:00 02/21/25 09:09 Rosuvastatin 20 Mg Tablet FEED TUBE 20 mg QAM IMTIAZ Administration Radiology Results: ITS Impressions Chest/Abdomen/Pelvis CT 02/20/25 11:24 IMPRESSION: 1. Right lower lobe pneumonia. 2. New 6 mm nodule in right lung middle lobe, probably benign. Consider noncontrast low-dose chest CT in 6 months. 3. 11 mm nodule in left lung upper lobe, stable from 12/16/2023, likely benign. 4. Small pericardial effusion. 5. Moderate emphysema. 6. 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 Chest X-Ray 02/21/25 08:18 Impression: Mild CHF Labs Labs: Laboratory Results - last 24 hr 02/20/25 02/20/25 02/20/25 08:25 13:36 14:54 WBC RBC Hgb Hct MCV MCH MCHC RDW Plt Count MPV Immature Gran % (Auto) Neut % (Auto) Lymph % (Auto) [place] % (Auto) Eos % (Auto) Baso % (Auto) Lymph # (Auto) [place] # (Auto) Eos # (Auto) Baso # (Auto) Abs Immat Gran (auto) Absolute Neuts (auto) Absolute Nucleated RBC Nucleated RBC % Puncture Site Left radial ABG pH 7.438 ABG pCO2 58.1 H ABG pO2 60.4 L ABG PO2/FiO2 Ratio Not Reportable 1.73 ABG HCO3 38.4 H ABG O2 Saturation 91.3 L ABG O2 Content Not Reportable 12.4 L ABG Base Excess 12.4 A-a Gradient Not Reportable 121.6 Oxyhemoglobin 89.7 L Carboxyhemoglobin Methemoglobin Reduced Hemoglobin Total Hemoglobin 9.8 L O2 Delivery Device Ventilator O2 Liters/Min Not Reportable Minute Volume Not Reportable Vent Rate 15 Vent Mode Simv FiO2 35 Tidal Volume 420 PEEP 5 Peak Inspir Pressure Not Reportable Not Reportable Pressure Support Not Reportable 18 Sodium Potassium Chloride Carbon Dioxide Anion Gap BUN Creatinine Estim Creat Clear Calc Estimated GFR Glucose POC Capillary Glucose Calcium Phosphorus Magnesium Total Bilirubin AST ALT Alkaline Phosphatase Troponin I 0.060 H* Total Protein Albumin 02/20/25 02/20/25 02/20/25 15:56 18:07 23:39 WBC RBC Hgb Hct MCV MCH MCHC RDW Plt Count MPV Immature Gran % (Auto) Neut % (Auto) Lymph % (Auto) [place] % (Auto) Eos % (Auto) Baso % (Auto) Lymph # (Auto) [place] # (Auto) Eos # (Auto) Baso # (Auto) Abs Immat Gran (auto) Absolute Neuts (auto) Absolute Nucleated RBC Nucleated RBC % Puncture Site ABG pH ABG pCO2 ABG pO2 ABG PO2/FiO2 Ratio ABG HCO3 ABG O2 Saturation ABG O2 Content ABG Base Excess A-a Gradient Oxyhemoglobin Carboxyhemoglobin Methemoglobin Reduced Hemoglobin Total Hemoglobin O2 Delivery Device O2 Liters/Min Minute Volume Vent Rate Vent Mode FiO2 Tidal Volume PEEP Peak Inspir Pressure Pressure Support Sodium Potassium Chloride Carbon Dioxide Anion Gap BUN Creatinine Estim Creat Clear Calc Estimated GFR Glucose POC Capillary Glucose 147 H 165 H 125 H Calcium Phosphorus Magnesium Total Bilirubin AST ALT Alkaline Phosphatase Troponin I Total Protein Albumin 02/21/25 02/21/25 02/21/25 03:52 05:15 05:23 WBC 8.3 RBC 2.86 L Hgb 7.9 L Hct 25.5 L MCV 89.2 MCH 27.6 MCHC 31.0 L RDW 18.2 H Plt Count 277 MPV 10.3 Immature Gran % (Auto) 0.6 H Neut % (Auto) 83.8 H Lymph % (Auto) 7.9 L [place] % (Auto) 7.6 Eos % (Auto) 0.0 Baso % (Auto) 0.1 L Lymph # (Auto) 0.66 L [place] # (Auto) 0.6 Eos # (Auto) 0.0 Baso # (Auto) 0.0 Abs Immat Gran (auto) 0.05 H Absolute Neuts (auto) 7.0 H Absolute Nucleated RBC 0.000 Nucleated RBC % 0.0 Puncture Site Right radial ABG pH 7.486 H ABG pCO2 47.7 H ABG pO2 61.5 L ABG PO2/FiO2 Ratio 1.76 ABG HCO3 35.2 H ABG O2 Saturation 92.9 L ABG O2 Content 11.2 L ABG Base Excess 10.7 A-a Gradient 132.6 Oxyhemoglobin 91.7 Carboxyhemoglobin 1.0 Methemoglobin 0.1 Reduced Hemoglobin 7.2 H Total Hemoglobin 8.6 L O2 Delivery Device Ventilator O2 Liters/Min Not Reportable Minute Volume Not Reportable Vent Rate 15 Vent Mode Simv FiO2 35 Tidal Volume 420 PEEP 5 Peak Inspir Pressure Not Reportable Pressure Support 10 Sodium 137 Potassium 4.6 Chloride 94 L Carbon Dioxide 37 H Anion Gap 6 BUN 72 H Creatinine 1.54 H Estim Creat Clear Calc 27 Estimated GFR 32 L Glucose 115 H POC Capillary Glucose 114 H Calcium 9.9 Phosphorus 1.8 L Magnesium 3.1 H Total Bilirubin 0.2 AST 40 H ALT 25 Alkaline Phosphatase 101 Troponin I Total Protein 8.0 Albumin 4.0 02/21/25 11:23 WBC RBC Hgb Hct MCV MCH MCHC RDW Plt Count MPV Immature Gran % (Auto) Neut % (Auto) Lymph % (Auto) [place] % (Auto) Eos % (Auto) Baso % (Auto) Lymph # (Auto) [place] # (Auto) Eos # (Auto) Baso # (Auto) Abs Immat Gran (auto) Absolute Neuts (auto) Absolute Nucleated RBC Nucleated RBC % Puncture Site ABG pH ABG pCO2 ABG pO2 ABG PO2/FiO2 Ratio ABG HCO3 ABG O2 Saturation ABG O2 Content ABG Base Excess A-a Gradient Oxyhemoglobin Carboxyhemoglobin Methemoglobin Reduced Hemoglobin Total Hemoglobin O2 Delivery Device O2 Liters/Min Minute Volume Vent Rate Vent Mode FiO2 Tidal Volume PEEP Peak Inspir Pressure Pressure Support Sodium Potassium Chloride Carbon Dioxide Anion Gap BUN Creatinine Estim Creat Clear Calc Estimated GFR Glucose POC Capillary Glucose 121 H Calcium Phosphorus Magnesium Total Bilirubin AST ALT Alkaline Phosphatase Troponin I Total Protein Albumin Quality VTE Prophylaxis VTE prophylaxis: pharmacologic ordered
--- NOTE | 2025-02-21 14:53 | PHAR ---
Home med verified: Vitamin A&D Ointment tub - no Rx label
[2025-02-21] MEDS: INSULIN ASPART (*BKC) 100 UNITS/ML SUB-Q (17:30)
[2025-02-21] MEDS: DONEPEZIL HCL 5 MG TABLET FEED TUBE (20:00)
[2025-02-21] MEDS: IPRATROPIUM 0.5 MG/ALBUTEROL SULFATE 2.5 MG (BASE) AMPUL.NEB 3 ML INHALATION (20:16)
[2025-02-21] MEDS: ALBUTEROL SULFATE NEB 2.5 MG/3 ML INH INHALATION (20:18)
[2025-02-22] VITALS (34 sets, daily range): BP systolic 119–167; BP diastolic 44–81; PULSE 57–100; RESP 11–32; TEMP 37.1–37.4; O2SAT 95–98
[2025-02-22] MEDS: VANCOMYCIN 1,250 MG/NS 250 ML 1,250 MG/250 ML BAG 166.7 MG IVPB (01:11)
--- NOTE | 2025-02-22 01:36 | PCRCNOTE ---
Patient's daughter reported that patient had a reaction to DUOneb at [facility], an outside hospital. A first time giving DUOneb PRN, for wheezes, in the ICU, resulted in visual distress (facially, she is non-verbal) and an increase in upper respiratory wheezes. Dr Mahoney consulted and DUOneb Q6 PRN changed to Albuterol Q6 PRN. Inline tracheal suctioning performed 6 times for moderate amounts of thick white by RT and RN over the first 3 hours of this pm shift. Trach care done and cuff checked for minimal occlusion.
[2025-02-22 03:51] LABS: Hematocrit 24.0 % (37.0-47.0); Hemoglobin 7.3 g/dL (12.0-15.0); Immature Granulocyte Percent A 0.8 % (0-0.5); Lymphocytes Absolute Auto 0.76 K/mm3 (0.9-3.2); Mean Corpuscular HGB Conc 30.4 g/dl (32-36); Mean Corpuscular Hemoglobin 27.3 pg (26-34); Mean Corpuscular Volume 89.9 fl (80-100); Nucleated Red Blood Cells Absolute Auto 0.020 K/mm3 (0.0-0.012); Nucleated Red Blood Cells Perc 0.3 % (0.0-0.2); Platelet Count Result 266 k/mm3 (150-375); Red Blood Count 2.67 M/mm3 (4.2-5.4); White Blood Count 7.6 K/mm3 (4.5-10.0)
[2025-02-22 04:12] LABS: Alanine Aminotransferase 44 U/L (6-35); Albumin Level 4.6 g/dL (3.5-5.1); Alkaline Phosphatase 86 U/L (38-126); Anion Gap 7 mmol/L (4-12); Aspartate Amino Transferase 55 U/L (14-36); Bilirubin,Total 0.3 mg/dL (0.2-1.3); Blood Urea Nitrogen 52 mg/dL (7-17); Calcium 10.1 mg/dL (8.4-10.2); Carbon Dioxide 36 mmol/L (22-30); Chloride 101 mmol/L (98-107); Estimated CRCL calculation 35 ml/min; Estimated Glomerular Filt Rate 43; Glucose 138 mg/dL (65-110); Magnesium 2.9 mg/dL (1.6-2.3); Potassium 4.0 mmol/L (3.4-5.0); Sodium 144 mmol/L (137-145); Total Protein 8.1 g/dL (6.3-8.2)
[2025-02-22 04:49] LABS: Alveolar/Arterial O2 Gradient 102.9 mmHg; Carboxyhemoglobin 0.9 % THb (0-2.0); Fractional Inspired Oxygen 35 %; HCO3 ABG 36.4 mEq/l (22.0-26.0); Methemoglobin ABG 0.1 %THb (0-1.5); Oxygen Content ABG 11.2 %vol (16.0-22.0); Oxygen Saturation ABG 96.8 % (95.0-100.0); PCO2 ABG 52.4 mmHg (35.0-45.0); PO2 ABG 85.7 mmHg (80.0-100.0); PO2 FiO2 Ratio Arterial Blood 2.45 %; Reduced Hemoglobin 3.4 %THb (0-5.0)
[2025-02-22 04:52] LABS: Modified Allen's Test Pass; Site Drawn RIGHT RADIAL
[2025-02-22 04:53] LABS: Arterial Blood Gas Tidal Volume 350 ml; Arterial Blood Gas Ventilator rate 12 /MIN
[2025-02-22] MEDS: ALBUMIN HUMAN 25% 25 GM/100 ML 100 ML IVPB (05:17)
--- NOTE | 2025-02-22 06:53 | PC.NURSE ---
0645 Spoke with Indira with vascular access. Indira states she will come look at patient for IV placement.
[2025-02-22] MEDS: MEROPENEM 1 GM in SODIUM CHLORIDE 0.9% IV 100 ML 200 ML IVPB ×3 (06:57→21:04)
[2025-02-22] MEDS: PANTOPRAZOLE SODIUM IV 40 MG VIAL IV PUSH (08:21)
[2025-02-22] MEDS: ASPIRIN 325 MG TABLET FEED TUBE (08:22)
[2025-02-22] MEDS: ENOXAPARIN 30 MG/0.3 ML SYRINGE SUB-Q (08:22)
[2025-02-22] MEDS: ROSUVASTATIN 20 MG TABLET FEED TUBE (08:22)
--- NOTE | 2025-02-22 09:32 | WPDINTPN ---
Progress Note: A&P Assessment and Plan (1) Acute on chronic respiratory failure: Qualifiers: Respiratory failure complication: unspecified whether with hypoxia or hypercapnia Qualified Code(s): J96.20 - Acute and chronic respiratory failure, unspecified whether with hypoxia or hypercapnia Code(s): J96.20 - Acute and chronic respiratory failure, unspecified whether with hypoxia or hypercapnia Status: Acute Assessment and Plan: Acute on chronic respiratory failure with hypoxia and hypercarbia in a patient who has history of COPD, chronic tracheostomy and is on 8 L oxygen by mask and now has a right lower lobe pneumonia 02/20 Tracheostomy was changed to a cuffed tracheostomy tube in the ER Patient is now on the mechanical ventilation with SIMV FiO2 is down to 35% 02/21 tolerated PSV 15/5 for many hours. 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 I will change to per tube Augmentin. Low procalcitonin (2) COPD (chronic obstructive pulmonary disease): Qualifiers: COPD type: unspecified COPD Qualified Code(s): J44.9 - Chronic obstructive pulmonary disease, unspecified Code(s): J44.9 - Chronic obstructive pulmonary disease, unspecified Status: Acute Assessment and Plan: See above (3) Acute kidney injury: Code(s): N17.9 - Acute kidney failure, unspecified Status: Acute Assessment and Plan: Acute kidney injury with creatinine 1.5 likely secondary to sepsis hypovolemia and hypotension IV fluid bolus followed by cautious maintainIV fluids Normal CK UA reviewed Mcmahan for accurate I&Os CT abdomen pelvis negative for any stone or obstruction Monitor intake output and electrolytes Creatinine decreased to 1.2. Will hold further IV fluids. Hold diuretics. (4) HTN (hypertension): Qualifiers: Hypertension type: primary hypertension Qualified Code(s): I10 - Essential (primary) hypertension Code(s): I10 - Essential (primary) hypertension Status: Acute Assessment and Plan: Hold amlodipine (5) Tracheostomy in place: Code(s): Z93.0 - Tracheostomy status Status: Acute Assessment and Plan: Tracheostomy was changed to a cuffed size 6 by ER (6) G tube feedings: Code(s): Z93.1 - Gastrostomy status Status: Acute Assessment and Plan: Tolerate tube feeds (7) Anemia: Qualifiers: Anemia type: unspecified type Qualified Code(s): D64.9 - Anemia, unspecified Code(s): D64.9 - Anemia, unspecified Status: Acute Assessment and Plan: History of chronic anemia. Hemoglobin appears close to baseline. Monitor (8) CHF (congestive heart failure): Qualifiers: Heart failure type: unspecified Heart failure chronicity: unspecified Qualified Code(s): I50.9 - Heart failure, unspecified Code(s): I50.9 - Heart failure, unspecified Status: Acute Assessment and Plan: Elevated BNP. Echocardiogram Summary 1. Complete two-dimensional, color flow and Doppler transthoracic echocardiogram is performed. 2. Left ventricular systolic function is hyperdynamic, estimated at >70. 3. The left ventricular diastolic function is grade I diastolic dysfunction. 4. There is trace tricuspid valve regurgitation. 5. Mild pulmonary hypertension, estimated pulmonary arterial systolic pressure is 38 mmHg. 6. There is mild pulmonic regurgitation Hold further IV fluid (9) Sepsis: Qualifiers: Sepsis type: sepsis due to unspecified organism Sepsis acute organ dysfunction status: unspecified Qualified Code(s): A41.9 - Sepsis, unspecified organism Code(s): A41.9 - Sepsis, unspecified organism Status: Acute Assessment and Plan: Normal lactic acid level and low procalcitonin level Off further IV fluids Negative till now sputum, blood cultures and UA Empiric antibiotics as above (10) Pericardial effusion: Code(s): I31.39 - Other pericardial effusion (noninflammatory) Status: Acute Plan DVT prophylaxis -Lovenox Stress ulcer prophylaxis -PPI Nutrition -continue tube feeds Code Status - Full Code I spoke to patient's daughter at bedside and updated them with patient's status and current treatment and workup plan. Total Critical Care Time - 30 minutes Due to a high probability of clinically significant, life threatening deterioration, the patient required my highest level of preparedness to intervene emergently and I personally spent this critical care time directly and personally managing the patient. This critical care time included obtaining a history; examining the patient; pulse oximetry; ordering and review of studies; arranging urgent treatment with development of a management plan; evaluation of patient's response to treatment; frequent reassessment; and discussions with other providers. It was exclusive of separately billable procedures and treating other patients and teaching time. Please see Assessment and Plan section and the rest of the note for further information on patient assessment and treatment Subjective Date/time seen: 02/22/25 No significant change overnight. Patient continues to be on mechanical ventilation on SIMV mode. She is afebrile. She has a good urine output. She is awake but unresponsive and does not follow commands or answer any questions. She is tolerating tube feeds. Review of Systems Review of Systems: ROS unobtainable: Yes unobtainable due to endotracheal tube, unobtainable due to medical condition and unobtainable due to mental status Exam Narrative: General: Pt is awake has a tracheostomy and on mechanical ventilation Lungs/Chest: Trachea central Coarse BS B/L, bilateral wheezing pressor Cardiac: RRR. Normal S1 S2. No murmurs Circulation: Pedal pulses are intact and symmetrical. Abdomen: Decreased bowel sounds. Obese. Soft. NT. ND. Peg tube in place, scar from past surgery in the left side Extremities: No clubbing, cyanosis or edema. Warm : Mcmahan in place Neurologic: Patient has contractures and hand. She withdraws to pain all 4 extremities but does not follow any commands or respond to questions or calling her name. Eyes are open. 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 PERRL Objective Data Vital Signs Vital Signs: Vital Signs - 24 hr 02/21/25 10:00 02/21/25 10:00 02/21/25 11:00 Temperature Pulse Rate 89 89 77 Respiratory Rate 28 H 24 H Blood Pressure 130/41 L 128/57 L Pulse Oximetry 96 95 Oxygen Delivery Fraction of Inspired Oxygen 02/21/25 11:10 02/21/25 12:00 02/21/25 12:00 Temperature Pulse Rate 86 Respiratory Rate Blood Pressure Pulse Oximetry 96 Oxygen Delivery Mechanical Ventilation Mechanical Ventilation Fraction of Inspired Oxygen 35 35 35 02/21/25 12:00 02/21/25 12:00 02/21/25 13:00 Temperature 37.1 C Pulse Rate 65 71 75 Respiratory Rate 16 21 H Blood Pressure 112/50 L 115/50 L Pulse Oximetry 95 94 Oxygen Delivery Fraction of Inspired Oxygen 02/21/25 14:00 02/21/25 14:00 02/21/25 14:18 Temperature Pulse Rate 72 72 86 Respiratory Rate 20 Blood Pressure 126/56 L Pulse Oximetry 97 96 Oxygen Delivery Mechanical Ventilation Fraction of Inspired Oxygen 35 02/21/25 15:00 02/21/25 16:00 02/21/25 16:00 Temperature 36.8 C Pulse Rate 83 88 Respiratory Rate 23 H 27 H Blood Pressure 124/59 L 126/55 L Pulse Oximetry 95 96 Oxygen Delivery Fraction of Inspired Oxygen 35 02/21/25 16:00 02/21/25 16:00 02/21/25 17:00 Temperature Pulse Rate 88 87 Respiratory Rate 23 H Blood Pressure 159/72 H Pulse Oximetry 98 Oxygen Delivery Mechanical Ventilation Fraction of Inspired Oxygen 35 02/21/25 17:01 02/21/25 18:00 02/21/25 18:00 Temperature Pulse Rate 73 71 71 Respiratory Rate 21 H Blood Pressure 146/60 H Pulse Oximetry 96 97 Oxygen Delivery Mechanical Ventilation Fraction of Inspired Oxygen 35 02/21/25 19:00 02/21/25 20:00 02/21/25 20:00 Temperature 37.2 C Pulse Rate 92 92 Respiratory Rate 30 H 27 H Blood Pressure 133/61 154/72 H Pulse Oximetry 96 98 Oxygen Delivery Fraction of Inspired Oxygen 30 02/21/25 20:00 02/21/25 20:00 02/21/25 20:07 Temperature Pulse Rate 84 87 Respiratory Rate Blood Pressure Pulse Oximetry 98 Oxygen Delivery Mechanical Ventilation Mechanical Ventilation Fraction of Inspired Oxygen 30 35 02/21/25 20:17 02/21/25 21:00 02/21/25 21:45 Temperature Pulse Rate 91 108 H Respiratory Rate 28 H 27 H Blood Pressure 157/79 H Pulse Oximetry 100 Oxygen Delivery Fraction of Inspired Oxygen 30 02/21/25 22:00 02/21/25 22:00 02/21/25 22:22 Temperature 37.2 C Pulse Rate 85 84 Respiratory Rate 18 Blood Pressure 121/54 L Pulse Oximetry 89 L Oxygen Delivery Fraction of Inspired Oxygen 35 02/21/25 23:00 02/21/25 23:02 02/22/25 00:00 Temperature 37.1 C Pulse Rate 88 89 86 Respiratory Rate 23 H 19 Blood Pressure 160/92 H 133/60 Pulse Oximetry 100 94 97 Oxygen Delivery Mechanical Ventilation Fraction of Inspired Oxygen 35 02/22/25 00:00 02/22/25 00:00 02/22/25 00:00 Temperature Pulse Rate 67 Respiratory Rate Blood Pressure Pulse Oximetry Oxygen Delivery Mechanical Ventilation Fraction of Inspired Oxygen 35 35 02/22/25 01:00 02/22/25 02:00 02/22/25 02:00 Temperature 37.2 C Pulse Rate 65 62 100 Respiratory Rate 15 19 Blood Pressure 139/58 L 129/53 L Pulse Oximetry 97 97 Oxygen Delivery Fraction of Inspired Oxygen 02/22/25 03:00 02/22/25 03:05 02/22/25 04:00 Temperature Pulse Rate 81 85 Respiratory Rate 22 H Blood Pressure 141/56 H Pulse Oximetry 97 97 Oxygen Delivery Mechanical Ventilation Fraction of Inspired Oxygen 35 35 02/22/25 04:00 02/22/25 04:00 02/22/25 04:00 Temperature Pulse Rate 78 83 Respiratory Rate 29 H Blood Pressure 134/56 L Pulse Oximetry 97 Oxygen Delivery Mechanical Ventilation Fraction of Inspired Oxygen 35 02/22/25 04:42 02/22/25 05:00 02/22/25 06:00 Temperature Pulse Rate 83 84 88 Respiratory Rate 27 H Blood Pressure 137/56 L Pulse Oximetry 98 98 Oxygen Delivery Mechanical Ventilation Fraction of Inspired Oxygen 35 02/22/25 06:00 02/22/25 07:00 02/22/25 08:03 Temperature 37.4 C Pulse Rate 86 82 76 Respiratory Rate 29 H 17 Blood Pressure 135/64 123/80 Pulse Oximetry 97 98 97 Oxygen Delivery Mechanical Ventilation Fraction of Inspired Oxygen 35 02/22/25 08:56 Temperature Pulse Rate Respiratory Rate Blood Pressure Pulse Oximetry Oxygen Delivery Mechanical Ventilation Fraction of Inspired Oxygen 35 Intake/Output Intake/Output: Intake & Output 02/19/25 02/20/25 02/21/25 02/22/25 23:59 22:59 23:59 23:59 Intake Total 206 4411.3 1290 Output Total 925 3400 700 Balance -719 1011.3 590 Meds/Results Medications: Active Medications Generic Name Dose Route Start Last Admin Trade Name Freq PRN Reason Stop Dose Admin Acetaminophen 650 mg 02/20/25 10:42 Acetaminophen Elixir 325 Mg/10.15 Ml Udc FEED TUBE Q4H PRN Mild Pain (1-3) or Fever Albuterol 2.5 mg 02/21/25 20:44 02/21/25 20:18 Albuterol Sulfate Neb 2.5 Mg/3 Ml Inh INHALATION 2.5 mg Q6HRT PRN Administration Shortness Of Breath Aspirin 325 mg 02/21/25 08:00 02/22/25 08:22 Aspirin 325 Mg Tablet FEED TUBE 325 mg DAILY@0800 IMTIAZ Administration Dextrose 12.5 gm 02/20/25 11:00 Dextrose 50% 25 Gm/50 Ml Syringe IV PUSH PRN PRN Hypoglycemia Protocol Donepezil HCl 5 mg 02/20/25 21:00 02/21/25 20:00 Donepezil Hcl 5 Mg Tablet FEED TUBE 5 mg HS IMTIAZ Administration Enoxaparin Sodium 30 mg 02/21/25 09:00 02/22/25 08:22 Enoxaparin 30 Mg/0.3 Ml Syringe SUB-Q 30 mg DAILY IMTIAZ Administration Glucagon 1 mg 02/20/25 11:00 Glucagon For Inj 1 Mg Vial IM PRN PRN Hypoglycemia Protocol Glucose 15 gm 02/20/25 11:00 Glucose Oral Gel 15 Gm Of Glucse In 37.5 Gm Tube PO PRN PRN Hypoglycemia Protocol Meropenem 1 gm/ Sodium 100 mls @ 200 mls/hr 02/20/25 20:00 02/22/25 06:57 Chloride IVPB 200 mls/hr Q8HR IMTIAZ Administration Dextrose 1,000 mls @ 100 mls/hr 02/20/25 11:00 Dextrose 5% 1,000 Ml IVPB PRN PRN Hypoglycemia Protocol Vancomycin HCl 1,250 mg in 250 mls @ 166.667 mls/hr 02/22/25 01:00 02/22/25 02:41 Vancomycin 1,250 Mg/Ns 250 Ml IVPB Infused Q36H IMTIAZ Infusion Insulin Aspart 3 - 6 units 02/20/25 12:00 02/22/25 06:09 Insulin Aspart (*Bkc) 100 Units/Ml SUB-Q Not Given Q6HR [facility] Protocol Methylprednisolone Sodium Succinate 60 mg 02/21/25 09:00 02/22/25 08:22 Methylprednisolone Sod Succ 125 Mg Vial IV PUSH 60 mg QAM IMTIAZ Administration Morphine Sulfate 2 mg 02/20/25 10:39 Morphine Sulfate (*Crx) 4 Mg/Ml Inj IV PUSH Q2H PRN Pain Rated 7-10 Vitamin A&D Ointment 1 each 02/21/25 14:15 02/21/25 20:56 (Home Med) TOPICAL 03/23/25 14:14 1 each PRN PRN Administration to affected areas Pantoprazole Sodium 40 mg 02/21/25 09:00 02/22/25 08:21 Pantoprazole Sodium Iv 40 Mg Vial IV PUSH 40 mg QAM IMTIAZ Administration Perflutren Lipid Microsphere 0 ml 02/20/25 10:58 Perflutren Lipid Microspheres 1.5 Ml Vial Diluted To 10 Ml Total Volume IV PUSH 02/23/25 10:58 ONCE PRN adequate visualization Protocol Promethazine HCl 12.5 mg 02/20/25 10:39 Promethazine Hcl 25 Mg/Ml Ampul IV PUSH Q6H PRN Nausea Rosuvastatin Calcium 20 mg 02/21/25 09:00 02/22/25 08:22 Rosuvastatin 20 Mg Tablet FEED TUBE 20 mg QAM IMTIAZ Administration Radiology Results: ITS Impressions Chest/Abdomen/Pelvis CT 02/20/25 11:24 IMPRESSION: 1. Right lower lobe pneumonia. 2. New 6 mm nodule in right lung middle lobe, probably benign. Consider noncontrast low-dose chest CT in 6 months. 3. 11 mm nodule in left lung upper lobe, stable from 12/16/2023, likely benign. 4. Small pericardial effusion. 5. Moderate emphysema. 6. 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 Chest X-Ray 02/22/25 08:31 Impression: CHF Labs Labs: Laboratory Results - last 24 hr 02/20/25 02/21/25 02/21/25 08:25 11:23 17:26 WBC RBC Hgb Hct MCV MCH MCHC RDW Plt Count MPV Immature Gran % (Auto) Neut % (Auto) Lymph % (Auto) [place] % (Auto) Eos % (Auto) Baso % (Auto) Lymph # (Auto) [place] # (Auto) Eos # (Auto) Baso # (Auto) Abs Immat Gran (auto) Absolute Neuts (auto) Absolute Nucleated RBC Nucleated RBC % Puncture Site ABG pH ABG pCO2 ABG pO2 ABG PO2/FiO2 Ratio Not Reportable ABG HCO3 ABG O2 Saturation ABG O2 Content Not Reportable ABG Base Excess A-a Gradient Not Reportable Oxyhemoglobin Carboxyhemoglobin Methemoglobin Reduced Hemoglobin Total Hemoglobin O2 Delivery Device O2 Liters/Min Minute Volume Vent Rate Vent Mode FiO2 Tidal Volume PEEP Peak Inspir Pressure Not Reportable Pressure Support Not Reportable Sodium Potassium Chloride Carbon Dioxide Anion Gap BUN Creatinine Estim Creat Clear Calc Estimated GFR Glucose POC Capillary Glucose 121 H 205 H Calcium Phosphorus Magnesium Total Bilirubin AST ALT Alkaline Phosphatase Total Protein Albumin 02/21/25 02/22/25 02/22/25 23:35 03:29 04:35 WBC 7.6 RBC 2.67 L Hgb 7.3 L Hct 24.0 L MCV 89.9 MCH 27.3 MCHC 30.4 L RDW 18.7 H Plt Count 266 MPV 9.7 Immature Gran % (Auto) 0.8 H Neut % (Auto) 77.3 H Lymph % (Auto) 9.9 L [place] % (Auto) 11.6 H Eos % (Auto) 0.0 Baso % (Auto) 0.4 Lymph # (Auto) 0.76 L [place] # (Auto) 0.9 H Eos # (Auto) 0.0 Baso # (Auto) 0.0 Abs Immat Gran (auto) 0.06 H Absolute Neuts (auto) 5.9 Absolute Nucleated RBC 0.020 H Nucleated RBC % 0.3 H Puncture Site Right radial ABG pH 7.460 H ABG pCO2 52.4 H ABG pO2 85.7 ABG PO2/FiO2 Ratio 2.45 ABG HCO3 36.4 H ABG O2 Saturation 96.8 ABG O2 Content 11.2 L ABG Base Excess 11.3 A-a Gradient 102.9 Oxyhemoglobin 95.6 Carboxyhemoglobin 0.9 Methemoglobin 0.1 Reduced Hemoglobin 3.4 Total Hemoglobin 8.2 L O2 Delivery Device Ventilator O2 Liters/Min Not Reportable Minute Volume Not Reportable Vent Rate 12 Vent Mode Cmv FiO2 35 Tidal Volume 350 PEEP 5 Peak Inspir Pressure Not Reportable Pressure Support Not Reportable Sodium 144 Potassium 4.0 Chloride 101 Carbon Dioxide 36 H Anion Gap 7 BUN 52 H D Creatinine 1.21 H Estim Creat Clear Calc 35 Estimated GFR 43 L Glucose 138 H POC Capillary Glucose 137 H Calcium 10.1 Phosphorus 1.7 L Magnesium 2.9 H Total Bilirubin 0.3 AST 55 H ALT 44 H Alkaline Phosphatase 86 Total Protein 8.1 Albumin 4.6 02/22/25 05:51 WBC RBC Hgb Hct MCV MCH MCHC RDW Plt Count MPV Immature Gran % (Auto) Neut % (Auto) Lymph % (Auto) [place] % (Auto) Eos % (Auto) Baso % (Auto) Lymph # (Auto) [place] # (Auto) Eos # (Auto) Baso # (Auto) Abs Immat Gran (auto) Absolute Neuts (auto) Absolute Nucleated RBC Nucleated RBC % Puncture Site ABG pH ABG pCO2 ABG pO2 ABG PO2/FiO2 Ratio ABG HCO3 ABG O2 Saturation ABG O2 Content ABG Base Excess A-a Gradient Oxyhemoglobin Carboxyhemoglobin Methemoglobin Reduced Hemoglobin Total Hemoglobin O2 Delivery Device O2 Liters/Min Minute Volume Vent Rate Vent Mode FiO2 Tidal Volume PEEP Peak Inspir Pressure Pressure Support Sodium Potassium Chloride Carbon Dioxide Anion Gap BUN Creatinine Estim Creat Clear Calc Estimated GFR Glucose POC Capillary Glucose 130 H Calcium Phosphorus Magnesium Total Bilirubin AST ALT Alkaline Phosphatase Total Protein Albumin Quality VTE Prophylaxis VTE prophylaxis: pharmacologic ordered
--- NOTE | 2025-02-22 11:13 | PCNFU ---
Nutrition Follow-Up Complete: Increased protein energy needs related to mechanical ventilation as evidenced by need for PEG tube feedings Goal: Meet estimated nutrition needs Pt current nutrition is Nepro 240 ml q 4 hours. Last recorded weight is 80.8 kg, down from 86 kg on admit. Bowel Motility: Last reported BM 02/21 Labs Reviewed: Mg 2.9, PO4 1.7, BUN 52, Cr 1.21 Meds Noted: Protonix, Lasix Skin: WNL Additional Notes: Patient current with Trach/PEG. Breathing trial today. No sedation. Tube feedings are being tolerated of Nepro 240 ml q 4 hours, providing 2592 kcal/117 gm protein/1047 ml water. Meeting 100% kcal needs at 30 kcal/kg and 100% protein needs at 1.4 gm/kg protein. Flush 30 ml q 4 hours. Agree with diet orders at this time. Monitoring in ICU rounds. Reassessing labs, vitals, weights, output, meds, tube feeding tolerance every Friday and Friday.
[2025-02-22] MEDS: POTASSIUM/PHOSPHORUS/SODIUM 1.5 GM PACKET 1 PACKET FEED TUBE (11:42)
[2025-02-22] MEDS: INSULIN ASPART (*BKC) 100 UNITS/ML SUB-Q (18:21)
[2025-02-22] MEDS: DONEPEZIL HCL 5 MG TABLET FEED TUBE (20:56)
[2025-02-23] VITALS (65 sets, daily range): BP systolic 133–199; BP diastolic 51–159; PULSE 68–133; RESP 16–35; TEMP 36.9–37.4; O2SAT 90–100
[2025-02-23] MEDS: ALBUTEROL SULFATE NEB 2.5 MG/3 ML INH INHALATION (00:20)
[2025-02-23 04:14] LABS: Hematocrit 26.1 % (37.0-47.0); Hemoglobin 7.9 g/dL (12.0-15.0); Immature Granulocyte Percent A 1.0 % (0-0.5); Lymphocytes Absolute Auto 0.86 K/mm3 (0.9-3.2); Mean Corpuscular HGB Conc 30.3 g/dl (32-36); Mean Corpuscular Hemoglobin 27.8 pg (26-34); Mean Corpuscular Volume 91.9 fl (80-100); Nucleated Red Blood Cells Absolute Auto 0.050 K/mm3 (0.0-0.012); Nucleated Red Blood Cells Perc 0.5 % (0.0-0.2); Platelet Count Result 296 k/mm3 (150-375); Red Blood Count 2.84 M/mm3 (4.2-5.4); White Blood Count 10.8 K/mm3 (4.5-10.0)
[2025-02-23 04:22] LABS: Alanine Aminotransferase 77 U/L (6-35); Albumin Level 4.7 g/dL (3.5-5.1); Alkaline Phosphatase 105 U/L (38-126); Anion Gap 8 mmol/L (4-12); Aspartate Amino Transferase 93 U/L (14-36); Bilirubin,Total 0.4 mg/dL (0.2-1.3); Blood Urea Nitrogen 55 mg/dL (7-17); Calcium 10.8 mg/dL (8.4-10.2); Carbon Dioxide 38 mmol/L (22-30); Chloride 105 mmol/L (98-107); Estimated CRCL calculation 37 ml/min; Estimated Glomerular Filt Rate 47; Glucose 182 mg/dL (65-110); Magnesium 2.7 mg/dL (1.6-2.3); Potassium 4.0 mmol/L (3.4-5.0); Sodium 151 mmol/L (137-145); Total Protein 8.6 g/dL (6.3-8.2)
[2025-02-23 05:48] LABS: Alveolar/Arterial O2 Gradient 97.4 mmHg; Carboxyhemoglobin 0.8 % THb (0-2.0); Fractional Inspired Oxygen 35 %; HCO3 ABG 39.3 mEq/l (22.0-26.0); Methemoglobin ABG 0.3 %THb (0-1.5); Oxygen Content ABG 12.2 %vol (16.0-22.0); Oxygen Saturation ABG 96.4 % (95.0-100.0); PCO2 ABG 58.7 mmHg (35.0-45.0); PO2 ABG 83.9 mmHg (80.0-100.0); PO2 FiO2 Ratio Arterial Blood 2.40 %; Reduced Hemoglobin 3.4 %THb (0-5.0)
[2025-02-23 05:50] LABS: Modified Allen's Test Pass; Site Drawn RIGHT RADIAL
[2025-02-23 05:52] LABS: Arterial Blood Gas Pressure Support 10 cmH2O; Arterial Blood Gas Tidal Volume 300 ml; Arterial Blood Gas Ventilator rate 10 /MIN
[2025-02-23] MEDS: MEROPENEM 1 GM in SODIUM CHLORIDE 0.9% IV 100 ML 200 ML IVPB (06:20)
--- NOTE | 2025-02-23 08:31 | WPDINTPN ---
Progress Note: A&P Assessment and Plan (1) Acute on chronic respiratory failure: Qualifiers: Respiratory failure complication: unspecified whether with hypoxia or hypercapnia Qualified Code(s): J96.20 - Acute and chronic respiratory failure, unspecified whether with hypoxia or hypercapnia Code(s): J96.20 - Acute and chronic respiratory failure, unspecified whether with hypoxia or hypercapnia Status: Acute Assessment and Plan: Acute on chronic respiratory failure with hypoxia and hypercarbia in a patient who has history of COPD, chronic tracheostomy and is on 8 L oxygen by mask and now has a right lower lobe pneumonia 02/20 Tracheostomy was changed to a cuffed tracheostomy tube in the ER Patient is now on the mechanical ventilation with SIMV FiO2 is down to 35% 02/21 tolerated PSV 15/5 for many hours. 02/22 patient tolerated PSV 20/8 for adequate RSBI. She was switched back to SIMV at night 02/23 change SIMV settings and decrease rate and pressure support. Will also try PSV today 15/8 and continue as tolerated. Adjust settings depending on how she does Continue Bronchodilators Change Solu-Medrol but tube prednisone Off IV fluids IV fluid Negative vital panel, Blood and sputum cultures are negative now She is currently on empiric vancomycin and meropenem at this time. I will change to per tube Augmentin. Low procalcitonin (2) COPD (chronic obstructive pulmonary disease): Qualifiers: COPD type: unspecified COPD Qualified Code(s): J44.9 - Chronic obstructive pulmonary disease, unspecified Code(s): J44.9 - Chronic obstructive pulmonary disease, unspecified Status: Acute Assessment and Plan: See above (3) Acute kidney injury: Code(s): N17.9 - Acute kidney failure, unspecified Status: Acute Assessment and Plan: Acute kidney injury with creatinine 1.5 likely secondary to sepsis hypovolemia and hypotension IV fluid bolus followed by cautious maintainIV fluids Normal CK UA reviewed Marj for accurate I&Os CT abdomen pelvis negative for any stone or obstruction Monitor intake output and electrolytes Creatinine decreased to 1.1. Will hold further IV fluids. Hold diuretics. (4) HTN (hypertension): Qualifiers: Hypertension type: primary hypertension Qualified Code(s): I10 - Essential (primary) hypertension Code(s): I10 - Essential (primary) hypertension Status: Acute Assessment and Plan: Hold amlodipine (5) Tracheostomy in place: Code(s): Z93.0 - Tracheostomy status Status: Acute Assessment and Plan: Tracheostomy was changed to a cuffed size 6 by ER (6) G tube feedings: Code(s): Z93.1 - Gastrostomy status Status: Acute Assessment and Plan: Tolerate tube feeds (7) Anemia: Qualifiers: Anemia type: unspecified type Qualified Code(s): D64.9 - Anemia, unspecified Code(s): D64.9 - Anemia, unspecified Status: Acute Assessment and Plan: History of chronic anemia. Hemoglobin appears close to baseline. Monitor (8) CHF (congestive heart failure): Qualifiers: Heart failure type: unspecified Heart failure chronicity: unspecified Qualified Code(s): I50.9 - Heart failure, unspecified Code(s): I50.9 - Heart failure, unspecified Status: Acute Assessment and Plan: Elevated BNP. Echocardiogram Summary 1. Complete two-dimensional, color flow and Doppler transthoracic echocardiogram is performed. 2. Left ventricular systolic function is hyperdynamic, estimated at >70. 3. The left ventricular diastolic function is grade I diastolic dysfunction. 4. There is trace tricuspid valve regurgitation. 5. Mild pulmonary hypertension, estimated pulmonary arterial systolic pressure is 38 mmHg. 6. There is mild pulmonic regurgitation Hold further IV fluid (9) Sepsis: Qualifiers: Sepsis type: sepsis due to unspecified organism Sepsis acute organ dysfunction status: unspecified Qualified Code(s): A41.9 - Sepsis, unspecified organism Code(s): A41.9 - Sepsis, unspecified organism Status: Acute Assessment and Plan: Normal lactic acid level and low procalcitonin level Off further IV fluids Negative till now sputum, blood cultures and UA Empiric antibiotics as above (10) Pericardial effusion: Code(s): I31.39 - Other pericardial effusion (noninflammatory) Status: Acute Assessment and Plan: CT scan showed pericardial effusion vent echo done and does not show any significant effusion. No intervention at this time. Plan DVT prophylaxis -Lovenox Stress ulcer prophylaxis -PPI Nutrition -continue tube feeds Code Status - Full Code I spoke to patient's daughter at bedside and updated them with patient's status and current treatment and workup plan.. Patient will likely need LTAC placement for further weaning. I will discuss with youth care worker regarding placement Total Critical Care Time - 30 minutes Due to a high probability of clinically significant, life threatening deterioration, the patient required my highest level of preparedness to intervene emergently and I personally spent this critical care time directly and personally managing the patient. This critical care time included obtaining a history; examining the patient; pulse oximetry; ordering and review of studies; arranging urgent treatment with development of a management plan; evaluation of patient's response to treatment; frequent reassessment; and discussions with other providers. It was exclusive of separately billable procedures and treating other patients and teaching time. Please see Assessment and Plan section and the rest of the note for further information on patient assessment and treatment Subjective Date/time seen: 02/23/25 Overnight events reviewed. Afebrile Continues to be on mechanical ventilation 35% FiO2 SIMV Not on any continuous infusions Other Vitals acceptable Tolerating tube feed Acceptable urine output No change in exam. Patient awake unresponsive Review of Systems Review of Systems: ROS unobtainable: Yes unobtainable due to endotracheal tube, unobtainable due to medical condition and unobtainable due to mental status Exam Narrative: General: Pt is awake has a tracheostomy and on mechanical ventilation Lungs/Chest: Trachea central Coarse BS B/L, bilateral occasional wheezing Cardiac: RRR. Normal S1 S2. No murmurs Circulation: Pedal pulses are intact and symmetrical. Abdomen: Decreased bowel sounds. Obese. Soft. NT. ND. Peg tube in place, scar from past surgery in the left side Extremities: No clubbing, cyanosis or edema. Warm : Mcmahan in place Neurologic: Patient has contractures and hand. She withdraws to pain all 4 extremities but does not follow any commands or respond to questions or calling her name. Eyes are open. 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 PERRL Objective Data Vital Signs Vital Signs: Vital Signs - 24 hr 02/22/25 08:56 02/22/25 09:00 02/22/25 10:00 Temperature Pulse Rate 88 82 Respiratory Rate 27 H 32 H Blood Pressure 167/60 H 154/81 H Pulse Oximetry 97 97 Oxygen Delivery Mechanical Ventilation Fraction of Inspired Oxygen 35 02/22/25 10:00 02/22/25 11:00 02/22/25 11:02 Temperature Pulse Rate 75 70 67 Respiratory Rate 13 Blood Pressure 150/73 H Pulse Oximetry 96 95 Oxygen Delivery Mechanical Ventilation Fraction of Inspired Oxygen 35 02/22/25 12:00 02/22/25 12:00 02/22/25 12:00 Temperature Pulse Rate 61 61 Respiratory Rate 26 H Blood Pressure 119/44 L Pulse Oximetry 97 Oxygen Delivery Fraction of Inspired Oxygen 35 02/22/25 13:00 02/22/25 13:38 02/22/25 13:56 Temperature Pulse Rate 66 88 74 Respiratory Rate 26 H Blood Pressure 122/50 L Pulse Oximetry 98 96 Oxygen Delivery Mechanical Ventilation Fraction of Inspired Oxygen 35 02/22/25 14:00 02/22/25 15:00 02/22/25 16:00 Temperature Pulse Rate 77 80 Respiratory Rate 24 H 29 H Blood Pressure 138/57 L 156/70 H Pulse Oximetry 96 95 Oxygen Delivery Mechanical Ventilation Fraction of Inspired Oxygen 02/22/25 16:00 02/22/25 16:00 02/22/25 16:00 Temperature Pulse Rate 76 77 Respiratory Rate 28 H Blood Pressure 143/56 H Pulse Oximetry 98 Oxygen Delivery Fraction of Inspired Oxygen 35 02/22/25 17:00 02/22/25 17:20 02/22/25 17:57 Temperature Pulse Rate 71 63 89 Respiratory Rate 25 H Blood Pressure 134/58 L Pulse Oximetry 96 98 Oxygen Delivery Mechanical Ventilation Fraction of Inspired Oxygen 35 02/22/25 18:00 02/22/25 19:00 02/22/25 19:53 Temperature Pulse Rate 74 80 86 Respiratory Rate 19 25 H Blood Pressure 141/58 H 158/70 H Pulse Oximetry 98 96 96 Oxygen Delivery Mechanical Ventilation Fraction of Inspired Oxygen 35 02/22/25 20:00 02/22/25 20:00 02/22/25 20:00 Temperature 37.3 C Pulse Rate 85 71 Respiratory Rate 24 H Blood Pressure 162/67 H Pulse Oximetry 96 Oxygen Delivery Fraction of Inspired Oxygen 35 02/22/25 20:00 02/22/25 21:00 02/22/25 22:00 Temperature Pulse Rate 62 57 L Respiratory Rate 21 H Blood Pressure 144/65 H Pulse Oximetry 98 Oxygen Delivery Mechanical Ventilation Fraction of Inspired Oxygen 35 02/22/25 22:00 02/22/25 22:54 02/22/25 23:00 Temperature 37.3 C Pulse Rate 57 L 60 64 Respiratory Rate 24 H 11 L Blood Pressure 148/57 H 156/60 H Pulse Oximetry 97 97 97 Oxygen Delivery Mechanical Ventilation Fraction of Inspired Oxygen 35 02/22/25 23:44 02/23/25 00:00 02/23/25 00:00 Temperature Pulse Rate 83 Respiratory Rate Blood Pressure Pulse Oximetry Oxygen Delivery Mechanical Ventilation Fraction of Inspired Oxygen 35 35 02/23/25 00:05 02/23/25 00:21 02/23/25 01:00 Temperature 37.3 C Pulse Rate 85 89 94 Respiratory Rate 22 H 30 H 31 H Blood Pressure 148/59 H 153/62 H Pulse Oximetry 96 96 Oxygen Delivery Fraction of Inspired Oxygen 02/23/25 01:53 02/23/25 02:00 02/23/25 02:00 Temperature 37.1 C Pulse Rate 95 96 96 Respiratory Rate 28 H Blood Pressure 145/51 H Pulse Oximetry 98 98 Oxygen Delivery Mechanical Ventilation Fraction of Inspired Oxygen 35 02/23/25 03:00 02/23/25 04:00 02/23/25 04:00 Temperature 37.4 C Pulse Rate 78 77 Respiratory Rate 25 H 25 H Blood Pressure 144/60 H 153/56 H Pulse Oximetry 95 95 Oxygen Delivery Fraction of Inspired Oxygen 35 02/23/25 04:00 02/23/25 04:00 02/23/25 05:00 Temperature Pulse Rate 86 79 Respiratory Rate 29 H Blood Pressure 142/57 H Pulse Oximetry 97 Oxygen Delivery Mechanical Ventilation Fraction of Inspired Oxygen 35 02/23/25 05:43 02/23/25 06:00 02/23/25 06:00 Temperature 37.3 C Pulse Rate 75 81 81 Respiratory Rate 28 H Blood Pressure 154/69 H Pulse Oximetry 96 96 Oxygen Delivery Mechanical Ventilation Fraction of Inspired Oxygen 35 02/23/25 07:00 02/23/25 07:50 Temperature Pulse Rate 84 85 Respiratory Rate 24 H Blood Pressure 169/73 H Pulse Oximetry 92 97 Oxygen Delivery Mechanical Ventilation Fraction of Inspired Oxygen 35 Intake/Output Intake/Output: Intake & Output 02/20/25 02/21/25 02/22/25 02/23/25 22:59 23:59 23:59 23:59 Intake Total 206 4411.3 1590 820 Output Total 925 3400 1650 1350 Balance -719 1011.3 -60 -530 Meds/Results Medications: Active Medications Generic Name Dose Route Start Last Admin Trade Name Freq PRN Reason Stop Dose Admin Acetaminophen 650 mg 02/20/25 10:42 Acetaminophen Elixir 325 Mg/10.15 Ml Udc FEED TUBE Q4H PRN Mild Pain (1-3) or Fever Albuterol 2.5 mg 02/21/25 20:44 02/23/25 00:20 Albuterol Sulfate Neb 2.5 Mg/3 Ml Inh INHALATION 2.5 mg Q6HRT PRN Administration Shortness Of Breath Amoxicillin/Clavulanate Potassium 1 tablet 02/23/25 09:00 Amoxicillin/Clavulanate K 875-125 Mg Tab FEED TUBE 02/27/25 23:59 Q12HR IMTIAZ Aspirin 325 mg 02/21/25 08:00 02/22/25 08:22 Aspirin 325 Mg Tablet FEED TUBE 325 mg DAILY@0800 IMTIAZ Administration Dextrose 12.5 gm 02/20/25 11:00 Dextrose 50% 25 Gm/50 Ml Syringe IV PUSH PRN PRN Hypoglycemia Protocol Donepezil HCl 5 mg 02/20/25 21:00 02/22/25 20:56 Donepezil Hcl 5 Mg Tablet FEED TUBE 5 mg HS IMTIAZ Administration Enoxaparin Sodium 40 mg 02/23/25 09:00 Enoxaparin 40 Mg/0.4 Ml Syringe SUB-Q DAILY IMTIAZ Glucagon 1 mg 02/20/25 11:00 Glucagon For Inj 1 Mg Vial IM PRN PRN Hypoglycemia Protocol Glucose 15 gm 02/20/25 11:00 Glucose Oral Gel 15 Gm Of Glucse In 37.5 Gm Tube PO PRN PRN Hypoglycemia Protocol Dextrose 1,000 mls @ 100 mls/hr 02/20/25 11:00 Dextrose 5% 1,000 Ml IVPB PRN PRN Hypoglycemia Protocol Insulin Aspart 3 - 6 units 02/20/25 12:00 02/23/25 05:08 Insulin Aspart (*Bkc) 100 Units/Ml SUB-Q Not Given Q6HR MITIAZ Protocol Morphine Sulfate 2 mg 02/20/25 10:39 Morphine Sulfate (*Crx) 4 Mg/Ml Inj IV PUSH Q2H PRN Pain Rated 7-10 Vitamin A&D Ointment 1 each 02/21/25 14:15 02/21/25 20:56 (Home Med) TOPICAL 03/23/25 14:14 1 each PRN PRN Administration to affected areas Pantoprazole Sodium 40 mg 02/21/25 09:00 02/22/25 08:21 Pantoprazole Sodium Iv 40 Mg Vial IV PUSH 40 mg QAM IMTIAZ Administration Perflutren Lipid Microsphere 0 ml 02/20/25 10:58 Perflutren Lipid Microspheres 1.5 Ml Vial Diluted To 10 Ml Total Volume IV PUSH 02/23/25 10:58 ONCE PRN adequate visualization Protocol Potassium Phos/Sodium Phos 1 packet 02/23/25 09:00 Potassium/Phosphorus/Sodium 1.5 Gm Packet FEED TUBE 02/24/25 09:01 BID IMTIAZ Prednisone 40 mg 02/23/25 08:00 Prednisone 20 Mg Tablet PO 02/25/25 08:01 DAILY@0800 [facility] Prednisone 30 mg 02/26/25 08:00 Prednisone 10 Mg Tablet PO 02/28/25 08:01 DAILY@0800 [facility] Prednisone 20 mg 03/01/25 08:00 Prednisone 20 Mg Tablet PO 03/03/25 08:01 DAILY@0800 [facility] Prednisone 10 mg 03/04/25 08:00 Prednisone 10 Mg Tablet PO 03/06/25 08:01 DAILY@0800 [facility] Promethazine HCl 12.5 mg 02/20/25 10:39 Promethazine Hcl 25 Mg/Ml Ampul IV PUSH Q6H PRN Nausea Rosuvastatin Calcium 20 mg 02/21/25 09:00 02/22/25 08:22 Rosuvastatin 20 Mg Tablet FEED TUBE 20 mg QAM IMTIAZ Administration Radiology Results: ITS Impressions Chest/Abdomen/Pelvis CT 02/20/25 11:24 IMPRESSION: 1. Right lower lobe pneumonia. 2. New 6 mm nodule in right lung middle lobe, probably benign. Consider noncontrast low-dose chest CT in 6 months. 3. 11 mm nodule in left lung upper lobe, stable from 12/16/2023, likely benign. 4. Small pericardial effusion. 5. Moderate emphysema. 6. 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 Chest X-Ray 02/23/25 08:09 Impression: CHF Labs Labs: Laboratory Results - last 24 hr 02/22/25 02/22/25 02/22/25 11:43 18:19 23:38 WBC RBC Hgb Hct MCV MCH MCHC RDW Plt Count MPV Immature Gran % (Auto) Neut % (Auto) Lymph % (Auto) [place] % (Auto) Eos % (Auto) Baso % (Auto) Lymph # (Auto) [place] # (Auto) Eos # (Auto) Baso # (Auto) Abs Immat Gran (auto) Absolute Neuts (auto) Absolute Nucleated RBC Nucleated RBC % Puncture Site ABG pH ABG pCO2 ABG pO2 ABG PO2/FiO2 Ratio ABG HCO3 ABG O2 Saturation ABG O2 Content ABG Base Excess A-a Gradient Oxyhemoglobin Carboxyhemoglobin Methemoglobin Reduced Hemoglobin Total Hemoglobin O2 Delivery Device O2 Liters/Min Minute Volume Vent Rate Vent Mode FiO2 Tidal Volume PEEP Peak Inspir Pressure Pressure Support Sodium Potassium Chloride Carbon Dioxide Anion Gap BUN Creatinine Estim Creat Clear Calc Estimated GFR Glucose POC Capillary Glucose 133 H 204 H 164 H Calcium Phosphorus Magnesium Total Bilirubin AST ALT Alkaline Phosphatase Total Protein Albumin 02/23/25 02/23/25 04:08 05:05 WBC 10.8 H RBC 2.84 L Hgb 7.9 L Hct 26.1 L MCV 91.9 MCH 27.8 MCHC 30.3 L RDW 19.1 H Plt Count 296 MPV 9.4 Immature Gran % (Auto) 1.0 H Neut % (Auto) 80.0 H Lymph % (Auto) 8.0 L [place] % (Auto) 10.6 H Eos % (Auto) 0.0 Baso % (Auto) 0.4 Lymph # (Auto) 0.86 L [place] # (Auto) 1.1 H Eos # (Auto) 0.0 Baso # (Auto) 0.0 Abs Immat Gran (auto) 0.11 H Absolute Neuts (auto) 8.6 H Absolute Nucleated RBC 0.050 H Nucleated RBC % 0.5 H Puncture Site Right radial ABG pH 7.444 ABG pCO2 58.7 H ABG pO2 83.9 ABG PO2/FiO2 Ratio 2.40 ABG HCO3 39.3 H ABG O2 Saturation 96.4 ABG O2 Content 12.2 L ABG Base Excess 13.5 A-a Gradient 97.4 Oxyhemoglobin 95.5 Carboxyhemoglobin 0.8 Methemoglobin 0.3 Reduced Hemoglobin 3.4 Total Hemoglobin 9.0 L O2 Delivery Device Ventilator O2 Liters/Min Not Reportable Minute Volume Not Reportable Vent Rate 10 Vent Mode Psimv FiO2 35 Tidal Volume 300 PEEP 5 Peak Inspir Pressure Not Reportable Pressure Support 10 Sodium 151 H Potassium 4.0 Chloride 105 Carbon Dioxide 38 H Anion Gap 8 BUN 55 H Creatinine 1.11 H Estim Creat Clear Calc 37 Estimated GFR 47 L Glucose 182 H POC Capillary Glucose Calcium 10.8 H Phosphorus 1.3 L Magnesium 2.7 H Total Bilirubin 0.4 AST 93 H ALT 77 H Alkaline Phosphatase 105 Total Protein 8.6 H Albumin 4.7 Quality VTE Prophylaxis VTE prophylaxis: pharmacologic ordered
[2025-02-23] MEDS: POTASSIUM/PHOSPHORUS/SODIUM 1.5 GM PACKET 1 PACKET FEED TUBE ×2 (08:58→17:47)
[2025-02-23] MEDS: ROSUVASTATIN 20 MG TABLET FEED TUBE (08:58)
[2025-02-23] MEDS: ASPIRIN 325 MG TABLET FEED TUBE (08:58)
[2025-02-23] MEDS: ENOXAPARIN 40 MG/0.4 ML SYRINGE SUB-Q (08:59)
[2025-02-23] MEDS: PANTOPRAZOLE SODIUM IV 40 MG VIAL IV PUSH (08:59)
--- NOTE | 2025-02-23 10:36 | PCFNICU ---
ICU Rounding Note: Pt current nutrition is Nepro 240 ml q 4 hours. Last recorded weight is 83.1 kg, down from 86 kg on admit. Bowel Motility: Last reported BM 02/23 Labs Reviewed: PO4 1.3, Mg 2.7, BUN 55, Cr 1.11, Na 155, Hgb 7.9, Hct 26.1 Meds Noted: Prednisone,Protonix, Lasix. Skin: WNL Additional Notes: Patient current with Trach, plans for breathing trial today. Tube feedings are being tolerated of Nepro 240 ml q 4 hours, 2592 kcal/117 gm protein/1047 ml water. Flush increased from 30 ml q 4 hours to 200 ml q 4 hours 2/2 to elevated Na level. Agree with diet orders. Following daily in ICU rounds. Monitoring labs, vitals, weights, output, meds, tube feeding tolerance Follow up Friday/Friday.
[2025-02-23] MEDS: INSULIN ASPART (*BKC) 100 UNITS/ML SUB-Q (17:48)
[2025-02-23] MEDS: DONEPEZIL HCL 5 MG TABLET FEED TUBE (19:54)
[2025-02-24] VITALS (58 sets, daily range): BP systolic 129–169; BP diastolic 57–83; PULSE 64–102; RESP 13–35; TEMP 37.1–37.8; O2SAT 92–98
[2025-02-24 04:09] LABS: Hematocrit 29.6 % (37.0-47.0); Hemoglobin 8.9 g/dL (12.0-15.0); Immature Granulocyte Percent A 0.6 % (0-0.5); Lymphocytes Absolute Auto 1.00 K/mm3 (0.9-3.2); Mean Corpuscular HGB Conc 30.1 g/dl (32-36); Mean Corpuscular Hemoglobin 27.9 pg (26-34); Mean Corpuscular Volume 92.8 fl (80-100); Nucleated Red Blood Cells Absolute Auto 0.030 K/mm3 (0.0-0.012); Nucleated Red Blood Cells Perc 0.3 % (0.0-0.2); Platelet Count Result 301 k/mm3 (150-375); Red Blood Count 3.19 M/mm3 (4.2-5.4); White Blood Count 11.4 K/mm3 (4.5-10.0)
[2025-02-24 04:21] LABS: Alanine Aminotransferase 135 U/L (6-35); Albumin Level 4.7 g/dL (3.5-5.1); Alkaline Phosphatase 106 U/L (38-126); Aspartate Amino Transferase 138 U/L (14-36); Bilirubin,Total 0.4 mg/dL (0.2-1.3); Blood Urea Nitrogen 55 mg/dL (7-17); Calcium 11.4 mg/dL (8.4-10.2); Chloride 106 mmol/L (98-107); Estimated CRCL calculation 37 ml/min; Estimated Glomerular Filt Rate 47; Glucose 117 mg/dL (65-110); Magnesium 2.6 mg/dL (1.6-2.3); Potassium 4.1 mmol/L (3.4-5.0); Sodium 153 mmol/L (137-145); Total Protein 8.8 g/dL (6.3-8.2)
[2025-02-24 04:22] LABS: Carbon Dioxide > 40 mmol/L (22-30)
[2025-02-24 04:53] LABS: Alveolar/Arterial O2 Gradient 89.0 mmHg; Carboxyhemoglobin 0.6 % THb (0-2.0); Fractional Inspired Oxygen 35 %; HCO3 ABG 41.9 mEq/l (22.0-26.0); Methemoglobin ABG 0.1 %THb (0-1.5); Oxygen Content ABG 13.6 %vol (16.0-22.0); Oxygen Saturation ABG 96.7 % (95.0-100.0); PO2 ABG 87.9 mmHg (80.0-100.0); PO2 FiO2 Ratio Arterial Blood 2.51 %; Reduced Hemoglobin 3.1 %THb (0-5.0)
[2025-02-24 05:44] LABS: Modified Allen's Test Pass; PCO2 ABG 62.5 mmHg (35.0-45.0); Site Drawn RIGHT RADIAL
[2025-02-24 05:45] LABS: Arterial Blood Gas Pressure Support 8 cmH2O; Arterial Blood Gas Tidal Volume 300 ml; Arterial Blood Gas Ventilator rate 8 /MIN
[2025-02-24] MEDS: ROSUVASTATIN 20 MG TABLET FEED TUBE (09:01)
[2025-02-24] MEDS: ASPIRIN 325 MG TABLET FEED TUBE (09:01)
[2025-02-24] MEDS: DEXTROSE 5% IN WATER 500 ML 100 ML IV CONT (09:02)
[2025-02-24] MEDS: POTASSIUM/PHOSPHORUS/SODIUM 1.5 GM PACKET 1 PACKET FEED TUBE ×2 (09:02→16:30)
[2025-02-24] MEDS: ENOXAPARIN 40 MG/0.4 ML SYRINGE SUB-Q (09:02)
[2025-02-24] MEDS: PANTOPRAZOLE SODIUM IV 40 MG VIAL IV PUSH (09:02)
--- NOTE | 2025-02-24 09:57 | WPDINTPN ---
Progress Note: A&P Assessment and Plan (1) Acute on chronic respiratory failure: Qualifiers: Respiratory failure complication: unspecified whether with hypoxia or hypercapnia Qualified Code(s): J96.20 - Acute and chronic respiratory failure, unspecified whether with hypoxia or hypercapnia Code(s): J96.20 - Acute and chronic respiratory failure, unspecified whether with hypoxia or hypercapnia Status: Acute Assessment and Plan: Acute on chronic respiratory failure with hypoxia and hypercarbia in a patient who has history of COPD, chronic tracheostomy and is on 8 L oxygen by mask and now has a right lower lobe pneumonia 02/20 Tracheostomy was changed to a cuffed tracheostomy tube in the ER Patient is now on the mechanical ventilation with SIMV FiO2 is down to 35% 02/21 tolerated PSV 15/5 for many hours. 02/22 patient tolerated PSV 20/8 for adequate RSBI. She was switched back to SIMV at night 02/23 change SIMV settings and decrease rate and pressure support. Patient was tried on PSV 15/8 for many hours. She does not tolerate lowering of pressure support more than that as her tidal volumes drop in respiratory rate goes up to above 30s. 02/24 will try PSV again today. Will try to wean down pressure support if possible. Continue Bronchodilators Continue prednisone per tube taper Off IV fluids IV fluid Negative vital panel, Blood and sputum cultures are negative now Continue Augmentin. Low procalcitonin (2) COPD (chronic obstructive pulmonary disease): Qualifiers: COPD type: unspecified COPD Qualified Code(s): J44.9 - Chronic obstructive pulmonary disease, unspecified Code(s): J44.9 - Chronic obstructive pulmonary disease, unspecified Status: Acute Assessment and Plan: See above (3) Acute kidney injury: Code(s): N17.9 - Acute kidney failure, unspecified Status: Acute Assessment and Plan: Acute kidney injury with creatinine 1.5 likely secondary to sepsis hypovolemia and hypotension IV fluid bolus followed by cautious maintainIV fluids Normal CK UA reviewed Marj for accurate I&Os CT abdomen pelvis negative for any stone or obstruction Monitor intake output and electrolytes She has good urine output Creatinine decreased to 1.1. Will hold further IV fluids. Hold diuretics. (4) HTN (hypertension): Qualifiers: Hypertension type: primary hypertension Qualified Code(s): I10 - Essential (primary) hypertension Code(s): I10 - Essential (primary) hypertension Status: Acute Assessment and Plan: Hold amlodipine (5) Tracheostomy in place: Code(s): Z93.0 - Tracheostomy status Status: Acute Assessment and Plan: Tracheostomy was changed to a cuffed size 6 by ER (6) G tube feedings: Code(s): Z93.1 - Gastrostomy status Status: Acute Assessment and Plan: Tolerate tube feeds (7) Anemia: Qualifiers: Anemia type: unspecified type Qualified Code(s): D64.9 - Anemia, unspecified Code(s): D64.9 - Anemia, unspecified Status: Acute Assessment and Plan: History of chronic anemia. Hemoglobin appears close to baseline. Monitor (8) CHF (congestive heart failure): Qualifiers: Heart failure chronicity: unspecified Heart failure type: unspecified Qualified Code(s): I50.9 - Heart failure, unspecified Code(s): I50.9 - Heart failure, unspecified Status: Acute Assessment and Plan: Elevated BNP. Echocardiogram Summary 1. Complete two-dimensional, color flow and Doppler transthoracic echocardiogram is performed. 2. Left ventricular systolic function is hyperdynamic, estimated at >70. 3. The left ventricular diastolic function is grade I diastolic dysfunction. 4. There is trace tricuspid valve regurgitation. 5. Mild pulmonary hypertension, estimated pulmonary arterial systolic pressure is 38 mmHg. 6. There is mild pulmonic regurgitation Hold further IV fluid (9) Sepsis: Qualifiers: Sepsis acute organ dysfunction status: unspecified Sepsis type: sepsis due to unspecified organism Qualified Code(s): A41.9 - Sepsis, unspecified organism Code(s): A41.9 - Sepsis, unspecified organism Status: Acute Assessment and Plan: Normal lactic acid level and low procalcitonin level Off further IV fluids Negative till now sputum, blood cultures and UA Empiric antibiotics as above (10) Pericardial effusion: Code(s): I31.39 - Other pericardial effusion (noninflammatory) Status: Acute Assessment and Plan: CT scan showed pericardial effusion vent echo done and does not show any significant effusion. No intervention at this time. (11) Hypernatremia: Code(s): E87.0 - Hyperosmolality and hypernatremia Status: Acute Assessment and Plan: Will give 500 mL of D5 water Repeat BMP later today Continue free water flushes 200 q.4 hours (12) Electrolyte abnormality: Code(s): E87.8 - Other disorders of electrolyte and fluid balance, not elsewhere classified Status: Acute Assessment and Plan: Phosphorous replacement ordered Plan DVT prophylaxis -Lovenox Stress ulcer prophylaxis -PPI Nutrition -continue tube feeds Code Status - Full Code Patient awaits LTAC placement now Total Critical Care Time - 30 minutes Due to a high probability of clinically significant, life threatening deterioration, the patient required my highest level of preparedness to intervene emergently and I personally spent this critical care time directly and personally managing the patient. This critical care time included obtaining a history; examining the patient; pulse oximetry; ordering and review of studies; arranging urgent treatment with development of a management plan; evaluation of patient's response to treatment; frequent reassessment; and discussions with other providers. It was exclusive of separately billable procedures and treating other patients and teaching time. Please see Assessment and Plan section and the rest of the note for further information on patient assessment and treatment Subjective Date/time seen: 02/24/25 Overnight events reviewed. Afebrile Continues to be on mechanical ventilation 35% FiO2 SIMV Not on any continuous infusions Other Vitals acceptable Tolerating tube feed Acceptable urine output No change in exam. Patient awake unresponsive Review of Systems Review of Systems: ROS unobtainable: Yes unobtainable due to endotracheal tube, unobtainable due to medical condition and unobtainable due to mental status Exam Narrative: General: Pt is awake has a tracheostomy and on mechanical ventilation Lungs/Chest: Trachea central Coarse BS B/L, bilateral occasional wheezing Cardiac: RRR. Normal S1 S2. No murmurs Circulation: Pedal pulses are intact and symmetrical. Abdomen: Decreased bowel sounds. Obese. Soft. NT. ND. Peg tube in place, scar from past surgery in the left side Extremities: No clubbing, cyanosis or edema. Warm : Mcmahan in place Neurologic: Patient has contractures and hand. She withdraws to pain all 4 extremities but does not follow any commands or respond to questions or calling her name. Eyes are open. 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 PERRL Objective Data Vital Signs Vital Signs: Vital Signs - 24 hr 02/23/25 10:00 02/23/25 10:00 02/23/25 10:00 Temperature Pulse Rate 82 77 81 Respiratory Rate 27 H 26 H Blood Pressure 164/75 H Pulse Oximetry 95 94 Oxygen Delivery Fraction of Inspired Oxygen 02/23/25 10:01 02/23/25 10:14 02/23/25 10:15 Temperature Pulse Rate 85 90 89 Respiratory Rate 28 H 34 H 31 H Blood Pressure 164/75 H 167/68 H 166/69 H Pulse Oximetry 97 95 91 Oxygen Delivery Fraction of Inspired Oxygen 02/23/25 10:16 02/23/25 11:00 02/23/25 11:12 Temperature Pulse Rate 84 90 90 Respiratory Rate 29 H 29 H Blood Pressure 181/83 H Pulse Oximetry 96 100 100 Oxygen Delivery Mechanical Ventilation Fraction of Inspired Oxygen 35 02/23/25 12:00 02/23/25 12:00 02/23/25 12:00 Temperature Pulse Rate 70 Respiratory Rate Blood Pressure Pulse Oximetry Oxygen Delivery Mechanical Ventilation Fraction of Inspired Oxygen 35 35 02/23/25 12:00 02/23/25 13:00 02/23/25 13:47 Temperature Pulse Rate 70 69 68 Respiratory Rate 16 20 Blood Pressure 133/55 L 143/55 H Pulse Oximetry 95 95 Oxygen Delivery Fraction of Inspired Oxygen 02/23/25 14:00 02/23/25 14:38 02/23/25 15:00 Temperature Pulse Rate 78 77 70 Respiratory Rate 26 H 22 H Blood Pressure 160/67 H 150/60 H Pulse Oximetry 97 96 98 Oxygen Delivery Mechanical Ventilation Fraction of Inspired Oxygen 35 02/23/25 15:29 02/23/25 15:44 02/23/25 15:46 Temperature 37.2 C Pulse Rate 72 Respiratory Rate 25 H Blood Pressure 151/59 H Pulse Oximetry 97 Oxygen Delivery Mechanical Ventilation Fraction of Inspired Oxygen 35 35 02/23/25 16:00 02/23/25 17:00 02/23/25 17:34 Temperature Pulse Rate 74 98 75 Respiratory Rate 34 H Blood Pressure 146/60 H Pulse Oximetry 96 98 Oxygen Delivery Mechanical Ventilation Fraction of Inspired Oxygen 35 02/23/25 17:55 02/23/25 18:00 02/23/25 19:00 Temperature Pulse Rate 89 90 93 Respiratory Rate 30 H 31 H Blood Pressure 155/129 H 143/61 H Pulse Oximetry 97 97 Oxygen Delivery Fraction of Inspired Oxygen 02/23/25 19:50 02/23/25 20:00 02/23/25 20:00 Temperature 36.9 C Pulse Rate 105 H 105 H Respiratory Rate 28 H 28 H Blood Pressure 190/75 H Pulse Oximetry 100 100 Oxygen Delivery Mechanical Ventilation Fraction of Inspired Oxygen 35 35 02/23/25 20:00 02/23/25 20:23 02/23/25 20:23 Temperature Pulse Rate 89 94 94 Respiratory Rate 22 H Blood Pressure Pulse Oximetry 97 97 Oxygen Delivery Mechanical Ventilation Mechanical Ventilation Fraction of Inspired Oxygen 35 35 02/23/25 21:00 02/23/25 22:00 02/23/25 22:00 Temperature Pulse Rate 77 70 72 Respiratory Rate 21 H 19 Blood Pressure 150/61 H 153/64 H Pulse Oximetry 96 96 Oxygen Delivery Fraction of Inspired Oxygen 02/23/25 23:00 02/23/25 23:15 02/24/25 00:00 Temperature 37.3 C Pulse Rate 93 86 80 Respiratory Rate 26 H 25 H Blood Pressure 151/61 H 142/57 H Pulse Oximetry 97 97 98 Oxygen Delivery Mechanical Ventilation Fraction of Inspired Oxygen 35 02/24/25 00:00 02/24/25 00:00 02/24/25 00:00 Temperature Pulse Rate 75 70 Respiratory Rate 25 H Blood Pressure Pulse Oximetry 98 Oxygen Delivery Mechanical Ventilation Fraction of Inspired Oxygen 35 35 02/24/25 01:00 02/24/25 02:00 02/24/25 02:00 Temperature 37.2 C Pulse Rate 64 71 82 Respiratory Rate 24 H 23 H Blood Pressure 143/58 H 153/60 H Pulse Oximetry 98 98 Oxygen Delivery Fraction of Inspired Oxygen 02/24/25 03:00 02/24/25 03:16 02/24/25 03:45 Temperature Pulse Rate 79 77 86 Respiratory Rate 25 H 25 H Blood Pressure 151/60 H Pulse Oximetry 98 97 97 Oxygen Delivery Mechanical Ventilation Mechanical Ventilation Fraction of Inspired Oxygen 35 35 02/24/25 04:00 02/24/25 04:00 02/24/25 04:00 Temperature 37.1 C Pulse Rate 84 81 Respiratory Rate 28 H Blood Pressure 157/72 H Pulse Oximetry 98 Oxygen Delivery Fraction of Inspired Oxygen 35 02/24/25 04:50 02/24/25 05:00 02/24/25 06:00 Temperature Pulse Rate 92 92 83 Respiratory Rate 24 H Blood Pressure 144/83 H Pulse Oximetry 97 98 Oxygen Delivery Mechanical Ventilation Fraction of Inspired Oxygen 35 02/24/25 06:00 02/24/25 07:00 02/24/25 08:00 Temperature 37.1 C 37.8 C H Pulse Rate 83 84 85 Respiratory Rate 24 H 32 H 30 H Blood Pressure 169/67 H 157/64 H 150/64 H Pulse Oximetry 96 96 95 Oxygen Delivery Fraction of Inspired Oxygen 02/24/25 08:00 02/24/25 08:00 02/24/25 09:00 Temperature Pulse Rate 95 Respiratory Rate 20 Blood Pressure 146/58 H Pulse Oximetry 94 Oxygen Delivery Mechanical Ventilation Fraction of Inspired Oxygen 35 35 02/24/25 09:01 Temperature Pulse Rate 93 Respiratory Rate Blood Pressure Pulse Oximetry 95 Oxygen Delivery Mechanical Ventilation Fraction of Inspired Oxygen 35 Intake/Output Intake/Output: Intake & Output 02/21/25 02/22/25 02/23/25 02/24/25 23:59 23:59 23:59 23:59 Intake Total 4411.3 6965 598 7128 Output Total 3400 1650 2550 1650 Balance 1011.3 60 1730 260 Meds/Results Medications: Active Medications Generic Name Dose Route Start Last Admin Trade Name Freq PRN Reason Stop Dose Admin Acetaminophen 650 mg 02/20/25 10:42 Acetaminophen Elixir 325 Mg/10.15 Ml Udc FEED TUBE Q4H PRN Mild Pain (1-3) or Fever Albuterol 2.5 mg 02/21/25 20:44 02/23/25 00:20 Albuterol Sulfate Neb 2.5 Mg/3 Ml Inh INHALATION 2.5 mg Q6HRT PRN Administration Shortness Of Breath Amoxicillin/Clavulanate Potassium 1 tablet 02/23/25 09:00 02/24/25 09:01 Amoxicillin/Clavulanate K 875-125 Mg Tab FEED TUBE 02/27/25 23:59 1 tablet Q12HR IMTIAZ Administration Aspirin 325 mg 02/21/25 08:00 02/24/25 09:01 Aspirin 325 Mg Tablet FEED TUBE 325 mg DAILY@0800 IMTIAZ Administration Dextrose 12.5 gm 02/20/25 11:00 Dextrose 50% 25 Gm/50 Ml Syringe IV PUSH PRN PRN Hypoglycemia Protocol Donepezil HCl 5 mg 02/20/25 21:00 02/23/25 19:54 Donepezil Hcl 5 Mg Tablet FEED TUBE 5 mg HS IMTIAZ Administration Enoxaparin Sodium 40 mg 02/23/25 09:00 02/24/25 09:02 Enoxaparin 40 Mg/0.4 Ml Syringe SUB-Q 40 mg DAILY IMTIAZ Administration Glucagon 1 mg 02/20/25 11:00 Glucagon For Inj 1 Mg Vial IM PRN PRN Hypoglycemia Protocol Glucose 15 gm 02/20/25 11:00 Glucose Oral Gel 15 Gm Of Glucse In 37.5 Gm Tube PO PRN PRN Hypoglycemia Protocol Dextrose 1,000 mls @ 100 mls/hr 02/20/25 11:00 Dextrose 5% 1,000 Ml IVPB PRN PRN Hypoglycemia Protocol Dextrose 500 mls @ 100 mls/hr 02/24/25 07:45 02/24/25 09:02 Dextrose 5% In Water IV CONT 02/24/25 12:44 100 mls/hr .Q5H IMTIAZ Administration Insulin Aspart 3 - 6 units 02/20/25 12:00 02/24/25 05:39 Insulin Aspart (*Bkc) 100 Units/Ml SUB-Q Not Given Q6HR IMTIAZ Protocol Morphine Sulfate 2 mg 02/20/25 10:39 Morphine Sulfate (*Crx) 4 Mg/Ml Inj IV PUSH Q2H PRN Pain Rated 7-10 Vitamin A&D Ointment 1 each 02/21/25 14:15 02/21/25 20:56 (Home Med) TOPICAL 03/23/25 14:14 1 each PRN PRN Administration to affected areas Pantoprazole Sodium 40 mg 02/21/25 09:00 02/24/25 09:02 Pantoprazole Sodium Iv 40 Mg Vial IV PUSH 40 mg QAM IMTIAZ Administration Potassium Phos/Sodium Phos 1 packet 02/24/25 09:00 Potassium/Phosphorus/Sodium 1.5 Gm Packet FEED TUBE 02/25/25 17:01 BID [facility] Prednisone 40 mg 02/23/25 08:00 02/24/25 09:02 Prednisone 20 Mg Tablet PO 02/25/25 08:01 40 mg DAILY@0800 IMTIAZ Administration Prednisone 30 mg 02/26/25 08:00 Prednisone 10 Mg Tablet PO 02/28/25 08:01 DAILY@0800 [facility] Prednisone 20 mg 03/01/25 08:00 Prednisone 20 Mg Tablet PO 03/03/25 08:01 DAILY@0800 [facility] Prednisone 10 mg 03/04/25 08:00 Prednisone 10 Mg Tablet PO 03/06/25 08:01 DAILY@0800 [facility] Promethazine HCl 12.5 mg 02/20/25 10:39 Promethazine Hcl 25 Mg/Ml Ampul IV PUSH Q6H PRN Nausea Rosuvastatin Calcium 20 mg 02/21/25 09:00 02/24/25 09:01 Rosuvastatin 20 Mg Tablet FEED TUBE 20 mg QAM [facility] Administration Radiology Results: ITS Impressions Chest/Abdomen/Pelvis CT 02/20/25 11:24 IMPRESSION: 1. Right lower lobe pneumonia. 2. New 6 mm nodule in right lung middle lobe, probably benign. Consider noncontrast low-dose chest CT in 6 months. 3. 11 mm nodule in left lung upper lobe, stable from 12/16/2023, likely benign. 4. Small pericardial effusion. 5. Moderate emphysema. 6. 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 Chest X-Ray 02/24/25 08:49 IMPRESSION: No acute findings. Labs Labs: Laboratory Results - last 24 hr 02/23/25 02/23/25 02/23/25 11:40 17:46 23:17 WBC RBC Hgb Hct MCV MCH MCHC RDW Plt Count MPV Immature Gran % (Auto) Neut % (Auto) Lymph % (Auto) Alexander % (Auto) Eos % (Auto) Baso % (Auto) Lymph # (Auto) Alexander # (Auto) Eos # (Auto) Baso # (Auto) Abs Immat Gran (auto) Absolute Neuts (auto) Absolute Nucleated RBC Nucleated RBC % Puncture Site ABG pH ABG pCO2 ABG pO2 ABG PO2/FiO2 Ratio ABG HCO3 ABG O2 Saturation ABG O2 Content ABG Base Excess A-a Gradient Oxyhemoglobin Carboxyhemoglobin Methemoglobin Reduced Hemoglobin Total Hemoglobin O2 Delivery Device O2 Liters/Min Minute Volume Vent Rate Vent Mode FiO2 Tidal Volume PEEP Peak Inspir Pressure Pressure Support Sodium Potassium Chloride Carbon Dioxide Anion Gap BUN Creatinine Estim Creat Clear Calc Estimated GFR Glucose POC Capillary Glucose 184 H 214 H 144 H Calcium Phosphorus Magnesium Total Bilirubin AST ALT Alkaline Phosphatase Total Protein Albumin 02/24/25 02/24/25 04:00 04:33 WBC 11.4 H RBC 3.19 L Hgb 8.9 L Hct 29.6 L MCV 92.8 MCH 27.9 MCHC 30.1 L RDW 19.0 H Plt Count 301 MPV 9.1 Immature Gran % (Auto) 0.6 H Neut % (Auto) 80.2 H Lymph % (Auto) 8.7 L Alexander % (Auto) 10.1 H Eos % (Auto) 0.1 Baso % (Auto) 0.3 Lymph # (Auto) 1.00 Alexander # (Auto) 1.2 H Eos # (Auto) 0.0 Baso # (Auto) 0.0 Abs Immat Gran (auto) 0.07 H Absolute Neuts (auto) 9.2 H Absolute Nucleated RBC 0.030 H Nucleated RBC % 0.3 H Puncture Site Right radial ABG pH 7.444 ABG pCO2 62.5 H* ABG pO2 87.9 ABG PO2/FiO2 Ratio 2.51 ABG HCO3 41.9 H ABG O2 Saturation 96.7 ABG O2 Content 13.6 L ABG Base Excess 15.5 A-a Gradient 89.0 Oxyhemoglobin 96.2 Carboxyhemoglobin 0.6 Methemoglobin 0.1 Reduced Hemoglobin 3.1 Total Hemoglobin 10.0 L O2 Delivery Device Ventilator O2 Liters/Min Not Reportable Minute Volume Not Reportable Vent Rate 8 Vent Mode Simv FiO2 35 Tidal Volume 300 PEEP 5 Peak Inspir Pressure Not Reportable Pressure Support 8 Sodium 153 H Potassium 4.1 Chloride 106 Carbon Dioxide > 40 H Anion Gap BUN 55 H Creatinine 1.12 H Estim Creat Clear Calc 37 Estimated GFR 47 L Glucose 117 H POC Capillary Glucose Calcium 11.4 H Phosphorus 1.8 L Magnesium 2.6 H Total Bilirubin 0.4 AST 138 H ALT 135 H Alkaline Phosphatase 106 Total Protein 8.8 H Albumin 4.7 Quality VTE Prophylaxis VTE prophylaxis: pharmacologic ordered
--- NOTE | 2025-02-24 10:52 | PCFNICU ---
ICU Rounding Note: Pt current nutrition is Nepro 240 ml q 4 hours. Last recorded weight is 82.7 kg, down from 86 kcal on admit. Bowel Motility: Last reported BM 02/24 Labs Reviewed: BUN 55, Cr 1.12, Glu 117, Na 153 Meds Noted: Prednisone, Protonix, NovoLog Skin: WNL Additional Notes: Patient current with Trach, breathing trial today. Patient continues to tolerate Bolus tube feedings of Nepro 240 ml q 4 hours. Total Nutrition: 2592 kcal/117 gm protein/1047 ml water. Flush 200 ml q 4 hours. Agree with diet orders. Following daily in ICU rounds. Monitoring labs, vitals, weights, output, meds, tube feeding tolerance Follow up Friday/Friday, daily rounds.
--- NOTE | 2025-02-24 14:36 | PC.NURSE ---
PEG tube replaced at bedside with Dr. Oquendo. Balloon inflated with 8cc. drain gauze replaced. Tube feeing restarted per orders. Patient tolerated procedure well.
--- NOTE | 2025-02-24 14:58 | WPDGICN ---
Assessment and Plan Assessment and plan (1) G tube feedings: Code(s): Z93.1 - Gastrostomy status Status: Acute Assessment and Plan: Consult obtained for gastrostomy tube replacement. Existing tube removed without difficulty and new gastrostomy feeding tube 18 [place] was placed. GI Consult Note Consult date/time: 02/24/25 14:58 HPI: Nicole Cuevas is a 79 year old female [facility] Past Medical History Medical History Occult blood in stools Aphasia as late effect of cerebrovascular accident Acute on chronic anemia Gastrostomy complication Gastrostomy tube replacement 04/04/2023 Cholecystectomy planned 01/16/2023 Tracheitis 09/04 Alzheimer's dementia A&O x0 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 03/2017 Cerebrovascular accident (CVA) CAD (coronary artery disease) HLD (hyperlipidemia) COPD (chronic obstructive pulmonary disease) HTN (hypertension) Surgical History Surgical History Hx of exploratory laparotomy ROULA Gastrostomy Hx of esophagogastroduodenoscopy w/ Peg placement 01/20/23 H/O tracheostomy 03/2023 Family History Family History Mother Alzheimer dementia Social History Social History Smoking status: Never smoker Tobacco type: cigarettes Second hand tobacco smoke exposure: No Additional smoking assessment comments: unknown amount/length of time patient smoked Alcohol intake: never Substance use: never Substance use type: does not use Spiritual care concerns: No Meds Home Medications and Allergies Home Medications ?Medication ?Instructions ?Recorded ?Confirmed ?Type aspirin 81 mg chewable tablet 81 mg feeding tube DAILY 09/11/23 02/20/25 History donepezil 5 mg tablet 5 mg feeding tube HS 60 days #60 10/27/23 02/20/25 Rx tabs lansoprazole 30 mg delayed 30 mg feeding tube DAILY 60 days 10/27/23 02/20/25 Rx release,disintegrating tablet #60 tabs albuterol sulfate 2.5 mg/3 mL 2.5 mg (3 mL) inhalation Q4H PRN 07/09/24 11/02/25 Rx (0.083 %) solution for nebulization shortness of breath or wheezing 30 days #75 mL amlodipine 5 mg tablet 5 mg feeding tube DAILY 60 days 12/18/23 02/20/25 Rx #60 tabs arformoterol 15 mcg/2 mL solution 15 mcg inhalation Q12H 02/20/25 02/20/25 History for nebulization budesonide 1 mg/2 mL suspension 1 mg inhalation Q12H 02/20/25 02/20/25 History for nebulization cholecalciferol (vitamin D3) 50 2,000 unit PO DAILY 02/20/25 02/20/25 History mcg (2,000 unit) capsule (D3-1999) ferrous sulfate 325 mg (65 mg 325 mg feeding tube .twice daily 02/20/25 02/20/25 History iron) tablet (FeroSul) loratadine 5 mg/5 mL oral solution 10 ml PO DAILY 02/20/25 02/20/25 History (Claritin) rosuvastatin 20 mg tablet 20 mg feeding tube DAILY 02/20/25 02/20/25 History Allergies Allergy/AdvReac Type Severity Reaction Status Date / Time iodine Allergy Hives Verified 02/20/25 12:53 latex Allergy Hives Verified 02/20/25 12:53 Vital Signs Vital Signs - 24 hr 02/23/25 15:00 02/23/25 15:29 02/23/25 15:44 Temperature Pulse Rate 70 Respiratory Rate 22 H Blood Pressure 150/60 H Pulse Oximetry 98 Oxygen Delivery Mechanical Ventilation Fraction of Inspired Oxygen 35 35 02/23/25 15:46 02/23/25 16:00 02/23/25 17:00 Temperature 99 F Pulse Rate 72 74 98 Respiratory Rate 25 H 34 H Blood Pressure 151/59 H 146/60 H Pulse Oximetry 97 96 Oxygen Delivery Fraction of Inspired Oxygen 02/23/25 17:34 02/23/25 17:55 02/23/25 18:00 Temperature Pulse Rate 75 89 90 Respiratory Rate 30 H Blood Pressure 155/129 H Pulse Oximetry 98 97 Oxygen Delivery Mechanical Ventilation Fraction of Inspired Oxygen 35 02/23/25 18:30 02/23/25 18:31 02/23/25 18:45 Temperature Pulse Rate 92 93 87 Respiratory Rate 31 H 29 H 31 H Blood Pressure 157/79 H Pulse Oximetry 97 93 97 Oxygen Delivery Fraction of Inspired Oxygen 02/23/25 18:47 02/23/25 19:00 02/23/25 19:00 Temperature Pulse Rate 87 93 79 Respiratory Rate 31 H 31 H 21 H Blood Pressure 139/67 143/61 H Pulse Oximetry 97 97 97 Oxygen Delivery Fraction of Inspired Oxygen 02/23/25 19:01 02/23/25 19:15 02/23/25 19:16 Temperature Pulse Rate 81 77 80 Respiratory Rate 25 H 21 H 21 H Blood Pressure 142/60 H 143/61 H Pulse Oximetry 94 97 95 Oxygen Delivery Fraction of Inspired Oxygen 02/23/25 19:30 02/23/25 19:31 02/23/25 19:45 Temperature Pulse Rate 89 92 81 Respiratory Rate 29 H 31 H 22 H Blood Pressure 159/66 H Pulse Oximetry 97 95 97 Oxygen Delivery Fraction of Inspired Oxygen 02/23/25 19:50 02/23/25 20:00 02/23/25 20:00 Temperature 98.5 F Pulse Rate 105 H 105 H Respiratory Rate 28 H 28 H Blood Pressure 190/75 H Pulse Oximetry 100 100 Oxygen Delivery Mechanical Ventilation Fraction of Inspired Oxygen 35 35 02/23/25 20:00 02/23/25 20:00 02/23/25 20:01 Temperature Pulse Rate 89 133 H 114 H Respiratory Rate 35 H 26 H Blood Pressure 199/159 H Pulse Oximetry 90 100 Oxygen Delivery Fraction of Inspired Oxygen 02/23/25 20:03 02/23/25 20:15 02/23/25 20:23 Temperature Pulse Rate 97 95 94 Respiratory Rate 24 H 30 H Blood Pressure 190/75 H Pulse Oximetry 100 97 97 Oxygen Delivery Mechanical Ventilation Fraction of Inspired Oxygen 35 02/23/25 20:23 02/23/25 21:00 02/23/25 21:29 Temperature Pulse Rate 94 77 76 Respiratory Rate 22 H 21 H 20 Blood Pressure 150/61 H Pulse Oximetry 97 96 96 Oxygen Delivery Mechanical Ventilation Fraction of Inspired Oxygen 35 02/23/25 21:34 02/23/25 21:57 02/23/25 22:00 Temperature Pulse Rate 72 72 70 Respiratory Rate 20 20 Blood Pressure Pulse Oximetry 96 97 Oxygen Delivery Fraction of Inspired Oxygen 02/23/25 22:00 02/23/25 22:17 02/23/25 23:00 Temperature Pulse Rate 72 74 93 Respiratory Rate 19 22 H 26 H Blood Pressure 153/64 H 151/61 H Pulse Oximetry 96 96 97 Oxygen Delivery Fraction of Inspired Oxygen 02/23/25 23:15 02/24/25 00:00 02/24/25 00:00 Temperature 99.1 F Pulse Rate 86 80 Respiratory Rate 25 H Blood Pressure 142/57 H Pulse Oximetry 97 98 Oxygen Delivery Mechanical Ventilation Fraction of Inspired Oxygen 35 35 02/24/25 00:00 02/24/25 00:00 02/24/25 01:00 Temperature Pulse Rate 75 70 64 Respiratory Rate 25 H 24 H Blood Pressure 143/58 H Pulse Oximetry 98 98 Oxygen Delivery Mechanical Ventilation Fraction of Inspired Oxygen 35 02/24/25 02:00 02/24/25 02:00 02/24/25 02:01 Temperature 98.9 F Pulse Rate 71 82 74 Respiratory Rate 23 H 29 H Blood Pressure 153/60 H 153/60 H Pulse Oximetry 98 98 Oxygen Delivery Fraction of Inspired Oxygen 02/24/25 02:02 02/24/25 02:15 02/24/25 02:30 Temperature Pulse Rate 73 74 83 Respiratory Rate 30 H 22 H 33 H Blood Pressure 147/77 H Pulse Oximetry 97 97 93 Oxygen Delivery Fraction of Inspired Oxygen 02/24/25 02:31 02/24/25 02:45 02/24/25 03:00 Temperature Pulse Rate 85 71 79 Respiratory Rate 33 H 22 H 25 H Blood Pressure 151/60 H Pulse Oximetry 98 97 98 Oxygen Delivery Fraction of Inspired Oxygen 02/24/25 03:00 02/24/25 03:01 02/24/25 03:15 Temperature Pulse Rate 75 73 82 Respiratory Rate 30 H 22 H 28 H Blood Pressure 151/60 H Pulse Oximetry 92 97 97 Oxygen Delivery Fraction of Inspired Oxygen 02/24/25 03:16 02/24/25 03:30 02/24/25 03:31 Temperature Pulse Rate 77 85 85 Respiratory Rate 27 H 28 H Blood Pressure 149/72 H Pulse Oximetry 97 95 98 Oxygen Delivery Mechanical Ventilation Fraction of Inspired Oxygen 35 02/24/25 03:45 02/24/25 03:45 02/24/25 04:00 Temperature Pulse Rate 86 81 Respiratory Rate 25 H 27 H Blood Pressure Pulse Oximetry 97 97 Oxygen Delivery Mechanical Ventilation Fraction of Inspired Oxygen 35 35 02/24/25 04:00 02/24/25 04:00 02/24/25 04:00 Temperature 98.7 F Pulse Rate 84 81 82 Respiratory Rate 28 H 27 H Blood Pressure 157/72 H 157/72 H Pulse Oximetry 98 95 Oxygen Delivery Fraction of Inspired Oxygen 02/24/25 04:01 02/24/25 04:15 02/24/25 04:30 Temperature Pulse Rate 83 81 83 Respiratory Rate 28 H 28 H 28 H Blood Pressure 164/66 H Pulse Oximetry 97 97 92 Oxygen Delivery Fraction of Inspired Oxygen 02/24/25 04:31 02/24/25 04:45 02/24/25 04:50 Temperature Pulse Rate 81 101 H 92 Respiratory Rate 27 H 35 H Blood Pressure Pulse Oximetry 97 96 97 Oxygen Delivery Mechanical Ventilation Fraction of Inspired Oxygen 35 02/24/25 05:00 02/24/25 05:00 02/24/25 05:15 Temperature Pulse Rate 92 97 92 Respiratory Rate 24 H 32 H 26 H Blood Pressure 144/83 H Pulse Oximetry 98 98 98 Oxygen Delivery Fraction of Inspired Oxygen 02/24/25 05:19 02/24/25 05:30 02/24/25 05:31 Temperature Pulse Rate 92 93 91 Respiratory Rate 34 H 29 H 32 H Blood Pressure 144/83 H 159/75 H Pulse Oximetry 98 97 97 Oxygen Delivery Fraction of Inspired Oxygen 02/24/25 05:45 02/24/25 06:00 02/24/25 06:00 Temperature 98.8 F Pulse Rate 82 83 83 Respiratory Rate 26 H 24 H Blood Pressure 169/67 H Pulse Oximetry 97 96 Oxygen Delivery Fraction of Inspired Oxygen 02/24/25 06:00 02/24/25 06:01 02/24/25 06:15 Temperature Pulse Rate 82 83 83 Respiratory Rate 29 H 29 H 29 H Blood Pressure 169/67 H Pulse Oximetry 92 96 97 Oxygen Delivery Fraction of Inspired Oxygen 02/24/25 06:30 02/24/25 06:31 02/24/25 07:00 Temperature Pulse Rate 78 78 84 Respiratory Rate 19 26 H 32 H Blood Pressure 141/63 H 157/64 H Pulse Oximetry 93 98 96 Oxygen Delivery Fraction of Inspired Oxygen 02/24/25 08:00 02/24/25 08:00 02/24/25 08:00 Temperature 100.1 F H Pulse Rate 85 Respiratory Rate 30 H Blood Pressure 150/64 H Pulse Oximetry 95 Oxygen Delivery Mechanical Ventilation Fraction of Inspired Oxygen 35 35 02/24/25 08:00 02/24/25 08:26 02/24/25 09:00 Temperature Pulse Rate 86 102 H 95 Respiratory Rate 31 H 20 Blood Pressure 146/58 H Pulse Oximetry 96 94 Oxygen Delivery Fraction of Inspired Oxygen 02/24/25 09:01 02/24/25 10:00 02/24/25 10:04 Temperature Pulse Rate 93 91 91 Respiratory Rate 13 Blood Pressure 129/59 L Pulse Oximetry 95 96 Oxygen Delivery Mechanical Ventilation Fraction of Inspired Oxygen 35 02/24/25 11:00 02/24/25 11:46 02/24/25 12:00 Temperature 99.9 F H Pulse Rate 87 76 85 Respiratory Rate 19 21 H Blood Pressure 150/73 H Pulse Oximetry 96 97 96 Oxygen Delivery Mechanical Ventilation Fraction of Inspired Oxygen 35 02/24/25 12:00 02/24/25 12:00 02/24/25 12:00 Temperature Pulse Rate 93 Respiratory Rate Blood Pressure Pulse Oximetry Oxygen Delivery Mechanical Ventilation Fraction of Inspired Oxygen 35 35 02/24/25 13:00 02/24/25 14:00 02/24/25 14:00 Temperature Pulse Rate 92 88 89 Respiratory Rate 21 H 26 H Blood Pressure 149/69 H 155/69 H Pulse Oximetry 96 Oxygen Delivery Fraction of Inspired Oxygen 02/24/25 14:29 Temperature Pulse Rate 90 Respiratory Rate Blood Pressure Pulse Oximetry 96 Oxygen Delivery Mechanical Ventilation Fraction of Inspired Oxygen 35 Results Labs 02/24/25 04:00 02/24/25 04:00 Labs: Short CBC 02/24/25 Range/Units 04:00 WBC 11.4 H (4.5-10.0) K/mm3 Hgb 8.9 L (12.0-15.0) g/dL Hct 29.6 L (37.0-47.0) % Plt Count 301 (150-375) k/mm3 BMP 02/24/25 04:00 Sodium 153 H Potassium 4.1 Chloride 106 Carbon Dioxide > 40 H BUN 55 H Creatinine 1.12 H Glucose 117 H Calcium 11.4 H Liver Function 02/24/25 Range/Units 04:00 Total Bilirubin 0.4 (0.2-1.3) mg/dL AST 138 H (14-36) U/L ALT 135 H (6-35) U/L Alkaline Phosphatase 106 (38-126) U/L Albumin 4.7 (3.5-5.1) g/dL
[2025-02-24 15:49] LABS: Anion Gap 8 mmol/L (4-12); Blood Urea Nitrogen 60 mg/dL (7-17); Calcium 11.0 mg/dL (8.4-10.2); Carbon Dioxide 38 mmol/L (22-30); Chloride 104 mmol/L (98-107); Estimated CRCL calculation 37 ml/min; Estimated Glomerular Filt Rate 46; Glucose 210 mg/dL (65-110); Potassium 4.4 mmol/L (3.4-5.0); Sodium 150 mmol/L (137-145)
--- NOTE | 2025-02-24 18:26 | PCRCNOTE ---
Pt placed back on SIMV mode approx. 1600 due to pt increased WOB.
[2025-02-24] MEDS: DONEPEZIL HCL 5 MG TABLET FEED TUBE (21:28)
[2025-02-25] VITALS (34 sets, daily range): BP systolic 118–179; BP diastolic 54–115; PULSE 76–102; RESP 18–33; TEMP 36.8–37.7; O2SAT 80–99
[2025-02-25 04:10] LABS: Hematocrit 31.5 % (37.0-47.0); Hemoglobin 9.3 g/dL (12.0-15.0); Immature Granulocyte Percent A 0.5 % (0-0.5); Lymphocytes Absolute Auto 1.21 K/mm3 (0.9-3.2); Mean Corpuscular HGB Conc 29.5 g/dl (32-36); Mean Corpuscular Hemoglobin 27.4 pg (26-34); Mean Corpuscular Volume 92.9 fl (80-100); Nucleated Red Blood Cells Absolute Auto 0.020 K/mm3 (0.0-0.012); Nucleated Red Blood Cells Perc 0.1 % (0.0-0.2); Platelet Count Result 312 k/mm3 (150-375); Red Blood Count 3.39 M/mm3 (4.2-5.4); White Blood Count 13.8 K/mm3 (4.5-10.0)
[2025-02-25 04:30] LABS: Alanine Aminotransferase 192 U/L (6-35); Albumin Level 4.5 g/dL (3.5-5.1); Alkaline Phosphatase 100 U/L (38-126); Aspartate Amino Transferase 201 U/L (14-36); Bilirubin,Total 0.3 mg/dL (0.2-1.3); Blood Urea Nitrogen 66 mg/dL (7-17); Calcium 11.0 mg/dL (8.4-10.2); Chloride 104 mmol/L (98-107); Estimated CRCL calculation 34 ml/min; Estimated Glomerular Filt Rate 43; Glucose 142 mg/dL (65-110); Magnesium 2.5 mg/dL (1.6-2.3); Potassium 4.0 mmol/L (3.4-5.0); Sodium 154 mmol/L (137-145); Total Protein 8.6 g/dL (6.3-8.2)
[2025-02-25 04:32] LABS: Carbon Dioxide > 40 mmol/L (22-30); Hypochromasia 1+; Microcytosis 1+ (NORMAL); Schistocytes None Seen
[2025-02-25 04:33] LABS: Target Cells Occasional
[2025-02-25 05:52] LABS: Alveolar/Arterial O2 Gradient 102.6 mmHg; Carboxyhemoglobin 0.9 % THb (0-2.0); Fractional Inspired Oxygen 35 %; HCO3 ABG 39.6 mEq/l (22.0-26.0); Methemoglobin ABG 0.3 %THb (0-1.5); Oxygen Content ABG 14.3 %vol (16.0-22.0); Oxygen Saturation ABG 96.3 % (95.0-100.0); PCO2 ABG 56.5 mmHg (35.0-45.0); PO2 ABG 81.3 mmHg (80.0-100.0); PO2 FiO2 Ratio Arterial Blood 2.32 %; Reduced Hemoglobin 3.6 %THb (0-5.0)
[2025-02-25 05:53] LABS: Site Drawn RIGHT RADIAL
[2025-02-25 05:54] LABS: Arterial Blood Gas Pressure Support 8 cmH2O; Arterial Blood Gas Tidal Volume 300 ml; Arterial Blood Gas Ventilator rate 8 /MIN
[2025-02-25] MEDS: ASPIRIN 325 MG TABLET FEED TUBE (08:32)
[2025-02-25] MEDS: ROSUVASTATIN 20 MG TABLET FEED TUBE (08:33)
[2025-02-25] MEDS: POTASSIUM/PHOSPHORUS/SODIUM 1.5 GM PACKET 1 PACKET FEED TUBE ×2 (08:33→17:30)
[2025-02-25] MEDS: PANTOPRAZOLE SODIUM IV 40 MG VIAL IV PUSH (08:33)
[2025-02-25] MEDS: ENOXAPARIN 40 MG/0.4 ML SYRINGE SUB-Q (08:33)
--- NOTE | 2025-02-25 09:10 | P.CONNP_ITS ---
Assessment and Plan Assessment and plan (1) Hypernatremia: Code(s): E87.0 - Hyperosmolality and hypernatremia Status: Acute Assessment and Plan: * as noted since 02/23 * suspect due to free water deficit and volume depletion * possible insensible losses from being on ventilator * reasonable urine output but not excessive to suspect polyuria * agree with trial of D5W IVFs -- total of 500cc now and may need to repeat * will increase free water flushes to 250cc every 4 hours * if persistent, will consider further evaluatlon (to r/o DI) * follow trend of repeat sodium levels (2) Hypercalcemia: Code(s): E83.52 - Hypercalcemia Status: Chronic Assessment and Plan: * has been on the higher side of normal for the las year if not longer (chronic) * baseline calcium runs around 10 - 11 range * suspect partly due to bed bound status and immobilized state possibly complicated by relative dehydration * improvement noted with IVF hydration * follow trend with further IVFs and increased free water tube flushes * if persists or worsens, consider hypercalcemia evaluation... (3) Acute kidney injury: Code(s): N17.9 - Acute kidney failure, unspecified Status: Acute Assessment and Plan: * creatinine fluctuating since admission * may have some degree of renal insufficiency * due to prerenal factors and acute infection (pneumonia) * follow trend with trial of IVFs and increased free water flushes * follow trend of repeat labs and UOP (4) Acute on chronic respiratory failure: Qualifiers: Respiratory failure complication: unspecified whether with hypoxia or hypercapnia Qualified Code(s): J96.20 - Acute and chronic respiratory failure, unspecified whether with hypoxia or hypercapnia Code(s): J96.20 - Acute and chronic respiratory failure, unspecified whether with hypoxia or hypercapnia Status: Acute Assessment and Plan: * as noted on presentation * complicated by hypoxia and hypercarbia and pneumonia * known history of COPD as well * on mechanical ventilation via tracheostomy * on bronchodilators, steroids, and antibiotics * ventilator weaning ongoing (5) HTN (hypertension): Qualifiers: Hypertension type: primary hypertension Qualified Code(s): I10 - Essential (primary) hypertension Code(s): I10 - Essential (primary) hypertension Status: Acute Assessment and Plan: * noted by history * reasonable control at this time * follow trend of hemodynamics I will continue to follow the patient with you while she remains hospitalized and make further recommendations as deemed necessary. Thank you for allowing me to participate in the care of this patient. L History of Present Illness Reason for Consult Consult date: 02/25/25 Reason for consult: hypernatremia Chief Complaint Chief complaint: respiratory failure, pneumonia History of Present Illness Narrative: The patient is an 79-year-old female with extensive past medical history as outlined below who presented to [facility] Emergency Room with this worsening shortness of breath/respiratory distress. According to the patient's family, they noted on the day of admission that the patient had increased being secretions from her tracheostomy in association with increased work of breathing. This is further complicated by the fact that they have also noted intermittent swelling of her tongue over last few weeks which they attributed to a possible drug reaction to Mari 0.0 attic stimulating agent injections. Due to her worsening respiratory status, EMS was called and she was subsequently transported to the emergency room for further assessment. It should be noted that the patient's care is done by her daughters at home given her previous acute CVA and subsequent need for a chronic tracheostomy and G-tube placement. At baseline, the patient is nonverbal/ noncommunicative. Work-up and evaluation in the ER noted The patient to be hemodynamically stable but tachycardic and tachypneic with evidence of hypoxia despite being on 8 L via trach collar. Routine labs were significant for a white blood cell count of 18.4, relative anemia, sodium 134, bicarb 35, BUN 74, creatinine 1.51, glucose 25, calcium 10.7, the AST 51, alk-phos 136, BNP 407 mildly elevated troponins, an ABG with a pH is 7.37, pCO2 of 70.5 and PO2 116. Her urinalysis was significant for 2+ protein, 2+ blood, 11-20 red blood cells, 6-10 white blood cells, and 1+ bacteria. 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 Given her respiratory issues, she was connected to the ventilator via her tracheostomy and initiated on IV fluids as well as antibiotics after appropriate cultures were obtained. She was subsequently admitted to the ICU for further evaluation therapy. Since her admission, her renal function seems to stabilized if not improved but she has been developing worsening hypercalcemia and hypernatremia over last few days Despite ongoing free water flushes and IV fluids. Renal consultation was requested due to her acute hypernatremia and hypercalcemia. As noted by her admission labs, her sodium level was actually on the lower side of normal although her calcium was a bit on the higher side of normal. despite administration of D5W IV fluids yesterday, her sodium level continues to of worsen the. Is difficult to say if she has had any neurological sequelae related to her electrolyte abnormalities given her acute CVA and nonverbal/ noncommunicative status. However, as far as nursing is as informing, her mental status/neurological status seems to be about the same as what it was on admission. She continues to make fairly good urine output and has had no significant fevers prior to or during this acute hospitalization. Currently, at the time my evaluation, she is on mechanical ventilation via her tracheostomy and appears in no apparent distress. Review of Systems 2 Review of Systems: As per HPI. [facility] Past Medical History Medical History Occult blood in stools Aphasia as late effect of cerebrovascular accident Acute on chronic anemia Gastrostomy complication Gastrostomy tube replacement 04/04/2023 Cholecystectomy planned 01/16/2023 Tracheitis 09/04 Alzheimer's dementia A&O x0 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 03/2017 Cerebrovascular accident (CVA) CAD (coronary artery disease) HLD (hyperlipidemia) COPD (chronic obstructive pulmonary disease) HTN (hypertension) Surgical History Surgical History Hx of exploratory laparotomy ROULA Gastrostomy Hx of esophagogastroduodenoscopy w/ Peg placement 01/20/23 H/O tracheostomy 03/2023 Family History Family History Mother Alzheimer dementia Social History Social History Smoking status: Never smoker Tobacco type: cigarettes Second hand tobacco smoke exposure: No Additional smoking assessment comments: unknown amount/length of time patient smoked Alcohol intake: never Substance use: never Substance use type: does not use Spiritual care concerns: No Meds Home Medications and Allergies Home Medications ?Medication ?Instructions ?Recorded ?Confirmed ?Type aspirin 81 mg chewable tablet 81 mg feeding tube DAILY 09/11/23 02/20/25 History donepezil 5 mg tablet 5 mg feeding tube HS 60 days #60 10/27/23 02/20/25 Rx tabs lansoprazole 30 mg delayed 30 mg feeding tube DAILY 60 days 10/27/23 02/20/25 Rx release,disintegrating tablet #60 tabs albuterol sulfate 2.5 mg/3 mL 2.5 mg (3 mL) inhalation Q4H PRN 10/28/23 02/20/25 Rx (0.083 %) solution for nebulization shortness of breat h or wheezing 30 days #75 mL amlodipine 5 mg tablet 5 mg feeding tube DAILY 60 d ays 12/18/23 02/20/25 Rx #60 tabs arformoterol 15 mcg/2 mL solution 15 mcg inhalation Q1 2H 02/20/25 02/20/25 History for nebulization budesonide 1 mg/2 mL suspension 1 mg inhalation Q12H 1 04/22/24 02/20/25 History for nebulization cholecalciferol (vitamin D3) 50 2,000 unit PO DAILY 02/20/25 History mcg (2,000 unit) capsule (D3-2000) ferrous sulfate 325 mg (65 mg 325 mg feeding tube .twi ce daily 02/20/25 02/20/25 History iron) tablet (FeroSul) loratadine 5 mg/5 mL oral solution 10 ml PO DAILY 06/1502/20/25 History (Claritin) rosuvastatin 20 mg tablet 20 mg feeding tube DAILY 06/1502/20/25 History Allergies Allergy/AdvReac Type Severity Reaction Status Date / Time iodine Allergy Hives Verified 02/20/25 12:53 latex Allergy Hives Verified 02/20/25 12:53 Vital Signs Vital Signs Temp Pulse Resp BP Pulse Ox O2 Del Method FiO2 02/25/25 09:00 99.8 F H 86 27 H 118/79 96 02/25/25 08:00 87 02/25/25 08:00 35 02/25/25 08:00 96 Mechanical Ventilation 35 02/25/25 08:00 99.5 F 88 27 H 125/54 L 96 02/25/25 07:46 94 98 Mechanical Ventilation 35 02/25/25 07:00 83 25 H 128/60 96 02/25/25 06:00 82 26 H 120/56 L 96 02/25/25 06:00 84 02/25/25 05:44 91 95 Mechanical Ventilation 35 02/25/25 05:00 98 24 H 141/67 H 96 02/25/25 04:00 99.6 F 96 28 H 141/67 H 99 02/25/25 04:00 86 02/25/25 04:00 35 02/25/25 04:00 84 18 96 Mechanical Ventilation 35 02/25/25 03:00 84 18 140/75 96 02/25/25 02:05 84 95 Mechanical Ventilation 35 02/25/25 02:00 100 F H 83 20 143/65 H 95 02/25/25 02:00 84 02/25/25 01:00 89 28 H 156/76 H 96 02/25/25 00:00 89 28 H 156/76 H 96 02/25/25 00:00 89 02/25/25 00:00 82 25 H 95 Mechanical Ventilation 35 02/25/25 00:00 35 02/24/25 23:05 82 95 Mechanical Ventilation 35 02/24/25 23:00 99 F 83 25 H 152/66 H 95 02/24/25 22:00 75 26 H 135/60 96 02/24/25 22:00 80 02/24/25 21:00 98.9 F 77 26 H 139/64 96 02/24/25 20:00 77 26 H 146/60 H 97 02/24/25 20:00 77 02/24/25 20:00 35 02/24/25 20:00 97 Mechanical Ventilation 35 02/24/25 19:25 77 97 Mechanical Ventilation 35 Exam 2 Narrative: GENERAL APPEARANCE: elderly female on mechanical ventilation via tracheostomy HEENT: normocephalic, atraumatic, normal conjunctiva and sclera, nares patient NECK: no lymphadenopathy, thyromegaly, or JVD MOUTH: normal lips, teeth, and gums CARDIOVASCULAR: RRR, normal S1 and S2, no rub detected RESPIRATORY: coarse breath sounds with occassional wheezes ABDOMEN: soft, nontender, nondistended, positive bowel sounds present; + G-tube EXTREMITIES: no evidence of cyanosis, clubbing, or edema; + contractures NEUROLOGICAL: nonverbal/non-communicative at baseline Results Lab Results 02/26/25 04:41 02/26/25 04:41 Lab results: Most recent lab results ABG pH 7.464 (7.350-7.450) H 02/25/25 05:23 ABG pCO2 56.5 mmHg (35.0-45.0) H 02/25/25 05:23 ABG pO2 81.3 mmHg (80.0-100.0) 02/25/25 05:23 ABG HCO3 39.6 mEq/l (22.0-26.0) H 02/25/25 05:23 ABG O2 Saturation 96.3 % (95.0-100.0) 02/25/25 05:23 Calcium 11.0 mg/dL (8.4-10.2) H 02/25/25 04:06 Phosphorus 2.2 mg/dL (2.5-4.5) L 02/25/25 04:06 Magnesium 2.5 mg/dL (1.6-2.3) H 02/25/25 04:06 Urine Creatinine 62.9 mg/dL 02/25/25 09:31
--- NOTE | 2025-02-25 09:32 | WPDINTPN ---
Progress Note: A&P Assessment and Plan (1) Acute on chronic respiratory failure: Qualifiers: Respiratory failure complication: unspecified whether with hypoxia or hypercapnia Qualified Code(s): J96.20 - Acute and chronic respiratory failure, unspecified whether with hypoxia or hypercapnia Code(s): J96.20 - Acute and chronic respiratory failure, unspecified whether with hypoxia or hypercapnia Status: Acute Assessment and Plan: Acute on chronic respiratory failure with hypoxia and hypercarbia in a patient who has history of COPD, chronic tracheostomy and is on 8 L oxygen by mask and now has a right lower lobe pneumonia 02/20 Tracheostomy was changed to a cuffed tracheostomy tube in the ER Patient is now on the mechanical ventilation with SIMV FiO2 is down to 35% 02/21 tolerated PSV 15/5 for many hours. 02/22 patient tolerated PSV 20/8 for adequate RSBI. She was switched back to SIMV at night 02/23 change SIMV settings and decrease rate and pressure support. Patient was tried on PSV 15/8 for many hours. She does not tolerate lowering of pressure support more than that as her tidal volumes drop in respiratory rate goes up to above 30s. 02/24 will try PSV again today. Will try to wean down pressure support if possible. Continue Bronchodilators Continue prednisone per tube taper Off IV fluids IV fluid Negative vital panel, Blood and sputum cultures are negative now Continue Augmentin. Low procalcitonin (2) COPD (chronic obstructive pulmonary disease): Qualifiers: COPD type: unspecified COPD Qualified Code(s): J44.9 - Chronic obstructive pulmonary disease, unspecified Code(s): J44.9 - Chronic obstructive pulmonary disease, unspecified Status: Acute Assessment and Plan: See above (3) Acute kidney injury: Code(s): N17.9 - Acute kidney failure, unspecified Status: Acute Assessment and Plan: Acute kidney injury with creatinine 1.5 likely secondary to sepsis hypovolemia and hypotension IV fluid bolus followed by cautious maintainIV fluids Normal CK UA reviewed Marj for accurate I&Os CT abdomen pelvis negative for any stone or obstruction Monitor intake output and electrolytes She has good urine output Creatinine stable (4) HTN (hypertension): Qualifiers: Hypertension type: primary hypertension Qualified Code(s): I10 - Essential (primary) hypertension Code(s): I10 - Essential (primary) hypertension Status: Acute Assessment and Plan: Hold amlodipine (5) Tracheostomy in place: Code(s): Z93.0 - Tracheostomy status Status: Acute Assessment and Plan: Tracheostomy was changed to a cuffed size 6 by ER (6) G tube feedings: Code(s): Z93.1 - Gastrostomy status Status: Acute Assessment and Plan: Tolerate tube feeds (7) Anemia: Qualifiers: Anemia type: unspecified type Qualified Code(s): D64.9 - Anemia, unspecified Code(s): D64.9 - Anemia, unspecified Status: Acute Assessment and Plan: History of chronic anemia. Hemoglobin appears close to baseline. Monitor (8) CHF (congestive heart failure): Qualifiers: Heart failure chronicity: unspecified Heart failure type: unspecified Qualified Code(s): I50.9 - Heart failure, unspecified Code(s): I50.9 - Heart failure, unspecified Status: Acute Assessment and Plan: Elevated BNP. Echocardiogram Summary 1. Complete two-dimensional, color flow and Doppler transthoracic echocardiogram is performed. 2. Left ventricular systolic function is hyperdynamic, estimated at >70. 3. The left ventricular diastolic function is grade I diastolic dysfunction. 4. There is trace tricuspid valve regurgitation. 5. Mild pulmonary hypertension, estimated pulmonary arterial systolic pressure is 38 mmHg. 6. There is mild pulmonic regurgitation Hold further IV fluid (9) Sepsis: Qualifiers: Sepsis acute organ dysfunction status: unspecified Sepsis type: sepsis due to unspecified organism Qualified Code(s): A41.9 - Sepsis, unspecified organism Code(s): A41.9 - Sepsis, unspecified organism Status: Acute Assessment and Plan: Normal lactic acid level and low procalcitonin level Off further IV fluids Negative till now sputum, blood cultures and UA Empiric antibiotics as above (10) Pericardial effusion: Code(s): I31.39 - Other pericardial effusion (noninflammatory) Status: Acute Assessment and Plan: CT scan showed pericardial effusion vent echo done and does not show any significant effusion. No intervention at this time. (11) Hypernatremia: Code(s): E87.0 - Hyperosmolality and hypernatremia Status: Acute Assessment and Plan: Will give 500 mL of D5 water Repeat BMP later today Continue free water flushes 200 q.4 hours Nephrology has been consulted, will start D5 water and recheck sodium levels (12) Electrolyte abnormality: Code(s): E87.8 - Other disorders of electrolyte and fluid balance, not elsewhere classified Status: Acute Assessment and Plan: Will replete phosphorus Plan DVT prophylaxis -Lovenox Stress ulcer prophylaxis -PPI Nutrition -continue tube feeds Code Status - Full Code Patient awaits LTAC placement now Total Critical Care Time - 33 minutes Due to a high probability of clinically significant, life threatening deterioration, the patient required my highest level of preparedness to intervene emergently and I personally spent this critical care time directly and personally managing the patient. This critical care time included obtaining a history; examining the patient; pulse oximetry; ordering and review of studies; arranging urgent treatment with development of a management plan; evaluation of patient's response to treatment; frequent reassessment; and discussions with other providers. It was exclusive of separately billable procedures and treating other patients and teaching time. Please see Assessment and Plan section and the rest of the note for further information on patient assessment and treatment This dictation may have been done utilizing a voice recognition system. Attempts have been made to correct errors. However, there may be uncorrected grammatical, spelling, and recognitions errors present. Subjective Date/time seen: 02/25/25 09:32 Interval history: Reason for consult: Acute on chronic respiratory failure, possible COPD exacerbation, acute kidney injury, hyponatremia, 02/25/2025: Patient seen and examined the ICU. Chronic tracheostomy, remains on vent on SIMV mode, not on any sedation. opens her eyes, afebrile, UO stable, tolerating tube feeds, hypernatremia Review of Systems Review of Systems: ROS unobtainable: Yes unobtainable due to endotracheal tube, unobtainable due to medical condition and unobtainable due to mental status Exam Narrative: General: Pt is awake has a tracheostomy and on mechanical ventilation Lungs/Chest: Trachea central Coarse BS B/L, bilateral occasional wheezing Cardiac: RRR. Normal S1 S2. No murmurs Circulation: Pedal pulses are intact and symmetrical. Abdomen: Decreased bowel sounds. Obese. Soft. NT. ND. Peg tube in place, scar from past surgery in the left side Extremities: No clubbing, cyanosis or edema. Warm : Mcmahan in place Neurologic: Patient has contractures and hand. She withdraws to pain all 4 extremities but does not follow any commands or respond to questions or calling her name. Eyes are open. PERRL Objective Data Vital Signs Vital Signs: Vital Signs - 24 hr 02/24/25 10:00 02/24/25 10:04 02/24/25 11:00 Temperature Pulse Rate 91 91 87 Respiratory Rate 13 19 Blood Pressure 129/59 L Pulse Oximetry 96 96 Oxygen Delivery Fraction of Inspired Oxygen 02/24/25 11:46 02/24/25 12:00 02/24/25 12:00 Temperature 99.9 F H Pulse Rate 76 85 Respiratory Rate 21 H Blood Pressure 150/73 H Pulse Oximetry 97 96 Oxygen Delivery Mechanical Ventilation Mechanical Ventilation Fraction of Inspired Oxygen 35 35 02/24/25 12:00 02/24/25 12:00 02/24/25 13:00 Temperature Pulse Rate 93 92 Respiratory Rate 21 H Blood Pressure 149/69 H Pulse Oximetry 96 Oxygen Delivery Fraction of Inspired Oxygen 35 02/24/25 14:00 02/24/25 14:00 02/24/25 14:29 Temperature Pulse Rate 88 89 90 Respiratory Rate 26 H Blood Pressure 155/69 H Pulse Oximetry 96 Oxygen Delivery Mechanical Ventilation Fraction of Inspired Oxygen 35 02/24/25 16:00 02/24/25 16:00 02/24/25 16:00 Temperature Pulse Rate 83 Respiratory Rate 19 Blood Pressure 144/67 H Pulse Oximetry 97 Oxygen Delivery Mechanical Ventilation Fraction of Inspired Oxygen 35 35 02/24/25 16:00 02/24/25 16:02 02/24/25 17:00 Temperature Pulse Rate 81 83 86 Respiratory Rate 17 Blood Pressure 139/61 Pulse Oximetry 96 96 Oxygen Delivery Mechanical Ventilation Fraction of Inspired Oxygen 35 02/24/25 18:00 02/24/25 18:00 02/24/25 19:00 Temperature Pulse Rate 90 84 85 Respiratory Rate 26 H 16 Blood Pressure 130/64 134/57 L Pulse Oximetry 95 96 Oxygen Delivery Fraction of Inspired Oxygen 02/24/25 19:25 02/24/25 20:00 02/24/25 20:00 Temperature Pulse Rate 77 Respiratory Rate Blood Pressure Pulse Oximetry 97 97 Oxygen Delivery Mechanical Ventilation Mechanical Ventilation Fraction of Inspired Oxygen 35 35 35 02/24/25 20:00 02/24/25 20:00 02/24/25 21:00 Temperature 98.9 F Pulse Rate 77 77 77 Respiratory Rate 26 H 26 H Blood Pressure 146/60 H 139/64 Pulse Oximetry 97 96 Oxygen Delivery Fraction of Inspired Oxygen 02/24/25 22:00 02/24/25 22:00 02/24/25 23:00 Temperature 99 F Pulse Rate 80 75 83 Respiratory Rate 26 H 25 H Blood Pressure 135/60 152/66 H Pulse Oximetry 96 95 Oxygen Delivery Fraction of Inspired Oxygen 02/24/25 23:05 02/25/25 00:00 02/25/25 00:00 Temperature Pulse Rate 82 82 Respiratory Rate 25 H Blood Pressure Pulse Oximetry 95 95 Oxygen Delivery Mechanical Ventilation Mechanical Ventilation Fraction of Inspired Oxygen 35 35 35 02/25/25 00:00 02/25/25 00:00 02/25/25 01:00 Temperature Pulse Rate 89 89 89 Respiratory Rate 28 H 28 H Blood Pressure 156/76 H 156/76 H Pulse Oximetry 96 96 Oxygen Delivery Fraction of Inspired Oxygen 02/25/25 02:00 02/25/25 02:00 02/25/25 02:05 Temperature 100 F H Pulse Rate 84 83 84 Respiratory Rate 20 Blood Pressure 143/65 H Pulse Oximetry 95 95 Oxygen Delivery Mechanical Ventilation Fraction of Inspired Oxygen 35 02/25/25 03:00 02/25/25 04:00 02/25/25 04:00 Temperature Pulse Rate 84 84 Respiratory Rate 18 18 Blood Pressure 140/75 Pulse Oximetry 96 96 Oxygen Delivery Mechanical Ventilation Fraction of Inspired Oxygen 35 35 02/25/25 04:00 02/25/25 04:00 02/25/25 05:00 Temperature 99.6 F Pulse Rate 86 96 98 Respiratory Rate 28 H 24 H Blood Pressure 141/67 H 141/67 H Pulse Oximetry 99 96 Oxygen Delivery Fraction of Inspired Oxygen 02/25/25 05:44 02/25/25 06:00 02/25/25 06:00 Temperature Pulse Rate 91 84 82 Respiratory Rate 26 H Blood Pressure 120/56 L Pulse Oximetry 95 96 Oxygen Delivery Mechanical Ventilation Fraction of Inspired Oxygen 35 02/25/25 07:00 02/25/25 07:46 02/25/25 08:00 Temperature 99.5 F Pulse Rate 83 94 88 Respiratory Rate 25 H 27 H Blood Pressure 128/60 125/54 L Pulse Oximetry 96 98 96 Oxygen Delivery Mechanical Ventilation Fraction of Inspired Oxygen 35 02/25/25 09:00 Temperature 99.8 F H Pulse Rate 86 Respiratory Rate 27 H Blood Pressure 118/79 Pulse Oximetry 96 Oxygen Delivery Fraction of Inspired Oxygen Intake/Output Intake/Output: Intake & Output 02/22/25 02/23/25 02/24/25 02/25/25 23:59 23:59 23:59 23:59 Intake Total 4124 519 2085 2505 Output Total 1650 2550 2650 850 Balance -60 -9093 705 8127 Meds/Results Medications: Active Medications Generic Name Dose Route Start Last Admin Trade Name Freq PRN Reason Stop Dose Admin Acetaminophen 650 mg 02/20/25 10:42 Acetaminophen Elixir 325 Mg/10.15 Ml Udc FEED TUBE Q4H PRN Mild Pain (1-3) or Fever Albuterol 2.5 mg 02/21/25 20:44 02/23/25 00:20 Albuterol Sulfate Neb 2.5 Mg/3 Ml Inh INHALATION 2.5 mg Q6HRT PRN Administration Shortness Of Breath Amoxicillin/Clavulanate Potassium 1 tablet 02/23/25 09:00 02/25/25 08:33 Amoxicillin/Clavulanate K 875-125 Mg Tab FEED TUBE 02/27/25 23:59 1 tablet Q12HR IMTIAZ Administration Aspirin 325 mg 02/21/25 08:00 02/25/25 08:32 Aspirin 325 Mg Tablet FEED TUBE 325 mg DAILY@0800 IMTIAZ Administration Dextrose 12.5 gm 02/20/25 11:00 Dextrose 50% 25 Gm/50 Ml Syringe IV PUSH PRN PRN Hypoglycemia Protocol Donepezil HCl 5 mg 02/20/25 21:00 02/24/25 21:28 Donepezil Hcl 5 Mg Tablet FEED TUBE 5 mg HS IMTIAZ Administration Enoxaparin Sodium 40 mg 02/23/25 09:00 02/25/25 08:33 Enoxaparin 40 Mg/0.4 Ml Syringe SUB-Q 40 mg DAILY IMTIAZ Administration Glucagon 1 mg 02/20/25 11:00 Glucagon For Inj 1 Mg Vial IM PRN PRN Hypoglycemia Protocol Glucose 15 gm 02/20/25 11:00 Glucose Oral Gel 15 Gm Of Glucse In 37.5 Gm Tube PO PRN PRN Hypoglycemia Protocol Dextrose 1,000 mls @ 100 mls/hr 02/20/25 11:00 Dextrose 5% 1,000 Ml IVPB PRN PRN Hypoglycemia Protocol Insulin Aspart 3 - 6 units 02/20/25 12:00 02/25/25 06:32 Insulin Aspart (*Bkc) 100 Units/Ml SUB-Q Not Given Q6HR [facility] Protocol Morphine Sulfate 2 mg 02/20/25 10:39 Morphine Sulfate (*Crx) 4 Mg/Ml Inj IV PUSH Q2H PRN Pain Rated 7-10 Vitamin A&D Ointment 1 each 02/21/25 14:15 02/21/25 20:56 (Home Med) TOPICAL 03/23/25 14:14 1 each PRN PRN Administration to affected areas Pantoprazole Sodium 40 mg 02/21/25 09:00 02/25/25 08:33 Pantoprazole Sodium Iv 40 Mg Vial IV PUSH 40 mg QAM [facility] Administration Potassium Phos/Sodium Phos 1 packet 02/24/25 09:00 02/25/25 08:33 Potassium/Phosphorus/Sodium 1.5 Gm Packet FEED TUBE 02/25/25 17:01 1 packet BID IMTIAZ Administration Prednisone 30 mg 02/26/25 08:00 Prednisone 10 Mg Tablet PO 02/28/25 08:01 DAILY@0800 [facility] Prednisone 20 mg 03/01/25 08:00 Prednisone 20 Mg Tablet PO 03/03/25 08:01 DAILY@0800 [facility] Prednisone 10 mg 03/04/25 08:00 Prednisone 10 Mg Tablet PO 03/06/25 08:01 DAILY@0800 [facility] Promethazine HCl 12.5 mg 02/20/25 10:39 Promethazine Hcl 25 Mg/Ml Ampul IV PUSH Q6H PRN Nausea Rosuvastatin Calcium 20 mg 02/21/25 09:00 02/25/25 08:33 Rosuvastatin 20 Mg Tablet FEED TUBE 20 mg QAM IMTIAZ Administration Radiology Results: ITS Impressions Chest/Abdomen/Pelvis CT 02/20/25 11:24 IMPRESSION: 1. Right lower lobe pneumonia. 2. New 6 mm nodule in right lung middle lobe, probably benign. Consider noncontrast low-dose chest CT in 6 months. 3. 11 mm nodule in left lung upper lobe, stable from 12/16/2023, likely benign. 4. Small pericardial effusion. 5. Moderate emphysema. 6. 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 Chest X-Ray 02/25/25 08:18 IMPRESSION: 1. No gross interval change from yesterday. Labs Labs: Laboratory Results - last 24 hr 02/24/25 02/24/25 02/24/25 11:45 15:34 16:26 WBC RBC Hgb Hct MCV MCH MCHC RDW Plt Count MPV Immature Gran % (Auto) Neut % (Auto) Lymph % (Auto) [place] % (Auto) Eos % (Auto) Baso % (Auto) Lymph # (Auto) [place] # (Auto) Eos # (Auto) Baso # (Auto) Abs Immat Gran (auto) Absolute Neuts (auto) Absolute Nucleated RBC Band Neutrophils % Nucleated RBC % Platelet Estimate Hypochromasia Microcytosis Target Cells Schistocytes Puncture Site ABG pH ABG pCO2 ABG pO2 ABG PO2/FiO2 Ratio ABG HCO3 ABG O2 Saturation ABG O2 Content ABG Base Excess A-a Gradient Oxyhemoglobin Carboxyhemoglobin Methemoglobin Reduced Hemoglobin Total Hemoglobin O2 Delivery Device O2 Liters/Min Minute Volume Vent Rate Vent Mode FiO2 Tidal Volume PEEP Peak Inspir Pressure Pressure Support Sodium 150 H Potassium 4.4 Chloride 104 Carbon Dioxide 38 H Anion Gap 8 BUN 60 H Creatinine 1.13 H Estim Creat Clear Calc 37 Estimated GFR 46 L Glucose 210 H POC Capillary Glucose 148 H 220 H Calcium 11.0 H Phosphorus Magnesium Total Bilirubin AST ALT Alkaline Phosphatase Total Protein Albumin 02/24/25 02/25/25 02/25/25 18:20 00:17 04:06 WBC 13.8 H RBC 3.39 L Hgb 9.3 L Hct 31.5 L MCV 92.9 MCH 27.4 MCHC 29.5 L RDW 19.1 H Plt Count 312 MPV 9.3 Immature Gran % (Auto) 0.5 Neut % (Auto) 83.4 H Lymph % (Auto) 8.8 L [place] % (Auto) 7.0 Eos % (Auto) 0.1 Baso % (Auto) 0.2 Lymph # (Auto) 1.21 [place] # (Auto) 1.0 H Eos # (Auto) 0.0 Baso # (Auto) 0.0 Abs Immat Gran (auto) 0.07 H Absolute Neuts (auto) 11.5 H Absolute Nucleated RBC 0.020 H Band Neutrophils % Not Reportable Nucleated RBC % 0.1 Platelet Estimate Adequate Hypochromasia 1+ Microcytosis 1+ Target Cells Occasional Schistocytes None seen Puncture Site ABG pH ABG pCO2 ABG pO2 ABG PO2/FiO2 Ratio ABG HCO3 ABG O2 Saturation ABG O2 Content ABG Base Excess A-a Gradient Oxyhemoglobin Carboxyhemoglobin Methemoglobin Reduced Hemoglobin Total Hemoglobin O2 Delivery Device O2 Liters/Min Minute Volume Vent Rate Vent Mode FiO2 Tidal Volume PEEP Peak Inspir Pressure Pressure Support Sodium 154 H Potassium 4.0 Chloride 104 Carbon Dioxide > 40 H Anion Gap BUN 66 H Creatinine 1.21 H Estim Creat Clear Calc 34 Estimated GFR 43 L Glucose 142 H POC Capillary Glucose 145 H 157 H Calcium 11.0 H Phosphorus 2.2 L Magnesium 2.5 H Total Bilirubin 0.3 AST 201 H ALT 192 H Alkaline Phosphatase 100 Total Protein 8.6 H Albumin 4.5 02/25/25 05:23 WBC RBC Hgb Hct MCV MCH MCHC RDW Plt Count MPV Immature Gran % (Auto) Neut % (Auto) Lymph % (Auto) [place] % (Auto) Eos % (Auto) Baso % (Auto) Lymph # (Auto) [place] # (Auto) Eos # (Auto) Baso # (Auto) Abs Immat Gran (auto) Absolute Neuts (auto) Absolute Nucleated RBC Band Neutrophils % Nucleated RBC % Platelet Estimate Hypochromasia Microcytosis Target Cells Schistocytes Puncture Site Right radial ABG pH 7.464 H ABG pCO2 56.5 H ABG pO2 81.3 ABG PO2/FiO2 Ratio 2.32 ABG HCO3 39.6 H ABG O2 Saturation 96.3 ABG O2 Content 14.3 L ABG Base Excess 13.9 A-a Gradient 102.6 Oxyhemoglobin 95.2 Carboxyhemoglobin 0.9 Methemoglobin 0.3 Reduced Hemoglobin 3.6 Total Hemoglobin 10.6 L O2 Delivery Device Ventilator O2 Liters/Min Not Reportable Minute Volume Not Reportable Vent Rate 8 Vent Mode Simv FiO2 35 Tidal Volume 300 PEEP 8 Peak Inspir Pressure Not Reportable Pressure Support 8 Sodium Potassium Chloride Carbon Dioxide Anion Gap BUN Creatinine Estim Creat Clear Calc Estimated GFR Glucose POC Capillary Glucose Calcium Phosphorus Magnesium Total Bilirubin AST ALT Alkaline Phosphatase Total Protein Albumin Quality VTE Prophylaxis VTE prophylaxis: pharmacologic ordered
[2025-02-25 09:40] LABS: Add Urine Microscopic? YES; Appearance Urine Clear (Clear); Glucose Urine UA Negative (Negative); Leukocyte Esterase Ur Trace LEU/UL (Negative); Nitrate Urine Negative (Negative); Specific Grav Ur 1.014 (1.001-1.035)
[2025-02-25 10:13] LABS: Urine Eos QC 2nd Tech Confirmed
[2025-02-25] MEDS: DEXTROSE 5% 1,000 ML 1,000 ML 100 ML IV CONT (10:18)
[2025-02-25 10:52] LABS: Total Protein Urine Random 136 mg/dL; Ur Ttl Prot Creatinine Ratio 2.16 mg/mg (0-0.20)
[2025-02-25 10:53] LABS: Urea Random Urine 913 MG/DL
--- NOTE | 2025-02-25 12:11 | PCNFU ---
Nutrition Follow-Up Complete: Increased protein energy needs related to mechanical ventilation as evidenced by need for PEG tube feedings goal: Meet estimated nutrition needs Patient will continue current goal. Pt current nutrition is Nepro 240 ml q 4 hours with flush 200 ml q 4 hours. Last recorded weight is 81.6 kg, down from 86 kg on admit. Bowel Motility: FMS noted. Labs Reviewed: PO4 2.2, BUN 66, Cr 1.21,Glu 142, Na 154 Meds Noted: Prednisone, D5, Protonix. Skin: WNL Additional Notes: Patient current with Trach. PEG tube feedings of Nepro 240 ml q 4 hours providing 2592 kcal/117 gm protein/1047 ml water. Patient continues to tolerate tube feedings. Flush remains at 200 ml q 4 hours, D5 started today. Plans for LTAC at discharge. Monitoring labs, vitals, weights, output, meds, tube feeding tolerance Follow up Friday/Friday, daily rounds
[2025-02-25] MEDS: LORATADINE 10 MG TABLET FEED TUBE (14:50)
[2025-02-25 19:37] LABS: Anion Gap 7 mmol/L (4-12); Blood Urea Nitrogen 72 mg/dL (7-17); Calcium 10.7 mg/dL (8.4-10.2); Carbon Dioxide 39 mmol/L (22-30); Chloride 103 mmol/L (98-107); Estimated CRCL calculation 32 ml/min; Estimated Glomerular Filt Rate 39; Glucose 169 mg/dL (65-110); Potassium 4.4 mmol/L (3.4-5.0); Sodium 149 mmol/L (137-145)
[2025-02-25] MEDS: BUDESONIDE RESPULE NEB 0.5 MG/2 ML AMP 1 MG INHALATION (19:59)
[2025-02-25] MEDS: DONEPEZIL HCL 5 MG TABLET FEED TUBE (20:20)
[2025-02-25] MEDS: FERROUS SULFATE LIQUID 325 MG/7.4 ML ELIXIR FEED TUBE (20:20)
[2025-02-26] VITALS (54 sets, daily range): BP systolic 120–176; BP diastolic 54–89; PULSE 80–101; RESP 14–34; TEMP 36.7–37.5; O2SAT 80–100
[2025-02-26 04:51] LABS: Hematocrit 31.2 % (37.0-47.0); Hemoglobin 9.4 g/dL (12.0-15.0); Immature Granulocyte Percent A 0.8 % (0-0.5); Lymphocytes Absolute Auto 1.63 K/mm3 (0.9-3.2); Mean Corpuscular HGB Conc 30.1 g/dl (32-36); Mean Corpuscular Hemoglobin 27.7 pg (26-34); Mean Corpuscular Volume 92.0 fl (80-100); Nucleated Red Blood Cells Absolute Auto 0.020 K/mm3 (0.0-0.012); Nucleated Red Blood Cells Perc 0.1 % (0.0-0.2); Platelet Count Result 294 k/mm3 (150-375); Red Blood Count 3.39 M/mm3 (4.2-5.4); White Blood Count 15.4 K/mm3 (4.5-10.0)
[2025-02-26 05:12] LABS: Alanine Aminotransferase 196 U/L (6-35); Albumin Level 4.3 g/dL (3.5-5.1); Alkaline Phosphatase 97 U/L (38-126); Anion Gap 6 mmol/L (4-12); Aspartate Amino Transferase 154 U/L (14-36); Bilirubin,Total 0.3 mg/dL (0.2-1.3); Blood Urea Nitrogen 80 mg/dL (7-17); Calcium 11.0 mg/dL (8.4-10.2); Carbon Dioxide 39 mmol/L (22-30); Chloride 105 mmol/L (98-107); Estimated CRCL calculation 32 ml/min; Estimated Glomerular Filt Rate 39; Glucose 108 mg/dL (65-110); Magnesium 2.6 mg/dL (1.6-2.3); Potassium 3.8 mmol/L (3.4-5.0); Sodium 150 mmol/L (137-145); Total Protein 8.1 g/dL (6.3-8.2)
[2025-02-26] MEDS: BUDESONIDE RESPULE NEB 0.5 MG/2 ML AMP 1 MG INHALATION ×2 (07:50→20:32)
[2025-02-26] MEDS: ALBUTEROL SULFATE NEB 2.5 MG/3 ML INH INHALATION (07:51)
--- NOTE | 2025-02-26 08:06 | P.PNINT_ITS ---
Progress Note: A&P Assessment and Plan (1) Acute on chronic respiratory failure: Qualifiers: Respiratory failure complication: unspecified whether with hypoxia or hypercapnia Qualified Code(s): J96.20 - Acute and chronic respiratory failure, unspecified whether with hypoxia or hypercapnia Code(s): J96.20 - Acute and chronic respiratory failure, unspecified whether with hypoxia or hypercapnia Status: Acute Assessment and Plan: Acute on chronic respiratory failure with hypoxia and hypercarbia in a patient who has history of COPD, chronic tracheostomy and is on 8 L oxygen by mask and now has a right lower lobe pneumonia 02/20 Tracheostomy was changed to a cuffed tracheostomy tube in the ER Patient is now on the mechanical ventilation with SIMV FiO2 is down to 35% 02/21 tolerated PSV 15/5 for many hours. 02/22 patient tolerated PSV 20/8 for adequate RSBI. She was switched back to SIMV at night 02/23 change SIMV settings and decrease rate and pressure support. Patient was tried on PSV 15/8 for many hours. She does not tolerate lowering of pressure support more than that as her tidal volumes drop in respiratory rate goes up to above 30s. 02/24 will try PSV again today. Will try to wean down pressure support if possible. Continue Bronchodilators Continue prednisone per tube taper Off IV fluids IV fluid Negative vital panel, Blood and sputum cultures are negative now Continue Augmentin. Low procalcitonin 02/25: Place patient on pressure support ventilation, tolerated for approxi mately 6-7 hours and was placed back on SIMV mode (2) COPD (chronic obstructive pulmonary disease): Qualifiers: COPD type: unspecified COPD Qualified Code(s): J44.9 - Chronic obstructive pulmonary disease, unspecified Code(s): J44.9 - Chronic obstructive pulmonary disease, unspecified Status: Acute Assessment and Plan: See above (3) Acute kidney injury: Code(s): N17.9 - Acute kidney failure, unspecified Status: Acute Assessment and Plan: Acute kidney injury with creatinine 1.5 likely secondary to sepsis hypovolemia and hypotension IV fluid bolus followed by cautious maintainIV fluids Normal CK UA reviewed Mcmahan for accurate I&Os CT abdomen pelvis negative for any stone or obstruction Monitor intake output and electrolytes She has good urine output Creatinine trending up, likely related to free water deficit, or will give additional D5W on discussed with Nephrology (4) HTN (hypertension): Qualifiers: Hypertension type: primary hypertension Qualified Code(s): I10 - Essential (primary) hypertension Code(s): I10 - Essential (primary) hypertension Status: Acute Assessment and Plan: Continue amlodipine (5) Tracheostomy in place: Code(s): Z93.0 - Tracheostomy status Status: Acute Assessment and Plan: Tracheostomy was changed to a cuffed size 6 by ER (6) G tube feedings: Code(s): Z93.1 - Gastrostomy status Status: Acute Assessment and Plan: Tolerate tube feeds (7) Anemia: Qualifiers: Anemia type: unspecified type Qualified Code(s): D64.9 - Anemia, unspecified Code(s): D64.9 - Anemia, unspecified Status: Acute Assessment and Plan: History of chronic anemia. Hemoglobin appears close to baseline. Monitor (8) CHF (congestive heart failure): Qualifiers: Heart failure type: unspecified Heart failure chronicity: unspecified Qualified Code(s): I50.9 - Heart failure, unspecified Code(s): I50.9 - Heart failure, unspecified Status: Acute Assessment and Plan: Elevated BNP. Echocardiogram Summary 1. Complete two-dimensional, color flow and Doppler transthoracic echocardiogram is performed. 2. Left ventricular systolic function is hyperdynamic, estimated at >70. 3. The left ventricular diastolic function is grade I diastolic dysfunction. 4. There is trace tricuspid valve regurgitation. 5. Mild pulmonary hypertension, estimated pulmonary arterial systolic pressure is 38 mmHg. 6. There is mild pulmonic regurgitation Hold further IV fluid (9) Sepsis: Qualifiers: Sepsis type: sepsis due to unspecified organism Sepsis acute organ dysfunction status: unspecified Qualified Code(s): A41.9 - Sepsis, unspecified organism Code(s): A41.9 - Sepsis, unspecified organism Status: Acute Assessment and Plan: Normal lactic acid level and low procalcitonin level Off further IV fluids Negative till now sputum, blood cultures and UA Empiric antibiotics as above (10) Pericardial effusion: Code(s): I31.39 - Other pericardial effusion (noninflammatory) Status: Acute Assessment and Plan: CT scan showed pericardial effusion vent echo done and does not show any signif icant effusion. No intervention at this time. (11) Hypernatremia: Code(s): E87.0 - Hyperosmolality and hypernatremia Status: Acute Assessment and Plan: Will give 500 mL of D5 water Repeat BMP later today Continue free water flushes 200 q.4 hours Nephrology has been consulted, will start D5 water and recheck sodium levels (12) Electrolyte abnormality: Code(s): E87.8 - Other disorders of electrolyte and fluid balance, not elsewhere classified Status: Acute Assessment and Plan: Will replace electrolytes as needed Plan DVT prophylaxis -Lovenox Stress ulcer prophylaxis -PPI Nutrition -continue tube feeds Code Status - Full Code Patient awaits LTAC placement now Total Critical Care Time - 31 minutes Due to a high probability of clinically significant, life threatening deterioration, the patient required my highest level of preparedness to intervene emergently and I personally spent this critical care time directly and personally managing the patient. This critical care time included obtaining a history; examining the patient; pulse oximetry; ordering and review of studies; arranging urgent treatment with development of a management plan; evaluation of patient's response to treatment; frequent reassessment; and discussions with other providers. It was exclusive of separately billable procedures and treating other patients and teaching time. Please see Assessment and Plan section and the rest of the note for further information on patient assessment and treatment This dictation may have been done utilizing a voice recognition system. Attempts have been made to correct errors. However, there may be uncorrected grammatical, spelling, and recognitions errors present. Subjective Date/time seen: 02/26/25 08:06 Interval history: Reason for consult: Acute on chronic respiratory failure, possible COPD exacerbation, acute kidney injury, hyponatremia, 02/26/2025: Patient seen and examined the ICU. Chronic tracheostomy, remains on vent on SIMV mode, not on any sedation. opens her eyes, afebrile, UO stable, tolerating tube feeds, hypernatremia improving, LFTs trending down Review of Systems Review of Systems: ROS unobtainable: Yes unobtainable due to endotracheal tube, unobtainable due to medical condition and unobtainable due to mental status Exam Narrative: General: Pt is awake has a tracheostomy and on mechanical ventilation Lungs/Chest: Trachea central Coarse BS B/L, bilateral occasional wheezing Cardiac: RRR. Normal S1 S2. No murmurs Circulation: Pedal pulses are intact and symmetrical. Abdomen: Decreased bowel sounds. Obese. Soft. NT. ND. Peg tube in place, scar from past surgery in the left side Extremities: No clubbing, cyanosis or edema. Warm : Mcmahan in place Neurologic: Patient has contractures and hand. She withdraws to pain all 4 extremities but does not follow any commands or respond to questions or calling her name. Eyes are open. PERRL Objective Data Vital Signs Vital Signs: Vital Signs - 24 hr 02/25/25 09:00 02/25/25 09:58 02/25/25 10:00 Temperature 99.8 F H 99.7 F H Pulse Rate 86 89 88 Respiratory Rate 27 H 27 H Blood Pressure 118/79 141/70 H Pulse Oximetry 96 96 Oxygen Delivery Fraction of Inspired Oxygen 02/25/25 10:05 02/25/25 10:15 02/25/25 11:00 Temperature 99.0 F Pulse Rate 86 86 Respiratory Rate 29 H Blood Pressure 168/90 H Pulse Oximetry 95 96 Oxygen Delivery Mechanical Ventilation Fraction of Inspired Oxygen 35 35 02/25/25 12:00 02/25/25 12:00 02/25/25 12:00 Temperature 99.3 F Pulse Rate 102 H Respiratory Rate 32 H Blood Pressure 168/90 H Pulse Oximetry 95 96 Oxygen Delivery Mechanical Ventilation Fraction of Inspired Oxygen 35 35 02/25/25 12:00 02/25/25 12:56 02/25/25 13:00 Temperature 99.0 F Pulse Rate 87 100 96 Respiratory Rate 33 H Blood Pressure 172/77 H Pulse Oximetry 95 96 Oxygen Delivery Mechanical Ventilation Fraction of Inspired Oxygen 35 02/25/25 13:00 02/25/25 14:00 02/25/25 14:00 Temperature 99.0 F Pulse Rate 92 Respiratory Rate 28 H Blood Pressure 170/75 H Pulse Oximetry 97 Oxygen Delivery Mechanical Ventilation Fraction of Inspired Oxygen 35 35 02/25/25 14:00 02/25/25 15:00 02/25/25 16:00 Temperature 99.0 F 98.3 F Pulse Rate 91 85 84 Respiratory Rate 24 H 22 H Blood Pressure 179/115 H 155/76 H Pulse Oximetry 98 96 Oxygen Delivery Fraction of Inspired Oxygen 02/25/25 16:00 02/25/25 16:00 02/25/25 16:00 Temperature Pulse Rate 82 Respiratory Rate Blood Pressure Pulse Oximetry 96 Oxygen Delivery Mechanical Ventilation Fraction of Inspired Oxygen 35 35 02/25/25 16:38 02/25/25 17:00 02/25/25 18:00 Temperature Pulse Rate 91 77 80 Respiratory Rate 24 H Blood Pressure 155/74 H Pulse Oximetry 97 97 Oxygen Delivery Mechanical Ventilation Fraction of Inspired Oxygen 35 02/25/25 18:00 02/25/25 18:50 02/25/25 19:59 Temperature 98.4 F 98.2 F Pulse Rate 80 77 85 Respiratory Rate 24 H 25 H 24 H Blood Pressure 154/64 H 154/64 H Pulse Oximetry 96 97 Oxygen Delivery Fraction of Inspired Oxygen 02/25/25 20:00 02/25/25 20:00 02/25/25 20:00 Temperature Pulse Rate 81 81 Respiratory Rate Blood Pressure Pulse Oximetry 97 97 Oxygen Delivery Mechanical Ventilation Mechanical Ventilation Fraction of Inspired Oxygen 35 35 35 02/25/25 20:00 02/25/25 20:00 02/25/25 20:35 Temperature 98.9 F Pulse Rate 82 82 87 Respiratory Rate 23 H 26 H Blood Pressure 157/87 H Pulse Oximetry 96 Oxygen Delivery Fraction of Inspired Oxygen 02/25/25 21:00 02/25/25 22:00 02/25/25 22:00 Temperature Pulse Rate 76 81 79 Respiratory Rate 22 H 23 H Blood Pressure 148/60 H 152/65 H Pulse Oximetry 96 97 Oxygen Delivery Fraction of Inspired Oxygen 02/25/25 22:48 02/25/25 23:00 02/26/25 00:00 Temperature Pulse Rate 81 80 Respiratory Rate 22 H Blood Pressure 150/70 H Pulse Oximetry 96 80 L Oxygen Delivery Mechanical Ventilation Fraction of Inspired Oxygen 35 35 02/26/25 00:00 02/26/25 00:00 02/26/25 00:00 Temperature 99.1 F Pulse Rate 80 87 87 Respiratory Rate 22 H 14 Blood Pressure 145/74 H Pulse Oximetry 80 L 98 Oxygen Delivery Mechanical Ventilation Fraction of Inspired Oxygen 35 02/26/25 01:00 02/26/25 02:00 02/26/25 02:00 Temperature 99 F Pulse Rate 86 82 83 Respiratory Rate 27 H 26 H Blood Pressure 176/89 H 175/81 H Pulse Oximetry 95 96 Oxygen Delivery Fraction of Inspired Oxygen 02/26/25 02:15 02/26/25 03:00 02/26/25 04:00 Temperature Pulse Rate 80 100 100 Respiratory Rate 34 H Blood Pressure 149/71 H Pulse Oximetry 95 95 Oxygen Delivery Mechanical Ventilation Mechanical Ventilation Fraction of Inspired Oxygen 35 35 02/26/25 04:00 02/26/25 04:00 02/26/25 04:00 Temperature 99 F Pulse Rate 96 96 Respiratory Rate 29 H Blood Pressure 130/67 Pulse Oximetry 94 Oxygen Delivery Fraction of Inspired Oxygen 35 02/26/25 04:55 02/26/25 05:00 02/26/25 06:00 Temperature Pulse Rate 93 99 100 Respiratory Rate 25 H Blood Pressure 160/70 H Pulse Oximetry 97 96 Oxygen Delivery Mechanical Ventilation Fraction of Inspired Oxygen 35 02/26/25 06:00 02/26/25 07:00 Temperature 99 F Pulse Rate 100 97 Respiratory Rate 26 H 24 H Blood Pressure 166/71 H 141/69 H Pulse Oximetry 96 95 Oxygen Delivery Fraction of Inspired Oxygen Intake/Output Intake/Output: Intake & Output 02/23/25 02/24/25 02/25/25 02/26/25 23:59 23:59 23:59 23:59 Intake Total 820 3775 4665 1320 Output Total 2550 2650 1850 800 Balance -1730 1125 2815 520 Meds/Results Medications: Active Medications Generic Name Dose Route Start Last Admin Trade Name Freq PRN Reason Stop Dose Admin Acetaminophen 650 mg 02/20/25 10:42 Acetaminophen Elixir 325 Mg/10.15 Ml Udc FEED TUBE Q4H PRN Mild Pain (1-3) or Fever Albuterol 2.5 mg 02/21/25 20:44 02/26/25 07:51 Albuterol Sulfate Neb 2.5 Mg/3 Ml Inh INHALATION 2.5 mg Q6HRT PRN Administration Shortness Of Breath Amlodipine Besylate 5 mg 02/25/25 13:50 02/25/25 14:50 Amlodipine Besylate 5 Mg Tablet FEED TUBE 5 mg DAILY IMTIAZ Administration Amoxicillin/Clavulanate Potassium 1 tablet 02/23/25 09:00 02/25/25 20:20 Amoxicillin/Clavulanate K 875-125 Mg Tab FEED TUBE 02/27/25 23:59 1 tablet Q12HR IMTIAZ Administration Aspirin 81 mg 02/26/25 09:00 Aspirin 81 Mg Chewable Tablet FEED TUBE DAILY IMTIAZ Budesonide 1 mg 02/25/25 20:00 02/26/25 07:50 Budesonide Respule Neb 0.5 Mg/2 Ml Amp INHALATION 1 mg Q12HRT IMTIAZ Administration Dextrose 12.5 gm 02/20/25 11:00 Dextrose 50% 25 Gm/50 Ml Syringe IV PUSH PRN PRN Hypoglycemia Protocol Donepezil HCl 5 mg 02/25/25 21:00 02/25/25 20:20 Donepezil Hcl 5 Mg Tablet FEED TUBE 5 mg HS IMTIAZ Administration Enoxaparin Sodium 40 mg 02/23/25 09:00 02/25/25 08:33 Enoxaparin 40 Mg/0.4 Ml Syringe SUB-Q 40 mg DAILY IMTIAZ Administration Ferrous Sulfate 325 mg 02/25/25 21:00 02/25/25 20:20 Ferrous Sulfate Liquid 325 Mg/7.4 Ml Elixir FEED TUBE 325 mg Q12HR IMTIAZ Administration Glucagon 1 mg 02/20/25 11:00 Glucagon For Inj 1 Mg Vial IM PRN PRN Hypoglycemia Protocol Glucose 15 gm 02/20/25 11:00 Glucose Oral Gel 15 Gm Of Glucse In 37.5 Gm Tube PO PRN PRN Hypoglycemia Protocol Hydralazine HCl 10 mg 02/25/25 13:47 02/26/25 02:19 Hydralazine Hcl 20 Mg/Ml Vial IV PUSH 10 mg Q4H PRN Administration Blood Pressure - High Dextrose 1,000 mls @ 100 mls/hr 02/20/25 11:00 Dextrose 5% 1,000 Ml IVPB PRN PRN Hypoglycemia Protocol Dextrose 1,000 mls @ 100 mls/hr 02/26/25 07:30 Dextrose 5% 1,000 Ml IV CONT 02/26/25 12:29 .Q10H [facility] Insulin Aspart 3 - 6 units 02/20/25 12:00 02/26/25 06:12 Insulin Aspart (*Bkc) 100 Units/Ml SUB-Q Not Given Q6HR [facility] Protocol Loratadine 10 mg 02/25/25 09:00 02/25/25 14:50 Loratadine 10 Mg Tablet FEED TUBE 10 mg QAM IMTIAZ Administration Morphine Sulfate 2 mg 02/20/25 10:39 Morphine Sulfate (*Crx) 4 Mg/Ml Inj IV PUSH Q2H PRN Pain Rated 7-10 Vitamin A&D Ointment 1 each 02/21/25 14:15 02/21/25 20:56 (Home Med) TOPICAL 03/23/25 14:14 1 each PRN PRN Administration to affected areas Pantoprazole Sodium 40 mg 02/21/25 09:00 02/25/25 08:33 Pantoprazole Sodium Iv 40 Mg Vial IV PUSH 40 mg QAM [facility] Administration Prednisone 30 mg 02/26/25 08:00 Prednisone 10 Mg Tablet PO 02/28/25 08:01 DAILY@0800 [facility] Prednisone 20 mg 03/01/25 08:00 Prednisone 20 Mg Tablet PO 03/03/25 08:01 DAILY@0800 [facility] Prednisone 10 mg 03/04/25 08:00 Prednisone 10 Mg Tablet PO 03/06/25 08:01 DAILY@0800 [facility] Promethazine HCl 12.5 mg 02/20/25 10:39 Promethazine Hcl 25 Mg/Ml Ampul IV PUSH Q6H PRN Nausea Rosuvastatin Calcium 20 mg 02/26/25 09:00 Rosuvastatin 20 Mg Tablet FEED TUBE DAILY [facility] Vitamin D 50 mcg 02/26/25 09:00 Cholecalciferol (Vitamin D3) 25 Mcg (1,000 Units) Tablet FEED TUBE DAILY [facility] Radiology Results: ITS Impressions Chest/Abdomen/Pelvis CT 02/20/25 11:24 IMPRESSION: 1. Right lower lobe pneumonia. 2. New 6 mm nodule in right lung middle lobe, probably benign. Consider noncontrast low-dose chest CT in 6 months. 3. 11 mm nodule in left lung upper lobe, stable from 12/16/2023, likely benign. 4. Small pericardial effusion. 5. Moderate emphysema. 6. 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 Chest X-Ray 02/25/25 08:18 IMPRESSION: 1. No gross interval change from yesterday. Labs Labs: Laboratory Results - last 24 hr 02/25/25 02/25/25 02/25/25 09:31 11:50 17:29 WBC RBC Hgb Hct MCV MCH MCHC RDW Plt Count MPV Immature Gran % (Auto) Neut % (Auto) Lymph % (Auto) [place] % (Auto) Eos % (Auto) Baso % (Auto) Lymph # (Auto) [place] # (Auto) Eos # (Auto) Baso # (Auto) Abs Immat Gran (auto) Absolute Neuts (auto) Absolute Nucleated RBC Nucleated RBC % Sodium Potassium Chloride Carbon Dioxide Anion Gap BUN Creatinine Estim Creat Clear Calc Estimated GFR Glucose POC Capillary Glucose 189 H 190 H Calcium Phosphorus Magnesium Total Bilirubin AST ALT Alkaline Phosphatase Total Protein Albumin Urine Color Yellow Urine Appearance Clear Urine pH 5.0 Ur Specific [place] 1.014 Urine Protein 2+ H Urine Glucose (UA) Negative Urine Ketones Negative Ur Blood (Man) 3+ H Urine Nitrate Negative Urine Bilirubin Negative Urine Urobilinogen 0.2 Leukocyte Esterase Rfl Trace H Urine RBC 11-20 H Urine WBC 0-5 Ur Squamous Epith Cells None seen Urine Bacteria None seen Urine Casts 3-5 Urine Eosinophils None seen U Random Total Protein 136 Ur Random Sodium 24 Ur Random Urea 913 Urine Creatinine 62.9 Protein/Creat Ratio 2 2.16 H 02/25/25 02/26/25 02/26/25 19:20 00:24 04:41 WBC 15.4 H RBC 3.39 L Hgb 9.4 L Hct 31.2 L MCV 92.0 MCH 27.7 MCHC 30.1 L RDW 19.5 H Plt Count 294 MPV 9.5 Immature Gran % (Auto) 0.8 H Neut % (Auto) 81.2 H Lymph % (Auto) 10.6 L [place] % (Auto) 7.0 Eos % (Auto) 0.1 Baso % (Auto) 0.3 Lymph # (Auto) 1.63 [place] # (Auto) 1.1 H Eos # (Auto) 0.0 Baso # (Auto) 0.0 Abs Immat Gran (auto) 0.12 H Absolute Neuts (auto) 12.5 H Absolute Nucleated RBC 0.020 H Nucleated RBC % 0.1 Sodium 149 H 150 H Potassium 4.4 3.8 Chloride 103 105 Carbon Dioxide 39 H 39 H Anion Gap 7 6 BUN 72 H 80 H Creatinine 1.30 H 1.31 H Estim Creat Clear Calc 32 32 Estimated GFR 39 L 39 L Glucose 169 H 108 POC Capillary Glucose 125 H Calcium 10.7 H 11.0 H Phosphorus 3.1 Magnesium 2.6 H Total Bilirubin 0.3 AST 154 H ALT 196 H Alkaline Phosphatase 97 Total Protein 8.1 Albumin 4.3 Urine Color Urine Appearance Urine pH Ur Specific [place] Urine Protein Urine Glucose (UA) Urine Ketones Ur Blood (Man) Urine Nitrate Urine Bilirubin Urine Urobilinogen Leukocyte Esterase Rfl Urine RBC Urine WBC Ur Squamous Epith Cells Urine Bacteria Urine Casts Urine Eosinophils U Random Total Protein Ur Random Sodium Ur Random Urea Urine Creatinine Protein/Creat Ratio 2 02/26/25 05:32 WBC RBC Hgb Hct MCV MCH MCHC RDW Plt Count MPV Immature Gran % (Auto) Neut % (Auto) Lymph % (Auto) [place] % (Auto) Eos % (Auto) Baso % (Auto) Lymph # (Auto) [place] # (Auto) Eos # (Auto) Baso # (Auto) Abs Immat Gran (auto) Absolute Neuts (auto) Absolute Nucleated RBC Nucleated RBC % Sodium Potassium Chloride Carbon Dioxide Anion Gap BUN Creatinine Estim Creat Clear Calc Estimated GFR Glucose POC Capillary Glucose 154 H Calcium Phosphorus Magnesium Total Bilirubin AST ALT Alkaline Phosphatase Total Protein Albumin Urine Color Urine Appearance Urine pH Ur Specific [place] Urine Protein Urine Glucose (UA) Urine Ketones Ur Blood (Man) Urine Nitrate Urine Bilirubin Urine Urobilinogen Leukocyte Esterase Rfl Urine RBC Urine WBC Ur Squamous Epith Cells Urine Bacteria Urine Casts Urine Eosinophils U Random Total Protein Ur Random Sodium Ur Random Urea Urine Creatinine Protein/Creat Ratio 2 Quality VTE Prophylaxis VTE prophylaxis: pharmacologic ordered
[2025-02-26] MEDS: DEXTROSE 5% 1,000 ML 1,000 ML 100 ML IV CONT ×2 (08:32→20:30)
[2025-02-26] MEDS: ENOXAPARIN 40 MG/0.4 ML SYRINGE SUB-Q (08:32)
[2025-02-26] MEDS: ROSUVASTATIN 20 MG TABLET FEED TUBE (08:32)
[2025-02-26] MEDS: LORATADINE 10 MG TABLET FEED TUBE (08:33)
[2025-02-26] MEDS: CHOLECALCIFEROL (VITAMIN D3) 25 MCG (1,000 UNITS) TABLET 50 MCG FEED TUBE (08:33)
[2025-02-26] MEDS: ASPIRIN 81 MG CHEWABLE TABLET FEED TUBE (08:33)
[2025-02-26] MEDS: PANTOPRAZOLE SODIUM IV 40 MG VIAL IV PUSH (08:33)
[2025-02-26] MEDS: FERROUS SULFATE LIQUID 325 MG/7.4 ML ELIXIR FEED TUBE ×2 (08:49→20:31)
[2025-02-26] MEDS: INSULIN ASPART (*BKC) 100 UNITS/ML SUB-Q ×2 (11:30→17:46)
--- NOTE | 2025-02-26 13:20 | P.PNNP_ITS ---
Progress Note: A&P Assessment and Plan (1) Hypernatremia: Code(s): E87.0 - Hyperosmolality and hypernatremia Status: Acute Assessment and Plan: * as noted since 02/23 * suspect due to free water deficit and volume depletion * possible insensible losses from being on ventilator * reasonable urine output but not excessive to suspect polyuria * patient is getting 250cc q.4 hours of tube feeding flushes for maintenance * she is currently getting 500cc D5W bolus to help bring the sodium down as well * urine specific gravity was 1.014, against DI but osmolality is pending * follow trend of repeat sodium levels (2) Hypercalcemia: Code(s): E83.52 - Hypercalcemia Status: Chronic Assessment and Plan: * has been on the higher side of normal for the las year if not longer (chronic) * baseline calcium runs around 10 - 11 range * suspect partly due to bed bound status and immobilized state possibly complicated by relative dehydration * improvement noted with IVF hydration * follow trend with further IVFs and increased free water tube flushes * the patient is on Nepro which does have a high amount of calcium in it. Family is reluctant to change this * if persists or worsens, consider hypercalcemia evaluation. (3) Acute kidney injury: Code(s): N17.9 - Acute kidney failure, unspecified Status: Acute Assessment and Plan: * creatinine fluctuating since admission * may have some degree of renal insufficiency * due to prerenal factors and acute infection (pneumonia) * creatinine level started out at 1.5 then fell to about 1.1 and now is 1.3. * Will follow for trans (4) Acute on chronic respiratory failure: Qualifiers: Respiratory failure complication: unspecified whether with hypoxia or hypercapnia Qualified Code(s): J96.20 - Acute and chronic respiratory failure, unspecified whether with hypoxia or hypercapnia Code(s): J96.20 - Acute and chronic respiratory failure, unspecified whether with hypoxia or hypercapnia Status: Acute Assessment and Plan: * as noted on presentation * complicated by hypoxia and hypercarbia and pneumonia * known history of COPD as well * on mechanical ventilation via tracheostomy * on bronchodilators, steroids, and antibiotics * ventilator weaning ongoing (5) HTN (hypertension): Qualifiers: Hypertension type: primary hypertension Qualified Code(s): I10 - Essential (primary) hypertension Code(s): I10 - Essential (primary) hypertension Status: Acute Assessment and Plan: * noted by history * reasonable control at this time * systolic blood pressure 129 today Subjective Date/time seen: 02/26/25 13:20 Interval history: patient resting comfortably in bed. She occasionally opens her eyes in regards the examiner but no interaction other than daughter, Francoise, is in the room Review of Systems Cardiovascular: Cardiovascular: Reports no additional cardiovascular complaints Respiratory: Respiratory: Reports no additional respiratory complaints Gastrointestinal: Gastrointestinal: Reports no additional gastrointestinal complaints Genitourinary: Genitourinary: Reports no additional female genitourinary complaints Exam Narrative: WDWN in NAD skin no rash head ncat lungs mildly coarse upper airway noise. Tracheostomy in place cor reg no rub abd BS+ nontender and soft ext no edema. Objective Data Vital Signs Vital Signs: Vital Signs - 24 hr 02/25/25 14:00 02/25/25 14:00 02/25/25 14:00 Temperature 99.0 F Pulse Rate 92 91 Respiratory Rate 28 H Blood Pressure 170/75 H Pulse Oximetry 97 Oxygen Delivery Mechanical Ventilation Fraction of Inspired Oxygen 35 02/25/25 15:00 02/25/25 16:00 02/25/25 16:00 Temperature 99.0 F 98.3 F Pulse Rate 85 84 82 Respiratory Rate 24 H 22 H Blood Pressure 179/115 H 155/76 H Pulse Oximetry 98 96 Oxygen Delivery Fraction of Inspired Oxygen 02/25/25 16:00 02/25/25 16:00 02/25/25 16:38 Temperature Pulse Rate 91 Respiratory Rate Blood Pressure Pulse Oximetry 96 97 Oxygen Delivery Mechanical Ventilation Mechanical Ventilation Fraction of Inspired Oxygen 35 35 35 02/25/25 17:00 02/25/25 18:00 02/25/25 18:00 Temperature 98.4 F Pulse Rate 77 80 80 Respiratory Rate 24 H 24 H Blood Pressure 155/74 H 154/64 H Pulse Oximetry 97 96 Oxygen Delivery Fraction of Inspired Oxygen 02/25/25 18:50 02/25/25 19:59 02/25/25 20:00 Temperature 98.2 F Pulse Rate 77 85 81 Respiratory Rate 25 H 24 H Blood Pressure 154/64 H Pulse Oximetry 97 97 Oxygen Delivery Mechanical Ventilation Fraction of Inspired Oxygen 35 02/25/25 20:00 02/25/25 20:00 02/25/25 20:00 Temperature Pulse Rate 81 82 Respiratory Rate Blood Pressure Pulse Oximetry 97 Oxygen Delivery Mechanical Ventilation Fraction of Inspired Oxygen 35 35 02/25/25 20:00 02/25/25 20:35 02/25/25 21:00 Temperature 98.9 F Pulse Rate 82 87 76 Respiratory Rate 23 H 26 H 22 H Blood Pressure 157/87 H 148/60 H Pulse Oximetry 96 96 Oxygen Delivery Fraction of Inspired Oxygen 02/25/25 22:00 02/25/25 22:00 02/25/25 22:48 Temperature Pulse Rate 81 79 81 Respiratory Rate 23 H Blood Pressure 152/65 H Pulse Oximetry 97 96 Oxygen Delivery Mechanical Ventilation Fraction of Inspired Oxygen 35 02/25/25 23:00 02/26/25 00:00 02/26/25 00:00 Temperature Pulse Rate 80 80 Respiratory Rate 22 H 22 H Blood Pressure 150/70 H Pulse Oximetry 80 L 80 L Oxygen Delivery Mechanical Ventilation Fraction of Inspired Oxygen 35 35 02/26/25 00:00 02/26/25 00:00 02/26/25 01:00 Temperature 99.1 F Pulse Rate 87 87 86 Respiratory Rate 14 27 H Blood Pressure 145/74 H 176/89 H Pulse Oximetry 98 95 Oxygen Delivery Fraction of Inspired Oxygen 02/26/25 02:00 02/26/25 02:00 02/26/25 02:15 Temperature 99 F Pulse Rate 82 83 80 Respiratory Rate 26 H Blood Pressure 175/81 H Pulse Oximetry 96 95 Oxygen Delivery Mechanical Ventilation Fraction of Inspired Oxygen 35 02/26/25 03:00 02/26/25 04:00 02/26/25 04:00 Temperature Pulse Rate 100 100 Respiratory Rate 34 H Blood Pressure 149/71 H Pulse Oximetry 95 Oxygen Delivery Mechanical Ventilation Fraction of Inspired Oxygen 35 35 02/26/25 04:00 02/26/25 04:00 02/26/25 04:55 Temperature 99 F Pulse Rate 96 96 93 Respiratory Rate 29 H Blood Pressure 130/67 Pulse Oximetry 94 97 Oxygen Delivery Mechanical Ventilation Fraction of Inspired Oxygen 35 02/26/25 05:00 02/26/25 06:00 02/26/25 06:00 Temperature 99 F Pulse Rate 99 100 100 Respiratory Rate 25 H 26 H Blood Pressure 160/70 H 166/71 H Pulse Oximetry 96 96 Oxygen Delivery Fraction of Inspired Oxygen 02/26/25 07:00 02/26/25 07:51 02/26/25 07:51 Temperature Pulse Rate 97 90 90 Respiratory Rate 24 H 25 H Blood Pressure 141/69 H Pulse Oximetry 95 94 Oxygen Delivery Mechanical Ventilation Fraction of Inspired Oxygen 35 02/26/25 08:00 02/26/25 08:00 02/26/25 08:00 Temperature 99.1 F Pulse Rate 94 Respiratory Rate 28 H Blood Pressure 123/62 Pulse Oximetry 96 96 Oxygen Delivery Mechanical Ventilation Fraction of Inspired Oxygen 35 35 02/26/25 08:00 02/26/25 08:10 02/26/25 09:00 Temperature Pulse Rate 92 92 101 H Respiratory Rate 26 H 30 H Blood Pressure 139/64 Pulse Oximetry 95 Oxygen Delivery Fraction of Inspired Oxygen 02/26/25 09:22 02/26/25 10:00 02/26/25 10:00 Temperature 99.1 F Pulse Rate 96 95 94 Respiratory Rate 31 H Blood Pressure 130/65 Pulse Oximetry 94 96 Oxygen Delivery Mechanical Ventilation Fraction of Inspired Oxygen 35 02/26/25 11:00 02/26/25 11:45 02/26/25 12:00 Temperature 99.5 F Pulse Rate 93 95 95 Respiratory Rate 29 H 30 H Blood Pressure 133/59 L 134/60 Pulse Oximetry 95 94 96 Oxygen Delivery Mechanical Ventilation Fraction of Inspired Oxygen 35 02/26/25 12:00 02/26/25 12:00 02/26/25 12:00 Temperature Pulse Rate 95 Respiratory Rate Blood Pressure Pulse Oximetry 96 Oxygen Delivery Mechanical Ventilation Fraction of Inspired Oxygen 35 35 02/26/25 13:00 Temperature Pulse Rate 93 Respiratory Rate 33 H Blood Pressure 129/62 Pulse Oximetry 95 Oxygen Delivery Fraction of Inspired Oxygen Intake/Output Intake/Output: Intake & Output 02/23/25 02/24/25 02/25/25 02/26/25 23:59 23:59 23:59 23:59 Intake Total 820 3775 4665 1320 Output Total 2550 2650 1850 800 Balance -1730 1125 2815 520 Meds/Results Medications: Active Medications Generic Name Dose Route Start Last Admin Trade Name Freq PRN Reason Stop Dose Admin Acetaminophen 650 mg 02/20/25 10:42 Acetaminophen Elixir 325 Mg/10.15 Ml Udc FEED TUBE Q4H PRN Mild Pain (1-3) or Fever Albuterol 2.5 mg 02/21/25 20:44 02/26/25 07:51 Albuterol Sulfate Neb 2.5 Mg/3 Ml Inh INHALATION 2.5 mg Q6HRT PRN Administration Shortness Of Breath Amlodipine Besylate 5 mg 02/25/25 13:50 02/26/25 08:33 Amlodipine Besylate 5 Mg Tablet FEED TUBE 5 mg DAILY IMTIAZ Administration Amoxicillin/Clavulanate Potassium 1 tablet 02/23/25 09:00 02/26/25 08:32 Amoxicillin/Clavulanate K 875-125 Mg Tab FEED TUBE 02/27/25 23:59 1 tablet Q12HR IMTIAZ Administration Aspirin 81 mg 02/26/25 09:00 02/26/25 08:33 Aspirin 81 Mg Chewable Tablet FEED TUBE 81 mg DAILY IMTIAZ Administration Budesonide 1 mg 02/25/25 20:00 02/26/25 07:50 Budesonide Respule Neb 0.5 Mg/2 Ml Amp INHALATION 1 mg Q12HRT IMTIAZ Administration Dextrose 12.5 gm 02/20/25 11:00 Dextrose 50% 25 Gm/50 Ml Syringe IV PUSH PRN PRN Hypoglycemia Protocol Donepezil HCl 5 mg 02/25/25 21:00 02/25/25 20:20 Donepezil Hcl 5 Mg Tablet FEED TUBE 5 mg HS IMTIAZ Administration Enoxaparin Sodium 40 mg 02/23/25 09:00 02/26/25 08:32 Enoxaparin 40 Mg/0.4 Ml Syringe SUB-Q 40 mg DAILY IMTIAZ Administration Ferrous Sulfate 325 mg 02/25/25 21:00 02/26/25 08:49 Ferrous Sulfate Liquid 325 Mg/7.4 Ml Elixir FEED TUBE 325 mg Q12HR IMTIAZ Administration Glucagon 1 mg 02/20/25 11:00 Glucagon For Inj 1 Mg Vial IM PRN PRN Hypoglycemia Protocol Glucose 15 gm 02/20/25 11:00 Glucose Oral Gel 15 Gm Of Glucse In 37.5 Gm Tube PO PRN PRN Hypoglycemia Protocol Hydralazine HCl 10 mg 02/25/25 13:47 02/26/25 02:19 Hydralazine Hcl 20 Mg/Ml Vial IV PUSH 10 mg Q4H PRN Administration Blood Pressure - High Dextrose 1,000 mls @ 100 mls/hr 02/20/25 11:00 Dextrose 5% 1,000 Ml IVPB PRN PRN Hypoglycemia Protocol Insulin Aspart 3 - 6 units 02/20/25 12:00 02/26/25 11:30 Insulin Aspart (*Bkc) 100 Units/Ml SUB-Q 3 units Q6HR IMTIAZ Administration Protocol Loratadine 10 mg 02/25/25 09:00 02/26/25 08:33 Loratadine 10 Mg Tablet FEED TUBE 10 mg QAM IMTIAZ Administration Morphine Sulfate 2 mg 02/20/25 10:39 Morphine Sulfate (*Crx) 4 Mg/Ml Inj IV PUSH Q2H PRN Pain Rated 7-10 Vitamin A&D Ointment 1 each 02/21/25 14:15 02/21/25 20:56 (Home Med) TOPICAL 03/23/25 14:14 1 each PRN PRN Administration to affected areas Pantoprazole Sodium 40 mg 02/21/25 09:00 02/26/25 08:33 Pantoprazole Sodium Iv 40 Mg Vial IV PUSH 40 mg QAM IMTIAZ Administration Prednisone 30 mg 02/26/25 08:00 02/26/25 08:32 Prednisone 10 Mg Tablet PO 02/28/25 08:01 30 mg DAILY@0800 ON LICENSE OF [facility] Administration Prednisone 20 mg 03/01/25 08:00 Prednisone 20 Mg Tablet PO 03/03/25 08:01 DAILY@0800 ON LICENSE OF [facility] Prednisone 10 mg 03/04/25 08:00 Prednisone 10 Mg Tablet PO 03/06/25 08:01 DAILY@0800 ON LICENSE OF [facility] Promethazine HCl 12.5 mg 02/20/25 10:39 Promethazine Hcl 25 Mg/Ml Ampul IV PUSH Q6H PRN Nausea Rosuvastatin Calcium 20 mg 02/26/25 09:00 02/26/25 08:32 Rosuvastatin 20 Mg Tablet FEED TUBE 20 mg DAILY IMTIAZ Administration Vitamin D 50 mcg 02/26/25 09:00 02/26/25 08:33 Cholecalciferol (Vitamin D3) 25 Mcg (1,000 Units) Tablet FEED TUBE 50 mcg DAILY IMTIAZ Administration Radiology Results: ITS Impressions Chest/Abdomen/Pelvis CT 02/20/25 11:24 IMPRESSION: 1. Right lower lobe pneumonia. 2. New 6 mm nodule in right lung middle lobe, probably benign. Consider noncontrast low-dose chest CT in 6 months. 3. 11 mm nodule in left lung upper lobe, stable from 12/16/2023, likely benign. 4. Small pericardial effusion. 5. Moderate emphysema. 6. 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 Chest X-Ray 02/25/25 08:18 IMPRESSION: 1. No gross interval change from yesterday. Labs Labs: Laboratory Results - last 24 hr 02/25/25 02/25/25 02/26/25 17:29 19:20 00:24 WBC RBC Hgb Hct MCV MCH MCHC RDW Plt Count MPV Immature Gran % (Auto) Neut % (Auto) Lymph % (Auto) [place] % (Auto) Eos % (Auto) Baso % (Auto) Lymph # (Auto) [place] # (Auto) Eos # (Auto) Baso # (Auto) Abs Immat Gran (auto) Absolute Neuts (auto) Absolute Nucleated RBC Nucleated RBC % Sodium 149 H Potassium 4.4 Chloride 103 Carbon Dioxide 39 H Anion Gap 7 BUN 72 H Creatinine 1.30 H Estim Creat Clear Calc 32 Estimated GFR 39 L Glucose 169 H POC Capillary Glucose 190 H 125 H Calcium 10.7 H Phosphorus Magnesium Total Bilirubin AST ALT Alkaline Phosphatase Total Protein Albumin 02/26/25 02/26/25 02/26/25 04:41 05:32 11:24 WBC 15.4 H RBC 3.39 L Hgb 9.4 L Hct 31.2 L MCV 92.0 MCH 27.7 MCHC 30.1 L RDW 19.5 H Plt Count 294 MPV 9.5 Immature Gran % (Auto) 0.8 H Neut % (Auto) 81.2 H Lymph % (Auto) 10.6 L [place] % (Auto) 7.0 Eos % (Auto) 0.1 Baso % (Auto) 0.3 Lymph # (Auto) 1.63 [place] # (Auto) 1.1 H Eos # (Auto) 0.0 Baso # (Auto) 0.0 Abs Immat Gran (auto) 0.12 H Absolute Neuts (auto) 12.5 H Absolute Nucleated RBC 0.020 H Nucleated RBC % 0.1 Sodium 150 H Potassium 3.8 Chloride 105 Carbon Dioxide 39 H Anion Gap 6 BUN 80 H Creatinine 1.31 H Estim Creat Clear Calc 32 Estimated GFR 39 L Glucose 108 POC Capillary Glucose 154 H 233 H Calcium 11.0 H Phosphorus 3.1 Magnesium 2.6 H Total Bilirubin 0.3 AST 154 H ALT 196 H Alkaline Phosphatase 97 Total Protein 8.1 Albumin 4.3
[2025-02-26 16:29] LABS: Anion Gap 12 mmol/L (4-12); Blood Urea Nitrogen 80 mg/dL (7-17); Calcium 11.2 mg/dL (8.4-10.2); Carbon Dioxide 34 mmol/L (22-30); Chloride 103 mmol/L (98-107); Estimated CRCL calculation 29 ml/min; Estimated Glomerular Filt Rate 36; Glucose 213 mg/dL (65-110); Potassium 4.5 mmol/L (3.4-5.0); Sodium 149 mmol/L (137-145)
--- NOTE | 2025-02-26 19:01 | PC.NURSE ---
Phoned Dr. Marshall and gave Sodium results of 149. Order give to give one bad Dextrose 5% @ 100ml/h 500ml total. order placed. Gabe Blank RN.
[2025-02-26] MEDS: DONEPEZIL HCL 5 MG TABLET FEED TUBE (20:30)
[2025-02-27] VITALS (64 sets, daily range): BP systolic 109–152; BP diastolic 50–80; PULSE 77–97; RESP 15–32; TEMP 36.7–37.6; O2SAT 90–98
--- NOTE | 2025-02-27 07:25 | P.PNINT_ITS ---
Progress Note: A&P Assessment and Plan (1) Acute on chronic respiratory failure: Qualifiers: Respiratory failure complication: unspecified whether with hypoxia or hypercapnia Qualified Code(s): J96.20 - Acute and chronic respiratory failure, unspecified whether with hypoxia or hypercapnia Code(s): J96.20 - Acute and chronic respiratory failure, unspecified whether with hypoxia or hypercapnia Status: Acute Assessment and Plan: Acute on chronic respiratory failure with hypoxia and hypercarbia in a patient who has history of COPD, chronic tracheostomy and is on 8 L oxygen by mask and now has a right lower lobe pneumonia 02/20 Tracheostomy was changed to a cuffed tracheostomy tube in the ER Patient is now on the mechanical ventilation with SIMV FiO2 is down to 35% 02/21 tolerated PSV 15/5 for many hours. 02/22 patient tolerated PSV 20/8 for adequate RSBI. She was switched back to SIMV at night 02/23 change SIMV settings and decrease rate and pressure support. Patient was tried on PSV 15/8 for many hours. She does not tolerate lowering of pressure support more than that as her tidal volumes drop in respiratory rate goes up to above 30s. 02/24 will try PSV again today. Will try to wean down pressure support if possible. Continue Bronchodilators Continue prednisone per tube taper Off IV fluids IV fluid Negative vital panel, Blood and sputum cultures are negative now Continue Augmentin. Low procalcitonin 02/25: Place patient on pressure support ventilation, tolerated for approxi mately 6-7 hours and was placed back on SIMV mode 02/26: Tolerated pressure support ventilation almost all day. -white blood cell count trending up, patient is afebrile, remains on antibiotics (2) COPD (chronic obstructive pulmonary disease): Qualifiers: COPD type: unspecified COPD Qualified Code(s): J44.9 - Chronic obstructive pulmonary disease, unspecified Code(s): J44.9 - Chronic obstructive pulmonary disease, unspecified Status: Acute Assessment and Plan: Continue bronchodilators, budesonide nebs (3) Acute kidney injury: Code(s): N17.9 - Acute kidney failure, unspecified Status: Acute Assessment and Plan: Acute kidney injury with creatinine 1.5 likely secondary to sepsis hypovolemia and hypotension IV fluid bolus followed by cautious maintainIV fluids Normal CK UA reviewed Marj for accurate I&Os CT abdomen pelvis negative for any stone or obstruction Monitor intake output and electrolytes She has good urine output Creatinine trending up, likely related to free water deficit. Receiving D5 water, will discuss with Nephrology (4) HTN (hypertension): Qualifiers: Hypertension type: primary hypertension Qualified Code(s): I10 - Essential (primary) hypertension Code(s): I10 - Essential (primary) hypertension Status: Acute Assessment and Plan: Continue amlodipine (5) Tracheostomy in place: Code(s): Z93.0 - Tracheostomy status Status: Acute Assessment and Plan: Tracheostomy was changed to a cuffed size 6 by ER (6) G tube feedings: Code(s): Z93.1 - Gastrostomy status Status: Acute Assessment and Plan: Tolerate tube feeds, positive bowel movement (7) Anemia: Qualifiers: Anemia type: unspecified type Qualified Code(s): D64.9 - Anemia, unspecified Code(s): D64.9 - Anemia, unspecified Status: Acute Assessment and Plan: History of chronic anemia. Hemoglobin appears close to baseline. Monitor (8) CHF (congestive heart failure): Qualifiers: Heart failure chronicity: unspecified Heart failure type: unspecified Qualified Code(s): I50.9 - Heart failure, unspecified Code(s): I50.9 - Heart failure, unspecified Status: Acute Assessment and Plan: Elevated BNP. Echocardiogram Summary 1. Complete two-dimensional, color flow and Doppler transthoracic echocardiogram is performed. 2. Left ventricular systolic function is hyperdynamic, estimated at >70. 3. The left ventricular diastolic function is grade I diastolic dysfunction. 4. There is trace tricuspid valve regurgitation. 5. Mild pulmonary hypertension, estimated pulmonary arterial systolic pressure is 38 mmHg. 6. There is mild pulmonic regurgitation (9) Sepsis: Qualifiers: Sepsis acute organ dysfunction status: unspecified Sepsis type: sepsis due to unspecified organism Qualified Code(s): A41.9 - Sepsis, unspecified organism Code(s): A41.9 - Sepsis, unspecified organism Status: Acute Assessment and Plan: Normal lactic acid level and low procalcitonin level Off further IV fluids 02/20: Blood cultures negative x2 Empiric antibiotics as above (10) Pericardial effusion: Code(s): I31.39 - Other pericardial effusion (noninflammatory) Status: Acute Assessment and Plan: CT scan showed pericardial effusion vent echo done and does not show any significant effusion. No intervention at this time. (11) Hypernatremia: Code(s): E87.0 - Hyperosmolality and hypernatremia Status: Acute Assessment and Plan: Appreciate nephrology following the patient, patient has been receiving D5 water intermittently Continue free water flushes 200 q.4 hours Sodium levels pending this morning (12) Electrolyte abnormality: Code(s): E87.8 - Other disorders of electrolyte and fluid balance, not elsewhere classifi ed Status: Acute Assessment and Plan: Will replace electrolytes as needed Plan DVT prophylaxis -Lovenox Stress ulcer prophylaxis -PPI Nutrition -continue tube feeds Code Status - Full Code Patient awaits LTAC placement now Total Critical Care Time - 31 minutes Discussed with daughters, they have not yet visited the LTAC. They plan to visit the LTAC facility in the coming week. Due to a high probability of clinically significant, life threatening deterioration, the patient required my highest level of preparedness to intervene emergently and I personally spent this critical care time directly and personally managing the patient. This critical care time included obtaining a history; examining the patient; pulse oximetry; ordering and review of studies; arranging urgent treatment with development of a management plan; evaluation of patient's response to treatment; frequent reassessment; and discussions with other providers. It was exclusive of separately billable procedures and treating other patients and teaching time. Please see Assessment and Plan section and the rest of the note for further information on patient assessment and treatment This dictation may have been done utilizing a voice recognition system. Attempts have been made to correct errors. However, there may be uncorrected grammatical, spelling, and recognitions errors present. Subjective Date/time seen: 02/27/25 07:25 Interval history: Reason for consult: Acute on chronic respiratory failure, possible COPD exacerbation, acute kidney injury, hyponatremia, 02/27/2025: Patient seen and examined the ICU. Chronic tracheostomy, remains on vent on SIMV mode, not on any sedation. opens her eyes, afebrile, UO adequate, FMS in place with bowel movements, tolerating tube feeds. Labs pending Review of Systems Review of Systems: ROS unobtainable: Yes unobtainable due to endotracheal tube, unobtainable due to medical condition and unobtainable due to mental status Exam Narrative: General: Patient opens her eyes, contracted, does not do anything a thickened opening her eyes at baseline, has a tracheostomy and on mechanical ventilation HEENT: Pupils are equal and reactive, sclera is clear, tracheostomy in place Lungs/Chest: Decreased breath sounds at bases, otherwise adequate air entry, no wheezing Cardiac: RRR. Normal S1 S2. No murmurs Circulation: Pedal pulses are intact and symmetrical. Abdomen: Soft, slightly distended, tympanic, nontender. PEG tube in place, scar from past surgery noted Extremities: No clubbing, cyanosis or edema. Warm : Mcmahan in place Neurologic: Patient has contractures and hand. Withdraws to pain stimulusin in all extremities but does not follow any commands or respond to questions or calling her name. Eyes are open Objective Data Vital Signs Vital Signs: Vital Signs - 24 hr 02/26/25 07:51 02/26/25 07:51 02/26/25 08:00 Temperature 99.1 F Pulse Rate 90 90 94 Respiratory Rate 25 H 28 H Blood Pressure 123/62 Pulse Oximetry 94 96 Oxygen Delivery Mechanical Ventilation Fraction of Inspired Oxygen 35 02/26/25 08:00 02/26/25 08:00 02/26/25 08:00 Temperature Pulse Rate 92 Respiratory Rate Blood Pressure Pulse Oximetry 96 Oxygen Delivery Mechanical Ventilation Fraction of Inspired Oxygen 35 35 02/26/25 08:10 02/26/25 09:00 02/26/25 09:22 Temperature Pulse Rate 92 101 H 96 Respiratory Rate 26 H 30 H Blood Pressure 139/64 Pulse Oximetry 95 94 Oxygen Delivery Mechanical Ventilation Fraction of Inspired Oxygen 35 02/26/25 10:00 02/26/25 10:00 02/26/25 11:00 Temperature 99.1 F Pulse Rate 95 94 93 Respiratory Rate 31 H 29 H Blood Pressure 130/65 133/59 L Pulse Oximetry 96 95 Oxygen Delivery Fraction of Inspired Oxygen 02/26/25 11:45 02/26/25 12:00 02/26/25 12:00 Temperature 99.5 F Pulse Rate 95 95 Respiratory Rate 30 H Blood Pressure 134/60 Pulse Oximetry 94 96 Oxygen Delivery Mechanical Ventilation Fraction of Inspired Oxygen 35 35 02/26/25 12:00 02/26/25 12:00 02/26/25 13:00 Temperature Pulse Rate 95 93 Respiratory Rate 33 H Blood Pressure 129/62 Pulse Oximetry 96 95 Oxygen Delivery Mechanical Ventilation Fraction of Inspired Oxygen 35 02/26/25 14:00 02/26/25 14:00 02/26/25 14:06 Temperature 98.9 F Pulse Rate 87 86 86 Respiratory Rate 28 H Blood Pressure 133/63 Pulse Oximetry 96 97 Oxygen Delivery Mechanical Ventilation Fraction of Inspired Oxygen 35 02/26/25 14:59 02/26/25 16:00 02/26/25 16:00 Temperature Pulse Rate 88 86 Respiratory Rate 27 H 29 H Blood Pressure 133/63 134/59 L Pulse Oximetry 97 96 Oxygen Delivery Fraction of Inspired Oxygen 35 02/26/25 16:00 02/26/25 16:00 02/26/25 16:12 Temperature 98.4 F Pulse Rate 95 Respiratory Rate Blood Pressure Pulse Oximetry 96 Oxygen Delivery Mechanical Ventilation Fraction of Inspired Oxygen 35 02/26/25 17:00 02/26/25 17:25 02/26/25 18:00 Temperature Pulse Rate 86 89 88 Respiratory Rate 24 H Blood Pressure 135/57 L Pulse Oximetry 96 96 Oxygen Delivery Mechanical Ventilation Fraction of Inspired Oxygen 35 02/26/25 18:00 02/26/25 19:00 02/26/25 19:01 Temperature 98.0 F Pulse Rate 85 83 88 Respiratory Rate 29 H 25 H 22 H Blood Pressure 134/62 120/57 L Pulse Oximetry 96 96 97 Oxygen Delivery Fraction of Inspired Oxygen 02/26/25 19:15 02/26/25 19:30 02/26/25 19:45 Temperature Pulse Rate 85 87 83 Respiratory Rate 28 H 27 H 28 H Blood Pressure Pulse Oximetry 96 97 96 Oxygen Delivery Fraction of Inspired Oxygen 02/26/25 20:00 02/26/25 20:00 02/26/25 20:01 Temperature Pulse Rate 84 85 84 Respiratory Rate 30 H 28 H Blood Pressure 137/65 Pulse Oximetry 94 97 Oxygen Delivery Fraction of Inspired Oxygen 02/26/25 20:15 02/26/25 20:30 02/26/25 20:30 Temperature Pulse Rate 84 Respiratory Rate 27 H Blood Pressure Pulse Oximetry 97 97 Oxygen Delivery Fraction of Inspired Oxygen 35 35 02/26/25 20:30 02/26/25 20:30 02/26/25 20:45 Temperature Pulse Rate 91 89 99 Respiratory Rate 29 H 25 H Blood Pressure Pulse Oximetry 99 96 Oxygen Delivery Mechanical Ventilation Fraction of Inspired Oxygen 35 02/26/25 20:45 02/26/25 21:00 02/26/25 21:01 Temperature Pulse Rate 89 88 89 Respiratory Rate 23 H 28 H 31 H Blood Pressure 128/54 L Pulse Oximetry 100 95 96 Oxygen Delivery Fraction of Inspired Oxygen 02/26/25 21:15 02/26/25 21:30 02/26/25 21:45 Temperature Pulse Rate 85 83 82 Respiratory Rate 29 H 30 H 27 H Blood Pressure Pulse Oximetry 95 94 94 Oxygen Delivery Fraction of Inspired Oxygen 02/26/25 22:00 02/26/25 22:00 02/26/25 22:01 Temperature Pulse Rate 88 89 91 Respiratory Rate 31 H 26 H Blood Pressure 133/69 Pulse Oximetry 94 97 Oxygen Delivery Fraction of Inspired Oxygen 02/26/25 22:15 02/26/25 22:30 02/26/25 22:45 Temperature Pulse Rate 83 82 84 Respiratory Rate 26 H 28 H 29 H Blood Pressure Pulse Oximetry 94 95 96 Oxygen Delivery Fraction of Inspired Oxygen 02/26/25 23:00 02/26/25 23:01 02/26/25 23:15 Temperature 98.7 F Pulse Rate 84 86 92 Respiratory Rate 32 H 31 H 23 H Blood Pressure 134/70 Pulse Oximetry 96 96 98 Oxygen Delivery Fraction of Inspired Oxygen 02/26/25 23:15 02/26/25 23:30 02/26/25 23:39 Temperature Pulse Rate 85 86 Respiratory Rate 25 H Blood Pressure Pulse Oximetry 99 100 Oxygen Delivery Mechanical Ventilation Fraction of Inspired Oxygen 35 35 02/26/25 23:42 02/26/25 23:45 02/27/25 00:00 Temperature Pulse Rate 83 82 Respiratory Rate 28 H Blood Pressure Pulse Oximetry 98 98 Oxygen Delivery Mechanical Ventilation Fraction of Inspired Oxygen 35 02/27/25 00:00 02/27/25 00:00 02/27/25 00:01 Temperature Pulse Rate 84 84 Respiratory Rate 28 H 28 H Blood Pressure 148/71 H Pulse Oximetry 97 98 Oxygen Delivery Fraction of Inspired Oxygen 35 02/27/25 00:02 02/27/25 00:15 02/27/25 00:30 Temperature Pulse Rate 84 83 78 Respiratory Rate 28 H 29 H 23 H Blood Pressure Pulse Oximetry 97 97 97 Oxygen Delivery Fraction of Inspired Oxygen 02/27/25 00:45 02/27/25 01:00 02/27/25 01:01 Temperature Pulse Rate 84 78 77 Respiratory Rate 24 H 25 H 19 Blood Pressure 136/63 Pulse Oximetry 98 97 97 Oxygen Delivery Fraction of Inspired Oxygen 02/27/25 01:15 02/27/25 01:30 02/27/25 01:45 Temperature Pulse Rate 78 80 77 Respiratory Rate 24 H 27 H 22 H Blood Pressure Pulse Oximetry 97 97 98 Oxygen Delivery Fraction of Inspired Oxygen 02/27/25 02:00 02/27/25 02:00 02/27/25 02:01 Temperature Pulse Rate 79 78 78 Respiratory Rate 23 H 22 H Blood Pressure 137/64 Pulse Oximetry 97 98 Oxygen Delivery Fraction of Inspired Oxygen 02/27/25 02:02 02/27/25 02:15 02/27/25 02:30 Temperature Pulse Rate 77 88 90 Respiratory Rate 19 26 H Blood Pressure Pulse Oximetry 98 98 98 Oxygen Delivery Mechanical Ventilation Fraction of Inspired Oxygen 35 02/27/25 02:30 02/27/25 02:45 02/27/25 03:00 Temperature Pulse Rate 79 87 Respiratory Rate 19 21 H Blood Pressure Pulse Oximetry 97 95 95 Oxygen Delivery Fraction of Inspired Oxygen 02/27/25 03:15 02/27/25 03:30 02/27/25 03:31 Temperature Pulse Rate 90 85 86 Respiratory Rate 18 27 H 26 H Blood Pressure 128/71 Pulse Oximetry 96 92 Oxygen Delivery Fraction of Inspired Oxygen 02/27/25 03:32 02/27/25 03:36 02/27/25 03:45 Temperature Pulse Rate 86 81 Respiratory Rate 28 H 15 Blood Pressure Pulse Oximetry 96 95 Oxygen Delivery Fraction of Inspired Oxygen 35 02/27/25 04:00 02/27/25 04:00 02/27/25 04:00 Temperature Pulse Rate 85 83 Respiratory Rate 23 H Blood Pressure Pulse Oximetry 96 95 Oxygen Delivery Mechanical Ventilation Fraction of Inspired Oxygen 35 02/27/25 04:00 02/27/25 04:01 02/27/25 04:02 Temperature 98.4 F Pulse Rate 84 83 Respiratory Rate 24 H 24 H Blood Pressure 126/66 Pulse Oximetry 96 96 Oxygen Delivery Fraction of Inspired Oxygen 35 02/27/25 04:15 02/27/25 04:30 02/27/25 04:45 Temperature Pulse Rate 89 83 86 Respiratory Rate 25 H 22 H 25 H Blood Pressure Pulse Oximetry 97 95 97 Oxygen Delivery Fraction of Inspired Oxygen 02/27/25 05:00 02/27/25 05:01 02/27/25 05:02 Temperature Pulse Rate 84 85 85 Respiratory Rate 20 27 H 26 H Blood Pressure 116/61 Pulse Oximetry 96 97 97 Oxygen Delivery Fraction of Inspired Oxygen 02/27/25 05:15 02/27/25 05:30 02/27/25 05:40 Temperature Pulse Rate 84 87 86 Respiratory Rate 25 H 23 H Blood Pressure Pulse Oximetry 96 96 97 Oxygen Delivery Mechanical Ventilation Fraction of Inspired Oxygen 35 02/27/25 05:45 02/27/25 06:00 02/27/25 06:00 Temperature Pulse Rate 88 90 89 Respiratory Rate 28 H 26 H Blood Pressure Pulse Oximetry 93 90 Oxygen Delivery Fraction of Inspired Oxygen 02/27/25 06:01 02/27/25 07:00 Temperature Pulse Rate 90 91 Respiratory Rate 27 H 27 H Blood Pressure 131/61 149/63 H Pulse Oximetry 93 94 Oxygen Delivery Fraction of Inspired Oxygen Intake/Output Intake/Output: Intake & Output 02/24/25 02/25/25 02/26/25 02/27/25 23:59 23:59 23:59 23:59 Intake Total 3775 4665 1320 2466 Output Total 2650 1850 1400 1000 Balance 1125 2815 -80 1466 Meds/Results Medications: Active Medications Generic Name Dose Route Start Last Admin Trade Name Freq PRN Reason Stop Dose Admin Acetaminophen 650 mg 02/20/25 10:42 Acetaminophen Elixir 325 Mg/10.15 Ml Udc FEED TUBE Q4H PRN Mild Pain (1-3) or Fever Albuterol 2.5 mg 02/21/25 20:44 02/26/25 07:51 Albuterol Sulfate Neb 2.5 Mg/3 Ml Inh INHALATION 2.5 mg Q6HRT PRN Administration Shortness Of Breath Amlodipine Besylate 5 mg 02/25/25 13:50 02/26/25 08:33 Amlodipine Besylate 5 Mg Tablet FEED TUBE 5 mg DAILY IMTIAZ Administration Amoxicillin/Clavulanate Potassium 1 tablet 02/23/25 09:00 02/26/25 20:30 Amoxicillin/Clavulanate K 875-125 Mg Tab FEED TUBE 02/27/25 23:59 1 tablet Q12HR IMTIAZ Administration Aspirin 81 mg 02/26/25 09:00 02/26/25 08:33 Aspirin 81 Mg Chewable Tablet FEED TUBE 81 mg DAILY IMTIAZ Administration Budesonide 1 mg 02/25/25 20:00 02/26/25 20:32 Budesonide Respule Neb 0.5 Mg/2 Ml Amp INHALATION 1 mg Q12HRT IMTIAZ Administration Dextrose 12.5 gm 02/20/25 11:00 Dextrose 50% 25 Gm/50 Ml Syringe IV PUSH PRN PRN Hypoglycemia Protocol Donepezil HCl 5 mg 02/25/25 21:00 02/26/25 20:30 Donepezil Hcl 5 Mg Tablet FEED TUBE 5 mg HS IMTIAZ Administration Enoxaparin Sodium 40 mg 02/23/25 09:00 02/26/25 08:32 Enoxaparin 40 Mg/0.4 Ml Syringe SUB-Q 40 mg DAILY IMTIAZ Administration Ferrous Sulfate 325 mg 02/25/25 21:00 02/26/25 20:31 Ferrous Sulfate Liquid 325 Mg/7.4 Ml Elixir FEED TUBE 325 mg Q12HR IMTIAZ Administration Glucagon 1 mg 02/20/25 11:00 Glucagon For Inj 1 Mg Vial IM PRN PRN Hypoglycemia Protocol Glucose 15 gm 02/20/25 11:00 Glucose Oral Gel 15 Gm Of Glucse In 37.5 Gm Tube PO PRN PRN Hypoglycemia Protocol Hydralazine HCl 10 mg 02/25/25 13:47 02/26/25 02:19 Hydralazine Hcl 20 Mg/Ml Vial IV PUSH 10 mg Q4H PRN Administration Blood Pressure - High Dextrose 1,000 mls @ 100 mls/hr 02/20/25 11:00 Dextrose 5% 1,000 Ml IVPB PRN PRN Hypoglycemia Protocol Insulin Aspart 3 - 6 units 02/20/25 12:00 02/27/25 05:54 Insulin Aspart (*Bkc) 100 Units/Ml SUB-Q Not Given Q6HR IMTIAZ Protocol Loratadine 10 mg 02/25/25 09:00 02/26/25 08:33 Loratadine 10 Mg Tablet FEED TUBE 10 mg QAM IMTIAZ Administration Morphine Sulfate 2 mg 02/20/25 10:39 Morphine Sulfate (*Crx) 4 Mg/Ml Inj IV PUSH Q2H PRN Pain Rated 7-10 Vitamin A&D Ointment 1 each 02/21/25 14:15 02/21/25 20:56 (Home Med) TOPICAL 03/23/25 14:14 1 each PRN PRN Administration to affected areas Pantoprazole Sodium 40 mg 02/21/25 09:00 02/26/25 08:33 Pantoprazole Sodium Iv 40 Mg Vial IV PUSH 40 mg QAM IMTIAZ Administration Prednisone 30 mg 02/26/25 08:00 02/26/25 08:32 Prednisone 10 Mg Tablet PO 02/28/25 08:01 30 mg DAILY@0800 [facility] Administration Prednisone 20 mg 03/01/25 08:00 Prednisone 20 Mg Tablet PO 03/03/25 08:01 DAILY@0800 [facility] Prednisone 10 mg 03/04/25 08:00 Prednisone 10 Mg Tablet PO 03/06/25 08:01 DAILY@0800 [facility] Promethazine HCl 12.5 mg 02/20/25 10:39 Promethazine Hcl 25 Mg/Ml Ampul IV PUSH Q6H PRN Nausea Rosuvastatin Calcium 20 mg 02/26/25 09:00 02/26/25 08:32 Rosuvastatin 20 Mg Tablet FEED TUBE 20 mg DAILY IMTIAZ Administration Vitamin D 50 mcg 02/26/25 09:00 02/26/25 08:33 Cholecalciferol (Vitamin D3) 25 Mcg (1,000 Units) Tablet FEED TUBE 50 mcg DAILY IMTIAZ Administration Radiology Results: ITS Impressions Chest/Abdomen/Pelvis CT 02/20/25 11:24 IMPRESSION: 1. Right lower lobe pneumonia. 2. New 6 mm nodule in right lung middle lobe, probably benign. Consider noncontrast low-dose chest CT in 6 months. 3. 11 mm nodule in left lung upper lobe, stable from 12/16/2023, likely benign. 4. Small pericardial effusion. 5. Moderate emphysema. 6. 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 Labs Labs: Laboratory Results - last 24 hr 02/26/25 02/26/25 02/26/25 11:24 16:13 17:38 Sodium 149 H Potassium 4.5 Chloride 103 Carbon Dioxide 34 H Anion Gap 12 BUN 80 H Creatinine 1.42 H Estim Creat Clear Calc 29 Estimated GFR 36 L Glucose 213 H POC Capillary Glucose 233 H 205 H Calcium 11.2 H 02/26/25 02/27/25 23:11 05:47 Sodium Potassium Chloride Carbon Dioxide Anion Gap BUN Creatinine Estim Creat Clear Calc Estimated GFR Glucose POC Capillary Glucose 151 H 163 H Calcium Quality VTE Prophylaxis VTE prophylaxis: pharmacologic ordered
[2025-02-27 07:43] LABS: Hematocrit 30.4 % (37.0-47.0); Hemoglobin 9.1 g/dL (12.0-15.0); Immature Granulocyte Percent A 0.8 % (0-0.5); Lymphocytes Absolute Auto 1.77 K/mm3 (0.9-3.2); Mean Corpuscular HGB Conc 29.9 g/dl (32-36); Mean Corpuscular Hemoglobin 27.4 pg (26-34); Mean Corpuscular Volume 91.6 fl (80-100); Nucleated Red Blood Cells Absolute Auto 0.020 K/mm3 (0.0-0.012); Nucleated Red Blood Cells Perc 0.1 % (0.0-0.2); Platelet Count Result 291 k/mm3 (150-375); Red Blood Count 3.32 M/mm3 (4.2-5.4); White Blood Count 14.3 K/mm3 (4.5-10.0)
[2025-02-27 08:02] LABS: Anion Gap 9 mmol/L (4-12); Blood Urea Nitrogen 85 mg/dL (7-17); Calcium 11.1 mg/dL (8.4-10.2); Carbon Dioxide 36 mmol/L (22-30); Chloride 102 mmol/L (98-107); Estimated CRCL calculation 29 ml/min; Estimated Glomerular Filt Rate 36; Glucose 169 mg/dL (65-110); Magnesium 2.7 mg/dL (1.6-2.3); Potassium 3.3 mmol/L (3.4-5.0); Sodium 147 mmol/L (137-145)
[2025-02-27] MEDS: BUDESONIDE RESPULE NEB 0.5 MG/2 ML AMP 1 MG INHALATION ×2 (08:05→20:55)
[2025-02-27] MEDS: ROSUVASTATIN 20 MG TABLET FEED TUBE (08:34)
[2025-02-27] MEDS: PANTOPRAZOLE SODIUM IV 40 MG VIAL IV PUSH (08:35)
[2025-02-27] MEDS: LORATADINE 10 MG TABLET FEED TUBE (08:35)
[2025-02-27] MEDS: CHOLECALCIFEROL (VITAMIN D3) 25 MCG (1,000 UNITS) TABLET 50 MCG FEED TUBE (08:36)
[2025-02-27] MEDS: ASPIRIN 81 MG CHEWABLE TABLET FEED TUBE (08:36)
[2025-02-27] MEDS: FERROUS SULFATE LIQUID 325 MG/7.4 ML ELIXIR FEED TUBE ×2 (08:37→21:21)
[2025-02-27] MEDS: ENOXAPARIN 40 MG/0.4 ML SYRINGE SUB-Q (08:37)
[2025-02-27 09:21] LABS: Anisocytosis 1+; Hypochromasia 1+; Schistocytes None Seen
[2025-02-27 09:37] LABS: Add Urine Microscopic? YES; Appearance Urine Clear (Clear); Glucose Urine UA Negative (Negative); Leukocyte Esterase Ur 2+ LEU/UL (Negative); Need Manual Microscopic Reviewed; Nitrate Urine Negative (Negative); Specific Grav Ur 1.013 (1.001-1.035)
--- NOTE | 2025-02-27 10:29 | P.PNNP_ITS ---
Progress Note: A&P Assessment and Plan (1) Hypernatremia: Code(s): E87.0 - Hyperosmolality and hypernatremia Status: Acute Assessment and Plan: * as noted since 02/23 * suspect due to free water deficit and volume depletion * possible insensible losses from being on ventilator * reasonable urine output but not excessive to suspect polyuria * patient is getting 250cc q.4 hours of tube feeding flushes for maintenance * she received another 500cc bolus of D5W last night. Sodium level down to 147. * urine specific gravity was 1.014, against DI but osmolality is pending * Continue this rate of 2 feeding flushes * the patient is on Nepro. I talked at length with Francoise about how the Nepro has a low amount of free water in it. This is generally good for patients with chronic kidney disease, however in sure least case she needs more free water so will switch to a formula with lower osmolality. She agrees with this. * Will check another sodium this afternoon * Discussed with Dr Pineda (2) Hypercalcemia: Code(s): E83.52 - Hypercalcemia Status: Chronic Assessment and Plan: * has been on the higher side of normal for the las year if not longer (chronic) * baseline calcium runs around 10 - 11 range * suspect partly due to bed bound status and immobilized state possibly complicated by relative dehydration * improvement noted with IVF hydration * follow trend with further IVFs and increased free water tube flushes * the patient is on Nepro. Will change this as above. * * Will check a urine calcium to creatinine ratio etc.. (3) Acute kidney injury: Code(s): N17.9 - Acute kidney failure, unspecified Status: Acute Assessment and Plan: * creatinine fluctuating since admission * may have some degree of renal insufficiency * due to prerenal factors and acute infection (pneumonia) * creatinine level started out at 1.5 then fell to about 1.1 and now is 1.3. * Will follow for trans (4) Acute on chronic respiratory failure: Qualifiers: Respiratory failure complication: unspecified whether with hypoxia or hypercapnia Qualified Code(s): J96.20 - Acute and chronic respiratory failure, unspecified whether with hypoxia or hypercapnia Code(s): J96.20 - Acute and chronic respiratory failure, unspecified whether with hypoxia or hypercapnia Status: Acute Assessment and Plan: * as noted on presentation * complicated by hypoxia and hypercarbia and pneumonia * known history of COPD as well * on mechanical ventilation via tracheostomy * on bronchodilators, steroids, and antibiotics * ventilator weaning ongoing (5) HTN (hypertension): Qualifiers: Hypertension type: primary hypertension Qualified Code(s): I10 - Essential (primary) hypertension Code(s): I10 - Essential (primary) hypertension Status: Acute Assessment and Plan: * noted by history * reasonable control at this time * systolic blood pressure 129 today Subjective Date/time seen: 02/27/25 10:29 Interval history: patient is resting comfortably in bed. Eyes are open. Sometimes follows and tracks examiner still on the ventilator per trach Exam Narrative: WDWN in NAD skin no rash head ncat lungs mildly coarse upper airway noise. neck Tracheostomy in place cor reg no rub abd BS+ nontender and soft ext no edema. Objective Data Vital Signs Vital Signs: Vital Signs - 24 hr 02/26/25 11:00 02/26/25 11:45 02/26/25 12:00 Temperature 99.5 F Pulse Rate 93 95 95 Respiratory Rate 29 H 30 H Blood Pressure 133/59 L 134/60 Pulse Oximetry 95 94 96 Oxygen Delivery Mechanical Ventilation Fraction of Inspired Oxygen 35 02/26/25 12:00 02/26/25 12:00 02/26/25 12:00 Temperature Pulse Rate 95 Respiratory Rate Blood Pressure Pulse Oximetry 96 Oxygen Delivery Mechanical Ventilation Fraction of Inspired Oxygen 35 35 02/26/25 13:00 02/26/25 14:00 02/26/25 14:00 Temperature 98.9 F Pulse Rate 93 87 86 Respiratory Rate 33 H 28 H Blood Pressure 129/62 133/63 Pulse Oximetry 95 96 Oxygen Delivery Fraction of Inspired Oxygen 02/26/25 14:06 02/26/25 14:59 02/26/25 16:00 Temperature Pulse Rate 86 88 86 Respiratory Rate 27 H 29 H Blood Pressure 133/63 134/59 L Pulse Oximetry 97 97 96 Oxygen Delivery Mechanical Ventilation Fraction of Inspired Oxygen 35 02/26/25 16:00 02/26/25 16:00 02/26/25 16:00 Temperature Pulse Rate 95 Respiratory Rate Blood Pressure Pulse Oximetry 96 Oxygen Delivery Mechanical Ventilation Fraction of Inspired Oxygen 35 35 02/26/25 16:12 02/26/25 17:00 02/26/25 17:25 Temperature 98.4 F Pulse Rate 86 89 Respiratory Rate 24 H Blood Pressure 135/57 L Pulse Oximetry 96 96 Oxygen Delivery Mechanical Ventilation Fraction of Inspired Oxygen 35 02/26/25 18:00 02/26/25 18:00 02/26/25 19:00 Temperature 98.0 F Pulse Rate 88 85 83 Respiratory Rate 29 H 25 H Blood Pressure 134/62 Pulse Oximetry 96 96 Oxygen Delivery Fraction of Inspired Oxygen 02/26/25 19:01 02/26/25 19:15 02/26/25 19:30 Temperature Pulse Rate 88 85 87 Respiratory Rate 22 H 28 H 27 H Blood Pressure 120/57 L Pulse Oximetry 97 96 97 Oxygen Delivery Fraction of Inspired Oxygen 02/26/25 19:45 02/26/25 20:00 02/26/25 20:00 Temperature Pulse Rate 83 84 85 Respiratory Rate 28 H 30 H Blood Pressure Pulse Oximetry 96 94 Oxygen Delivery Fraction of Inspired Oxygen 02/26/25 20:01 02/26/25 20:15 02/26/25 20:30 Temperature Pulse Rate 84 84 Respiratory Rate 28 H 27 H Blood Pressure 137/65 Pulse Oximetry 97 97 Oxygen Delivery Fraction of Inspired Oxygen 35 02/26/25 20:30 02/26/25 20:30 02/26/25 20:30 Temperature Pulse Rate 91 89 Respiratory Rate 29 H Blood Pressure Pulse Oximetry 97 99 96 Oxygen Delivery Mechanical Ventilation Fraction of Inspired Oxygen 35 35 02/26/25 20:45 02/26/25 20:45 02/26/25 21:00 Temperature Pulse Rate 99 89 88 Respiratory Rate 25 H 23 H 28 H Blood Pressure Pulse Oximetry 100 95 Oxygen Delivery Fraction of Inspired Oxygen 02/26/25 21:01 02/26/25 21:15 02/26/25 21:30 Temperature Pulse Rate 89 85 83 Respiratory Rate 31 H 29 H 30 H Blood Pressure 128/54 L Pulse Oximetry 96 95 94 Oxygen Delivery Fraction of Inspired Oxygen 02/26/25 21:45 02/26/25 22:00 02/26/25 22:00 Temperature Pulse Rate 82 88 89 Respiratory Rate 27 H 31 H Blood Pressure Pulse Oximetry 94 94 Oxygen Delivery Fraction of Inspired Oxygen 02/26/25 22:01 02/26/25 22:15 02/26/25 22:30 Temperature Pulse Rate 91 83 82 Respiratory Rate 26 H 26 H 28 H Blood Pressure 133/69 Pulse Oximetry 97 94 95 Oxygen Delivery Fraction of Inspired Oxygen 02/26/25 22:45 02/26/25 23:00 02/26/25 23:01 Temperature 98.7 F Pulse Rate 84 84 86 Respiratory Rate 29 H 32 H 31 H Blood Pressure 134/70 Pulse Oximetry 96 96 96 Oxygen Delivery Fraction of Inspired Oxygen 02/26/25 23:15 02/26/25 23:15 02/26/25 23:30 Temperature Pulse Rate 92 85 86 Respiratory Rate 23 H 25 H Blood Pressure Pulse Oximetry 98 99 100 Oxygen Delivery Mechanical Ventilation Fraction of Inspired Oxygen 35 02/26/25 23:39 02/26/25 23:42 02/26/25 23:45 Temperature Pulse Rate 83 Respiratory Rate 28 H Blood Pressure Pulse Oximetry 98 98 Oxygen Delivery Mechanical Ventilation Fraction of Inspired Oxygen 35 35 02/27/25 00:00 02/27/25 00:00 02/27/25 00:00 Temperature Pulse Rate 82 84 Respiratory Rate 28 H Blood Pressure Pulse Oximetry 97 Oxygen Delivery Fraction of Inspired Oxygen 35 02/27/25 00:01 02/27/25 00:02 02/27/25 00:15 Temperature Pulse Rate 84 84 83 Respiratory Rate 28 H 28 H 29 H Blood Pressure 148/71 H Pulse Oximetry 98 97 97 Oxygen Delivery Fraction of Inspired Oxygen 02/27/25 00:30 02/27/25 00:45 02/27/25 01:00 Temperature Pulse Rate 78 84 78 Respiratory Rate 23 H 24 H 25 H Blood Pressure Pulse Oximetry 97 98 97 Oxygen Delivery Fraction of Inspired Oxygen 02/27/25 01:01 02/27/25 01:15 02/27/25 01:30 Temperature Pulse Rate 77 78 80 Respiratory Rate 19 24 H 27 H Blood Pressure 136/63 Pulse Oximetry 97 97 97 Oxygen Delivery Fraction of Inspired Oxygen 02/27/25 01:45 02/27/25 02:00 02/27/25 02:00 Temperature Pulse Rate 77 79 78 Respiratory Rate 22 H 23 H Blood Pressure Pulse Oximetry 98 97 Oxygen Delivery Fraction of Inspired Oxygen 02/27/25 02:01 02/27/25 02:02 02/27/25 02:15 Temperature Pulse Rate 78 77 88 Respiratory Rate 22 H 19 26 H Blood Pressure 137/64 Pulse Oximetry 98 98 98 Oxygen Delivery Fraction of Inspired Oxygen 02/27/25 02:30 02/27/25 02:30 02/27/25 02:45 Temperature Pulse Rate 90 79 Respiratory Rate 19 Blood Pressure Pulse Oximetry 98 97 95 Oxygen Delivery Mechanical Ventilation Fraction of Inspired Oxygen 35 02/27/25 03:00 02/27/25 03:15 02/27/25 03:30 Temperature Pulse Rate 87 90 85 Respiratory Rate 21 H 18 27 H Blood Pressure Pulse Oximetry 95 96 Oxygen Delivery Fraction of Inspired Oxygen 02/27/25 03:31 02/27/25 03:32 02/27/25 03:36 Temperature Pulse Rate 86 86 Respiratory Rate 26 H 28 H Blood Pressure 128/71 Pulse Oximetry 92 96 Oxygen Delivery Fraction of Inspired Oxygen 35 02/27/25 03:45 02/27/25 04:00 02/27/25 04:00 Temperature Pulse Rate 81 85 Respiratory Rate 15 Blood Pressure Pulse Oximetry 95 96 Oxygen Delivery Mechanical Ventilation Fraction of Inspired Oxygen 35 02/27/25 04:00 02/27/25 04:00 02/27/25 04:01 Temperature 98.4 F Pulse Rate 83 84 Respiratory Rate 23 H 24 H Blood Pressure 126/66 Pulse Oximetry 95 96 Oxygen Delivery Fraction of Inspired Oxygen 35 02/27/25 04:02 02/27/25 04:15 02/27/25 04:30 Temperature Pulse Rate 83 89 83 Respiratory Rate 24 H 25 H 22 H Blood Pressure Pulse Oximetry 96 97 95 Oxygen Delivery Fraction of Inspired Oxygen 02/27/25 04:45 02/27/25 05:00 02/27/25 05:01 Temperature Pulse Rate 86 84 85 Respiratory Rate 25 H 20 27 H Blood Pressure 116/61 Pulse Oximetry 97 96 97 Oxygen Delivery Fraction of Inspired Oxygen 02/27/25 05:02 02/27/25 05:15 02/27/25 05:30 Temperature Pulse Rate 85 84 87 Respiratory Rate 26 H 25 H 23 H Blood Pressure Pulse Oximetry 97 96 96 Oxygen Delivery Fraction of Inspired Oxygen 02/27/25 05:40 02/27/25 05:45 02/27/25 06:00 Temperature Pulse Rate 86 88 90 Respiratory Rate 28 H Blood Pressure Pulse Oximetry 97 93 Oxygen Delivery Mechanical Ventilation Fraction of Inspired Oxygen 35 02/27/25 06:00 02/27/25 06:01 02/27/25 07:00 Temperature Pulse Rate 89 90 91 Respiratory Rate 26 H 27 H 27 H Blood Pressure 131/61 149/63 H Pulse Oximetry 90 93 94 Oxygen Delivery Fraction of Inspired Oxygen 02/27/25 08:00 02/27/25 08:00 02/27/25 08:00 Temperature 99.6 F Pulse Rate 94 Respiratory Rate 27 H Blood Pressure 128/63 Pulse Oximetry 90 94 Oxygen Delivery Mechanical Ventilation Fraction of Inspired Oxygen 35 35 02/27/25 08:00 02/27/25 08:05 02/27/25 08:06 Temperature Pulse Rate 93 93 93 Respiratory Rate 28 H Blood Pressure Pulse Oximetry 97 Oxygen Delivery Mechanical Ventilation Fraction of Inspired Oxygen 30 02/27/25 09:00 02/27/25 09:20 02/27/25 10:00 Temperature 99.1 F Pulse Rate 90 93 89 Respiratory Rate 24 H 28 H Blood Pressure 137/66 138/61 Pulse Oximetry 93 94 90 Oxygen Delivery Mechanical Ventilation Fraction of Inspired Oxygen 30 Intake/Output Intake/Output: Intake & Output 02/24/25 02/25/25 02/26/25 02/27/25 23:59 23:59 23:59 23:59 Intake Total 3775 4665 1320 2466 Output Total 2650 1850 1400 1000 Balance 1125 2815 -80 1466 Meds/Results Medications: Active Medications Generic Name Dose Route Start Last Admin Trade Name Freq PRN Reason Stop Dose Admin Acetaminophen 650 mg 02/20/25 10:42 Acetaminophen Elixir 325 Mg/10.15 Ml Udc FEED TUBE Q4H PRN Mild Pain (1-3) or Fever Albuterol 2.5 mg 02/21/25 20:44 02/26/25 07:51 Albuterol Sulfate Neb 2.5 Mg/3 Ml Inh INHALATION 2.5 mg Q6HRT PRN Administration Shortness Of Breath Amlodipine Besylate 5 mg 02/25/25 13:50 02/27/25 08:36 Amlodipine Besylate 5 Mg Tablet FEED TUBE 5 mg DAILY IMTIAZ Administration Amoxicillin/Clavulanate Potassium 1 tablet 02/23/25 09:00 02/27/25 08:36 Amoxicillin/Clavulanate K 875-125 Mg Tab FEED TUBE 02/27/25 23:59 1 tablet Q12HR IMTIAZ Administration Aspirin 81 mg 02/26/25 09:00 02/27/25 08:36 Aspirin 81 Mg Chewable Tablet FEED TUBE 81 mg DAILY IMTIAZ Administration Budesonide 1 mg 02/25/25 20:00 02/27/25 08:05 Budesonide Respule Neb 0.5 Mg/2 Ml Amp INHALATION 1 mg Q12HRT IMTIAZ Administration Dextrose 12.5 gm 02/20/25 11:00 Dextrose 50% 25 Gm/50 Ml Syringe IV PUSH PRN PRN Hypoglycemia Protocol Donepezil HCl 5 mg 02/25/25 21:00 02/26/25 20:30 Donepezil Hcl 5 Mg Tablet FEED TUBE 5 mg HS IMTIAZ Administration Enoxaparin Sodium 40 mg 02/23/25 09:00 02/27/25 08:37 Enoxaparin 40 Mg/0.4 Ml Syringe SUB-Q 40 mg DAILY IMTIAZ Administration Ferrous Sulfate 325 mg 02/25/25 21:00 02/27/25 08:37 Ferrous Sulfate Liquid 325 Mg/7.4 Ml Elixir FEED TUBE 325 mg Q12HR IMTIAZ Administration Glucagon 1 mg 02/20/25 11:00 Glucagon For Inj 1 Mg Vial IM PRN PRN Hypoglycemia Protocol Glucose 15 gm 02/20/25 11:00 Glucose Oral Gel 15 Gm Of Glucse In 37.5 Gm Tube PO PRN PRN Hypoglycemia Protocol Hydralazine HCl 10 mg 02/25/25 13:47 02/26/25 02:19 Hydralazine Hcl 20 Mg/Ml Vial IV PUSH 10 mg Q4H PRN Administration Blood Pressure - High Dextrose 1,000 mls @ 100 mls/hr 02/20/25 11:00 Dextrose 5% 1,000 Ml IVPB PRN PRN Hypoglycemia Protocol Insulin Aspart 3 - 6 units 02/20/25 12:00 02/27/25 05:54 Insulin Aspart (*Bkc) 100 Units/Ml SUB-Q Not Given Q6HR [facility] Protocol Loratadine 10 mg 02/25/25 09:00 02/27/25 08:35 Loratadine 10 Mg Tablet FEED TUBE 10 mg QAM IMTIAZ Administration Morphine Sulfate 2 mg 02/20/25 10:39 Morphine Sulfate (*Crx) 4 Mg/Ml Inj IV PUSH Q2H PRN Pain Rated 7-10 Vitamin A&D Ointment 1 each 02/21/25 14:15 02/21/25 20:56 (Home Med) TOPICAL 03/23/25 14:14 1 each PRN PRN Administration to affected areas Pantoprazole Sodium 40 mg 02/21/25 09:00 02/27/25 08:35 Pantoprazole Sodium Iv 40 Mg Vial IV PUSH 40 mg QAM IMTIAZ Administration Prednisone 30 mg 02/26/25 08:00 02/27/25 08:35 Prednisone 10 Mg Tablet PO 02/28/25 08:01 30 mg DAILY@0800 [facility] Administration Prednisone 20 mg 03/01/25 08:00 Prednisone 20 Mg Tablet PO 03/03/25 08:01 DAILY@0800 [facility] Prednisone 10 mg 03/04/25 08:00 Prednisone 10 Mg Tablet PO 03/06/25 08:01 DAILY@0800 [facility] Promethazine HCl 12.5 mg 02/20/25 10:39 Promethazine Hcl 25 Mg/Ml Ampul IV PUSH Q6H PRN Nausea Rosuvastatin Calcium 20 mg 02/26/25 09:00 02/27/25 08:34 Rosuvastatin 20 Mg Tablet FEED TUBE 20 mg DAILY [facility] Administration Vitamin D 50 mcg 02/26/25 09:00 02/27/25 08:36 Cholecalciferol (Vitamin D3) 25 Mcg (1,000 Units) Tablet FEED TUBE 50 mcg DAILY IMTIAZ Administration Radiology Results: ITS Impressions Chest/Abdomen/Pelvis CT 02/20/25 11:24 IMPRESSION: 1. Right lower lobe pneumonia. 2. New 6 mm nodule in right lung middle lobe, probably benign. Consider noncontrast low-dose chest CT in 6 months. 3. 11 mm nodule in left lung upper lobe, stable from 12/16/2023, likely benign. 4. Small pericardial effusion. 5. Moderate emphysema. 6. 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 Abdomen X-Ray 02/27/25 08:28 IMPRESSION: 1. No acute abnormality. Chest X-Ray 02/27/25 09:08 IMPRESSION: 1. No change or acute cardiopulmonary findings given portable technique. Labs Labs: Laboratory Results - last 24 hr 02/26/25 02/26/25 02/26/25 11:24 16:13 17:38 WBC RBC Hgb Hct MCV MCH MCHC RDW Plt Count MPV Immature Gran % (Auto) Neut % (Auto) Lymph % (Auto) [place] % (Auto) Eos % (Auto) Baso % (Auto) Lymph # (Auto) [place] # (Auto) Eos # (Auto) Baso # (Auto) Abs Immat Gran (auto) Absolute Neuts (auto) Absolute Nucleated RBC Band Neutrophils % Nucleated RBC % Platelet Estimate Hypochromasia Anisocytosis Schistocytes Sodium 149 H Potassium 4.5 Chloride 103 Carbon Dioxide 34 H Anion Gap 12 BUN 80 H Creatinine 1.42 H Estim Creat Clear Calc 29 Estimated GFR 36 L Glucose 213 H POC Capillary Glucose 233 H 205 H Calcium 11.2 H Phosphorus Magnesium Urine Color Urine Appearance Urine pH Ur Specific [place] Urine Protein Urine Glucose (UA) Urine Ketones Ur Blood (Man) Urine Nitrate Urine Bilirubin Urine Urobilinogen Add Ur Microanalysis Leukocyte Esterase Rfl Urine RBC Urine WBC Ur Squamous Epith Cells Urine Bacteria Urine Casts 02/26/25 02/27/25 02/27/25 23:11 05:47 06:59 WBC 14.3 H RBC 3.32 L Hgb 9.1 L Hct 30.4 L MCV 91.6 MCH 27.4 MCHC 29.9 L RDW 19.4 H Plt Count 291 MPV 10.0 Immature Gran % (Auto) 0.8 H Neut % (Auto) 80.1 H Lymph % (Auto) 12.4 L [place] % (Auto) 5.4 Eos % (Auto) 0.9 Baso % (Auto) 0.4 Lymph # (Auto) 1.77 [place] # (Auto) 0.8 H Eos # (Auto) 0.1 Baso # (Auto) 0.1 Abs Immat Gran (auto) 0.11 H Absolute Neuts (auto) 11.5 H Absolute Nucleated RBC 0.020 H Band Neutrophils % Not Reportable Nucleated RBC % 0.1 Platelet Estimate Adequate Hypochromasia 1+ Anisocytosis 1+ Schistocytes None seen Sodium 147 H Potassium 3.3 L Chloride 102 Carbon Dioxide 36 H Anion Gap 9 BUN 85 H Creatinine 1.41 H Estim Creat Clear Calc 29 Estimated GFR 36 L Glucose 169 H POC Capillary Glucose 151 H 163 H Calcium 11.1 H Phosphorus 2.9 Magnesium 2.7 H Urine Color Urine Appearance Urine pH Ur Specific [place] Urine Protein Urine Glucose (UA) Urine Ketones Ur Blood (Man) Urine Nitrate Urine Bilirubin Urine Urobilinogen Add Ur Microanalysis Leukocyte Esterase Rfl Urine RBC Urine WBC Ur Squamous Epith Cells Urine Bacteria Urine Casts 02/27/25 09:18 WBC RBC Hgb Hct MCV MCH MCHC RDW Plt Count MPV Immature Gran % (Auto) Neut % (Auto) Lymph % (Auto) [place] % (Auto) Eos % (Auto) Baso % (Auto) Lymph # (Auto) [place] # (Auto) Eos # (Auto) Baso # (Auto) Abs Immat Gran (auto) Absolute Neuts (auto) Absolute Nucleated RBC Band Neutrophils % Nucleated RBC % Platelet Estimate Hypochromasia Anisocytosis Schistocytes Sodium Potassium Chloride Carbon Dioxide Anion Gap BUN Creatinine Estim Creat Clear Calc Estimated GFR Glucose POC Capillary Glucose Calcium Phosphorus Magnesium Urine Color Yellow Urine Appearance Clear Urine pH 5.0 Ur Specific [place] 1.013 Urine Protein 1+ H Urine Glucose (UA) Negative Urine Ketones Negative Ur Blood (Man) Trace Urine Nitrate Negative Urine Bilirubin Negative Urine Urobilinogen 0.2 Add Ur Microanalysis Reviewed Leukocyte Esterase Rfl 2+ H Urine RBC 0-2 Urine WBC 11-20 H Ur Squamous Epith Cells Few Urine Bacteria None seen Urine Casts 11-20
[2025-02-27] MEDS: POTASSIUM CHLORIDE 20 MEQ PACKET (FOR LIQUID) 40 MEQ PO (11:19)
[2025-02-27 17:19] LABS: Anion Gap 8 mmol/L (4-12); Blood Urea Nitrogen 80 mg/dL (7-17); Calcium 11.1 mg/dL (8.4-10.2); Carbon Dioxide 35 mmol/L (22-30); Chloride 104 mmol/L (98-107); Estimated CRCL calculation 29 ml/min; Estimated Glomerular Filt Rate 36; Glucose 183 mg/dL (65-110); Potassium 5.2 mmol/L (3.4-5.0); Sodium 147 mmol/L (137-145)
[2025-02-27] MEDS: DONEPEZIL HCL 5 MG TABLET FEED TUBE (21:21)
[2025-02-28] VITALS (36 sets, daily range): BP systolic 109–142; BP diastolic 3–71; PULSE 76–88; RESP 18–33; TEMP 36.2–37.3; O2SAT 94–99
[2025-02-28 04:18] LABS: Hematocrit 29.3 % (37.0-47.0); Hemoglobin 8.8 g/dL (12.0-15.0); Immature Granulocyte Percent A 0.7 % (0-0.5); Immature Platelet Fraction Pct 4.3 % (0.9-11.2); Lymphocytes Absolute Auto 1.69 K/mm3 (0.9-3.2); Mean Corpuscular HGB Conc 30.0 g/dl (32-36); Mean Corpuscular Hemoglobin 27.3 pg (26-34); Mean Corpuscular Volume 91.0 fl (80-100); Nucleated Red Blood Cells Absolute Auto 0.000 K/mm3 (0.0-0.012); Nucleated Red Blood Cells Perc 0.0 % (0.0-0.2); Platelet Count Result 264 k/mm3 (150-375); Red Blood Count 3.22 M/mm3 (4.2-5.4); White Blood Count 11.3 K/mm3 (4.5-10.0)
[2025-02-28 04:42] LABS: Magnesium 2.8 mg/dL (1.6-2.3)
[2025-02-28 04:50] LABS: Anisocytosis 1+
[2025-02-28 04:51] LABS: Schistocytes Rare
[2025-02-28 07:41] LABS: Alanine Aminotransferase 162 U/L (6-35); Albumin Level 4.0 g/dL (3.5-5.1); Alkaline Phosphatase 85 U/L (38-126); Anion Gap 9 mmol/L (4-12); Aspartate Amino Transferase 111 U/L (14-36); Bilirubin,Total 0.5 mg/dL (0.2-1.3); Blood Urea Nitrogen 82 mg/dL (7-17); Calcium 10.5 mg/dL (8.4-10.2); Carbon Dioxide 32 mmol/L (22-30); Chloride 105 mmol/L (98-107); Estimated CRCL calculation 31 ml/min; Estimated Glomerular Filt Rate 39; Glucose 151 mg/dL (65-110); Potassium 4.5 mmol/L (3.4-5.0); Sodium 146 mmol/L (137-145); Total Protein 7.7 g/dL (6.3-8.2)
[2025-02-28] MEDS: BUDESONIDE RESPULE NEB 0.5 MG/2 ML AMP 1 MG INHALATION ×2 (08:10→20:22)
--- NOTE | 2025-02-28 08:18 | WPDINTPN ---
Progress Note: A&P Assessment and Plan (1) Acute on chronic respiratory failure: Qualifiers: Respiratory failure complication: unspecified whether with hypoxia or hypercapnia Qualified Code(s): J96.20 - Acute and chronic respiratory failure, unspecified whether with hypoxia or hypercapnia Code(s): J96.20 - Acute and chronic respiratory failure, unspecified whether with hypoxia or hypercapnia Status: Acute Assessment and Plan: Acute on chronic respiratory failure with hypoxia and hypercarbia in a patient who has history of COPD, chronic tracheostomy and is on 8 L oxygen by mask and now has a right lower lobe pneumonia 02/20 Tracheostomy was changed to a cuffed tracheostomy tube in the ER Patient is now on the mechanical ventilation with SIMV FiO2 is down to 35% 02/21 tolerated PSV 15/5 for many hours. 02/22 patient tolerated PSV 20/8 for adequate RSBI. She was switched back to SIMV at night 02/23 change SIMV settings and decrease rate and pressure support. Patient was tried on PSV 15/8 for many hours. She does not tolerate lowering of pressure support more than that as her tidal volumes drop in respiratory rate goes up to above 30s. 02/24 will try PSV again today. Will try to wean down pressure support if possible. Continue Bronchodilators Continue prednisone per tube taper Off IV fluids IV fluid Negative vital panel, Blood and sputum cultures are negative now Status post Augmentin. Low procalcitonin 02/25: Place patient on pressure support ventilation, tolerated for approximately 6-7 hours and was placed back on SIMV mode 02/26: Tolerated pressure support ventilation almost all day. 02/28: WBC count trending down, afebrile, tolerated pressure support /8 all day yesterday and through the night. (2) COPD (chronic obstructive pulmonary disease): Qualifiers: COPD type: unspecified COPD Qualified Code(s): J44.9 - Chronic obstructive pulmonary disease, unspecified Code(s): J44.9 - Chronic obstructive pulmonary disease, unspecified Status: Acute Assessment and Plan: Continue bronchodilators, budesonide nebs (3) Acute kidney injury: Code(s): N17.9 - Acute kidney failure, unspecified Status: Acute Assessment and Plan: Acute kidney injury with creatinine 1.5 likely secondary to sepsis hypovolemia and hypotension IV fluid bolus followed by cautious maintain IV fluids Normal CK UA reviewed Mcmahan for accurate I&Os CT abdomen pelvis negative for any stone or obstruction Monitor intake output and electrolytes She has good urine output Creatinine improving-likely related to volume repletion, -nephrology following and appreciate their input (4) HTN (hypertension): Qualifiers: Hypertension type: primary hypertension Qualified Code(s): I10 - Essential (primary) hypertension Code(s): I10 - Essential (primary) hypertension Status: Acute Assessment and Plan: Continue amlodipine (5) Tracheostomy in place: Code(s): Z93.0 - Tracheostomy status Status: Acute Assessment and Plan: Tracheostomy was changed to a cuffed size 6 by ER (6) G tube feedings: Code(s): Z93.1 - Gastrostomy status Status: Acute Assessment and Plan: Tolerate tube feeds, positive bowel movement (7) Anemia: Qualifiers: Anemia type: unspecified type Qualified Code(s): D64.9 - Anemia, unspecified Code(s): D64.9 - Anemia, unspecified Status: Acute Assessment and Plan: History of chronic anemia. Hemoglobin appears close to baseline. Monitor (8) CHF (congestive heart failure): Qualifiers: Heart failure type: unspecified Heart failure chronicity: unspecified Qualified Code(s): I50.9 - Heart failure, unspecified Code(s): I50.9 - Heart failure, unspecified Status: Acute Assessment and Plan: Elevated BNP. 02/21/2025: Echocardiogram Summary 1. Complete two-dimensional, color flow and Doppler transthoracic echocardiogram is performed. 2. Left ventricular systolic function is hyperdynamic, estimated at >70. 3. The left ventricular diastolic function is grade I diastolic dysfunction. 4. There is trace tricuspid valve regurgitation. 5. Mild pulmonary hypertension, estimated pulmonary arterial systolic pressure is 38 mmHg. 6. There is mild pulmonic regurgitation (9) Sepsis: Qualifiers: Sepsis type: sepsis due to unspecified organism Sepsis acute organ dysfunction status: unspecified Qualified Code(s): A41.9 - Sepsis, unspecified organism Code(s): A41.9 - Sepsis, unspecified organism Status: Acute Assessment and Plan: Normal lactic acid level and low procalcitonin level Off further IV fluids 02/20: Blood cultures negative x2 Status post full course of Augmentin (10) Pericardial effusion: Code(s): I31.39 - Other pericardial effusion (noninflammatory) Status: Acute Assessment and Plan: CT scan showed pericardial effusion vent echo done and does not show any significant effusion. No intervention at this time. (11) Hypernatremia: Code(s): E87.0 - Hyperosmolality and hypernatremia Status: Acute Assessment and Plan: Appreciate nephrology following the patient, patient has been receiving D5 water intermittently Continue free water flushes 250 q.4 hours 02/27: Switched tube feeds to vital 1.2 after nephrology discussed with the family Sodium levels improving, appreciate nephrology following the patient (12) Electrolyte abnormality: Code(s): E87.8 - Other disorders of electrolyte and fluid balance, not elsewhere classified Status: Acute Assessment and Plan: Will replace electrolytes as needed Plan DVT prophylaxis -Lovenox Stress ulcer prophylaxis -PPI Nutrition -continue tube feeds Code Status - Full Code Patient awaits LTAC placement now Total Critical Care Time - 31 minutes 02/28: Discussed with daughter, updated with patient's lab results. She stated they are planning to visit LTAC later this afternoon Due to a high probability of clinically significant, life threatening deterioration, the patient required my highest level of preparedness to intervene emergently and I personally spent this critical care time directly and personally managing the patient. This critical care time included obtaining a history; examining the patient; pulse oximetry; ordering and review of studies; arranging urgent treatment with development of a management plan; evaluation of patient's response to treatment; frequent reassessment; and discussions with other providers. It was exclusive of separately billable procedures and treating other patients and teaching time. Please see Assessment and Plan section and the rest of the note for further information on patient assessment and treatment This dictation may have been done utilizing a voice recognition system. Attempts have been made to correct errors. However, there may be uncorrected grammatical, spelling, and recognitions errors present. Subjective Date/time seen: 02/28/25 08:18 Interval history: Reason for consult: Acute on chronic respiratory failure, possible COPD exacerbation, acute kidney injury, hyponatremia, 02/27/2025: Patient seen and examined the ICU. Chronic tracheostomy, remains on vent on pressure support ventilation mode 10/8 all day and all night. Not on any sedation, opens her eyes, afebrile, UO adequate, FMS in place with bowel movements, tube feeds were switched to Jevity on 02/27, tolerating. WBC count trending down, sodium levels 146. Creatinine improving, LFTs improving Review of Systems Review of Systems: ROS unobtainable: Yes unobtainable due to endotracheal tube, unobtainable due to medical condition and unobtainable due to mental status Exam Narrative: General: Patient opens her eyes, contracted, does not do anything except opening her eyes at baseline, has a tracheostomy and on mechanical ventilation HEENT: Pupils are equal and reactive, sclera is clear, tracheostomy in place Lungs/Chest: Decreased breath sounds at bases, otherwise adequate air entry, no wheezing Cardiac: RRR. Normal S1 S2. No murmurs Circulation: Pedal pulses are intact and symmetrical. Abdomen: Soft, non distended this morning, non tender, normoactive bowel sounds. PEG tube in place, scar from past surgery noted Extremities: No clubbing, cyanosis or edema. Warm : Mcmahan in place Neurologic: Patient has contractures and hand. Withdraws to pain stimulus in all extremities but does not follow any commands or respond to questions or calling her name. Eyes are open Objective Data Vital Signs Vital Signs: Vital Signs - 24 hr 02/27/25 09:00 02/27/25 09:20 02/27/25 10:00 Temperature 99.1 F Pulse Rate 90 93 89 Respiratory Rate 24 H 28 H Blood Pressure 137/66 138/61 Pulse Oximetry 93 94 90 Oxygen Delivery Mechanical Ventilation Fraction of Inspired Oxygen 30 02/27/25 10:00 02/27/25 11:00 02/27/25 11:03 Temperature Pulse Rate 88 89 89 Respiratory Rate 24 H Blood Pressure 138/61 Pulse Oximetry 92 93 Oxygen Delivery Mechanical Ventilation Fraction of Inspired Oxygen 30 02/27/25 12:00 02/27/25 12:00 02/27/25 12:00 Temperature 99.0 F Pulse Rate 94 Respiratory Rate 32 H Blood Pressure 143/75 H Pulse Oximetry 93 93 Oxygen Delivery Mechanical Ventilation Fraction of Inspired Oxygen 30 30 02/27/25 12:00 02/27/25 13:00 02/27/25 14:00 Temperature 98.4 F Pulse Rate 97 90 90 Respiratory Rate 26 H 32 H Blood Pressure 130/60 136/74 Pulse Oximetry 91 92 Oxygen Delivery Fraction of Inspired Oxygen 02/27/25 14:00 02/27/25 14:29 02/27/25 15:00 Temperature Pulse Rate 88 93 94 Respiratory Rate 28 H Blood Pressure 152/80 H Pulse Oximetry 93 93 Oxygen Delivery Mechanical Ventilation Fraction of Inspired Oxygen 30 02/27/25 15:00 02/27/25 16:00 02/27/25 16:00 Temperature Pulse Rate 94 Respiratory Rate 28 H Blood Pressure 152/80 H Pulse Oximetry 93 96 Oxygen Delivery Mechanical Ventilation Fraction of Inspired Oxygen 30 30 02/27/25 16:00 02/27/25 16:00 02/27/25 17:00 Temperature 99.0 F Pulse Rate 89 87 85 Respiratory Rate 31 H Blood Pressure 125/64 Pulse Oximetry 96 95 Oxygen Delivery Mechanical Ventilation Fraction of Inspired Oxygen 30 02/27/25 17:00 02/27/25 18:00 02/27/25 18:00 Temperature Pulse Rate 86 81 81 Respiratory Rate 28 H 27 H Blood Pressure 136/72 123/69 Pulse Oximetry 93 96 Oxygen Delivery Fraction of Inspired Oxygen 02/27/25 19:00 02/27/25 20:00 02/27/25 20:00 Temperature Pulse Rate 82 88 82 Respiratory Rate 28 H 30 H Blood Pressure 123/68 Pulse Oximetry 95 95 Oxygen Delivery Mechanical Ventilation Fraction of Inspired Oxygen 30 02/27/25 20:00 02/27/25 20:00 02/27/25 20:55 Temperature 98.1 F Pulse Rate 80 94 Respiratory Rate 24 H 30 H Blood Pressure 127/69 Pulse Oximetry 94 Oxygen Delivery Fraction of Inspired Oxygen 30 02/27/25 21:00 02/27/25 21:02 02/27/25 21:06 Temperature Pulse Rate 80 86 95 Respiratory Rate 25 H 30 H Blood Pressure 133/80 Pulse Oximetry 94 96 Oxygen Delivery Mechanical Ventilation Fraction of Inspired Oxygen 30 02/27/25 21:07 02/27/25 22:00 02/27/25 22:00 Temperature Pulse Rate 88 78 86 Respiratory Rate 30 H 18 Blood Pressure 109/50 L Pulse Oximetry 95 97 Oxygen Delivery Mechanical Ventilation Fraction of Inspired Oxygen 30 02/27/25 22:54 02/28/25 00:00 02/28/25 00:00 Temperature 97.1 F L Pulse Rate 78 78 78 Respiratory Rate 24 H 24 H Blood Pressure 139/49 L Pulse Oximetry 94 95 95 Oxygen Delivery Mechanical Ventilation Mechanical Ventilation Fraction of Inspired Oxygen 30 30 02/28/25 00:00 02/28/25 00:00 02/28/25 01:00 Temperature 98.2 F Pulse Rate 78 81 Respiratory Rate 26 H Blood Pressure 131/65 Pulse Oximetry 96 Oxygen Delivery Fraction of Inspired Oxygen 30 02/28/25 01:52 02/28/25 02:00 02/28/25 02:00 Temperature Pulse Rate 77 76 76 Respiratory Rate 20 Blood Pressure 124/63 Pulse Oximetry 95 95 Oxygen Delivery Mechanical Ventilation Fraction of Inspired Oxygen 30 02/28/25 03:00 02/28/25 03:09 02/28/25 03:09 Temperature Pulse Rate 77 77 77 Respiratory Rate 23 H 23 H Blood Pressure 115/61 Pulse Oximetry 96 96 Oxygen Delivery Mechanical Ventilation Fraction of Inspired Oxygen 30 02/28/25 03:09 02/28/25 03:10 02/28/25 04:45 Temperature 98.3 F Pulse Rate 77 84 Respiratory Rate 23 H 18 Blood Pressure 115/61 139/71 Pulse Oximetry 96 96 Oxygen Delivery Fraction of Inspired Oxygen 30 02/28/25 05:00 02/28/25 05:00 02/28/25 08:11 Temperature 98.6 F Pulse Rate 86 85 81 Respiratory Rate 28 H Blood Pressure 142/66 H Pulse Oximetry 96 96 Oxygen Delivery Mechanical Ventilation Fraction of Inspired Oxygen 30 02/28/25 08:11 Temperature Pulse Rate 81 Respiratory Rate 26 H Blood Pressure Pulse Oximetry Oxygen Delivery Fraction of Inspired Oxygen Intake/Output Intake/Output: Intake & Output 02/25/25 02/26/25 02/27/25 02/28/25 23:59 23:59 23:59 23:59 Intake Total 4665 1320 3458 992 Output Total 1850 1400 2100 950 Balance 2815 -80 1358 42 Meds/Results Medications: Active Medications Generic Name Dose Route Start Last Admin Trade Name Freq PRN Reason Stop Dose Admin Acetaminophen 650 mg 02/20/25 10:42 Acetaminophen Elixir 325 Mg/10.15 Ml Udc FEED TUBE Q4H PRN Mild Pain (1-3) or Fever Albuterol 2.5 mg 02/21/25 20:44 02/26/25 07:51 Albuterol Sulfate Neb 2.5 Mg/3 Ml Inh INHALATION 2.5 mg Q6HRT PRN Administration Shortness Of Breath Amlodipine Besylate 5 mg 02/25/25 13:50 02/27/25 08:36 Amlodipine Besylate 5 Mg Tablet FEED TUBE 5 mg DAILY IMTIAZ Administration Aspirin 81 mg 02/26/25 09:00 02/27/25 08:36 Aspirin 81 Mg Chewable Tablet FEED TUBE 81 mg DAILY IMTIAZ Administration Budesonide 1 mg 02/25/25 20:00 02/28/25 08:10 Budesonide Respule Neb 0.5 Mg/2 Ml Amp INHALATION 1 mg Q12HRT IMTIAZ Administration Dextrose 12.5 gm 02/20/25 11:00 Dextrose 50% 25 Gm/50 Ml Syringe IV PUSH PRN PRN Hypoglycemia Protocol Donepezil HCl 5 mg 02/25/25 21:00 02/27/25 21:21 Donepezil Hcl 5 Mg Tablet FEED TUBE 5 mg HS IMTIAZ Administration Enoxaparin Sodium 40 mg 02/23/25 09:00 02/27/25 08:37 Enoxaparin 40 Mg/0.4 Ml Syringe SUB-Q 40 mg DAILY IMTIAZ Administration Ferrous Sulfate 325 mg 02/25/25 21:00 02/27/25 21:21 Ferrous Sulfate Liquid 325 Mg/7.4 Ml Elixir FEED TUBE 325 mg Q12HR IMTIAZ Administration Glucagon 1 mg 02/20/25 11:00 Glucagon For Inj 1 Mg Vial IM PRN PRN Hypoglycemia Protocol Glucose 15 gm 02/20/25 11:00 Glucose Oral Gel 15 Gm Of Glucse In 37.5 Gm Tube PO PRN PRN Hypoglycemia Protocol Hydralazine HCl 10 mg 02/25/25 13:47 02/26/25 02:19 Hydralazine Hcl 20 Mg/Ml Vial IV PUSH 10 mg Q4H PRN Administration Blood Pressure - High Dextrose 1,000 mls @ 100 mls/hr 02/20/25 11:00 Dextrose 5% 1,000 Ml IVPB PRN PRN Hypoglycemia Protocol Insulin Aspart 3 - 6 units 02/20/25 12:00 02/28/25 05:12 Insulin Aspart (*Bkc) 100 Units/Ml SUB-Q Not Given Q6HR [facility] Protocol Loratadine 10 mg 02/25/25 09:00 02/27/25 08:35 Loratadine 10 Mg Tablet FEED TUBE 10 mg QAM IMTIAZ Administration Morphine Sulfate 2 mg 02/20/25 10:39 Morphine Sulfate (*Crx) 4 Mg/Ml Inj IV PUSH Q2H PRN Pain Rated 7-10 Vitamin A&D Ointment 1 each 02/21/25 14:15 02/21/25 20:56 (Home Med) TOPICAL 03/23/25 14:14 1 each PRN PRN Administration to affected areas Pantoprazole Sodium 40 mg 02/21/25 09:00 02/27/25 08:35 Pantoprazole Sodium Iv 40 Mg Vial IV PUSH 40 mg QAM IMTIAZ Administration Prednisone 20 mg 03/01/25 08:00 Prednisone 20 Mg Tablet PO 03/03/25 08:01 DAILY@0800 [facility] Prednisone 10 mg 03/04/25 08:00 Prednisone 10 Mg Tablet PO 03/06/25 08:01 DAILY@0800 [facility] Promethazine HCl 12.5 mg 02/20/25 10:39 Promethazine Hcl 25 Mg/Ml Ampul IV PUSH Q6H PRN Nausea Rosuvastatin Calcium 20 mg 02/26/25 09:00 02/27/25 08:34 Rosuvastatin 20 Mg Tablet FEED TUBE 20 mg DAILY IMTIAZ Administration Vitamin D 50 mcg 02/26/25 09:00 02/27/25 08:36 Cholecalciferol (Vitamin D3) 25 Mcg (1,000 Units) Tablet FEED TUBE 50 mcg DAILY IMTIAZ Administration Radiology Results: ITS Impressions Chest/Abdomen/Pelvis CT 02/20/25 11:24 IMPRESSION: 1. Right lower lobe pneumonia. 2. New 6 mm nodule in right lung middle lobe, probably benign. Consider noncontrast low-dose chest CT in 6 months. 3. 11 mm nodule in left lung upper lobe, stable from 12/16/2023, likely benign. 4. Small pericardial effusion. 5. Moderate emphysema. 6. 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 Abdomen X-Ray 02/27/25 08:28 IMPRESSION: 1. No acute abnormality. Chest X-Ray 02/27/25 09:08 IMPRESSION: 1. No change or acute cardiopulmonary findings given portable technique. Labs Labs: Laboratory Results - last 24 hr 02/27/25 02/27/25 02/27/25 06:59 09:18 11:16 WBC 14.3 H RBC 3.32 L Hgb 9.1 L Hct 30.4 L MCV 91.6 MCH 27.4 MCHC 29.9 L RDW 19.4 H Plt Count 291 MPV 10.0 Immature Gran % (Auto) 0.8 H Neut % (Auto) 80.1 H Lymph % (Auto) 12.4 L [place] % (Auto) 5.4 Eos % (Auto) 0.9 Baso % (Auto) 0.4 Lymph # (Auto) 1.77 [place] # (Auto) 0.8 H Eos # (Auto) 0.1 Baso # (Auto) 0.1 Abs Immat Gran (auto) 0.11 H Absolute Neuts (auto) 11.5 H Absolute Nucleated RBC 0.020 H Band Neutrophils % Not Reportable Nucleated RBC % 0.1 Platelet Estimate Adequate % Immature Plt Fraction Hypochromasia 1+ Anisocytosis 1+ Schistocytes None seen Sodium Potassium Chloride Carbon Dioxide Anion Gap BUN Creatinine Estim Creat Clear Calc Estimated GFR Glucose POC Capillary Glucose Calcium Phosphorus Magnesium Total Bilirubin AST ALT Alkaline Phosphatase Total Protein Albumin Vitamin D 25-Hydroxy Urine Color Yellow Urine Appearance Clear Urine pH 5.0 Ur Specific [place] 1.013 Urine Protein 1+ H Urine Glucose (UA) Negative Urine Ketones Negative Ur Blood (Man) Trace Urine Nitrate Negative Urine Bilirubin Negative Urine Urobilinogen 0.2 Add Ur Microanalysis Reviewed Leukocyte Esterase Rfl 2+ H Urine RBC 0-2 Urine WBC 11-20 H Ur Squamous Epith Cells Few Urine Bacteria None seen Urine Casts 11-20 Ur Random Creatinine Cancelled Ur Random Calcium Cancelled 02/27/25 02/27/25 02/27/25 11:50 12:18 17:01 WBC RBC Hgb Hct MCV MCH MCHC RDW Plt Count MPV Immature Gran % (Auto) Neut % (Auto) Lymph % (Auto) [place] % (Auto) Eos % (Auto) Baso % (Auto) Lymph # (Auto) [place] # (Auto) Eos # (Auto) Baso # (Auto) Abs Immat Gran (auto) Absolute Neuts (auto) Absolute Nucleated RBC Band Neutrophils % Nucleated RBC % Platelet Estimate % Immature Plt Fraction Hypochromasia Anisocytosis Schistocytes Sodium 147 H Potassium 5.2 H Chloride 104 Carbon Dioxide 35 H Anion Gap 8 BUN 80 H Creatinine 1.39 H Estim Creat Clear Calc 29 Estimated GFR 36 L Glucose 183 H POC Capillary Glucose 145 H 153 H Calcium 11.1 H Phosphorus Magnesium Total Bilirubin AST ALT Alkaline Phosphatase Total Protein Albumin Vitamin D 25-Hydroxy 41.7 Urine Color Urine Appearance Urine pH Ur Specific [place] Urine Protein Urine Glucose (UA) Urine Ketones Ur Blood (Man) Urine Nitrate Urine Bilirubin Urine Urobilinogen Add Ur Microanalysis Leukocyte Esterase Rfl Urine RBC Urine WBC Ur Squamous Epith Cells Urine Bacteria Urine Casts Ur Random Creatinine Ur Random Calcium 02/27/25 02/28/25 02/28/25 18:08 00:03 04:02 WBC 11.3 H RBC 3.22 L Hgb 8.8 L Hct 29.3 L MCV 91.0 MCH 27.3 MCHC 30.0 L RDW 19.1 H Plt Count 264 MPV 11.1 H Immature Gran % (Auto) 0.7 H Neut % (Auto) 77.7 H Lymph % (Auto) 14.9 L [place] % (Auto) 6.1 Eos % (Auto) 0.2 Baso % (Auto) 0.4 Lymph # (Auto) 1.69 [place] # (Auto) 0.7 H Eos # (Auto) 0.0 Baso # (Auto) 0.0 Abs Immat Gran (auto) 0.08 H Absolute Neuts (auto) 8.8 H Absolute Nucleated RBC 0.000 Band Neutrophils % Not Reportable Nucleated RBC % 0.0 Platelet Estimate Adequate % Immature Plt Fraction 4.3 Hypochromasia Anisocytosis 1+ Schistocytes Rare Sodium 146 H Potassium 4.5 Chloride 105 Carbon Dioxide 32 H Anion Gap 9 BUN 82 H Creatinine 1.31 H Estim Creat Clear Calc 31 Estimated GFR 39 L Glucose 151 H POC Capillary Glucose 192 H 174 H Calcium 10.5 H Phosphorus 3.7 Magnesium 2.8 H Total Bilirubin 0.5 AST 111 H ALT 162 H Alkaline Phosphatase 85 Total Protein 7.7 Albumin 4.0 Vitamin D 25-Hydroxy Urine Color Urine Appearance Urine pH Ur Specific [place] Urine Protein Urine Glucose (UA) Urine Ketones Ur Blood (Man) Urine Nitrate Urine Bilirubin Urine Urobilinogen Add Ur Microanalysis Leukocyte Esterase Rfl Urine RBC Urine WBC Ur Squamous Epith Cells Urine Bacteria Urine Casts Ur Random Creatinine Ur Random Calcium Quality VTE Prophylaxis VTE prophylaxis: pharmacologic ordered
[2025-02-28] MEDS: LORATADINE 10 MG TABLET FEED TUBE (08:49)
[2025-02-28] MEDS: ENOXAPARIN 40 MG/0.4 ML SYRINGE SUB-Q (08:49)
[2025-02-28] MEDS: ASPIRIN 81 MG CHEWABLE TABLET FEED TUBE (08:49)
[2025-02-28] MEDS: PANTOPRAZOLE SODIUM IV 40 MG VIAL IV PUSH (08:49)
[2025-02-28] MEDS: ROSUVASTATIN 20 MG TABLET FEED TUBE (08:49)
[2025-02-28] MEDS: FERROUS SULFATE LIQUID 325 MG/7.4 ML ELIXIR FEED TUBE ×2 (08:49→23:14)
[2025-02-28] MEDS: CHOLECALCIFEROL (VITAMIN D3) 25 MCG (1,000 UNITS) TABLET 50 MCG FEED TUBE (08:49)
--- NOTE | 2025-02-28 11:21 | PCNFU ---
Nutrition Follow-Up Complete: Increased protein energy needs related to mechanical ventilation as evidenced by need for PEG tube feedings Goal: Meet estimated nutrition needs Patient will continue current goal. Pt current nutrition is Jevity1.2 at 60 ml/hr. Nutrition recommendation: goal rate at 50 ml/hr. Last recorded weight is 77.2 kg, down from 86 kg on admit. Bowel Motility: Last reported BM 02/28 Labs Reviewed:Mg 2.8, Cr 1..31, Glu 151, Na 146 Meds Noted:Prednisone, Protonix. Skin: WNL Additional Notes: Patient had tube feeding formula change to Jevity 1.2 at 60 ml/hr. Discussed rate changes and nutritional status with Audio Recording Engineer today. Jevity 1.2 at 50 ml/hr with Prosource BID will provide 1480 kcal/101 gm protein/888 ml water. Flush 250 ml q 4 hours. Meeting 100% kcal needs at 22 kcal/kg IBW and 97% protein needs at 1.2-1.4 gm/kg ABW. Na 146 coming down from 154 on 02/25. Will continue to monitor water flush at tube feeding tolerance. Agree with diet orders. Monitoring labs, vitals, weights, output, meds, tube feeding tolerance Follow up Friday/Friday, daily rounds
--- NOTE | 2025-02-28 11:35 | P.PNNP_ITS ---
Progress Note: A&P Assessment and Plan (1) Hypernatremia: Code(s): E87.0 - Hyperosmolality and hypernatremia Status: Acute Assessment and Plan: * as noted since 02/23 * suspect due to free water deficit and volume depletion * possible insensible losses from being on ventilator * doubt diabetes insipidus: * reasonable urine output but not excessive to suspect polyuria * urine specific gravity was 1.014, against DI but osmolality is pending * changed tube feedings to one with more water and less calcium * titrate free water tube flushes * D5W IVFs as needed * follow trend of repeat sodium levels (2) Hypercalcemia: Code(s): E83.52 - Hypercalcemia Status: Chronic Assessment and Plan: * has been on the higher side of normal for the las year if not longer (chronic) * baseline calcium runs around 10 - 11 range * suspect partly due to bed bound status and immobilized state possibly complicated by relative dehydration * improvement noted with IVF hydration * follow trend with increased free water tube flushes * tube feeds changed to one with less calcium * follow trend of calcium (3) Acute kidney injury: Code(s): N17.9 - Acute kidney failure, unspecified Status: Acute Assessment and Plan: * creatinine fluctuating since admission * may have some degree of renal insufficiency (previous labs are from ~ 1 year ago) * due to prerenal factors and acute infection (pneumonia) * follow trend of creatinine (4) Acute on chronic respiratory failure: Qualifiers: Respiratory failure complication: unspecified whether with hypoxia or hypercapnia Qualified Code(s): J96.20 - Acute and chronic respiratory failure, unspecified whether with hypoxia or hypercapnia Code(s): J96.20 - Acute and chronic respiratory failure, unspecified whether with hypoxia or hypercapnia Status: Acute Assessment and Plan: * as noted on presentation * complicated by hypoxia and hypercarbia and pneumonia * known history of COPD as well * on mechanical ventilation via tracheostomy * on bronchodilators, steroids, and antibiotics * ventilator weaning ongoing (5) HTN (hypertension): Qualifiers: Hypertension type: primary hypertension Qualified Code(s): I10 - Essential (primary) hypertension Code(s): I10 - Essential (primary) hypertension Status: Acute Assessment and Plan: * noted by history * reasonable control at this time * follow trend of hemodynamics Will continue to follow. L Subjective Date/time seen: 02/28/25 11:35 Interval history: Follow-up for hypernatremia, hypercalcemia, and acute kidney injury/acute renal failure. Chart reviewed since last seen -- sodium, calcium and renal function appear to be doing better in general; remains on mechanical ventilation via tracheostomy; no apparent distress noted but remains non-communicative at this time. 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 Heart: normal S1 and S2; no rub Lungs: decreased at bases Abdomen: soft, nontender, nondistended, positive bowel sounds; + G-tube Extremities: no cyanosis or clubbing; no edema Skin: warm and dry Objective Data Vital Signs Vital Signs: Vital Signs Temp Pulse Resp BP Pulse Ox O2 Del Method FiO2 02/28/25 11:00 80 24 H 121/64 95 02/28/25 10:42 80 95 Mechanical Ventilation 02/28/25 10:00 83 02/28/25 10:00 98.9 F 83 24 H 126/67 94 02/28/25 09:00 87 28 H 109/3 L 94 02/28/25 08:25 88 24 H 02/28/25 08:11 81 26 H 02/28/25 08:11 81 96 Mechanical Ventilation 02/28/25 08:00 30 02/28/25 08:00 96 Mechanical Ventilation 02/28/25 08:00 82 02/28/25 08:00 99.1 F 81 28 H 138/69 96 02/28/25 07:00 79 24 H 134/67 96 02/28/25 05:00 98.6 F 85 28 H 142/66 H 96 02/28/25 05:00 86 02/28/25 04:45 98.3 F 84 18 139/71 96 02/28/25 03:10 77 23 H 115/61 96 02/28/25 03:09 30 02/28/25 03:09 77 02/28/25 03:09 77 23 H 96 Mechanical Ventilation 02/28/25 03:00 77 23 H 115/61 96 02/28/25 02:00 76 20 124/63 95 02/28/25 02:00 76 02/28/25 01:52 77 95 Mechanical Ventilation 02/28/25 01:00 98.2 F 81 26 H 131/65 96 02/28/25 00:00 30 02/28/25 00:00 78 02/28/25 00:00 78 24 H 95 Mechanical Ventilation 30 02/28/25 00:00 97.1 F L 78 24 H 139/49 L 95 02/27/25 22:54 78 94 Mechanical Ventilation 30 02/27/25 22:00 86 18 109/50 L 97 02/27/25 22:00 78 02/27/25 21:07 88 30 H 95 Mechanical Ventilation 30 02/27/25 21:06 95 30 H 02/27/25 21:02 86 96 Mechanical Ventilation 30 02/27/25 21:00 80 25 H 133/80 94 02/27/25 20:55 94 30 H 02/27/25 20:00 98.1 F 80 24 H 127/69 94 02/27/25 20:00 30 02/27/25 20:00 82 02/27/25 20:00 88 30 H 95 Mechanical Ventilation 30 Intake/Output Intake/Output: Intake & Output 02/25/25 02/26/25 02/27/25 02/28/25 23:59 23:59 23:59 23:59 Intake Total 4665 1320 3458 1998 Output Total 1850 1400 2100 1999 Balance 2815 -80 1358 -1 Meds/Results Medications: Active Medications Generic Name Dose Route Start Last Admin Trade Name Freq PRN Reason Stop Dose Admin Acetaminophen 650 mg 02/20/25 10:42 Acetaminophen Elixir 325 Mg/10.15 Ml Udc FEED TUBE Q4H PRN Mild Pain (1-3) or Fever Albuterol 2.5 mg 02/21/25 20:44 02/26/25 07:51 Albuterol Sulfate Neb 2.5 Mg/3 Ml Inh INHALATION 2.5 mg Q6HRT PRN Administration Shortness Of Breath Amlodipine Besylate 5 mg 02/25/25 13:50 02/28/25 08:48 Amlodipine Besylate 5 Mg Tablet FEED TUBE 5 mg DAILY IMTIAZ Administration Aspirin 81 mg 02/26/25 09:00 02/28/25 08:49 Aspirin 81 Mg Chewable Tablet FEED TUBE 81 mg DAILY IMTIAZ Administration Budesonide 1 mg 02/25/25 20:00 02/28/25 08:10 Budesonide Respule Neb 0.5 Mg/2 Ml Amp INHALATION 1 mg Q12HRT IMTIAZ Administration Dextrose 12.5 gm 02/20/25 11:00 Dextrose 50% 25 Gm/50 Ml Syringe IV PUSH PRN PRN Hypoglycemia Protocol Donepezil HCl 5 mg 02/25/25 21:00 02/27/25 21:21 Donepezil Hcl 5 Mg Tablet FEED TUBE 5 mg HS IMTIAZ Administration Enoxaparin Sodium 40 mg 02/23/25 09:00 02/28/25 08:49 Enoxaparin 40 Mg/0.4 Ml Syringe SUB-Q 40 mg DAILY IMTIAZ Administration Ferrous Sulfate 325 mg 02/25/25 21:00 02/28/25 08:49 Ferrous Sulfate Liquid 325 Mg/7.4 Ml Elixir FEED TUBE 325 mg Q12HR IMTIAZ Administration Glucagon 1 mg 02/20/25 11:00 Glucagon For Inj 1 Mg Vial IM PRN PRN Hypoglycemia Protocol Glucose 15 gm 02/20/25 11:00 Glucose Oral Gel 15 Gm Of Glucse In 37.5 Gm Tube PO PRN PRN Hypoglycemia Protocol Hydralazine HCl 10 mg 02/25/25 13:47 02/26/25 02:19 Hydralazine Hcl 20 Mg/Ml Vial IV PUSH 10 mg Q4H PRN Administration Blood Pressure - High Dextrose 1,000 mls @ 100 mls/hr 02/20/25 11:00 Dextrose 5% 1,000 Ml IVPB PRN PRN Hypoglycemia Protocol Insulin Aspart 3 - 6 units 02/20/25 12:00 02/28/25 17:50 Insulin Aspart (*Bkc) 100 Units/Ml SUB-Q Not Given Q6HR IMTIAZ Protocol Loratadine 10 mg 02/25/25 09:00 02/28/25 08:49 Loratadine 10 Mg Tablet FEED TUBE 10 mg QAM IMTIAZ Administration Morphine Sulfate 2 mg 02/20/25 10:39 Morphine Sulfate (*Crx) 4 Mg/Ml Inj IV PUSH Q2H PRN Pain Rated 7-10 Vitamin A&D Ointment 1 each 02/21/25 14:15 02/21/25 20:56 (Home Med) TOPICAL 03/23/25 14:14 1 each PRN PRN Administration to affected areas Pantoprazole Sodium 40 mg 02/21/25 09:00 02/28/25 08:49 Pantoprazole Sodium Iv 40 Mg Vial IV PUSH 40 mg QAM IMTIAZ Administration Prednisone 20 mg 03/01/25 08:00 Prednisone 20 Mg Tablet PO 03/03/25 08:01 DAILY@0800 IMTIAZ Prednisone 10 mg 03/04/25 08:00 Prednisone 10 Mg Tablet PO 03/06/25 08:01 DAILY@0800 [facility] Promethazine HCl 12.5 mg 02/20/25 10:39 Promethazine Hcl 25 Mg/Ml Ampul IV PUSH Q6H PRN Nausea Rosuvastatin Calcium 20 mg 02/26/25 09:00 02/28/25 08:49 Rosuvastatin 20 Mg Tablet FEED TUBE 20 mg DAILY IMTIAZ Administration Vitamin D 50 mcg 02/26/25 09:00 02/28/25 08:49 Cholecalciferol (Vitamin D3) 25 Mcg (1,000 Units) Tablet FEED TUBE 50 mcg DAILY IMTIAZ Administration Radiology Results: ITS Impressions Chest/Abdomen/Pelvis CT 02/20/25 11:24 IMPRESSION: 1. Right lower lobe pneumonia. 2. New 6 mm nodule in right lung middle lobe, probably benign. Consider noncontrast low-dose chest CT in 6 months. 3. 11 mm nodule in left lung upper lobe, stable from 12/16/2023, likely benign. 4. Small pericardial effusion. 5. Moderate emphysema. 6. 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 Abdomen X-Ray 02/27/25 08:28 IMPRESSION: 1. No acute abnormality. Chest X-Ray 02/27/25 09:08 IMPRESSION: 1. No change or acute cardiopulmonary findings given portable technique. Labs Labs: Laboratory Tests 02/28/25 04:02 02/28/25 04:02 Calcium 10.5 H Phosphorus 3.7 Magnesium 2.8 H Total Bilirubin 0.5 AST 111 H ALT 162 H Alkaline Phosphatase 85 Total Protein 7.7 Albumin 4.0
--- NOTE | 2025-02-28 22:00 | PC.NURSE ---
DAUGHTER REMINDED THAT STAFF SHOULD DO SUCTIONING OF TRACH
[2025-02-28] MEDS: DONEPEZIL HCL 5 MG TABLET FEED TUBE (23:14)
[2025-03-01] VITALS (24 sets, daily range): BP systolic 114–156; BP diastolic 59–89; PULSE 74–90; RESP 18–28; TEMP 36.6–37; O2SAT 93–98
--- NOTE | 2025-03-01 04:50 | PC.NURSE ---
daughter stated tht she thinks whe wmells something, latasha replaced with RN alison. latasha was clean and no BM ws noted when wipingnew chucks placed under patient.
[2025-03-01 05:42] LABS: Hematocrit 29.8 % (37.0-47.0); Hemoglobin 9.2 g/dL (12.0-15.0); Immature Granulocyte Percent A 0.7 % (0-0.5); Lymphocytes Absolute Auto 2.01 K/mm3 (0.9-3.2); Mean Corpuscular HGB Conc 30.9 g/dl (32-36); Mean Corpuscular Hemoglobin 28.2 pg (26-34); Mean Corpuscular Volume 91.4 fl (80-100); Nucleated Red Blood Cells Absolute Auto 0.000 K/mm3 (0.0-0.012); Nucleated Red Blood Cells Perc 0.0 % (0.0-0.2); Platelet Count Result 282 k/mm3 (150-375); Red Blood Count 3.26 M/mm3 (4.2-5.4); White Blood Count 11.9 K/mm3 (4.5-10.0)
--- NOTE | 2025-03-01 05:44 | PC.NURSE ---
daughter clled in rn to room because she felt the latasha was too far to right side.Daughter adamant that latasha be repositioned. When replacing latasha pt coughed and FMS became dislodged and liquid srool got on latasha and bedding necessitating a full bed change.by JASMIN Paredes
[2025-03-01 05:47] LABS: Alanine Aminotransferase 157 U/L (6-35); Albumin Level 4.1 g/dL (3.5-5.1); Alkaline Phosphatase 93 U/L (38-126); Anion Gap 9 mmol/L (4-12); Aspartate Amino Transferase 102 U/L (14-36); Bilirubin,Total 0.4 mg/dL (0.2-1.3); Blood Urea Nitrogen 71 mg/dL (7-17); Calcium 10.6 mg/dL (8.4-10.2); Carbon Dioxide 33 mmol/L (22-30); Chloride 106 mmol/L (98-107); Estimated CRCL calculation 30 ml/min; Estimated Glomerular Filt Rate 38; Glucose 127 mg/dL (65-110); Magnesium 2.8 mg/dL (1.6-2.3); Potassium 4.5 mmol/L (3.4-5.0); Sodium 148 mmol/L (137-145); Total Protein 7.8 g/dL (6.3-8.2)
[2025-03-01] MEDS: BUDESONIDE RESPULE NEB 0.5 MG/2 ML AMP 1 MG INHALATION (07:35)
--- NOTE | 2025-03-01 08:22 | P.PNINT_ITS ---
Progress Note: A&P Assessment and Plan (1) Acute on chronic respiratory failure: Qualifiers: Respiratory failure complication: unspecified whether with hypoxia or hypercapnia Qualified Code(s): J96.20 - Acute and chronic respiratory failure, unspecified whether with hypoxia or hypercapnia Code(s): J96.20 - Acute and chronic respiratory failure, unspecified whether with hypoxia or hypercapnia Status: Acute Assessment and Plan: Acute on chronic respiratory failure with hypoxia and hypercarbia in a patient who has history of COPD, chronic tracheostomy and is on 8 L oxygen by mask and now has a right lower lobe pneumonia 02/20 Tracheostomy was changed to a cuffed tracheostomy tube in the ER Patient is now on the mechanical ventilation with SIMV FiO2 is down to 35% 02/21 tolerated PSV 15/5 for many hours. 02/22 patient tolerated PSV 20/8 for adequate RSBI. She was switched back to SIMV at night 02/23 change SIMV settings and decrease rate and pressure support. Patient was tried on PSV 15/8 for many hours. She does not tolerate lowering of pressure support more than that as her tidal volumes drop in respiratory rate goes up to above 30s. 02/24 will try PSV again today. Will try to wean down pressure support if possible. Continue Bronchodilators Continue prednisone per tube taper Off IV fluids IV fluid Negative vital panel, Blood and sputum cultures are negative now Status post Augmentin. Low procalcitonin 02/25: Place patient on pressure support ventilation, tolerated for appr oximately 6-7 hours and was placed back on SIMV mode 02/26: Tolerated pressure support ventilation almost all day. 02/28: WBC count trending down, afebrile, tolerated pressure support 10/8 all day yesterday and through the night. 03/01: Remained on pressure support all through the day yesterday and through the night (2) COPD (chronic obstructive pulmonary disease): Qualifiers: COPD type: unspecified COPD Qualified Code(s): J44.9 - Chronic obstructive pulmonary disease, unspecified Code(s): J44.9 - Chronic obstructive pulmonary disease, unspecified Status: Acute Assessment and Plan: Continue bronchodilators, budesonide nebs (3) Acute kidney injury: Code(s): N17.9 - Acute kidney failure, unspecified Status: Acute Assessment and Plan: Acute kidney injury with creatinine 1.5 likely secondary to sepsis hypovolemia and hypotension IV fluid bolus followed by cautious maintain IV fluids Normal CK UA reviewed Mcmahan for accurate I&Os CT abdomen pelvis negative for any stone or obstruction Monitor intake output and electrolytes Creatinine is stable, urine output has been good -nephrology following and appreciate their input (4) HTN (hypertension): Qualifiers: Hypertension type: primary hypertension Qualified Code(s): I10 - Essential (primary) hypertension Code(s): I10 - Essential (primary) hypertension Status: Acute Assessment and Plan: Continue amlodipine (5) Tracheostomy in place: Code(s): Z93.0 - Tracheostomy status Status: Acute Assessment and Plan: Tracheostomy was changed to a cuffed size 6 by ER (6) G tube feedings: Code(s): Z93.1 - Gastrostomy status Status: Acute Assessment and Plan: Tolerate tube feeds, positive bowel movement (7) Anemia: Qualifiers: Anemia type: unspecified type Qualified Code(s): D64.9 - Anemia, unspecified Code(s): D64.9 - Anemia, unspecified Status: Acute Assessment and Plan: History of chronic anemia. Hemoglobin appears close to baseline. Monitor (8) CHF (congestive heart failure): Qualifiers: Heart failure type: unspecified Heart failure chronicity: unspecified Qualified Code(s): I50.9 - Heart failure, unspecified Code(s): I50.9 - Heart failure, unspecified Status: Acute Assessment and Plan: Elevated BNP. 02/21/2025: Echocardiogram Summary 1. Complete two-dimensional, color flow and Doppler transthoracic echocardiogram is performed. 2. Left ventricular systolic function is hyperdynamic, estimated at >70. 3. The left ventricular diastolic function is grade I diastolic dysfunction. 4. There is trace tricuspid valve regurgitation. 5. Mild pulmonary hypertension, estimated pulmonary arterial systolic pressure is 38 mmHg. 6. There is mild pulmonic regurgitation (9) Sepsis: Qualifiers: Sepsis type: sepsis due to unspecified organism Sepsis acute organ dysfunction status: unspecified Qualified Code(s): A41.9 - Sepsis, unspecified organism Code(s): A41.9 - Sepsis, unspecified organism Status: Acute Assessment and Plan: Normal lactic acid level and low procalcitonin level Off further IV fluids 02/20: Blood cultures negative x2 Status post full course of Augmentin (10) Pericardial effusion: Code(s): I31.39 - Other pericardial effusion (noninflammatory) Status: Acute Assessment and Plan: CT scan showed pericardial effusion vent echo done and does not show any significant effusion. No intervention at this time. (11) Hypernatremia: Code(s): E87.0 - Hyperosmolality and hypernatremia Status: Acute Assessment and Plan: Appreciate nephrology following the patient, patient has been receiving D5 water intermittently Continue free water flushes 250 q.4 hours 02/27: Switched tube feeds to vital 1.2 after nephrology discussed with the family Sodium levels 148 this morning, will give D5 water at 100 mL/hour for total of 500 mL Will discuss with Nephrology (12) Electrolyte abnormality: Code(s): E87.8 - Other disorders of electrolyte and fluid balance, not elsewhere classified Status: Acute Assessment and Plan: Will replace electrolytes as needed Plan DVT prophylaxis -Lovenox Stress ulcer prophylaxis -PPI Nutrition -continue tube feeds Code Status - Full Code Patient awaits LTAC placement now Total Critical Care Time - 31 minutes Discussed with patient's daughter at bedside, the did visit the LTAC on 02/28/2025, will discuss with care coordination regarding transferring patient to LTAC facility Due to a high probability of clinically significant, life threatening deterioration, the patient required my highest level of preparedness to intervene emergently and I personally spent this critical care time directly and personally managing the patient. This critical care time included obtaining a history; examining the patient; pulse oximetry; ordering and review of studies; arranging urgent treatment with development of a management plan; evaluation of patient's response to treatment; frequent reassessment; and discussions with other providers. It was exclusive of separately billable procedures and treating other patients and teaching time. Please see Assessment and Plan section and the rest of the note for further information on patient assessment and treatment This dictation may have been done utilizing a voice recognition system. Attempts have been made to correct errors. However, there may be uncorrected grammatical, spelling, and recognitions errors present. Subjective Date/time seen: 03/01/25 08:22 Interval history: Reason for consult: Acute on chronic respiratory failure, possible COPD exacerbation, acute kidney injury, hyponatremia, 03/01/2025: Patient seen and examined the ICU. Chronic tracheostomy, remains on vent on pressure support ventilation mode 01/26 all day and all night. Not on any sedation, opens her eyes, afebrile, UO adequate, FMS in place with bowel movements, tube feeds were switched to Jevity on 02/27, tolerating. Sodium levels 148 this morning, LFTs trending down Daughter at bedside was complaining about patient not getting tube feed flushes every 4 hours, I explained to in front of the bedside RN that the tube feed flushes programmed on the pump, and the pump automatically dispense since free water at the inter was that they are set at. Review of Systems Review of Systems: ROS unobtainable: Yes unobtainable due to endotracheal tube, unobtainable due to medical condition and unobtainable due to mental status Exam Narrative: General: Patient opens her eyes, contracted, does not do anything except opening her eyes at baseline, has a tracheostomy and on mechanical ventilation HEENT: Pupils are equal and reactive, sclera is clear, tracheostomy in place Lungs/Chest: Decreased breath sounds at bases, otherwise adequate air entry, no wheezing Cardiac: RRR. Normal S1 S2. No murmurs Circulation: Pedal pulses are intact and symmetrical. Abdomen: Soft, non distended this morning, non tender, normoactive bowel sounds. PEG tube in place, scar from past surgery noted Extremities: No clubbing, cyanosis or edema. Warm : Mcmahan in place Neurologic: Patient has contractures and hand. Withdraws to pain stimulus in all extremities but does not follow any commands or respond to questions or calling her name. Eyes are open Objective Data Vital Signs Vital Signs: Vital Signs - 24 hr 02/28/25 08:25 02/28/25 09:00 02/28/25 10:00 Temperature 98.9 F Pulse Rate 88 87 83 Respiratory Rate 24 H 28 H 24 H Blood Pressure 109/3 L 126/67 Pulse Oximetry 94 94 Oxygen Delivery Fraction of Inspired Oxygen 02/28/25 10:00 02/28/25 10:42 02/28/25 11:00 Temperature Pulse Rate 83 80 80 Respiratory Rate 24 H Blood Pressure 121/64 Pulse Oximetry 95 95 Oxygen Delivery Mechanical Ventilation Fraction of Inspired Oxygen 30 02/28/25 12:00 02/28/25 12:00 02/28/25 12:00 Temperature 99.0 F Pulse Rate 80 Respiratory Rate 24 H Blood Pressure 124/61 Pulse Oximetry 98 94 Oxygen Delivery Mechanical Ventilation Fraction of Inspired Oxygen 30 30 02/28/25 12:00 02/28/25 13:00 02/28/25 14:00 Temperature 99.0 F Pulse Rate 78 79 78 Respiratory Rate 22 H 22 H Blood Pressure 120/60 119/63 Pulse Oximetry 94 95 Oxygen Delivery Fraction of Inspired Oxygen 02/28/25 14:00 02/28/25 14:37 02/28/25 15:00 Temperature Pulse Rate 78 79 79 Respiratory Rate 24 H Blood Pressure 115/67 Pulse Oximetry 94 95 Oxygen Delivery Mechanical Ventilation Fraction of Inspired Oxygen 30 02/28/25 16:00 02/28/25 16:00 02/28/25 16:00 Temperature 98.3 F Pulse Rate 77 Respiratory Rate 22 H Blood Pressure 118/60 Pulse Oximetry 96 96 Oxygen Delivery Mechanical Ventilation Fraction of Inspired Oxygen 30 30 02/28/25 16:00 02/28/25 17:00 02/28/25 17:52 Temperature Pulse Rate 80 79 79 Respiratory Rate 24 H Blood Pressure 115/71 Pulse Oximetry 95 96 Oxygen Delivery Mechanical Ventilation Fraction of Inspired Oxygen 30 02/28/25 18:00 02/28/25 18:00 02/28/25 19:00 Temperature 98.4 F Pulse Rate 77 77 88 Respiratory Rate 24 H 26 H Blood Pressure 117/64 128/56 L Pulse Oximetry 94 95 Oxygen Delivery Fraction of Inspired Oxygen 02/28/25 19:51 02/28/25 19:53 02/28/25 20:00 Temperature Pulse Rate 88 81 Respiratory Rate 26 H Blood Pressure Pulse Oximetry 95 Oxygen Delivery Mechanical Ventilation Fraction of Inspired Oxygen 30 30 02/28/25 20:00 02/28/25 20:22 02/28/25 20:22 Temperature 98.3 F Pulse Rate 80 83 83 Respiratory Rate 22 H 33 H Blood Pressure 113/59 L Pulse Oximetry 94 99 Oxygen Delivery Mechanical Ventilation Fraction of Inspired Oxygen 30 02/28/25 20:34 02/28/25 21:00 02/28/25 22:00 Temperature 98.5 F Pulse Rate 80 76 Respiratory Rate 30 H Blood Pressure Pulse Oximetry Oxygen Delivery Fraction of Inspired Oxygen 02/28/25 22:00 02/28/25 22:49 02/28/25 23:00 Temperature Pulse Rate 76 76 80 Respiratory Rate 22 H 23 H Blood Pressure 116/60 125/64 Pulse Oximetry 96 95 95 Oxygen Delivery Mechanical Ventilation Fraction of Inspired Oxygen 30 03/01/25 00:00 03/01/25 00:00 03/01/25 00:00 Temperature Pulse Rate 80 82 Respiratory Rate 23 H Blood Pressure Pulse Oximetry 95 Oxygen Delivery Mechanical Ventilation Fraction of Inspired Oxygen 30 30 03/01/25 00:00 03/01/25 01:00 03/01/25 02:00 Temperature Pulse Rate 76 81 81 Respiratory Rate 23 H 26 H Blood Pressure 125/64 Pulse Oximetry 97 96 Oxygen Delivery Fraction of Inspired Oxygen 03/01/25 02:00 03/01/25 02:05 03/01/25 03:00 Temperature Pulse Rate 77 82 81 Respiratory Rate 23 H 23 H Blood Pressure 141/78 H 132/69 Pulse Oximetry 95 96 93 Oxygen Delivery Mechanical Ventilation Fraction of Inspired Oxygen 30 03/01/25 03:00 03/01/25 03:00 03/01/25 03:09 Temperature 98.4 F Pulse Rate 79 81 Respiratory Rate 21 H 23 H Blood Pressure 132/69 Pulse Oximetry 98 93 Oxygen Delivery Mechanical Ventilation Fraction of Inspired Oxygen 30 30 03/01/25 03:09 03/01/25 05:00 03/01/25 05:27 Temperature Pulse Rate 81 82 90 Respiratory Rate 22 H Blood Pressure 146/89 H Pulse Oximetry 96 93 Oxygen Delivery Mechanical Ventilation Fraction of Inspired Oxygen 30 03/01/25 06:00 03/01/25 06:00 03/01/25 07:00 Temperature 97.8 F Pulse Rate 78 78 81 Respiratory Rate 23 H 26 H Blood Pressure 147/78 H 156/76 H Pulse Oximetry 95 95 Oxygen Delivery Fraction of Inspired Oxygen 03/01/25 07:36 03/01/25 07:43 03/01/25 08:00 Temperature Pulse Rate 85 85 81 Respiratory Rate 28 H 26 H Blood Pressure Pulse Oximetry 97 95 Oxygen Delivery Mechanical Ventilation Mechanical Ventilation Fraction of Inspired Oxygen 30 30 03/01/25 08:00 03/01/25 08:00 03/01/25 08:00 Temperature 97.8 F Pulse Rate 81 81 Respiratory Rate 26 H Blood Pressure 148/72 H Pulse Oximetry 95 Oxygen Delivery Fraction of Inspired Oxygen 30 03/01/25 08:00 Temperature Pulse Rate 78 Respiratory Rate 24 H Blood Pressure Pulse Oximetry Oxygen Delivery Fraction of Inspired Oxygen Intake/Output Intake/Output: Intake & Output 02/26/25 02/27/25 02/28/25 03/01/25 23:59 23:59 23:59 23:59 Intake Total 1320 3458 1998 115 Output Total 1400 2100 1999 115 Balance -80 1358 -1 7 Meds/Results Medications: Active Medications Generic Name Dose Route Start Last Admin Trade Name Freq PRN Reason Stop Dose Admin Acetaminophen 650 mg 02/20/25 10:42 Acetaminophen Elixir 325 Mg/10.15 Ml Udc FEED TUBE Q4H PRN Mild Pain (1-3) or Fever Albuterol 2.5 mg 02/21/25 20:44 02/26/25 07:51 Albuterol Sulfate Neb 2.5 Mg/3 Ml Inh INHALATION 2.5 mg Q6HRT PRN Administration Shortness Of Breath Amlodipine Besylate 5 mg 02/25/25 13:50 02/28/25 08:48 Amlodipine Besylate 5 Mg Tablet FEED TUBE 5 mg DAILY IMTIAZ Administration Aspirin 81 mg 02/26/25 09:00 02/28/25 08:49 Aspirin 81 Mg Chewable Tablet FEED TUBE 81 mg DAILY IMTIAZ Administration Budesonide 1 mg 02/25/25 20:00 03/01/25 07:35 Budesonide Respule Neb 0.5 Mg/2 Ml Amp INHALATION 1 mg Q12HRT IMTIAZ Administration Dextrose 12.5 gm 02/20/25 11:00 Dextrose 50% 25 Gm/50 Ml Syringe IV PUSH PRN PRN Hypoglycemia Protocol Donepezil HCl 5 mg 02/25/25 21:00 02/28/25 23:14 Donepezil Hcl 5 Mg Tablet FEED TUBE 5 mg HS IMTIAZ Administration Enoxaparin Sodium 40 mg 02/23/25 09:00 02/28/25 08:49 Enoxaparin 40 Mg/0.4 Ml Syringe SUB-Q 40 mg DAILY IMTIAZ Administration Ferrous Sulfate 325 mg 02/25/25 21:00 02/28/25 23:14 Ferrous Sulfate Liquid 325 Mg/7.4 Ml Elixir FEED TUBE 325 mg Q12HR IMTIAZ Administration Glucagon 1 mg 02/20/25 11:00 Glucagon For Inj 1 Mg Vial IM PRN PRN Hypoglycemia Protocol Glucose 15 gm 02/20/25 11:00 Glucose Oral Gel 15 Gm Of Glucse In 37.5 Gm Tube PO PRN PRN Hypoglycemia Protocol Hydralazine HCl 10 mg 02/25/25 13:47 02/26/25 02:19 Hydralazine Hcl 20 Mg/Ml Vial IV PUSH 10 mg Q4H PRN Administration Blood Pressure - High Dextrose 1,000 mls @ 100 mls/hr 02/20/25 11:00 Dextrose 5% 1,000 Ml IVPB PRN PRN Hypoglycemia Protocol Dextrose 1,000 mls @ 100 mls/hr 03/01/25 07:10 Dextrose 5% 1,000 Ml IV CONT 03/01/25 12:09 .Q10H [facility] Insulin Aspart 3 - 6 units 02/20/25 12:00 03/01/25 05:49 Insulin Aspart (*Bkc) 100 Units/Ml SUB-Q Not Given Q6HR [facility] Protocol Loratadine 10 mg 02/25/25 09:00 02/28/25 08:49 Loratadine 10 Mg Tablet FEED TUBE 10 mg QAM IMTIAZ Administration Morphine Sulfate 2 mg 02/20/25 10:39 Morphine Sulfate (*Crx) 4 Mg/Ml Inj IV PUSH Q2H PRN Pain Rated 7-10 Vitamin A&D Ointment 1 each 02/21/25 14:15 02/21/25 20:56 (Home Med) TOPICAL 03/23/25 14:14 1 each PRN PRN Administration to affected areas Pantoprazole Sodium 40 mg 02/21/25 09:00 02/28/25 08:49 Pantoprazole Sodium Iv 40 Mg Vial IV PUSH 40 mg QAM IMTIAZ Administration Prednisone 20 mg 03/01/25 08:00 Prednisone 20 Mg Tablet PO 03/03/25 08:01 DAILY@0800 [facility] Prednisone 10 mg 03/04/25 08:00 Prednisone 10 Mg Tablet PO 03/06/25 08:01 DAILY@0800 [facility] Promethazine HCl 12.5 mg 02/20/25 10:39 Promethazine Hcl 25 Mg/Ml Ampul IV PUSH Q6H PRN Nausea Rosuvastatin Calcium 20 mg 02/26/25 09:00 02/28/25 08:49 Rosuvastatin 20 Mg Tablet FEED TUBE 20 mg DAILY [facility] Administration Vitamin D 50 mcg 02/26/25 09:00 02/28/25 08:49 Cholecalciferol (Vitamin D3) 25 Mcg (1,000 Units) Tablet FEED TUBE 50 mcg DAILY IMTIAZ Administration Radiology Results: ITS Impressions Chest/Abdomen/Pelvis CT 02/20/25 11:24 IMPRESSION: 1. Right lower lobe pneumonia. 2. New 6 mm nodule in right lung middle lobe, probably benign. Consider noncontrast low-dose chest CT in 6 months. 3. 11 mm nodule in left lung upper lobe, stable from 12/16/2023, likely benign. 4. Small pericardial effusion. 5. Moderate emphysema. 6. 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 Abdomen X-Ray 02/27/25 08:28 IMPRESSION: 1. No acute abnormality. Chest X-Ray 02/27/25 09:08 IMPRESSION: 1. No change or acute cardiopulmonary findings given portable technique. Labs Labs: Laboratory Results - last 24 hr 02/28/25 02/28/25 03/01/25 11: 17:15 05:28 WBC 11.9 H RBC 3.26 L Hgb 9.2 L Hct 29.8 L MCV 91.4 MCH 28.2 MCHC 30.9 L RDW 19.2 H Plt Count 282 MPV 10.6 H Immature Gran % (Auto) 0.7 H Neut % (Auto) 74.4 H Lymph % (Auto) 16.9 L Dawson % (Auto) 7.4 Eos % (Auto) 0.3 Baso % (Auto) 0.3 Lymph # (Auto) 2.01 Dawson # (Auto) 0.9 H Eos # (Auto) 0.0 Baso # (Auto) 0.0 Abs Immat Gran (auto) 0.08 H Absolute Neuts (auto) 8.9 H Absolute Nucleated RBC 0.000 Nucleated RBC % 0.0 Sodium 148 H Potassium 4.5 Chloride 106 Carbon Dioxide 33 H Anion Gap 9 BUN 71 H D Creatinine 1.33 H Estim Creat Clear Calc 30 Estimated GFR 38 L Glucose 127 H POC Capillary Glucose 151 H 183 H Calcium 10.6 H Phosphorus 4.1 Magnesium 2.8 H Total Bilirubin 0.4 AST 102 H ALT 157 H Alkaline Phosphatase 93 Total Protein 7.8 Albumin 4.1 Quality VTE Prophylaxis VTE prophylaxis: pharmacologic ordered
[2025-03-01] MEDS: ENOXAPARIN 40 MG/0.4 ML SYRINGE SUB-Q (08:40)
[2025-03-01] MEDS: DEXTROSE 5% 1,000 ML 1,000 ML 100 ML IV CONT (08:40)
[2025-03-01] MEDS: ASPIRIN 81 MG CHEWABLE TABLET FEED TUBE (08:40)
[2025-03-01] MEDS: CHOLECALCIFEROL (VITAMIN D3) 25 MCG (1,000 UNITS) TABLET 50 MCG FEED TUBE (08:40)
[2025-03-01] MEDS: ROSUVASTATIN 20 MG TABLET FEED TUBE (08:41)
[2025-03-01] MEDS: FERROUS SULFATE LIQUID 325 MG/7.4 ML ELIXIR FEED TUBE (08:41)
[2025-03-01] MEDS: PANTOPRAZOLE SODIUM IV 40 MG VIAL IV PUSH (08:41)
[2025-03-01] MEDS: LORATADINE 10 MG TABLET FEED TUBE (08:41)
--- NOTE | 2025-03-01 10:50 | PCNFU ---
Nutrition Follow-Up Complete: Increased protein energy needs related to mechanical ventilation as evidenced by need for PEG tube feedings Goal: Meet estimated nutrition needs Patient will continue current goal. Pt current nutrition is Jevity 1.2 at 50 ml/hr with Prosource BID. Last recorded weight is 77.2 kg, down from 86 kg on admit. Bowel Motility: Last reported BM 03/01 Labs Reviewed: Na 148, BUN 71, Cr 1.33, Glu 127, Mg 2.8 Meds Noted: Prednisone, Protonix, Vit D Skin: WNL Additional Notes: Patient current with Trach/vent. Tube feedings formula record changer the weekend of Jevity 1.2 at 50 ml/hr with Protein Modular of Prosource BID providing 1480 kcal/101 gm protein/888 ml water. Flush remains at 250 ml q 4 hours. Na 148 from 146 02/28. Plans for LTAC for discharge. Agree with diet orders.. Monitoring labs, vitals, weights, output, meds, tube feeding tolerance Follow up Friday/Friday, daily rounds
--- NOTE | 2025-03-01 11:44 | P.PNNP_ITS ---
Progress Note: A&P Assessment and Plan (1) Hypernatremia: Code(s): E87.0 - Hyperosmolality and hypernatremia Status: Acute Assessment and Plan: * as noted since 02/23 * suspect due to free water deficit and volume depletion * possible insensible losses from being on ventilator * doubt diabetes insipidus: * reasonable urine output but not excessive to suspect polyuria * urine specific gravity was 1.014 * urine osmolality pending * changed tube feedings to one with more water and less calcium * titrate free water tube flushes - increase to 300cc q4hr * D5W IVFs as needed * follow trend of repeat sodium levels (2) Hypercalcemia: Code(s): E83.52 - Hypercalcemia Status: Chronic Assessment and Plan: * has been on the higher side of normal for the las year if not longer (chronic) * baseline calcium runs around 10 - 11 range * suspect partly due to bed bound status and immobilized state possibly complicated by relative dehydration * improvement noted with IVF hydration * follow trend with increased free water tube flushes * tube feeds changed to one with less calcium * follow trend of calcium (3) Acute kidney injury: Code(s): N17.9 - Acute kidney failure, unspecified Status: Acute Assessment and Plan: * creatinine fluctuating since admission * may have some degree of renal insufficiency (previous labs are from ~ 1 year ago) * seems to have stabilized ~ 1.3mg/dl * likely due to prerenal factors and acute infection (pneumonia) * imaging without obstruction * urine electrolytes prerenal * urine eosinophils negative * CPK normal * moderate proteinuria * follow trend of creatinine (4) Acute on chronic respiratory failure: Qualifiers: Respiratory failure complication: unspecified whether with hypoxia or hypercapnia Qualified Code(s): J96.20 - Acute and chronic respiratory failure, unspecified whether with hypoxia or hypercapnia Code(s): J96.20 - Acute and chronic respiratory failure, unspecified whether with hypoxia or hypercapnia Status: Acute Assessment and Plan: * as noted on presentation * complicated by hypoxia and hypercarbia and pneumonia * known history of COPD as well * on mechanical ventilation via tracheostomy * on bronchodilators, steroids, and antibiotics * ventilator weaning ongoing (5) HTN (hypertension): Qualifiers: Hypertension type: primary hypertension Qualified Code(s): I10 - Essential (primary) hypertension Code(s): I10 - Essential (primary) hypertension Status: Acute Assessment and Plan: * noted by history * reasonable control at this time * follow trend of hemodynamics Will continue to follow. L Subjective Date/time seen: 03/01/25 11:44 Interval history: Follow-up for hypernatremia, hypercalcemia, and acute kidney injury/acute renal failure. No real significant change noted -- remains on mechanical venitlation via tracheostomy; sodium and calcium still fluctuating and getting another run of D5W IVFs; noted plans for transfer to LTAC eventually. 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 Heart: normal S1 and S2; no rub Lungs: decreased at bases Abdomen: soft, nontender, nondistended, positive bowel sounds; + G-tube Extremities: no cyanosis or clubbing; no edema Skin: warm and intact Objective Data Vital Signs Vital Signs: Vital Signs Temp Pulse Resp BP Pulse Ox O2 Del Method FiO2 03/01/25 11:00 98.6 F 82 26 H 137/66 94 03/01/25 11:00 82 95 Mechanical Ventilation 03/01/25 10:00 97.8 F 75 23 H 145/74 H 95 03/01/25 10:00 75 03/01/25 09:00 97.8 F 81 26 H 155/80 H 95 03/01/25 08:00 78 24 H 03/01/25 08:00 97.8 F 81 26 H 148/72 H 95 03/01/25 08:00 30 03/01/25 08:00 81 03/01/25 08:00 81 26 H 95 Mechanical Ventilation 03/01/25 07:43 85 97 Mechanical Ventilation 03/01/25 07:36 85 28 H 03/01/25 07:00 97.8 F 81 26 H 156/76 H 95 03/01/25 06:00 78 23 H 147/78 H 95 03/01/25 06:00 78 03/01/25 05:27 90 93 Mechanical Ventilation 03/01/25 05:00 82 22 H 146/89 H 96 03/01/25 03:09 81 03/01/25 03:09 81 23 H 93 Mechanical Ventilation 03/01/25 03:00 98.4 F 79 21 H 132/69 98 03/01/25 03:00 30 03/01/25 03:00 81 23 H 132/69 93 03/01/25 02:05 82 96 Mechanical Ventilation 30 03/01/25 02:00 77 23 H 141/78 H 95 03/01/25 02:00 81 03/01/25 01:00 81 26 H 96 03/01/25 00:00 76 23 H 125/64 97 03/01/25 00:00 30 03/01/25 00:00 82 03/01/25 00:00 80 23 H 95 Mechanical Ventilation 30 02/28/25 23:00 80 23 H 125/64 95 02/28/25 22:49 76 95 Mechanical Ventilation 30 02/28/25 22:00 76 22 H 116/60 96 02/28/25 22:00 76 02/28/25 21:00 98.5 F 02/28/25 20:34 80 30 H 02/28/25 20:22 83 99 Mechanical Ventilation 30 02/28/25 20:22 83 33 H 02/28/25 20:00 98.3 F 80 22 H 113/59 L 94 02/28/25 20:00 30 02/28/25 19:53 81 02/28/25 19:51 88 26 H 95 Mechanical Ventilation 30 02/28/25 19:00 88 26 H 128/56 L 95 02/28/25 18:00 77 02/28/25 18:00 98.4 F 77 24 H 117/64 94 02/28/25 17:52 79 96 Mechanical Ventilation 30 Intake/Output Intake/Output: Intake & Output 02/26/25 02/27/25 02/28/25 03/01/25 23:59 23:59 23:59 23:59 Intake Total 1320 3458 1998 2857 Output Total 1400 2100 1999 1949 Balance -80 1358 -1 907 Meds/Results Medications: Active Medications Generic Name Dose Route Start Last Admin Trade Name Freq PRN Reason Stop Dose Admin Acetaminophen 650 mg 02/20/25 10:42 Acetaminophen Elixir 325 Mg/10.15 Ml Udc FEED TUBE Q4H PRN Mild Pain (1-3) or Fever Albuterol 2.5 mg 02/21/25 20:44 02/26/25 07:51 Albuterol Sulfate Neb 2.5 Mg/3 Ml Inh INHALATION 2.5 mg Q6HRT PRN Administration Shortness Of Breath Amlodipine Besylate 5 mg 02/25/25 13:50 03/01/25 08:40 Amlodipine Besylate 5 Mg Tablet FEED TUBE 5 mg DAILY IMTIAZ Administration Aspirin 81 mg 02/26/25 09:00 03/01/25 08:40 Aspirin 81 Mg Chewable Tablet FEED TUBE 81 mg DAILY IMTIAZ Administration Budesonide 1 mg 02/25/25 20:00 03/01/25 07:35 Budesonide Respule Neb 0.5 Mg/2 Ml Amp INHALATION 1 mg Q12HRT IMTIAZ Administration Dextrose 12.5 gm 02/20/25 11:00 Dextrose 50% 25 Gm/50 Ml Syringe IV PUSH PRN PRN Hypoglycemia Protocol Donepezil HCl 5 mg 02/25/25 21:00 02/28/25 23:14 Donepezil Hcl 5 Mg Tablet FEED TUBE 5 mg HS IMTIAZ Administration Enoxaparin Sodium 40 mg 02/23/25 09:00 03/01/25 08:40 Enoxaparin 40 Mg/0.4 Ml Syringe SUB-Q 40 mg DAILY IMTIAZ Administration Ferrous Sulfate 325 mg 02/25/25 21:00 03/01/25 08:41 Ferrous Sulfate Liquid 325 Mg/7.4 Ml Elixir FEED TUBE 325 mg Q12HR IMTIAZ Administration Glucagon 1 mg 02/20/25 11:00 Glucagon For Inj 1 Mg Vial IM PRN PRN Hypoglycemia Protocol Glucose 15 gm 02/20/25 11:00 Glucose Oral Gel 15 Gm Of Glucse In 37.5 Gm Tube PO PRN PRN Hypoglycemia Protocol Hydralazine HCl 10 mg 02/25/25 13:47 02/26/25 02:19 Hydralazine Hcl 20 Mg/Ml Vial IV PUSH 10 mg Q4H PRN Administration Blood Pressure - High Dextrose 1,000 mls @ 100 mls/hr 02/20/25 11:00 Dextrose 5% 1,000 Ml IVPB PRN PRN Hypoglycemia Protocol Insulin Aspart 3 - 6 units 02/20/25 12:00 03/01/25 12:03 Insulin Aspart (*Bkc) 100 Units/Ml SUB-Q Not Given Q6HR IMTIAZ Protocol Loratadine 10 mg 02/25/25 09:00 03/01/25 08:41 Loratadine 10 Mg Tablet FEED TUBE 10 mg QAM IMTIAZ Administration Morphine Sulfate 2 mg 02/20/25 10:39 Morphine Sulfate (*Crx) 4 Mg/Ml Inj IV PUSH Q2H PRN Pain Rated 7-10 Vitamin A&D Ointment 1 each 02/21/25 14:15 02/21/25 20:56 (Home Med) TOPICAL 03/23/25 14:14 1 each PRN PRN Administration to affected areas Pantoprazole Sodium 40 mg 02/21/25 09:00 03/01/25 08:41 Pantoprazole Sodium Iv 40 Mg Vial IV PUSH 40 mg QAM IMTIAZ Administration Prednisone 20 mg 03/01/25 08:00 03/01/25 08:40 Prednisone 20 Mg Tablet PO 03/03/25 08:01 20 mg DAILY@0800 [facility] Administration Prednisone 10 mg 03/04/25 08:00 Prednisone 10 Mg Tablet PO 03/06/25 08:01 DAILY@0800 [facility] Promethazine HCl 12.5 mg 02/20/25 10:39 Promethazine Hcl 25 Mg/Ml Ampul IV PUSH Q6H PRN Nausea Rosuvastatin Calcium 20 mg 02/26/25 09:00 03/01/25 08:41 Rosuvastatin 20 Mg Tablet FEED TUBE 20 mg DAILY [facility] Administration Vitamin D 50 mcg 02/26/25 09:00 03/01/25 08:40 Cholecalciferol (Vitamin D3) 25 Mcg (1,000 Units) Tablet FEED TUBE 50 mcg DAILY IMTIAZ Administration Radiology Results: ITS Impressions Chest/Abdomen/Pelvis CT 02/20/25 11:24 IMPRESSION: 1. Right lower lobe pneumonia. 2. New 6 mm nodule in right lung middle lobe, probably benign. Consider noncontrast low-dose chest CT in 6 months. 3. 11 mm nodule in left lung upper lobe, stable from 12/16/2023, likely benign. 4. Small pericardial effusion. 5. Moderate emphysema. 6. 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 Abdomen X-Ray 02/27/25 08:28 IMPRESSION: 1. No acute abnormality. Chest X-Ray 02/27/25 09:08 IMPRESSION: 1. No change or acute cardiopulmonary findings given portable technique. Labs Labs: Laboratory Tests 03/01/25 05:28 03/01/25 05:28 Calcium 10.6 H Phosphorus 4.1 Magnesium 2.8 H Total Bilirubin 0.4 AST 102 H ALT 157 H Alkaline Phosphatase 93 Total Protein 7.8 Albumin 4.1
[2025-03-01 12:08] LABS: ACE 25 U/L (14-82)
--- NOTE | 2025-03-01 13:23 | PM.DS ---
DS: Admitting Diagnosis Discharge Date 03/01/25 Admitting Diagnosis Respiratory distress DS: Discharge Diagnosis Discharge Diagnosis (1) Acute on chronic respiratory failure: Qualifiers: Respiratory failure complication: unspecified whether with hypoxia or hypercapnia Qualified Code(s): J96.20 - Acute and chronic respiratory failure, unspecified whether with hypoxia or hypercapnia Code(s): J96.20 - Acute and chronic respiratory failure, unspecified whether with hypoxia or hypercapnia Status: Acute Assessment and Plan: Acute on chronic respiratory failure with hypoxia and hypercarbia in a patient who has history of COPD, chronic tracheostomy and is on 8 L oxygen by mask and now has a right lower lobe pneumonia Tracheostomy was changed to a cuffed tracheostomy tube in the ER Patient is now on the mechanical ventilation with SIMV FiO2 is down to 35% I will try PSV 10/5 Continue Bronchodilators and Solu-Medrol Continue Cautious IV fluid Negative vital panel, Pending blood and sputum cultures, She has 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 hence empiric vancomycin and meropenem at this time Low procalcitonin (2) COPD (chronic obstructive pulmonary disease): Qualifiers: COPD type: unspecified COPD Qualified Code(s): J44.9 - Chronic obstructive pulmonary disease, unspecified Code(s): J44.9 - Chronic obstructive pulmonary disease, unspecified Status: Acute Assessment and Plan: See above (3) Acute kidney injury: Code(s): N17.9 - Acute kidney failure, unspecified Status: Acute Assessment and Plan: Acute kidney injury with creatinine 1.5 likely secondary to sepsis hypovolemia and hypotension IV fluid bolus followed by cautious maintain its IV fluids Normal CK UA reviewed [place] for accurate I&Os CT abdomen pelvis negative for any stone or obstruction Monitor intake output and electrolytes Will consult nephrology if it does not improve continue care per biological lab technician (4) HTN (hypertension): Qualifiers: Hypertension type: primary hypertension Qualified Code(s): I10 - Essential (primary) hypertension Code(s): I10 - Essential (primary) hypertension Status: Acute Assessment and Plan: Hold amlodipine (5) Tracheostomy in place: Code(s): Z93.0 - Tracheostomy status Status: Acute Assessment and Plan: Tracheostomy was changed to a cuffed size 6 by ER (6) G tube feedings: Code(s): Z93.1 - Gastrostomy status Status: Acute Assessment and Plan: Tolerate tube feeds (7) Anemia: Qualifiers: Anemia type: unspecified type Qualified Code(s): D64.9 - Anemia, unspecified Code(s): D64.9 - Anemia, unspecified Status: Acute Assessment and Plan: History of chronic anemia. Hemoglobin appears close to baseline. Monitor (8) CHF (congestive heart failure): Qualifiers: Heart failure type: unspecified Heart failure chronicity: unspecified Qualified Code(s): I50.9 - Heart failure, unspecified Code(s): I50.9 - Heart failure, unspecified Status: Acute Assessment and Plan: Elevated BNP. Pending echocardiogram. Cautious IV fluid (9) Sepsis: Qualifiers: Sepsis type: sepsis due to unspecified organism Sepsis acute organ dysfunction status: unspecified Qualified Code(s): A41.9 - Sepsis, unspecified organism Code(s): A41.9 - Sepsis, unspecified organism Status: Acute Assessment and Plan: Normal lactic acid level and low procalcitonin level IV fluid bolus followed by cautious IV fluids Ten sputum, blood cultures and UA Empiric antibiotics as above Plan DVT prophylaxis -Lovenox Stress ulcer prophylaxis -PPI Nutrition -continue tube feeds Code Status - Full Code continue care per biological lab technician DS: Summary Hospital Course Hospital Course: 79-year-old female with 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 She lives at home with her daughter who is her caregiver as she is dependent in all her ADLs. Patient began having tongue swelling this morning increased difficulty breathing so family called EMS. Family states the patient has been Aranesp for her anemia and received a dose yesterday. She has been having intermittent swelling of her tongue over the last couple weeks since starting the shots. She does have a history of Jessee inhibitor allergy but is not on an JESSEE-inhibitor. On arrival to ED, patient is using accessory muscles, grunting. Trach was changed to a cuffed size 6 in the ED then connected to the ventilator. Acute on chronic respiratory failure with hypoxia and hypercarbia in a patient who has history of COPD, chronic tracheostomy and is on 8 L oxygen by mask and now has a right lower lobe pneumonia, patient was managed in ICU by patient acute symptoms resolved but remains on vent with chronic tracheostomy and is on 8 L oxygen by mask, the biological lab technician discuss with patient family for terminal superintendent care and it was decided to transfer patient [facility], patient is being transferred to the [facility] and Dr. Montenegro spoke with accepting physician Dr. Treviño and gave date, patient is at baseline on the vent, will discharged the patient. Time Spent with Patient Time attestation: Total time spent providing and/or coordinating discharge services: DS: Data Data Completed and Pending Labs on day of discharge: Labs from last 24 hours 03/01/25 03/01/25 02/28/25 11:49 05:28 17:15 WBC 11.9 H RBC 3.26 L Hgb 9.2 L Hct 29.8 L MCV 91.4 MCH 28.2 MCHC 30.9 L RDW 19.2 H Plt Count 282 MPV 10.6 H Immature Gran % (Auto) 0.7 H Neut % (Auto) 74.4 H Lymph % (Auto) 16.9 L [place] % (Auto) 7.4 Eos % (Auto) 0.3 Baso % (Auto) 0.3 Lymph # (Auto) 2.01 [place] # (Auto) 0.9 H Eos # (Auto) 0.0 Baso # (Auto) 0.0 Abs Immat Gran (auto) 0.08 H Absolute Neuts (auto) 8.9 H Absolute Nucleated RBC 0.000 Nucleated RBC % 0.0 Sodium 148 H Potassium 4.5 Chloride 106 Carbon Dioxide 33 H Anion Gap 9 BUN 71 H D Creatinine 1.33 H Estim Creat Clear Calc 30 Estimated GFR 38 L Glucose 127 H POC Capillary Glucose 182 H 183 H Calcium 10.6 H Phosphorus 4.1 Magnesium 2.8 H Total Bilirubin 0.4 AST 102 H ALT 157 H Alkaline Phosphatase 93 Total Protein 7.8 Albumin 4.1 Angiotensin Convert Enz Miscellaneous Test 02/27/25 02/27/25 17:01 11:16 WBC RBC Hgb Hct MCV MCH MCHC RDW Plt Count MPV Immature Gran % (Auto) Neut % (Auto) Lymph % (Auto) [place] % (Auto) Eos % (Auto) Baso % (Auto) Lymph # (Auto) [place] # (Auto) Eos # (Auto) Baso # (Auto) Abs Immat Gran (auto) Absolute Neuts (auto) Absolute Nucleated RBC Nucleated RBC % Sodium Potassium Chloride Carbon Dioxide Anion Gap BUN Creatinine Estim Creat Clear Calc Estimated GFR Glucose POC Capillary Glucose Calcium Phosphorus Magnesium Total Bilirubin AST ALT Alkaline Phosphatase Total Protein Albumin Angiotensin Convert Enz 25 Miscellaneous Test Comment Discharge Plan Discharge Attending physician on discharge: Christian Aguero Consulting providers: Gianluca Mahoney; Oscar Guadarrama; Moses Mei; Ranulfo Oquendo; Marivel Streeter; Trenton York; Kendy Wells; Kristofer Pineda; Carrillo Marshall; Gaston Rodriguez; Servando Jansen V.; Conor Ochoa; Gómez Barrientos Discharging Clinician: Baljinder Luna Patient Disposition: [facility] Activity: as tolerated Diet: tube feeding Discharge Instructions: Patient is being discharged to [facility] Patient Language: Slovak Stand Alone Forms: General Discharge Information Discharge Medications: New prednisone 10 mg Tablet 10 mg PO DAILY@0800 Qty: 30 0RF albuterol sulfate 2.5 mg /3 mL (0.083 %) Solution For Nebulization 2.5 mg inhalation Q6HRT PRN (Reason: Shortness Of Breath) Qty: 30 0RF prednisone 20 mg Tablet 20 mg PO DAILY@0800 Qty: 30 0RF Continued donepezil 5 mg tablet 5 mg feeding tube HS 60 Days Qty: 60 0RF lansoprazole 30 mg tablet,disintegrat, delay rel 30 mg feeding tube DAILY 60 Days Qty: 60 0RF albuterol sulfate 2.5 mg /3 mL (0.083 %) solution for nebulization 2.5 mg inhalation Q4H PRN (Reason: shortness of breath or wheezing) 30 Days Qty: 75 0RF arformoterol 15 mcg/2 mL solution for nebulization 15 mcg INHALATION Q12H ferrous sulfate [FeroSul] 325 mg (65 mg iron) tablet 325 mg feeding tube .twice daily rosuvastatin 20 mg tablet 20 mg feeding tube DAILY budesonide 1 mg/2 mL suspension for nebulization 1 mg inhalation Q12H cholecalciferol (vitamin D3) [D3] 50 mcg (2,000 unit) capsule 2,000 unit PO DAILY loratadine [Claritin] 5 mg/5 mL solution 10 ml PO DAILY aspirin 81 mg tablet,chewable 81 mg feeding tube DAILY Rx Instructions: morning amlodipine 5 mg tablet 5 mg feeding tube DAILY 60 Days Qty: 60 0RF Date of admission: 02/20/25 12:02 Primary Care Provider: AmbarBhavani Admitting Provider: Christian Aguero Attending physician on admission: Baljinder Luna Condition: Stable
== END 2025-03-01 18:49 | DRG 870 ==
LOC: ANHED 10:48 → ANHICU 11:30
PROVIDERS: Internal Medicine; Internal Medicine Nephrology; Admitting Provider Internal Medicine; Emergency Provider Emergency Medicine; PCP Physician Assistant; Visit Provider Family Medicine
DX: A41.9 Sepsis, unspecified organism (principal); J18.9 Pneumonia, unspecified organism; J96.22 Acute and chronic respiratory failure with hypercapnia; J96.21 Acute and chronic respiratory failure with hypoxia; N17.9 Acute kidney failure, unspecified; I69.351 Hemiplegia and hemiparesis following cerebral infarction affecting right dominant side; E87.0 Hyperosmolality and hypernatremia; Z93.0 Tracheostomy status; I69.320 Aphasia following cerebral infarction; D64.9 Anemia, unspecified; E78.5 Hyperlipidemia, unspecified; E83.52 Hypercalcemia; F02.80 Dementia in other diseases classified elsewhere, unspecified severity, without behavioral disturbance, psychotic disturbance, mood disturbance, and anxiety; G30.9 Alzheimer's disease, unspecified; I71.9 Aortic aneurysm of unspecified site, without rupture; I11.0 Hypertensive heart disease with heart failure; I50.9 Heart failure, unspecified; I25.10 Atherosclerotic heart disease of native coronary artery without angina pectoris; J43.9 Emphysema, unspecified; R91.8 Other nonspecific abnormal finding of lung field; Z93.1 Gastrostomy status; Z87.891 Personal history of nicotine dependence; Z86.14 Personal history of Methicillin resistant Staphylococcus aureus infection; Z74.01 Bed confinement status; Z79.82 Long term (current) use of aspirin; Z20.822 Contact with and (suspected) exposure to COVID-19; Z85.118 Personal history of other malignant neoplasm of bronchus and lung
CPT/HCPCS: 36415; 36600; 71045; 71250; 74019; 74176; 80048; 80053; 81001; 82164; 82306; 82310; 82340; 82375; 82397; 82550; 82570; 82805; 82948; 83050; 83605; 83735; 83880; 84100; 84145; 84156; 84300; 84484; 84540; 84590; 85018; 85025; 85055; 85610; 85730; 85999; 87040; 87086; 87637; 87641; 93005; 93306; 94002; 94003; 94640; 96374; 96375; 99291; A9270; G0378; J0360; J0696; J1200; J1650; J1815; J1938; J2185; J2470; J2919; J3373; J7030; J7060; J7070; J7120; J7512; P9047